=== PATIENT | male | born 1935 | race Caucasian/White ===

== ENCOUNTER 2017-11-16 11:20 | Outpatient (CLI) | payer MEDICARE ==
--- NOTE | 2017-11-17 10:40 | RAD ---
CHEST TWO VIEWS: HISTORY: Dyspnea. COMPARISON: Multiple exams, back to 02/15/2013. FINDINGS: The cardiac silhouette and pulmonary vasculature are unremarkable. The mediastinum is midline. Elev ation of the right hemidiaphragm and community acquired pneumonia scarring at the right infrahilar le shirley are stable. No lobar consolidation, pneumothorax, or pleural fluid. IMPRESSION: Chronic type findings are stable. No active cardiopulmonary abnormalities are demonstrated. POS: [facility]
== END 2017-11-16 11:21 | disposition home or self-care (01) ==
LOC: BICBD 11:20 → RAD 11:21
PROVIDERS: ATTEND Internal Medicine Critical Care Medicine
DX: R06.00 Dyspnea, unspecified (principal)
CPT/HCPCS: 71046

== ENCOUNTER 2018-02-25 21:20 | Inpatient (IN) | payer MEDICARE ==
[2018-02-25 21:57] LABS: Hemoglobin 15.9 g/dL (14.0-18.0); Mean Corpuscular HGB CONC 33.8 g/dL (32.0-36.0); Mean Corpuscular Hemoglobin 33.8 pg (27.0-31.0); Mean Platelet Volume 7.1 fL (7.4-10.4); Platelet Count 281 thou/uL (130-400); RBC Distribution Width 12.7 % (11.5-14.5)
[2018-02-25 22:15] LABS: ALT (SGPT) 15 U/L (8-55); AST (SGOT) 31 U/L (5-34); Albumin 4.1 g/dL (3.4-4.8); Alkaline Phosphatase 42 U/L (40-150); Anion Gap 16 mmol/L (10-20); BUN (Urea Nitrogen) 23 mg/dL (8.4-25.7); Bilirubin, Total 0.5 mg/dL (0.2-1.2); Calc. Creatinine Clearance 0 mL/min (70-130); Calcium 9.3 mg/dL (7.8-10.44); Carbon Dioxide 21 mmol/L (23-31); Chloride 103 mmol/L (98-107); Estimated GFR-MDRD 50; Globulin 3.2 g/dL (2.4-3.5); Glucose 111 mg/dL (83-110); Potassium 4.5 mmol/L (3.5-5.1); Protein, Total 7.3 g/dL (5.8-8.1); Sodium 135 mmol/L (136-145)
[2018-02-25 22:16] LABS: Band 14 % (5-11); Lymphocytes 6 % (21-51); MDiff Complete? YES; Monocytes 6 % (0-10); Neutrophil 74 % (42-75)
[2018-02-25] MEDS ORDERED: cefTRIAXone\\ROCEPHIN 1 GM VIAL ONE (22:30)
[2018-02-25 22:38] LABS: Bilirubin Negative (Negative); Blood, Urine Negative (Negative); Clarity CLEAR (Clear); Glucose, Urine (Dipstick) Negative (Negative); Leukocyte Negative (Negative); Nitrite Negative (Negative); Protein, Urine (Dipstick) 30 mg/dL (Neg-Trace); Urobilinogen 0.2 mg/dL (0.2-1.0); pH, Urine 5.5 (5.0-9.0)
--- NOTE | 2018-02-25 22:38 | RAD ---
PORTABLE CHEST: 02/25/18 HISTORY: Shortness of breath. COMPARISON: 11/16/17 exam. Heart size is within normal limits. There is elevation of the right hemidiaphragm. Some linear scarri ng or atelectasis in the right base. There is now some obscuration along the left heart border which would suggest possibly a lingular infiltrate. IMPRESSION: Increased parenchymal density now seen along the left heart border which could represent a developing lingular infiltrate. POS: [facility]
[2018-02-25 22:39] LABS: Bacteria/HPF None Seen HPF (None Seen); Hyaline Casts/LPF 7-10 HYALINE CAST LPF (0-3 Hyaline); Pathc Cast-AUWi Flag 1.45 (0-2.49); RBC/HPF 0-3 HPF (0-3); Squamous Epithelial 0-3 HPF (0-3)
--- NOTE | 2018-02-25 23:10 | CT ---
CT OF BRAIN PERFORMED WITHOUT CONTRAST ENHANCEMENT: 02/25/18 HISTORY: Shortness of breath. Patient fell and hit head. There is generalized ventricular and sulcal prominence. There is no signs of intracerebral hemorrhage or extra-axial fluid collections. Mastoid air cells and visualized sinuses appear clear. IMPRESSION: No acute intracranial abnormalities. POS: [facility]
[2018-02-25] MEDS ORDERED: Bacitracin Zinc 1 Packet ONE (23:19)
--- NOTE | 2018-02-25 23:34 | CT ---
CT OF CERVICAL SPINE PERFORMED WITHOUT CONTRAST ENHANCEMENT: 02/25/18 HISTORY: Fall with neck pain. The vertebral bodies are normal in height. Cystic changes are seen involving the dens. There is marke d disc narrowing at C4-5, C5-6 and C6-7. The facets appear to be in normal alignment. There is mild right sided foraminal narrowing at C4-5. Bilateral foraminal stenosis worse on the left at C5-6 with moderate canal stenosis related to a posterior osteophytic bar. There is also moderate bilateral foraminal narrowing at C6-7. There is no CT evidence for fracture. Lung apices show some em physematous change. IMPRESSION: No CT evidence of fracture of the cervical spine. POS: [facility]
--- NOTE | 2018-02-25 23:38 | CT ---
CT ANGIO OF CHEST PERFORMED WITH INTRAVENOUS CONTRAST ENHANCEMENT WITH 3D RECONSTRUCTIONS 02/25/18 HISTORY: Shortness of breath. COMPARISON: An 10/28/15 exam. The lungs show some infiltrative appearing changes within the left upper lobe in the left perihilar a nd lingular distribution. There is also some minimal infiltrative appearing change in the right middl e lobe and some chronic atelectatic change in the right base. There is also some minimal parenchymal density in the right upper lobe which appears to be more of a pneumonitis type change. The thoracic aorta is normal in caliber. It is tortuous. There is good pulmonary artery opacification. There is no CT evidence for pulmonary embolus. The visualized liver parenchyma shows no focal findings. Right and left adrenal gland are normal. IMPRESSION: 1. Bilateral infiltrative appearing lung changes. The changes are worse in the left upper lobe. 2. No CT evidence for pulmonary embolus. POS: [facility]
[2018-02-25] MEDS ORDERED: Azithromycin 500 MG VIAL ONE (23:49)
[2018-02-26 00:25] VITALS: BMI 30.2
[2018-02-26] MEDS ORDERED: Acetaminophen 325 MG TAB PO PRN (03:15)
--- NOTE | 2018-02-26 04:56 | HP ---
CHIEF COMPLAINT: Shortness of breath. HISTORY OF PRESENT ILLNESS: The patient is an 82-year-old male with a history of chronic obstructive pulmonary disease and a paralyzed right hemidiaphragm. The patient has been following with Dr. Ramos for his respiratory issues. The patient presented to the emergency department this evening. He is presently in the [facility] with his , who helps with additional history. They indicate the patient's oxygen levels have been going down somewhat over a period of time. He is not on oxygen, but feel like he may need to be. The patient has a chronic cough, which he believes was secondary to allergic rhinitis. He has been out of his Flonase, and he has had a bit more of a cough and they felt it was related to that. On 02/25, the day the patient presented to the emergency room, he was walking across the room and simply lost consciousness and passed out. He is not sure why. He did fall and hit the back of his head. He believes he impacted the corner of a desk and caused a laceration. EMS came, but the patient did not want to come in at that particular time. Subsequently, however, he continued to get worse and was becoming cyanotic with trying to ascend the stairs in the home. Therefore, they presented to the emergency department. The patient had laceration on the posterior scalp staple. The patient denies having had any fevers or chills. He has not had significant sputum production, but some sputum. He is not sure of the character as he has not been expectorating and he denies any chest pains or palpitations. REVIEW OF SYSTEMS: GENERAL: The patient has no problems or changes in his weight. He does admit to some snoring, but otherwise no major sleep problems. ENT: The patient has chronic hearing loss with hearing aids. No vision, taste, or smell abnormalities. GI: No difficulty with swallowing. No constipation or diarrhea. CARDIOVASCULAR: No chest pains, palpitations, or edema. PULMONARY: No specific wheezing noted. : No dysuria or frequency. Does have nocturia every 2 to 3 hours. SKIN: No lesions or rashes. NEUROLOGIC: The patient has some tingling in his left foot, which he relates to his chronic low back issues. He has no numbness or weakness. PSYCH: No anxiety or depression. ENDOCRINE: No polydipsia or polyuria. MUSCULOSKELETAL: Negative for any pain or abnormalities. All other systems were reviewed and pertinent positives and negatives mentioned in the history of present illness. PAST MEDICAL HISTORY: COPD, atrial fibrillation, hypertension, chronic back pain for which he sees Dr. Pan, paralyzed right hemidiaphragm. PAST SURGICAL HISTORY: Appendectomy, hernia repair x2. The patient had a history of perforated colon following colonoscopy, requiring surgical excision. The patient had some further complications, had to have a second excision done in [place]. He has also had a tonsillectomy. FAMILY HISTORY: Father of an [place] at 62. Mother had ALS. SOCIAL HISTORY: The patient is a nonsmoker. He quit in 1981. He does drink 3-4 bourbon drinks per day. He denies drugs. He is . His would be his surrogate decision maker. He is partial code and that he would like to have everything done other than chest compressions. ALLERGIES: NONE. CURRENT HOME MEDICATIONS: 1. Multivitamin 1 p.o. daily. 2. Magnesium 250 daily. 3. Breo Ellipta 1 inhalation daily. 4. Fenofibrate 145 mg per day. 5. Ranitidine 150 mg daily. 6. Losartan 25 daily. 7. Zetia 10 mg daily. 8. Pradaxa 75 mg b.i.d. 9. Calcium 600 mg daily. 10. Zebeta 5 mg daily. 11. Atorvastatin 80 mg daily. 12. Aspirin 81 mg daily. PHYSICAL EXAMINATION: VITAL SIGNS: Temperature 98.8, pulse 89, respirations 24, O2 saturation 95% on 2 L, and BP 175/80. GENERAL APPEARANCE: Age-appropriate male, he is in no distress. He is awake, alert, oriented, pleasant, and cooperative. HEENT: PERRL. No OP lesions. NECK: Supple and symmetric. No lymphadenopathy, JVD, or bruits. HEART: Regular rate and rhythm without gallops or rubs. He has a small 2/6 murmur at the left lower sternal border. LUNGS: Diminished with some basilar rales. ABDOMEN: Soft, nontender, and nondistended. Positive bowel sounds. No masses. No organomegaly. EXTREMITIES: Warm and dry with no edema. LABORATORY DATA: White count 17.0, hemoglobin 15.9, platelets 281, 74 neutrophils, 14 bands, 16 lymphocytes. Sodium 135, potassium 4.5, chloride 103, CO2 is 21, BUN is 23, creatinine is 1.37, glucose 111, lactic acid 1.3, AST 31, ALT 15, troponin 0.017, BNP is 327.6, albumin is 4.1. Urinalysis, 7-10 white cells, trace protein, no bacteria, no leukocyte esterase. Flu screen negative. CTA of the chest shows bilateral infiltrates, worse in the left upper lobe. No evidence of PE. CT scan of the brain, no intracranial acute processes. C-spine normal. Chest x-ray, lingular infiltrate. IMPRESSION AND PLAN: 1. Acute on chronic hypoxic respiratory failure. The patient reports that his O2 saturations were in the 70s on a pulse oximeter, which they have at home prior to arriving. This most likely represents combination of acute infection with pneumonia and some underlying chronic obstructive pulmonary disease and right hemidiaphragm dysfunction. 2. Pneumonia. The patient will be continued on Rocephin and azithromycin for community-acquired pneumonia in the setting of significant chronic obstructive pulmonary disease. 3. Chronic obstructive pulmonary disease, nebulizers, steroids, antibiotics. Consult Pulmonary. 4. Renal. The patient's creatinine is consistent with what it has been a previous visit, in fact may be slightly better. His GFR is 50, representing chronic stage 3 kidney disease. 5. Hypertension. Continue with losartan. 6. Hyperlipidemia. Continue with fenofibrate and Zetia and atorvastatin. Job ID: [id number]
[2018-02-26] MEDS ORDERED: Enoxaparin Sodium 40 MG/0.4 ML SYRINGE SC SCH (09:00)
[2018-02-26] MEDS ORDERED: Famotidine 20 MG TAB PO SCH (09:00)
--- NOTE | 2018-02-26 11:44 | CON ---
DATE OF CONSULTATION: HISTORY OF PRESENT ILLNESS: An 82-year-old morbidly obese gentleman, the patient of Dr. Ramos's presented with shortness of breath. He saw Dr. Ramos two months ago in the office. He presents with oxygen saturation of 94% on 2 L, temperature 100.1. He is 86 kg. Blood pressure was 157/83, respirations 33. Apparently in the ER, his sats were 81% on room air. He has chronic hypoxemia. He is being evaluated for home oxygen. He denies any chest pain, chills, or sweats. History of a paralyzed diaphragm, which Dr. Ramos has seen him for a period of time. This morning, he said he is feeling better. PAST MEDICAL HISTORY: COPD, hypertension, chronic pain, abnormal chest x-ray, high cholesterol, and atrial fibrillation. PAST SURGICAL HISTORY: Previous surgeries: Gallbladder, appendix, hernia, bowel surgery. SOCIAL HISTORY: Alcohol 5 drinks a day. Tobacco, former smoker, quit smoking 10 years ago. MEDICATIONS: His medicine from home are; 1. Ranitidine. 2. Vitamin. 3. Magnesium. 4. Losartan 25. 5. . 6. Zetia 10. 7. Pradaxa 75. 8. Calcium. 9. Zebeta 5. ALLERGIES: NONE. REVIEW OF SYSTEMS: Otherwise, 10 point negative. PHYSICAL EXAMINATION: VITAL SIGNS: As noted his saturations are 99% to 100% on 2 L, temperature 98, pulse 78, respiratory rate 21 and blood pressure is elevated 195/95. CHEST: Decreased breath sounds. No wheezing. CARDIAC: Normal S1 and S2. No gallops. ABDOMEN: Massive. EXTREMITIES: No edema. LABORATORY DATA: His white count 17,000, H and H 15 and 47. Platelet count is normal. Creatinine is 1.37, elevated, BUN was normal. He had a chest x-ray taken on admission, which showed elevated right hemidiaphragm and a questionable left-sided infiltrate. CT chest was done to rule out pulmonary emboli, which showed no evidence of pulmonary emboli, bilateral infiltrates. IMPRESSION: 1. Chronic obstructive pulmonary disease exacerbation, bronchitis, pneumonia. 2. Morbid obesity, probably sleep apnea. 3. Pneumonia. 4. Azotemia. 5. Continue neb treatment, antibiotics, steroids, and supportive care. 6. Early ambulation. He can be transferred out of the MICU to the medical floor. Consultation note, 70 minutes, of which 50% in direct patient's care. Job ID: [id number]
--- NOTE | 2018-02-26 13:14 | PDOC.PN ---
- Subjective Encounter Start Date: 02/26/18 Encounter Start Time: 11:15 Subjective: breathing better now, no chest pain or palp -: at bedside -: he normally amb without assistive devices - Objective Resuscitation Status - Order Detail: 02/26/18 03:15 Resuscitation Status Routine Resuscitation Status: PRTL: Chem-Intubation Discussed with: patient and Additional comments: Wants everything except chest compression. MAR Reviewed: Yes Vital Signs & Weight: Vital Signs (12 hours) Temp Pulse Resp BP Pulse Ox 02/26/18 11:39 98.1 F 78 22 H 199/87 H 91 L 02/26/18 08:40 99 02/26/18 07:42 98.2 F 78 21 H 197/95 H 99 02/26/18 06:54 98 02/26/18 04:20 97.7 F 92 28 H 164/86 H 97 Weight Weight 186 lb 14.4 oz I&O: 02/25/18 02/26/18 02/27/18 06:59 06:59 06:59 Intake Total 400 Output Total 225 Balance 175 Result Diagrams: 02/25/18 21:48 02/25/18 21:48 Phys Exam - Physical Examination HEENT: PERRLA, moist MMs Neck: no JVD, supple Respiratory: no wheezing rhonchi+ Cardiovascular: RRR, no significant murmur Gastrointestinal: soft, non-tender, positive bowel sounds Musculoskeletal: pulses present, edema present Neurological: non-focal, moves all 4 limbs Psychiatric: normal affect, A&O x 3 Dx/Plan (1) COPD exacerbation Code(s): J44.1 - CHRONIC OBSTRUCTIVE PULMONARY DISEASE W (ACUTE) EXACERBATION Status: Acute (2) Acute exacerbation of CHF (congestive heart failure) Code(s): I50.9 - HEART FAILURE, UNSPECIFIED Status: Suspected Qualifiers: Heart failure type: diastolic Qualified Code(s): I50.33 - Acute on chronic diastolic (congestive) heart failure (3) PNA (pneumonia) Code(s): J18.9 - PNEUMONIA, UNSPECIFIED ORGANISM Status: Acute Qualifiers: Pneumonia type: due to unspecified organism Laterality: left (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 (5) HTN (hypertension) Code(s): I10 - ESSENTIAL (PRIMARY) HYPERTENSION Status: Chronic Qualifiers: Hypertension type: essential hypertension Qualified Code(s): I10 - Essential (primary) hypertension (6) Chronic back pain Code(s): M54.9 - DORSALGIA, UNSPECIFIED; G89.29 - OTHER CHRONIC PAIN Status: Chronic Qualifiers: Back pain location: back pain in unspecified location (7) CKD (chronic kidney disease) stage 3, GFR 30-59 ml/min Code(s): N18.3 - CHRONIC KIDNEY DISEASE, STAGE 3 (MODERATE) Status: Chronic (8) Afib Code(s): I48.91 - UNSPECIFIED ATRIAL FIBRILLATION Status: Chronic Qualifiers: Atrial fibrillation type: paroxysmal Qualified Code(s): I48.0 - Paroxysmal atrial fibrillation - Plan is on zithromax and ceftriaxone -: steroid, nebs -: echo for lv function -: to ambulate as tolerated -: july tx to [facility] floor * . Review of Systems - Medications/Allergies Allergies/Adverse Reactions: Allergies Allergy/AdvReac Type Severity Reaction Status Date / Time No Known Allergies Allergy Verified 02/26/18 00:24 Medications: Current Medications Acetaminophen (Tylenol) 650 mg PO Q4H PRN PRN Reason: Headache/Fever/Mild Pain (1-3) Albuterol/Ipratropium (Duoneb) 3 ml NEB [id number] [facility] Aspirin (Aspirin Chewable) 81 mg PO DAILY [facility] Atorvastatin Calcium (Lipitor) 80 mg PO DAILY [facility] Bisoprolol Fumarate (Zebeta) 5 mg PO DAILY [facility] Calcium Carbonate (Caltrate) 600 mg PO DAILY [facility] Dabigatran (Pradaxa) 75 mg PO BID [facility] Ezetimibe (Zetia) 10 mg PO DAILY [facility] Famotidine (Pepcid) 20 mg PO DAILY [facility] Fenofibrate (Tricor) 145 mg PO DAILY [facility] Azithromycin 500 mg/ Sodium (Chloride) 250 mls @ 250 mls/hr IVPB 2300 [facility] Ceftriaxone Sodium 1 gm/ (Sodium Chloride) 100 mls @ 200 mls/hr IVPB 2100 [facility] Losartan Potassium (Cozaar) 25 mg PO DAILY [facility] Magnesium Oxide (Magnesium Oxide) 250 mg PO DAILY [facility] Methylprednisolone Sodium Succinate (Solu-Medrol) 40 mg IVP Q6HR MAX Last Admin: 02/26/18 12:58 Dose: 40 mg Mometasone Furoate/Formoterol Fumar (Dulera 200 Mcg/5 Mcg Inhaler) 2 puff INH BID-RT MAX Mometasone Furoate/Formoterol Fumar (Dulera 200 Mcg/5 Mcg Inhaler) 2 puff INH BID-RT MAX Multivitamins (Theragran) 1 tab PO DAILY MAX Sodium Chloride (Flush - Normal Saline) 10 ml IVF PRN PRN PRN Reason: Saline Flush Last Admin: 02/26/18 05:39 Dose: 10 ml
[2018-02-26] MEDS: Bisoprolol Fumarate 5 MG TAB PO SCH ×2 (13:26→13:27)
[2018-02-26] MEDS: Magnesium Oxide 250 MG TAB PO SCH (13:27)
[2018-02-26] MEDS ORDERED: Propafenone HCl 150 MG TAB PO SCH (14:00)
[2018-02-26] MEDS: Losartan 25 MG TAB PO SCH (14:14)
[2018-02-26] MEDS: Ezetimibe 10 MG TAB PO SCH (14:14)
[2018-02-26] MEDS: Fenofibrate Nanocrystallized 145 MG TAB PO SCH (14:16)
[2018-02-26] MEDS: Atorvastatin Calcium 40 MG TAB PO SCH (14:16)
[2018-02-26] MEDS: Propafenone HCl 150 MG TAB PO SCH ×2 (14:27→20:03)
[2018-02-26] MEDS: Mometasone/Formoterol 120 PUFF INHALER INH SCH ×2 (18:53→18:54)
[2018-02-26] MEDS ORDERED: cefTRIAXone\\ROCEPHIN 1 GM in Sodium Chloride 0.9% 100 ML IVPB SCH (21:00)
[2018-02-26] MEDS ORDERED: Azithromycin 500 MG in Sodium Chloride 0.9% 250 ML 250 ML IVPB SCH (23:00)
[2018-02-27] MEDS: Mometasone/Formoterol 120 PUFF INHALER INH SCH ×2 (06:54→06:56)
[2018-02-27 08:55] LABS: Anion Gap 12 mmol/L (10-20); BUN (Urea Nitrogen) 28 mg/dL (8.4-25.7); Calc. Creatinine Clearance 49 mL/min (70-130); Calcium 9.3 mg/dL (7.8-10.44); Carbon Dioxide 25 mmol/L (23-31); Chloride 105 mmol/L (98-107); Estimated GFR-MDRD 51; Glucose 169 mg/dL (83-110); Potassium 4.1 mmol/L (3.5-5.1); Sodium 138 mmol/L (136-145)
[2018-02-27] MEDS ORDERED: Famotidine 20 MG TAB PO SCH (09:00)
[2018-02-27] MEDS ORDERED: Calcium Carbonate 600 MG TAB PO SCH (09:00)
[2018-02-27] MEDS ORDERED: Non-Formulary Item 1 EACH (Ranitidine Hcl [Ranitidine Hcl] 150 MG) PO SCH (09:00)
[2018-02-27] MEDS ORDERED: Multivit, Therapeutic 1 TAB PO SCH (09:00)
[2018-02-27] MEDS: Atorvastatin Calcium 40 MG TAB PO SCH (09:06)
[2018-02-27] MEDS: Bisoprolol Fumarate 5 MG TAB PO SCH (09:07)
[2018-02-27] MEDS: Ezetimibe 10 MG TAB PO SCH (09:08)
[2018-02-27] MEDS: Fenofibrate Nanocrystallized 145 MG TAB PO SCH (09:09)
[2018-02-27] MEDS: Losartan 25 MG TAB PO SCH (09:09)
[2018-02-27] MEDS: Magnesium Oxide 250 MG TAB PO SCH (09:10)
[2018-02-27] MEDS: Propafenone HCl 150 MG TAB PO SCH (09:10)
[2018-02-27 09:14] LABS: Band 9 % (5-11); Hemoglobin 14.5 g/dL (14.0-18.0); Lymphocytes 10 % (21-51); MDiff Complete? YES; Mean Corpuscular HGB CONC 32.4 g/dL (32.0-36.0); Mean Corpuscular Hemoglobin 32.9 pg (27.0-31.0); Mean Platelet Volume 7.3 fL (7.4-10.4); Neutrophil 81 % (42-75); Platelet Count 299 thou/uL (130-400); RBC Distribution Width 12.7 % (11.5-14.5); Red Blood Cell (RBC) Count 4.39 mill/uL (4.70-6.10); White Blood Cell (WBC) Count 15.3 thou/uL (4.8-10.8)
--- NOTE | 2018-02-27 10:42 | PRG ---
DATE OF SERVICE: 02/27/2018 SUBJECTIVE: This morning, he is much better, awake, alert, responsive, in no distress. No coughing. No wheezing. OBJECTIVE: VITAL SIGNS: His saturations are 96% on room air, respiratory rate 22, temperature is 97, and blood pressure is 169/84. CHEST: Decreased breath sounds. No wheezing. CARDIAC: Normal S1 and S2. No gallops. ABDOMEN: No masses. IMPRESSION: 1. Chronic obstructive pulmonary disease exacerbation. 2. Bronchitis. 3. Pneumonia. 4. Azotemia. He can be discharged to home on oral antibiotics or prednisone for a week taper. Follow up with his primary physician. Job ID: [id number]
[2018-02-27 10:52] VITALS: BP 144/86; TEMP 98
--- NOTE | 2018-02-27 13:07 | PDOC.PN ---
- Subjective Encounter Start Date: 02/27/18 Encounter Start Time: 08:15 Subjective: wants to go home, is feeling much better - Objective Resuscitation Status - Order Detail: 02/26/18 03:15 Resuscitation Status Routine Resuscitation Status: PRTL: Chem-Intubation Discussed with: patient and Additional comments: Wants everything except chest compression. MAR Reviewed: Yes Vital Signs & Weight: Vital Signs (12 hours) Temp Pulse Resp BP BP Pulse Ox 02/27/18 10:51 98.0 F 97 16 144/86 H 93 L 02/27/18 07:25 97.8 F 83 22 H 169/84 H 96 02/27/18 06:54 81 20 90 L 02/27/18 06:46 90 L 02/27/18 06:44 81 20 90 L 02/27/18 03:56 97.3 F L 80 20 139/96 H 94 L Weight Weight 186 lb 4.8 oz I&O: 02/26/18 02/27/18 02/28/18 06:59 06:59 06:59 Intake Total 400 650 Output Total 225 1350 Balance 175 -700 Result Diagrams: 02/27/18 08:15 02/27/18 08:15 Phys Exam - Physical Examination HEENT: PERRLA, moist MMs Neck: no JVD, supple Respiratory: no wheezing, no rales rhonchi+ Cardiovascular: no significant murmur, irregular Gastrointestinal: soft, non-tender, positive bowel sounds Musculoskeletal: no edema, pulses present Neurological: non-focal, moves all 4 limbs Psychiatric: normal affect, A&O x 3 Dx/Plan (1) COPD exacerbation Code(s): J44.1 - CHRONIC OBSTRUCTIVE PULMONARY DISEASE W (ACUTE) EXACERBATION Status: Acute (2) Acute exacerbation of CHF (congestive heart failure) Code(s): I50.9 - HEART FAILURE, UNSPECIFIED Status: Suspected Qualifiers: Heart failure type: diastolic Qualified Code(s): I50.33 - Acute on chronic diastolic (congestive) heart failure (3) PNA (pneumonia) Code(s): J18.9 - PNEUMONIA, UNSPECIFIED ORGANISM Status: Acute Qualifiers: Pneumonia type: due to unspecified organism Laterality: left (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 (5) HTN (hypertension) Code(s): I10 - ESSENTIAL (PRIMARY) HYPERTENSION Status: Chronic Qualifiers: Hypertension type: essential hypertension Qualified Code(s): I10 - Essential (primary) hypertension (6) Chronic back pain Code(s): M54.9 - DORSALGIA, UNSPECIFIED; G89.29 - OTHER CHRONIC PAIN Status: Chronic Qualifiers: Back pain location: back pain in unspecified location (7) CKD (chronic kidney disease) stage 3, GFR 30-59 ml/min Code(s): N18.3 - CHRONIC KIDNEY DISEASE, STAGE 3 (MODERATE) Status: Chronic (8) Afib Code(s): I48.91 - UNSPECIFIED ATRIAL FIBRILLATION Status: Chronic Qualifiers: Atrial fibrillation type: paroxysmal Qualified Code(s): I48.0 - Paroxysmal atrial fibrillation - Plan prednisone taper, doxy -: has been cleared by for dc -: to f/u with PCP in 1 week -: to check Pulse and Bp twice daily to f/u with his PCP -: is on bystolic and propafenone * .
--- NOTE | 2018-02-27 14:00 | DIS ---
DATE OF ADMISSION: 02/25/2018 DATE OF DISCHARGE: 02/27/2018 DISCHARGE DISPOSITION: To home. PRIMARY DISCHARGE DIAGNOSES: Chronic obstructive pulmonary disease exacerbation; acute congestive heart failure exacerbation with diastolic dysfunction, stage B; left lung pneumonia. SECONDARY DISCHARGE DIAGNOSES: Chronic right hemidiaphragm paresis, hypertension, chronic back pain, chronic kidney disease stage 3, chronic paroxysmal atrial fibrillation. PROCEDURES DONE DURING HOSPITALIZATION: CT brain done showed no acute intracranial abnormalities. Chest x-ray done showed increased parenchymal density along the left heart border which could represent developing lingular infiltrate. CT angio chest showed no evidence of PE. There were bilateral infiltrative appearing lung changes with changes of worsened left upper lobe. CT cervical spine showed no fracture. Echo with 2D Doppler showed EF of 50% to 55%, diastolic dysfunction, moderate aortic regurgitation, severe tricuspid regurgitation. Blood cultures x2, no growth. Influenza A and B antigens were negative. White count of 17 on admission with 14% bands. Discharge BUN and creatinine are 28 and 1.3. BNP 327. Albumin is 4.1. INPATIENT CONSULT: Dr. Saucedo for Pulmonology and Critical Care. DISCHARGE MEDICATIONS: 1. Doxycycline 100 mg p.o. twice daily for 5 days. 2. Prednisone taper starting at 10 mg twice daily over the course of 7 days. 3. DuoNeb q.6 hourly p.r.n. 4. Ranitidine 150 mg p.o. daily. 5. Propafenone 150 mg p.o. three times daily. 6. Losartan 25 mg daily. 7. Bystolic 5 mg daily. 8. Atorvastatin 80 mg p.o. daily. 9. Aspirin 81 mg p.o. daily. 10. Pradaxa 75 mg twice daily. 11. Zetia 10 mg daily. 12. Fenofibrate 145 mg p.o. daily. 13. Magnesium 250 mg p.o. daily. 14. Multivitamin one tablet once daily. ALLERGIES: NO KNOWN DRUG ALLERGIES. DISCHARGE PLAN: The patient to follow up with primary care physician in one week. BRIEF COURSE DURING HOSPITALIZATION: The patient initially got admitted on 22 with complaints of shortness of breath. He was also wheezing on admission. The patient was essentially admitted for acute COPD exacerbation, left lung pneumonia, and mild CHF exacerbation with diastolic dysfunction. The patient initially had acute hypoxic respiratory failure with saturations in his 70s on arrival, which got corrected after nebulizations. He had multiple workups done due to fall at home as part of trauma protocol. No acute fractures were noted. The patient is on Pradaxa. This was held for 24 hours and restarted. The patient has had significant improvement in his symptoms and is wanting to go home to be there with family for [place]. He was evaluated by Dr. Saucedo for Pulmonary and Critical Care and has cleared him for discharge. The patient needs to continue prednisone taper as prescribed and doxycycline as well. He also needs to check his pulse and blood pressure twice daily. He is on Bystolic and propafenone for chronic atrial fibrillation. Please see a [id number] documentation for the day of discharge on [facility]. Job ID: [id number]
[2018-02-27] MEDS ORDERED: Doxycycline 100 MG CAP PO SCH (21:00)
[2018-02-28] MEDS ORDERED: predniSONE 20 MG TAB PO SCH (08:00)
== END 2018-02-27 13:34 | disposition home or self-care (01) | DRG 291 ==
LOC: ERS 21:20 → 2NO 22:44 → ERHOLD 23:08 → IMCU/EMU 02-26 00:15
PROVIDERS: ADMIT Internal Medicine; ATTEND Internal Medicine
DX: I13.0 Hypertensive heart and chronic kidney disease with heart failure and stage 1 through stage 4 chronic kidney disease, or unspecified chronic kidney disease (principal); J96.21 Acute and chronic respiratory failure with hypoxia; J18.9 Pneumonia, unspecified organism; I50.33 Acute on chronic diastolic (congestive) heart failure; J44.1 Chronic obstructive pulmonary disease with (acute) exacerbation; M54.9 Dorsalgia, unspecified; G89.29 Other chronic pain; J98.6 Disorders of diaphragm; R79.89 Other specified abnormal findings of blood chemistry; E78.5 Hyperlipidemia, unspecified; I48.0 Paroxysmal atrial fibrillation; N18.3 Chronic kidney disease, stage 3 (moderate); E66.01 Morbid (severe) obesity due to excess calories; Z68.30 Body mass index [BMI] 30.0-30.9, adult; Z79.82 Long term (current) use of aspirin; Z87.891 Personal history of nicotine dependence; Z82.49 Family history of ischemic heart disease and other diseases of the circulatory system
CPT/HCPCS: 36415; 70450; 71045; 71275; 72125; 80048; 80053; 81003; 81015; 83605; 83880; 84484; 85025; 87040; 87804; 93005; 93306; 94640; 94664; J0456; J0696; J2920; J7050; J7620

== ENCOUNTER 2018-03-04 09:32 | Outpatient (CLI) | payer MEDICARE ==
--- NOTE | 2018-03-04 09:57 | RAD ---
TWO VIEWS CHEST: Comparison: 02-25-18 History: Shortness of breath. Left sided pneumonia. FINDINGS: Single view of the chest shows a normal sized cardiomediastinal silhouette. There is stable elevation of the right hemidiaphragm. There is no evidence of consolidation, mass, or pleural effusion. IMPRESSION: No evidence of acute cardiopulmonary disease. POS: [facility]
== END 2018-03-04 09:33 | disposition home or self-care (01) ==
LOC: RAD-FRANK 09:32
PROVIDERS: ATTEND Nurse Practitioner Family
DX: R06.02 Shortness of breath (principal)
CPT/HCPCS: 71046

== ENCOUNTER 2018-03-28 11:45 | Outpatient (CLI) | payer MEDICARE ==
--- NOTE | 2018-03-28 16:43 | MRI ---
MRI LUMBAR SPINE WITHOUT CONTRAST: HISTORY: Lumbar stenosis with neurogenic claudication. Low back pain for many years that radiates down both l egs, with occasional tingling. COMPARISON: 09/26/2009 TECHNIQUE: An MRI of the lumbar spine is performed without IV contrast. Multisequential, multiplanar imaging is performed. FINDINGS: There is appropriate T1 marrow signal intensity of the lumbar vertebrae. Lumbar spine vertebral body height is maintained. There is no fracture. There is irregularity with mild loss of vertebral body height along the superior aspect of L2 and L3, compatible with a Schmorl's node. The adjacent bone marrow is mildly edematous. There are type II modic changes at T12-L1. There is 2.4 mm of retrolist hesis of L1 upon L2. There is 1.8 mm of retrolisthesis of L4 upon L5. The visualized solid organs have appropriate signal intensity. There is symmetric signal intensity o f the psoas muscle. The conus medullaris terminates at the T12-L1 disk space level. Based on the sagittal images, there appears to be at least moderate stenosis involving the T11-T12 le shirley, incompletely evaluated. The overall AP diameter of the central spinal canal is narrowed, secondary to congenitally foreshorte silvana pedicles. T12-L1: Small right paracentral disk bulge. Mild central canal stenosis. Mild bilateral neural for aminal narrowing. L1-L2: There is severe loss of disk space height. Broad-based disk bulge, ligamentum flavum thicken ing, and facet hypertrophy result in moderate to severe central canal stenosis. Moderate to severe b ilateral neural foraminal narrowing. L2-L3: Moderate to severe loss of disk space height. Broad-based disk bulge, ligamentum flavum thic kening, and facet hypertrophy result in severe central canal stenosis. Moderate right and left bhavesh inal narrowing. L3-L4: Moderate loss of disk space height. Broad-based disk bulge, ligamentum flavum thickening, an d facet hypertrophy result in severe central canal stenosis. Mild right and moderate left foraminal narrowing. L4-L5: Moderate loss of disk space height. Broad-based disk bulge, ligamentum flavum thickening, an d facet hypertrophy result in severe central canal stenosis. Moderate to severe right and left bhavesh inal narrowing. L5-S1: Fusion of the disk space, unchanged from the previous exam. There is an osseous spur in the left subarticular zone, which obscures the traversing left S1 nerve root. Mild stenosis of the theca l sac. Moderate right and left foraminal narrowing. IMPRESSION: Degenerative change of the lumbar spine as above. There is multilevel severe central canal stenosis and significant neural foraminal narrowing, as detailed above. POS: [facility]
== END 2018-03-28 11:46 | disposition home or self-care (01) ==
LOC: BICMRI 11:45
PROVIDERS: ATTEND Anesthesiology Pain Medicine
DX: M48.062 Spinal stenosis, lumbar region with neurogenic claudication (principal); M47.896 Other spondylosis, lumbar region; M48.07 Spinal stenosis, lumbosacral region
CPT/HCPCS: 72148

== ENCOUNTER 2018-04-27 12:46 | Outpatient (CLI) | payer MEDICARE ==
--- NOTE | 2018-04-27 14:22 | RAD ---
CHEST TWO VIEWS: Date: 04-27-18 Comparison: 11-16-17 History: Dyspnea. FINDINGS: There is elevation of the right hemidiaphragm, unchanged when compared to prior imaging. Heart and mediastinal contours are stable. No pneumothorax, pleural fluid, focal consolidation or olga eolar edema. IMPRESSION: Stable appearance of the chest. POS: [facility]
== END 2018-04-27 12:47 | disposition home or self-care (01) ==
LOC: RAD 12:46
PROVIDERS: ATTEND Internal Medicine Critical Care Medicine
DX: R06.00 Dyspnea, unspecified (principal)
CPT/HCPCS: 71046

== ENCOUNTER 2018-05-31 05:01 | Outpatient (CLI) | payer MEDICARE ==
[2018-05-31 12:46] LABS: Hemoglobin 16.4 g/dL (14.0-18.0); Mean Corpuscular HGB CONC 32.5 g/dL (32.0-36.0); Mean Corpuscular Hemoglobin 32.3 pg (27.0-31.0); Mean Corpuscular Volume 99.2 fL (78.0-98.0); Mean Platelet Volume 7.2 fL (7.4-10.4); Platelet Count 289 thou/uL (130-400); RBC Distribution Width 13.6 % (11.5-14.5); Red Blood Cell (RBC) Count 5.09 mill/uL (4.70-6.10); White Blood Cell (WBC) Count 9.7 thou/uL (4.8-10.8)
[2018-05-31 13:04] LABS: Anion Gap 15 mmol/L (10-20); BUN (Urea Nitrogen) 21 mg/dL (8.4-25.7); Calc. Creatinine Clearance 0 mL/min (70-130); Calcium 10.6 mg/dL (7.8-10.44); Carbon Dioxide 26 mmol/L (23-31); Chloride 107 mmol/L (98-107); Estimated GFR-MDRD 40; Glucose 89 mg/dL (83-110); Potassium 5.3 mmol/L (3.5-5.1); Sodium 143 mmol/L (136-145)
[2018-05-31 13:09] LABS: INR-International Normal Ratio 1.1; PTT 31.4 SEC (22.9-36.1); Prothrombin Time 14.6 SEC (12.0-14.7)
== END 2018-05-31 05:02 | disposition home or self-care (01) ==
LOC: LABBT 05:01
PROVIDERS: ATTEND Surgery
DX: Z01.812 Encounter for preprocedural laboratory examination (principal); M48.062 Spinal stenosis, lumbar region with neurogenic claudication; M48.04 Spinal stenosis, thoracic region
CPT/HCPCS: 80048; 85027; 85610; 85730

== ENCOUNTER 2018-06-03 10:08 | Inpatient (IN) | payer MEDICARE ==
[2018-06-03] MEDS ORDERED: Rocuronium Bromide 10 MG/ML (10ML VIAL) ONE (10:29)
[2018-06-03] MEDS ORDERED: Ondansetron PF 4 MG/2 ML Vial ONE (10:29)
[2018-06-03] MEDS ORDERED: ePHEDrine 50 MG/ML VIAL ONE (10:29)
[2018-06-03] MEDS ORDERED: PROPOFOL 200 MG/20 ML VIAL ONE (10:29)
[2018-06-03] MEDS ORDERED: Lidocaine 1% PF 5 ML VIAL ONE (10:29)
[2018-06-03] MEDS ORDERED: Dexamethasone 20 MG/5 ML VIAL ONE (10:29)
[2018-06-03] MEDS ORDERED: Bacitracin Zinc Ointment 30 gm TUBE ONE (12:55)
[2018-06-03] MEDS ORDERED: Sodium Chloride 0.9% 10 ML ONE (12:55)
[2018-06-03] MEDS ORDERED: Thrombin 5000 UNITS/5 ML VIAL ONE ×3 (12:55→15:50)
[2018-06-03] MEDS ORDERED: Lidocaine 2% Jelly 5 ML TUBE ONE (12:58)
[2018-06-03] MEDS ORDERED: Fentanyl 100 MCG/2 ML VIAL ONE ×2 (12:58→17:22)
[2018-06-03] MEDS ORDERED: Phenylephrine HCL 10 MG/ML VIAL ONE (12:59)
[2018-06-03] MEDS ORDERED: Albumin 5% 500 ML ONE (15:05)
[2018-06-03] MEDS ORDERED: Acetaminophen/Codeine 30-300mg Tablet PO PRN (18:22)
[2018-06-03] MEDS ORDERED: Mag-Al 1200 mg/1200 mg/30 ML UDCUP PO PRN (18:22)
[2018-06-03] MEDS ORDERED: Fleet Enema 133 ML BOT PR PRN (18:22)
[2018-06-03] MEDS ORDERED: traMADol HCl 50 MG TAB PO PRN (18:22)
[2018-06-03] MEDS ORDERED: Promethazine HCl 25 MG/ML VIAL IM PRN (18:22)
[2018-06-03] MEDS ORDERED: HYDROcodone/Acetaminophen 7.5/325 mg Tablet PO PRN (18:22)
[2018-06-03] MEDS ORDERED: Bisacodyl 10 MG SUPP PR PRN (18:22)
[2018-06-03] MEDS ORDERED: Ventilator Sedation Protocol 1 EACH FS ONE (18:26)
[2018-06-03] MEDS ORDERED: Propofol 1,000 MG/100 ML VIAL IV ONE (18:31)
[2018-06-03] MEDS ORDERED: Fentanyl BOLUS 250 ML IVPB PRN (18:36)
[2018-06-03] MEDS ORDERED: fentaNYL Citrate/PF 2,000 MCG in Sodium Chloride 0.9% 60 ML IV SCH (18:36)
[2018-06-03] MEDS ORDERED: Propofol BOLUS 1,000 MG/100 ML VIAL IV PRN (18:36)
[2018-06-03] MEDS ORDERED: DISCONTINUE PREVIOUS NARCOTIC PAIN MEDICATIONS AND BENZODIAZEPINES FS SCH (18:36)
[2018-06-03] MEDS ORDERED: Morphine 2 MG/ML SYRINGE SLOW IVP PRN (18:36)
[2018-06-03] MEDS ORDERED: Propofol 1,000 MG/100 ML VIAL IV PRN (18:36)
[2018-06-03] MEDS ORDERED: Lorazepam 2 MG/ML VIAL SLOW IVP PRN (18:36)
[2018-06-03 19:03] LABS: Actual Bicarbonate (HCO3a) 25.3 mEq/L (22-28); Base Excess (BEa) -0.9 mEq/L (-2.0 to +3.0); CO2 Tension 48.1 mmHg (35.0-45.0); Calcium, Ionized 1.17 mmol/L (1.12-1.30); Carboxyhemoglobin (COHb) 1.3 gm% (0.0-3.0); Hemoglobin (Hb) 12.7 g/dL (14.0-18.0); O2 Tension (PaO2) 86.2 mmHg (> 60.0); Potassium - ABG Lab 4.17 mmol/L (3.70-5.30); pH, Arterial 7.34 (7.35-7.45)
[2018-06-03 19:06] LABS: Puncture Site L RADIAL
[2018-06-03 19:07] LABS: ALV-art Gradient 210.175 (0-20)
[2018-06-03] MEDS: Fenofibrate Nanocrystallized 145 MG TAB PO SCH (19:30)
[2018-06-03] MEDS: Atorvastatin Calcium 40 MG TAB PO SCH (19:30)
[2018-06-03] MEDS: Ezetimibe 10 MG TAB PO SCH (19:30)
[2018-06-03] MEDS: Propafenone HCl 150 MG TAB PO SCH (19:31)
[2018-06-03] MEDS: Sodium Chloride 0.9% 1,000 ML IV SCH (19:58)
[2018-06-03] MEDS ORDERED: Budesonide 0.25 MG/2 ML NEB NEB SCH (20:00)
[2018-06-03] MEDS: CEFAZOLIN 2 GM in Premix Bag 1 BAG IVPB SCH (20:06)
[2018-06-03 23:31] VITALS: BMI 31.8
[2018-06-04] MEDS: CEFAZOLIN 2 GM in Premix Bag 1 BAG IVPB SCH (04:21)
[2018-06-04 05:47] LABS: #Lymphocytes 1.3 thou/uL (1.20-3.40); #Monocytes 0.9 thou/uL (0.11-0.59); #Neutrophils 10.9 thou/uL (1.40-6.50); %Basophils 0.3 % (0.0-1.0); %Eosinophils 0.1 % (0.0-10.0); %Lymphocytes 9.9 % (21.0-51.0); %Monocytes 6.9 % (0.0-10.0); %Neutrophils 82.9 % (42.0-75.0); Mean Corpuscular HGB CONC 32.5 g/dL (32.0-36.0); Mean Corpuscular Hemoglobin 33.2 pg (27.0-31.0); Mean Platelet Volume 7.6 fL (7.4-10.4); Platelet Count 218 thou/uL (130-400); RBC Distribution Width 13.5 % (11.5-14.5); White Blood Cell (WBC) Count 13.1 thou/uL (4.8-10.8)
[2018-06-04 05:58] LABS: Anion Gap 12 mmol/L (10-20); BUN (Urea Nitrogen) 25 mg/dL (8.4-25.7); Calc. Creatinine Clearance 41 mL/min (70-130); Calcium 8.1 mg/dL (7.8-10.44); Carbon Dioxide 25 mmol/L (23-31); Chloride 108 mmol/L (98-107); Estimated GFR-MDRD 39; Glucose 125 mg/dL (83-110); Potassium 4.4 mmol/L (3.5-5.1); Sodium 141 mmol/L (136-145)
[2018-06-04] MEDS ORDERED: Budesonide 0.25 MG/2 ML NEB NEB SCH (06:30)
[2018-06-04] MEDS ORDERED: Prevnar 13-Val Conj/PF 0.5 ML SYRINGE IM ONE (09:00)
--- NOTE | 2018-06-04 10:00 | PRG ---
DATE OF SERVICE: 06/04/2018 The patient is an 83-year-old male, postoperative day #1, status post multilevel thoracolumbar laminectomy. Following the surgery, he was transitioned to the ICU and remained intubated considering his pulmonary history. He has also been followed by the Pulmonary team. No overnight events, and he currently remains intubated at this time, but they have transitioned him to CPAP and are anticipating extubation in the near future. The patient is awake, opens eyes, is easily alert. He follows commands. He has no focal motor weakness or reflex asymmetry. From a neurosurgical standpoint, he has no neurologic changes. He appears to be comfortable currently in the ICU. Hopefully, the patient can be extubated in the near future. We will defer to Pulmonology for this. Once extubation and approval by the Pulmonology team, he could be transferred to the floor. Job ID: [id number]
--- NOTE | 2018-06-04 10:03 | CON ---
DATE OF CONSULTATION: 06/04/2018 SERVICE: Pulmonary Medicine. REASON FOR CONSULT: ICU patient. HISTORY OF PRESENT ILLNESS: The patient is an 83-year-old white male with past medical history significant for chronic back discomfort. He came in for an elective procedure. Following this procedure, it was felt that it would be safest to leave him on mechanical ventilation for one night, allow him to recover in the ICU. This morning, he is on a spontaneous breathing trial. He denies any chest pain or shortness of breath. Otherwise, he is breathing fairly comfortably and has no specific complaints. He came into this procedure in his usual state of health. The OP note is currently pending. PAST MEDICAL HISTORY: 1. COPD. 2. Atrial fibrillation. 3. Hypertension. 4. Chronic back pain. 5. Paralyzed right hemidiaphragm. PAST SURGICAL HISTORY: 1. Appendectomy. 2. Herniorrhaphy x2. 3. Partial colectomy. 4. Tonsillectomy. 5. Low back surgery. FAMILY HISTORY: Noncontributory. SOCIAL HISTORY: He drinks multiple bourbon drinks on a daily basis. He is an ex-smoker, but quit in 1981. Prior to that, he had a greater than 17-[id number] history of smoking. There is no illicit drug use. He has no exposure to chemicals, dust, asbestos, or tuberculosis. ALLERGIES: NO KNOWN DRUG ALLERGIES. MEDICATIONS: List of his inpatient medications was reviewed. Multiple updates were made at this time. REVIEW OF SYSTEMS: This cannot be obtained as the patient is currently intubated and sedated. PHYSICAL EXAMINATION: VITAL SIGNS: Afebrile, pulse 82, blood pressure 140/70, respirations 18, and saturation 92% on 27% FiO2. GENERAL: The patient is intubated and sedated. HEENT: Normocephalic and atraumatic. Sclerae are white. Conjunctivae are pink. Oral mucosa is moist without lesions. LUNGS: Decent air entry. Minimally prolonged expiratory phase with crackles. HEART: Normal rate, regular. ABDOMEN: Soft, nontender, and nondistended. Bowel sounds are positive. MUSCULOSKELETAL: No cyanosis or clubbing. There is trace pitting in bilateral lower extremities. NEUROLOGIC: Grossly nonfocal. LABORATORY DATA: WBC 13.1, hemoglobin 12.0, and platelets 218,000. PH of 7.34, pCO2 of 48, pO2 of 86 on 50% FiO2 at that time. Creatinine 1.68 and slightly above baseline. Basic metabolic profile is otherwise unremarkable. Urinalysis is negative. ASSESSMENT: 1. Acute hypoxic respiratory failure. 2. Back surgery, postop day 1. 3. Chronic kidney disease. 4. Chronic obstructive pulmonary disease without acute exacerbation. 5. Paralyzed hemidiaphragm. DISCUSSION AND PLAN: The patient is a touch volume overloaded. We will give him a dose of Lasix. I will put him on a spontaneous breathing trial. If he meets criteria, extubation will be considered. If we extubate well, we will initiate our mobilization efforts, and give the patient a diet. Pulmonary/Critical Care will continue to follow along for the time being, but if he is stable from a hemodynamic perspective into the afternoon, he can be transitioned to the floor. CRITICAL CARE TIME: 30 minutes. Job ID: [id number] MTDD
[2018-06-04] MEDS ORDERED: Furosemide 40 MG/4 ML VIAL SLOW IVP SCH (10:30)
[2018-06-04] MEDS: HYDROcodone/Acetaminophen 10/325 mg Tablet PO PRN (11:15)
[2018-06-04] MEDS: Propafenone HCl 150 MG TAB PO SCH ×3 (11:15→23:10)
[2018-06-04] MEDS: Bisoprolol Fumarate 5 MG TAB PO SCH (11:15)
[2018-06-04] MEDS: Calcium Carbonate 600 MG TAB PO SCH (11:19)
[2018-06-04] MEDS: Famotidine 20 MG TAB PO SCH (11:25)
[2018-06-04] MEDS: Magnesium Oxide 250 MG TAB PO SCH (11:32)
[2018-06-04] MEDS: Losartan 25 MG TAB PO SCH (12:29)
[2018-06-04] MEDS: Acetaminophen 325 MG TAB PO PRN (12:34)
[2018-06-04] MEDS: Sodium Chloride 0.9% 1,000 ML IV SCH (12:44)
[2018-06-04] MEDS ORDERED: Morphine 2 MG/ML SYRINGE SLOW IVP PRN (14:17)
[2018-06-04] MEDS ORDERED: tiZANidine HCl 4 MG TAB PO PRN ×2 (14:17→21:12)
[2018-06-04] MEDS: Milk Of Magnesia 30 ML UDCUP PO PRN (15:49)
[2018-06-04] MEDS: Budesonide 0.25 MG/2 ML NEB NEB SCH (18:58)
[2018-06-04] MEDS: Ezetimibe 10 MG TAB PO SCH (21:19)
[2018-06-04] MEDS: Atorvastatin Calcium 40 MG TAB PO SCH (21:19)
[2018-06-04] MEDS: Fenofibrate Nanocrystallized 145 MG TAB PO SCH (21:25)
[2018-06-05] MEDS: HYDROcodone/Acetaminophen 10/325 mg Tablet PO PRN ×3 (05:36→22:23)
--- NOTE | 2018-06-05 06:24 | PRG ---
DATE OF SERVICE: 06/05/2018 The patient is doing quite well. He is on the floor, tolerating extubation with 2 L nasal cannula. He is comfortable in bed, although pain control has been an intermittent issue. He was out of bed twice yesterday and his urinary catheter has been removed. IMPRESSION AND PLAN: Today, we will focus on continuing to get him out of bed and continue with physical therapy early next week. We can decide on inpatient rehab versus home. Job ID: [id number]
[2018-06-05] MEDS: Budesonide 0.25 MG/2 ML NEB NEB SCH ×2 (07:01→18:36)
[2018-06-05] MEDS: Magnesium Oxide 250 MG TAB PO SCH (07:57)
[2018-06-05] MEDS: Famotidine 20 MG TAB PO SCH (07:57)
[2018-06-05] MEDS: Calcium Carbonate 600 MG TAB PO SCH (07:57)
[2018-06-05] MEDS: Propafenone HCl 150 MG TAB PO SCH ×3 (07:58→21:01)
[2018-06-05] MEDS: Bisoprolol Fumarate 5 MG TAB PO SCH (07:58)
[2018-06-05] MEDS: Losartan 25 MG TAB PO SCH (07:58)
--- NOTE | 2018-06-05 11:47 | PDOC.PN ---
- Subjective Encounter Start Date: 06/05/18 Encounter Start Time: 11:44 Subjective: Seen & examined.Chart reviewed.IM team consulted for medical Management -: PCP Carmita Snell. -: POD #2 from thoracolumbar laminectomy & doing well. at bedside - Objective MAR Reviewed: Yes Vital Signs & Weight: Vital Signs (12 hours) Temp Pulse Resp BP Pulse Ox 06/05/18 11:14 98.2 F 85 18 108/71 96 06/05/18 07:30 98.4 F 84 18 122/74 94 L 06/05/18 07:23 94 L 06/05/18 07:01 77 16 92 L 06/05/18 05:31 73 20 118/71 97 06/05/18 04:00 98.7 F 81 16 103/62 91 L Weight Weight 200 lb Most Recent Monitor Data Heart Rate from ECG 74 NIBP 126/69 NIBP BP-Mean 88 Respiration from ECG 26 SpO2 97 I&O: 06/04/18 06/05/18 06/06/18 06:59 06:59 06:59 Intake Total 780.1 923 Output Total 565 860 350 Balance 215.1 63 -350 Result Diagrams: 06/04/18 04:45 06/04/18 04:45 Additional Labs: Laboratory Tests 09/14/14 09/04/15 11/02/17 07:45 08:42 08:16 Creatinine 1.50 H 1.49 H 1.66 H 02/25/18 02/27/18 05/31/18 21:48 08:15 12:30 Creatinine 1.37 H 1.33 H 1.64 H 06/04/18 04:45 Creatinine 1.68 H Phys Exam - Physical Examination Constitutional: NAD HEENT: PERRLA, moist MMs, sclera anicteric, oral pharynx no lesions Neck: no nodes, no JVD, supple, full ROM Respiratory: no wheezing, no rales, no rhonchi, clear to auscultation bilateral Cardiovascular: RRR, no significant murmur, no rub Gastrointestinal: soft, non-tender, no distention, positive bowel sounds Musculoskeletal: no edema, pulses present Neurological: non-focal, normal sensation, moves all 4 limbs Psychiatric: normal affect, A&O x 3 Skin: no rash Dx/Plan (1) COPD (chronic obstructive pulmonary disease) Status: Chronic (2) Chronic diastolic CHF (congestive heart failure), NYHA class 2 Code(s): I50.32 - CHRONIC DIASTOLIC (CONGESTIVE) HEART FAILURE Status: Chronic (3) Afib Code(s): I48.91 - UNSPECIFIED ATRIAL FIBRILLATION Status: Chronic Qualifiers: Atrial fibrillation type: paroxysmal Qualified Code(s): I48.0 - Paroxysmal atrial fibrillation Comment: OAC on hold due to Surgery (4) CKD (chronic kidney disease) stage 3, GFR 30-59 ml/min Code(s): N18.3 - CHRONIC KIDNEY DISEASE, STAGE 3 (MODERATE) Status: Chronic (5) Chronic back pain Code(s): M54.9 - DORSALGIA, UNSPECIFIED; G89.29 - OTHER CHRONIC PAIN Status: Chronic Qualifiers: Back pain location: back pain in unspecified location (6) HTN (hypertension) Code(s): I10 - ESSENTIAL (PRIMARY) HYPERTENSION Status: Chronic Qualifiers: Hypertension type: essential hypertension Qualified Code(s): I10 - Essential (primary) hypertension (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 Will add BP parameters to meds -: AM labs to follow H/H,renal Fx,lytes etc -: HD stable fo rnow -: Pradaxa on hold.No DVT prophylaxis d/t Laminectomy.increase avtivity -: Add prn meds. IM team will follow * . Review of Systems - Review of Systems Constitutional: negative: fever, chills, sweats, weakness, malaise, other ENT: negative: Ear Pain, Ear Discharge, Nose Pain, Nose Discharge, Nose Congestion, Mouth Pain, Mouth Swelling, Throat Pain, Throat Swelling, Other Respiratory: negative: Cough, Dry, Shortness of Breath, Hemoptysis, SOB with Excertion, Pleuritic Pain, Sputum, Wheezing Cardiovascular: negative: chest pain, palpitations, orthopnea, paroxysmal nocturnal dyspnea, edema, light headedness, other Genitourinary: negative: Dysuria, Frequency, Incontinence, Hematuria, Retention , Other Musculoskeletal: Back Pain. negative: Neck Pain, Shoulder Pain, Arm Pain, Hand Pain, Leg Pain, Foot Pain, Other Neurological: negative: Weakness, Numbness, Incoordination, Change in Speech, Confusion, Seizures, Other - Medications/Allergies Allergies/Adverse Reactions: Allergies Allergy/AdvReac Type Severity Reaction Status Date / Time No Known Allergies Allergy Verified 05/31/18 11:49 Medications: Current Medications Acetaminophen (Tylenol) 650 mg PO Q4H PRN PRN Reason: Headache/Fever or Pain Last Admin: 06/04/18 12:34 Dose: 650 mg Hydrocodone Bitart/Acetaminophen ([place] 10/325) 1 tab PO Q4H PRN PRN Reason: Pain Last Admin: 06/05/18 05:36 Dose: 1 tab Al Hydroxide/Mg Hydroxide (Maalox) 30 ml PO Q4H PRN PRN Reason: Indigestion Atorvastatin Calcium (Lipitor) 80 mg PO [facility] Last Admin: 06/04/18 21:19 Dose: 80 mg Bisacodyl (Dulcolax) 10 mg [place] Q12H PRN PRN Reason: Constipation Bisoprolol Fumarate (Zebeta) 5 mg PO [facility] Last Admin: 06/05/18 07:58 Dose: Not Given Budesonide (Pulmicort Neb Solution) 0.25 mg NEB BID-RT [facility] Last Admin: 06/05/18 07:01 Dose: 0.25 mg Calcium Carbonate (Caltrate) 500 mg PO DAILY [facility] Last Admin: 06/05/18 07:57 Dose: 500 mg Ezetimibe (Zetia) 10 mg PO [facility] Last Admin: 06/04/18 21:19 Dose: 10 mg Famotidine (Pepcid) 20 mg PO [facility] Last Admin: 06/05/18 07:57 Dose: 20 mg Fenofibrate (Tricor) 145 mg PO [facility] Last Admin: 06/04/18 21:25 Dose: 145 mg Losartan Potassium (Cozaar) 25 mg PO [facility] Last Admin: 06/05/18 07:58 Dose: Not Given Magnesium Hydroxide (Milk Of Magnesium) 30 ml PO Q12H PRN PRN Reason: Constipation Last Admin: 06/04/18 15:49 Dose: 30 ml Magnesium Oxide (Magnesium Oxide) 250 mg PO DAILY [facility] Last Admin: 06/05/18 07:57 Dose: 250 mg Morphine Sulfate (Morphine) 2 mg SLOW IVP Q4H PRN PRN Reason: Breakthrough pain Discontinue Previous Narcotic Pain Medications And Benzodiazepines 1 each FS .ONE MAX Stop: 07/03/18 18:36 Promethazine HCl (Phenergan) 12.5 mg IM Q4H PRN PRN Reason: Nausea/Vomiting Propafenone HCl (Rythmol) 150 mg PO TID [facility] Last Admin: 06/05/18 07:58 Dose: 150 mg Sodium Biphosphate/Sodium Phosphate (Fleet Enema) 133 ml AK ONE PRN PRN Reason: Constipation Stop: 06/05/18 18:23 Sodium Chloride (Flush - Normal Saline) 10 ml IVF PRN PRN PRN Reason: Saline Flush Tizanidine HCl (Zanaflex) 4 mg PO Q6H PRN PRN Reason: Muscle Spasm
--- NOTE | 2018-06-05 14:42 | PRG ---
DATE OF SERVICE: 06/05/2018 SERVICE: Pulmonary Medicine. INTERVAL HISTORY: The patient's breathing is a touch labored. That being said, he is getting by just fine. He does not have any cough or sputum production. He did not have any fevers or chills. He is not experiencing nausea, vomiting, or diarrhea. Otherwise, his back pain is under decent control at this point, and he is progressing as good as we could have hoped. PHYSICAL EXAMINATION: VITAL SIGNS: Afebrile, pulse 85, blood pressure 108/71, respirations 18, and saturation 96% on 2 L nasal cannula. HEENT: Normocephalic and atraumatic. Sclerae white. Conjunctivae pink. Oral mucosa is moist without lesions. LUNGS: Decent air entry. There is a prolonged expiratory phase. Minimal wheezing is present. No crackles or rhonchi appreciated. HEART: Normal rate and regular. ABDOMEN: Soft, nontender, and nondistended. Bowel sounds are positive. MUSCULOSKELETAL: No cyanosis or clubbing. No pitting in the bilateral lower extremities. NEUROLOGIC: Grossly nonfocal. ASSESSMENT: 1. Acute hypoxic respiratory failure, improving. 2. Chronic obstructive pulmonary disease without current exacerbation. 3. Chronic kidney disease. 4. Back surgery, postoperative day 2. 5. Paralyzed hemidiaphragm. DISCUSSION AND PLAN: The patient is doing absolutely wonderful from respiratory standpoint. We will continue to watch for any signs of respiratory decompensation. If something occurs, we will likely put him on some brief course of steroids. Pulmonary will continue to follow along while the patient remains inhouse. Dr. Ramos will resume care in the morning given that he has a well-established relationship with Mr. Paez. Job ID: [id number]
[2018-06-05 17:27] LABS: Bilirubin Negative (Negative); Blood, Urine Large (Negative); Clarity CLOUDY (Clear); Glucose, Urine (Dipstick) Negative (Negative); Leukocyte Moderate (Negative); Nitrite Negative (Negative); Protein, Urine (Dipstick) 100 mg/dL (Neg-Trace); Urobilinogen 0.2 mg/dL (0.2-1.0); pH, Urine 5.5 (5.0-9.0)
[2018-06-05 17:28] LABS: Bacteria/HPF None Seen HPF (None Seen); WBC/HPF 21-50 HPF (0-3)
[2018-06-05 17:29] LABS: Pathc Cast-AUWi Flag 2.85 (0-2.49)
[2018-06-05 17:39] LABS: Renal Epithelial None Seen HPF (0-3); Transitional Epithelial 0-3 HPF (0-3)
[2018-06-05 17:40] LABS: Hyaline Casts/LPF 0-3 HYALINE CAST LPF (0-3 Hyaline)
[2018-06-05 17:41] LABS: Other Casts/LPF None Seen LPF (0-3 Hyaline)
[2018-06-05] MEDS: Fenofibrate Nanocrystallized 145 MG TAB PO SCH (20:58)
[2018-06-05] MEDS: Atorvastatin Calcium 40 MG TAB PO SCH (20:58)
[2018-06-05] MEDS: Ezetimibe 10 MG TAB PO SCH (20:58)
[2018-06-06 06:23] LABS: #Eosinphils 0.1 thou/uL (0.0-0.7); #Lymphocytes 1.5 thou/uL (1.20-3.40); #Monocytes 1.1 thou/uL (0.11-0.59); #Neutrophils 8.1 thou/uL (1.40-6.50); %Basophils 0.3 % (0.0-1.0); %Eosinophils 0.6 % (0.0-10.0); %Lymphocytes 13.6 % (21.0-51.0); %Monocytes 10.4 % (0.0-10.0); %Neutrophils 75.1 % (42.0-75.0); Hemoglobin 10.8 g/dL (14.0-18.0); Mean Corpuscular HGB CONC 32.5 g/dL (32.0-36.0); Mean Corpuscular Hemoglobin 32.6 pg (27.0-31.0); Mean Platelet Volume 7.6 fL (7.4-10.4); Platelet Count 200 thou/uL (130-400); RBC Distribution Width 13.3 % (11.5-14.5); Red Blood Cell (RBC) Count 3.31 mill/uL (4.70-6.10); White Blood Cell (WBC) Count 10.8 thou/uL (4.8-10.8)
[2018-06-06] MEDS: Budesonide 0.25 MG/2 ML NEB NEB SCH ×2 (06:30→19:40)
[2018-06-06 06:33] LABS: Anion Gap 14 mmol/L (10-20); BUN (Urea Nitrogen) 33 mg/dL (8.4-25.7); Calc. Creatinine Clearance 41 mL/min (70-130); Calcium 8.4 mg/dL (7.8-10.44); Carbon Dioxide 23 mmol/L (23-31); Chloride 101 mmol/L (98-107); Estimated GFR-MDRD 39; Glucose 82 mg/dL (83-110); Sodium 134 mmol/L (136-145)
[2018-06-06] MEDS: Losartan 25 MG TAB PO SCH (08:34)
[2018-06-06] MEDS: Magnesium Oxide 250 MG TAB PO SCH (08:34)
[2018-06-06] MEDS: Famotidine 20 MG TAB PO SCH (08:34)
[2018-06-06] MEDS: Propafenone HCl 150 MG TAB PO SCH ×3 (08:34→20:26)
[2018-06-06] MEDS: Bisoprolol Fumarate 5 MG TAB PO SCH (08:35)
--- NOTE | 2018-06-06 09:17 | PRG ---
DATE OF SERVICE: 06/06/2018 This is Dominic Jarquin PA-C dictating a report for Iain Keenan MD. Mr. Paez is postoperative day #3, having undergone multilevel thoracic and lumbar laminectomies. The patient overall is doing well. He denies leg pain, though does have some aching into the right calf area. He does not have a history of DVT. He looks very comfortable and has good strength in bilateral lower extremities. He likely will benefit from inpatient rehab, although he states that he would ultimately like to go home with home health physical therapy. We will see how he does through the day and pending acceptance to the rehab. We will follow up on bilateral lower extremity ultrasounds, but otherwise the patient is doing very well postoperatively. Please call with any changes in the patient's neurologic status. The patient's was updated at the bedside as well. Job ID: [id number]
[2018-06-06] MEDS: Calcium Carbonate 500 MG ChewTAB PO SCH (09:51)
[2018-06-06] MEDS: HYDROcodone/Acetaminophen 10/325 mg Tablet PO PRN (11:03)
--- NOTE | 2018-06-06 13:05 | PDOC.PN ---
- Subjective Encounter Start Date: 06/06/18 Encounter Start Time: 13:04 Subjective: feels weak and tired.does not want to go to rehab but Home w HH - Objective MAR Reviewed: Yes Vital Signs & Weight: Vital Signs (12 hours) Temp Pulse Resp BP Pulse Ox Pulse Ox Pulse Ox 06/06/18 12:30 98.1 F 75 16 107/68 94 L 06/06/18 11:19 94 L 87 L 06/06/18 07:45 98.1 F 80 16 154/87 H 93 L 06/06/18 06:30 80 14 06/06/18 04:00 98.6 F 79 16 106/66 95 Pulse Ox 06/06/18 12:30 06/06/18 11:19 96 06/06/18 07:45 06/06/18 06:30 06/06/18 04:00 Weight Weight 201 lb Most Recent Monitor Data Heart Rate from ECG 74 NIBP 126/69 NIBP BP-Mean 88 Respiration from ECG 26 SpO2 97 I&O: 06/05/18 06/06/18 06/07/18 06:59 06:59 06:59 Intake Total 923 1450 10 Output Total 860 350 Balance 63 1100 10 Result Diagrams: 06/06/18 05:27 06/06/18 05:27 Additional Labs: Microbiology 06/04/18 17:03 Urine clean catch Urine Culture - Preliminary NO GROWTH AT 12 HOURS Phys Exam - Physical Examination Constitutional: NAD HEENT: PERRLA, moist MMs, sclera anicteric, oral pharynx no lesions Neck: no nodes, no JVD, supple, full ROM Respiratory: no wheezing, no rales, no rhonchi, clear to auscultation bilateral Cardiovascular: RRR, no significant murmur Gastrointestinal: soft, non-tender, no distention, positive bowel sounds Musculoskeletal: no edema, pulses present Neurological: non-focal, normal sensation, moves all 4 limbs Psychiatric: normal affect, A&O x 3 Dx/Plan (1) UTI (urinary tract infection) Status: Acute Qualifiers: Urinary tract infection type: acute cystitis Hematuria presence: without hematuria Qualified Code(s): N30.00 - Acute cystitis without hematuria (2) COPD (chronic obstructive pulmonary disease) Status: Chronic (3) Chronic diastolic CHF (congestive heart failure), NYHA class 2 Code(s): I50.32 - CHRONIC DIASTOLIC (CONGESTIVE) HEART FAILURE Status: Chronic (4) Afib Code(s): I48.91 - UNSPECIFIED ATRIAL FIBRILLATION Status: Chronic Qualifiers: Atrial fibrillation type: paroxysmal Qualified Code(s): I48.0 - Paroxysmal atrial fibrillation Comment: OAC on hold due to Surgery (5) CKD (chronic kidney disease) stage 3, GFR 30-59 ml/min Code(s): N18.3 - CHRONIC KIDNEY DISEASE, STAGE 3 (MODERATE) Status: Chronic (6) Chronic back pain Code(s): M54.9 - DORSALGIA, UNSPECIFIED; G89.29 - OTHER CHRONIC PAIN Status: Chronic Qualifiers: Back pain location: back pain in unspecified location (7) HTN (hypertension) Code(s): I10 - ESSENTIAL (PRIMARY) HYPERTENSION Status: Chronic Qualifiers: Hypertension type: essential hypertension Qualified Code(s): I10 - Essential (primary) hypertension (8) chronic right hemidiaphragm paresis Status: Chronic (9) S/P laminectomy Code(s): Z98.890 - OTHER SPECIFIED POSTPROCEDURAL STATES Status: Acute - Plan DVT proph w/SCDs PO levaquin.Urine Cx -: Ok to DC from IM stand point w 5 days of Po ABx -: HH orders placed. -: HD stable -: labs stable .Cr better * . Review of Systems - Review of Systems Constitutional: weakness, malaise. negative: fever, chills, sweats, other ENT: negative: Ear Pain, Ear Discharge, Nose Pain, Nose Discharge, Nose Congestion, Mouth Pain, Mouth Swelling, Throat Pain, Throat Swelling, Other Cardiovascular: negative: chest pain, palpitations, orthopnea, paroxysmal nocturnal dyspnea, edema, light headedness, other Gastrointestinal: negative: Nausea, Vomiting, Abdominal Pain, Diarrhea, Constipation, Melena, Hematochezia, Other Genitourinary: Dysuria. negative: Frequency, Incontinence, Hematuria, Retention , Other Musculoskeletal: negative: Neck Pain, Shoulder Pain, Arm Pain, Back Pain, Hand Pain, Leg Pain, Foot Pain, Other Skin: negative: Rash, Lesions, Alan, Bruising, Other Neurological: negative: Weakness, Numbness, Incoordination, Change in Speech, Confusion, Seizures, Other - Medications/Allergies Allergies/Adverse Reactions: Allergies Allergy/AdvReac Type Severity Reaction Status Date / Time No Known Allergies Allergy Verified 05/31/18 11:49 Medications: Current Medications Acetaminophen (Tylenol) 650 mg PO Q4H PRN PRN Reason: Headache/Fever or Pain Last Admin: 06/04/18 12:34 Dose: 650 mg Hydrocodone Bitart/Acetaminophen ([place] 10/325) 1 tab PO Q4H PRN PRN Reason: Pain Last Admin: 06/06/18 11:03 Dose: 1 tab Al Hydroxide/Mg Hydroxide (Maalox) 30 ml PO Q4H PRN PRN Reason: Indigestion Atorvastatin Calcium (Lipitor) 80 mg PO [facility] Last Admin: 06/05/18 20:58 Dose: 80 mg Bisacodyl (Dulcolax) 10 mg [place] Q12H PRN PRN Reason: Constipation Bisoprolol Fumarate (Zebeta) 5 mg PO QAM [facility] Last Admin: 06/06/18 08:35 Dose: 5 mg Budesonide (Pulmicort Neb Solution) 0.25 mg NEB BID-RT [facility] Last Admin: 06/06/18 06:30 Dose: 0.25 mg Calcium Carbonate (Tums) 500 mg PO DAILY [facility] Last Admin: 06/06/18 09:51 Dose: 500 mg Ezetimibe (Zetia) 10 mg PO [facility] Last Admin: 06/05/18 20:58 Dose: 10 mg Famotidine ([facility]epcid) [facility] Last Admin: 06/06/18 08:34 Dose: 20 mg Fenofibrate (Tricor) 145 mg PO [facility] Last Admin: 06/05/18 20:58 Dose: 145 mg Levofloxacin (Levaquin) 500 mg PO 0600 [facility] Last Admin: 06/06/18 06:34 Dose: 500 mg Losartan Potassium (Cozaar) [facility] Last Admin: 06/06/18 08:34 Dose: 25 mg Magnesium Hydroxide (Milk Of Magnesium) 30 ml PO Q12H PRN PRN Reason: Constipation Last Admin: 06/04/18 15:49 Dose: 30 ml Magnesium Oxide (Magnesium Oxide) 250 mg PO DAILY [facility] Last Admin: 06/06/18 08:34 Dose: 250 mg Morphine Sulfate (Morphine) 2 mg SLOW IVP Q4H PRN PRN Reason: Breakthrough pain Discontinue Previous Narcotic Pain Medications And Benzodiazepines 1 each FS .ONE [facility] Stop: 07/03/18 18:36 Promethazine HCl (Phenergan) 12.5 mg IM Q4H PRN PRN Reason: Nausea/Vomiting Propafenone HCl (Rythmol) 150 mg PO TID [facility] Last Admin: 06/06/18 08:34 Dose: 150 mg Sodium Chloride (Flush - Normal Saline) 10 ml IVF PRN PRN PRN Reason: Saline Flush Tizanidine HCl (Zanaflex) 4 mg PO Q6H PRN PRN Reason: Muscle Spasm
--- NOTE | 2018-06-06 13:11 | ULT ---
BILATERAL LOWER EXTREMITY VENOUS DOPPLER ULTRASOUND: Date: 06/06/18 HISTORY: Bilateral lower extremity pain. TECHNIQUE: Smith scale ultrasound with color flow and spectral Doppler imaging of the deep venous systems of the lower extremities was performed bilaterally. FINDINGS: There is good flow, compression, and augmentation noted in the common femoral, femoral, deep femoral, popliteal, posterior tibial, and greater saphenous veins on either side. IMPRESSION: No evidence of deep venous thrombosis in either lower extremity. POS: [facility]
--- NOTE | 2018-06-06 14:59 | PRG ---
DATE OF SERVICE: 06/06/2018 SUBJECTIVE: Jun Paez's events have been reviewed. OBJECTIVE: VITAL SIGNS: He is afebrile, heart rate 75, respiratory rate 16, oximetry is 94% on 2 L, blood pressure 107/68. LUNGS: Distant and clear. HEART: Regular rhythm. S1 and S2 are normal. ABDOMEN: Soft and nontender. EXTREMITIES: Without clubbing, cyanosis, or edema. LABORATORY DATA: White count 10.8, hemoglobin 10.8, platelets 200,000. Sodium 134, potassium 4, chloride 101, bicarb 23, BUN 33, creatinine 1.67. Blood gas on the showed pH of 7.34, CO2 of 48, pO2 86. IMPRESSION: 1. Chronic obstructive pulmonary disease without an exacerbation. 2. Chronic kidney disease. 3. Status post back surgery. 4. History of atrial fibrillation. 5. History of hypertension. 6. History of a paralyzed right hemidiaphragm. 7. History of partial colectomy. He appears to be stable. He is currently being interviewed for admission to rehab, which I think is a great idea. Job ID: [id number]
[2018-06-06] MEDS: Milk Of Magnesia 30 ML UDCUP PO PRN (20:25)
[2018-06-06] MEDS: Acetaminophen 325 MG TAB PO PRN (20:25)
[2018-06-06] MEDS: Atorvastatin Calcium 40 MG TAB PO SCH (20:26)
[2018-06-06] MEDS: Fenofibrate Nanocrystallized 145 MG TAB PO SCH (20:26)
[2018-06-06] MEDS: Ezetimibe 10 MG TAB PO SCH (20:26)
[2018-06-07] MEDS: Acetaminophen 325 MG TAB PO PRN ×2 (03:20→09:14)
[2018-06-07 07:40] VITALS: BP 179/90; TEMP 98.1
[2018-06-07] MEDS: Budesonide 0.25 MG/2 ML NEB NEB SCH (07:45)
[2018-06-07] MEDS ORDERED: cloNIDine 0.1 MG TAB PO PRN (08:51)
[2018-06-07] MEDS ORDERED: hydrALAZINE 20 MG/ML VIAL SLOW IVP PRN (08:51)
[2018-06-07] MEDS: Magnesium Oxide 250 MG TAB PO SCH (09:14)
[2018-06-07] MEDS: Losartan 25 MG TAB PO SCH (09:14)
[2018-06-07] MEDS: Famotidine 20 MG TAB PO SCH (09:14)
[2018-06-07] MEDS: Propafenone HCl 150 MG TAB PO SCH (09:14)
[2018-06-07] MEDS: Calcium Carbonate 500 MG ChewTAB PO SCH (09:14)
[2018-06-07] MEDS: Bisoprolol Fumarate 5 MG TAB PO SCH (09:19)
--- NOTE | 2018-06-07 09:22 | PRG ---
DATE OF SERVICE: 06/07/2018 This is postoperative recheck. Mr. Paez is now postoperative day #4, having undergone multiple thoracic and lumbar laminectomies. The patient states he is feeling well today. He has no back or leg pain complaints. He states he has been up walking with a walker and has requested to go home with home health. He remains with good strength in bilateral lower extremities. I have looked at his incision and it is healing well. There is some swelling of the tissues and some of this is consistent with the surgical closure. There is scant drainage on the dressing, but nothing active and it appears as though it is healing well. His bilateral lower extremity ultrasound from yesterday was negative for DVT. At this point, the patient appears as though he is ready to go home with home health and we will have our case management team arrange this. We will electronically sent his prescriptions to the pharmacy. He will also need to be on Levaquin at discharge as per our hospitalist Team. He will also need to be off supplemental oxygen prior to discharge. Please call with any changes in the patient's neurologic status. Otherwise, we will plan for dismissal later today. Job ID: [id number]
--- NOTE | 2018-06-08 11:24 | OP ---
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 PROCEDURES PERFORMED: 1. T11-T12 laminectomy, partial facetectomy, and foraminotomy. 2. L1-L2, L2-L3, L3-L4, L4-L5, L5-S1 laminectomies, partial facetectomies, and foraminotomies. DESCRIPTION OF PROCEDURE: After informed consent was obtained from the patient, the patient was brought to the OR. Proper patient, pause, and identification were carried out. He was placed under excellent general endotracheal anesthesia and positioned prone on the OR table. All appropriate points were padded. We identified the T11 all the way down to S1 dorsal spines and lamina. This region was sterilely cleansed, prepared, and draped. We then identified a linear radha and this was made over the thoracolumbar region all the way down to the sacrum. The wound was then opened with a combination of sharp, monopolar, and blunt dissection and the T11 all the way down to S1 dorsal spines and lamina were exposed. Localization film confirmed area of interest. We then performed a T11-T12 laminectomy, partial facetectomy, and foraminotomies with L1, L2, L3, L4, L5, and S1 laminectomies, partial facetectomies, and foraminotomies. A small amount of spinal fluid was encountered in the right T11-T12 segment near the facet. This was ceased with dissolvable Gel-Foam and DuraSeal was placed over this area. We had excellent decompression of the common dural tube from T11 all the way down to S1. Copious irrigation occurred throughout as did maximizing hemostasis. The wound was then closed in anatomic layers following sprinkling of vancomycin powder. The patient emerged from anesthesia. Job ID: [id number]
== END 2018-06-07 11:45 | disposition home health service (06) | DRG 518 ==
LOC: SURG A 10:08 → EDSTATUS 10:31 → CCU 18:07 → SURG B 06-04 12:28
PROVIDERS: ADMIT Surgery; ATTEND Surgery
PROC: 5A1935Z Respiratory Ventilation, Less than 24 Consecutive Hours (ICD-10-PCS; principal; 2018-06-03)
PROC: 00NX0ZZ Release Thoracic Spinal Cord, Open Approach (ICD-10-PCS; 2018-06-03)
PROC: 01N80ZZ Release Thoracic Nerve, Open Approach (ICD-10-PCS; 2018-06-03)
PROC: 01NB0ZZ Release Lumbar Nerve, Open Approach (ICD-10-PCS; 2018-06-03)
PROC: 01NR0ZZ Release Sacral Nerve, Open Approach (ICD-10-PCS; 2018-06-03)
PROC: 00NY0ZZ Release Lumbar Spinal Cord, Open Approach (ICD-10-PCS; 2018-06-03)
DX: M51.05 Intervertebral disc disorders with myelopathy, thoracolumbar region (principal); J96.01 Acute respiratory failure with hypoxia; I50.32 Chronic diastolic (congestive) heart failure; I13.0 Hypertensive heart and chronic kidney disease with heart failure and stage 1 through stage 4 chronic kidney disease, or unspecified chronic kidney disease; N30.01 Acute cystitis with hematuria; M51.15 Intervertebral disc disorders with radiculopathy, thoracolumbar region; M48.05 Spinal stenosis, thoracolumbar region; J44.9 Chronic obstructive pulmonary disease, unspecified; I48.91 Unspecified atrial fibrillation; N18.3 Chronic kidney disease, stage 3 (moderate); J98.6 Disorders of diaphragm; Z87.891 Personal history of nicotine dependence; Z90.49 Acquired absence of other specified parts of digestive tract
CPT/HCPCS: 36415; 76000; 80048; 81003; 81015; 82805; 85025; 85027; 85610; 85730; 87086; 93970; 94002; 94003; 94640; J1100; J1940; J2001; J2370; J2405; J2704; J3010; J3370; J3490; J7050; J7626; P9045

== ENCOUNTER 2019-01-31 14:21 | Outpatient (CLI) | payer MEDICARE ==
--- NOTE | 2019-01-31 14:47 | RAD ---
EXAM: XR Lumbar Spine 2 Or 3 View PROVIDED CLINICAL HISTORY: Low back pain COMPARISON: None FINDINGS: There are 5 nonrib-bearing lumbar-type vertebral bodies. There is left convex scoliosis of the thorac olumbar spine. Multilevel osteophytes are seen with narrowing of the intervertebral disc spaces at all levels of the lumbar spine. The vertebral body heights are within normal limits. No fracture or s ubluxation is seen. Laminectomy defects are seen extending from the level of the T12 vertebral body to the L5 vertebral body. Vascular calcifications are seen involving the abdominal aorta and iliac ar teries. Surgical clip overlies the right pelvis. A rounded radiopaque density is seen overlying the abdomen and anterior to the level of the L4 vertebral body only seen on the lateral view. This may be related to overlying artifact, clinical correlation is recommended. IMPRESSION: 1. Postsurgical and degenerative changes lumbar spine. No fracture or subluxation is seen. 2. Left convex scoliosis thoracolumbar spine. 3. Rounded radiopaque density anterior to the L4 vertebral body only appreciated on the lateral view. This may represent overlying artifact, but clinical correlation is recommended to exclude rounded radiopaque foreign body.
== END 2019-01-31 14:22 | disposition home or self-care (01) ==
LOC: RAD-FRANK 14:21
PROVIDERS: ATTEND Nurse Practitioner Family
DX: M47.26 Other spondylosis with radiculopathy, lumbar region (principal); M41.85 Other forms of scoliosis, thoracolumbar region; R93.89 Abnormal findings on diagnostic imaging of other specified body structures; Z98.890 Other specified postprocedural states
CPT/HCPCS: 72100; 80048

== ENCOUNTER 2019-02-15 08:56 | Outpatient (CLI) | payer MEDICARE ==
--- NOTE | 2019-02-15 09:23 | RAD ---
Exam: One view abdomen HISTORY: Abdominal pain. Evaluate for hernia. FINDINGS: Extensive laminectomy defects from L2 through L5. Multilevel degenerative disc disease Nonspecific bowel gas pattern. No suspicious densities in the abdomen and pelvis. Surgical clips proj ect over the right hemipelvis. IMPRESSION: Nonspecific bowel gas pattern. If there is concern for hernia, consider abdomen and pelvi c CT with oral and IV contrast
== END 2019-02-15 08:57 | disposition home or self-care (01) ==
LOC: RAD-FRANK 08:56
PROVIDERS: ATTEND Nurse Practitioner Family
DX: Z71.1 Person with feared health complaint in whom no diagnosis is made (principal)
CPT/HCPCS: 74018

== ENCOUNTER 2019-03-17 12:51 | Inpatient (IN) | payer MEDICARE ==
[2019-03-17] MEDS ORDERED: Ondansetron PF 4 MG/2 ML Vial ONE (13:16)
[2019-03-17] MEDS ORDERED: Morphine 4 MG/ML VIAL ONE (13:16)
[2019-03-17 13:22] LABS: #Basophils 0.1 thou/uL (0.0-0.2); #Eosinphils 0.1 thou/uL (0.0-0.7); #Lymphocytes 1.4 thou/uL (1.20-3.40); #Monocytes 0.7 thou/uL (0.11-0.59); #Neutrophils 7.1 thou/uL (1.40-6.50); %Basophils 0.7 % (0.0-1.0); %Eosinophils 0.8 % (0.0-10.0); %Lymphocytes 15.2 % (21.0-51.0); %Monocytes 7.7 % (0.0-10.0); %Neutrophils 75.7 % (42.0-75.0); Hemoglobin 15.6 g/dL (14.0-18.0); Mean Corpuscular HGB CONC 32.7 g/dL (32.0-36.0); Mean Corpuscular Hemoglobin 31.5 pg (27.0-31.0); Mean Corpuscular Volume 96.1 fL (78.0-98.0); Mean Platelet Volume 7.3 fL (7.4-10.4); Platelet Count 295 thou/uL (130-400); RBC Distribution Width 16.3 % (11.5-14.5); Red Blood Cell (RBC) Count 4.97 mill/uL (4.70-6.10); White Blood Cell (WBC) Count 9.4 thou/uL (4.8-10.8)
[2019-03-17 13:38] LABS: Bacteria/HPF None Seen HPF (None Seen); Bilirubin Negative (Negative); Blood, Urine 2+ (Negative); Clarity Clear (Clear); Glucose, Urine (Dipstick) Normal (Negative); Leukocyte Negative Leu/uL (Negative); Nitrite Negative (Negative); Protein, Urine (Dipstick) 30 mg/dL (Neg-Trace); RBC/HPF Greater than 50 HPF (0-3); Squamous Epithelial None Seen HPF (0-3); Urobilinogen Normal mg/dL (Less than 2); WBC/HPF 0-3 HPF (0-3)
--- NOTE | 2019-03-17 13:41 | CT ---
CT head noncontrast HISTORY: Fall. Head injury. COMPARISON: 02/25/2018. FINDINGS: There is no evidence of acute intracranial hemorrhage or infarct. Diffuse cortical atrophy. 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 There is no mass effect or shift of midline structures. Visualized paranasal sinuses remain well aerated. IMPRESSION: Chronic-type findings are stable. No acute intracranial abnormalities are demonstrated.
--- NOTE | 2019-03-17 13:50 | RAD ---
EXAM: XR Pelvis AP STANDARD PROVIDED CLINICAL HISTORY: Injury after a fall. Weakness in left hip and leg. Hip pain increased with movement. COMPARISON: AP view abdomen on 02/15/2019 FINDINGS: There is severe right hip osteoarthritis with severe joint space narrowing and subchondral sclerosis. Prominent osteophytes are seen involving the right hip. Mild left hip osteoarthritis is present. No fracture or dislocation is seen. Surgical clips overlie the right hip. There is evidence of laminectomy defects involving the lower ciarra mbar spine with degenerative changes in the lower lumbar spine. Vascular calcifications overlie the pelvis and in the region of the femoral arteries. IMPRESSION: 1. No acute osseous abnormality. 2. Severe right hip osteoarthritis with mild left hip osteoarthritis.
--- NOTE | 2019-03-17 13:53 | RAD ---
Exam: XR Hip Lt 2-3 View HISTORY: Injury left hip after mechanical fall. COMPARISON: None FINDINGS: There is partial visualization of severe right hip osteoarthritis. Mild left hip osteoarthritis is pr esent with mild left hip joint space narrowing. No acute fracture, dislocation, or other acute osseous abnormality is identified. Surgical clips overlie the right hip. Vascular calcifications are seen overlying the region of the fe moral arteries and iliac arteries. IMPRESSION: No acute osseous abnormality is identified.
[2019-03-17 13:58] LABS: ALT (SGPT) 33 U/L (8-55); AST (SGOT) 47 U/L (5-34); Albumin 3.9 g/dL (3.4-4.8); Alkaline Phosphatase 36 U/L (40-110); Anion Gap 11 mmol/L (10-20); BUN (Urea Nitrogen) 24 mg/dL (8.4-25.7); Bilirubin, Total 1.1 mg/dL (0.2-1.2); Calc. Creatinine Clearance 0 mL/min (70-130); Carbon Dioxide 27 mmol/L (23-31); Chloride 103 mmol/L (98-107); Estimated GFR-MDRD 37; Globulin 2.6 g/dL (2.4-3.5); Glucose 83 mg/dL (83-110); Potassium 4.4 mmol/L (3.5-5.1); Protein, Total 6.5 g/dL (5.8-8.1); Sodium 137 mmol/L (136-145)
--- NOTE | 2019-03-17 14:00 | RAD ---
PORTABLE CHEST 1 VIEW: DATE: 03/17/2019. TIME: 1:29 p.m. HISTORY: Injury, fall. FINDINGS/IMPRESSION: Comparison is made with the exam of 02/25/2018. There is continued elevation of the right hemidiaphragm. The heart size is mildly enlarged. There i s pulmonary vascular congestion. No lobar consolidation, pneumothoraces, or large effusions are seen . There are degenerative changes in the spine. POS: TPC
[2019-03-17 14:18] LABS: CKMB 9.7 ng/mL (0-6.6)
[2019-03-17] MEDS ORDERED: Nitroglycerin 0.4 MG TAB 1 EACH ONE (14:43)
[2019-03-17] MEDS ORDERED: Aspirin Chewable 81 MG TAB ONE (15:24)
[2019-03-17 17:14] LABS: Troponin I 0.037 ng/mL (< 0.028)
[2019-03-17] MEDS ORDERED: Acetaminophen 650 MG Suppository PR PRN (18:41)
[2019-03-17 19:32] LABS: Troponin I 0.055 ng/mL (< 0.028)
[2019-03-17] MEDS: Sodium Chloride 0.9% 1,000 ML IV SCH (19:48)
[2019-03-17] MEDS: Acetaminophen 325 MG TAB PO PRN (20:55)
[2019-03-17] MEDS ORDERED: Famotidine/PF 20 mg/2ml Vial SLOW IVP SCH (21:00)
--- NOTE | 2019-03-17 21:17 | RAD ---
XR Knee Lt 4 View STANDARD: 03/17/2019 8:24 PM CLINICAL INDICATION: Fall with left knee pain COMPARISON: None. FINDINGS: Bones: No acute fracture is demonstrated. Joints: There is moderate to severe osteoarthrosis involving the left knee predominantly affecting th e patellofemoral and medial femorotibial joint compartment. There is chondrocalcinosis involving the menisci of the left knee. Mild joint capsular distention.. Soft Tissue: There are vascular calcifications within the posterior soft tissues of the left knee. IMPRESSION: No acute osseous abnormality.. Moderate to severe left knee osteoarthrosis
[2019-03-17] MEDS: Fenofibrate Nanocrystallized 145 MG TAB PO SCH (21:45)
[2019-03-17] MEDS: Aspirin Chewable 81 MG TAB PO SCH (21:45)
[2019-03-17] MEDS: Atorvastatin Calcium 40 MG TAB PO SCH (21:45)
[2019-03-17] MEDS: Propafenone HCl 150 MG TAB PO SCH (21:45)
[2019-03-17] MEDS: Ezetimibe 10 MG TAB PO SCH (21:45)
--- NOTE | 2019-03-18 01:18 | HP ---
TIME OF ASSESSMENT: 1800. PRIMARY CARE PHYSICIAN: Dr. Boyer. CHIEF COMPLAINT: Fall and weakness in left knee. HISTORY OF PRESENT ILLNESS: Mr. Paez is a pleasant 83-year-old gentleman who states he has been in his usual state of health and yesterday early evening, had a fall. He states his left knee gave out from underneath him. Denies experiencing any lower extremity numbness or tingling. Denies any back pain. Denies feeling any lightheadedness, dizziness, chest pain, or trouble with his breathing. He denies tripping on anything. The patient states his legs simply gave out from underneath him. He was able to just stand up and get back into bed. Throughout the night he woke up, wants to use the washroom and states when he stood up, his left knee gave out again causing him to fall. Denies any major head injury. He again denies any preceding symptoms and was able to get back into bed. Today when he woke up he noticed limited range of motion in his knee with mild discomfort and inability to bear any weight on to his left knee. Reports mild discomfort in the left hip. In the emergency department, he underwent multiple imaging studies including a CT scan of the head which showed chronic type findings that were stable. No acute intracranial abnormalities present. He had a chest x-ray done showing continued elevation of the right hemidiaphragm with a mildly enlarged heart and pulmonary vascular congestion with no lobar consolidation, pneumothoraces, or large effusions. Degenerative changes seen in the spine. He had a left hip x-ray showing no acute osseous abnormality. He was noted to have mild left hip osteoarthritis with joint space narrowing. A pelvic x-ray was done as well showing no acute osseus abnormality. He had severe right hip osteoarthritis with mild left hip osteoarthritis. He had an EKG done showing a first-degree AV block with no ST changes or T-wave abnormalities. He had a heart rate of 69. He had laboratory studies done that showed evidence of CKD and an indeterminate troponin and therefore was admitted for further trending of his troponins. He was given 324 mg of aspirin and sublingual nitroglycerin as well as morphine and Zofran. The patient denies experiencing any chest pain in the emergency department home and per ED notes, the nitroglycerin was given due to a significantly elevated blood pressure of 239/132 at initial presentation. When he left the emergency department this had trended down to 164/97. The patient was noted to have low O2 saturations of 85% to 88%. The patient states he normally is in the high 80s range and does not use any oxygen at home. He follows with Dr. Howe regularly and according to the ED note by Dr. Howe where he was seen in the ER. PAST MEDICAL HISTORY: 1. COPD. 2. Paralyzed diaphragm. 3. Hyperlipidemia. 4. Atrial fibrillation. 5. Hypertension. 6. Chronic back pain. 7. Bone spurs. PAST SURGICAL HISTORY: 1. Cholecystectomy. 2. Appendectomy. 3. Hernia repair x2. 4. Bowel surgery. 5. Back surgery. SOCIAL HISTORY: The patient denies any heavy alcohol consumption. He reports that he quit smoking more than 10 years ago. Denies any illicit drug use. ALLERGIES: NO KNOWN DRUG ALLERGIES. CURRENT MEDICATIONS: 1. Atorvastatin. 2. Bisoprolol. 3. Zetia. 4. Pradaxa. 5. Fenofibrate. 6. Propafenone. 7. Cimetidine. PHYSICAL EXAMINATION: GENERAL: The patient appears well developed, well nourished, and in no acute distress. VITAL SIGNS: Temperature 98.1, pulse 73, respirations 20, O2 saturation 89% on 2 L by nasal cannula, blood pressure 151/73. HEENT: Normocephalic and atraumatic. Pupils are equal, round, and reactive to light. Sclerae icterus. Oropharynx is clear. NECK: Supple. LUNGS: Clear bilaterally. No wheezes, rales, or rhonchi. CARDIAC: Regular rate and rhythm. ABDOMEN: Soft, nontender, nondistended. Normoactive bowel sounds present. EXTREMITIES: No lower leg swelling or edema. Power 5/5 in all limbs. The patient with good tone involving the right lower extremity. He is able to plantarflex and extend against resistance with power intact. Good passive range of motion of the left knee, however, active range of motion very limited. The patient seems to keep his leg with the knee slightly flexed, unable to fully straighten it or straight leg raise. No difficulties with right side. No difficulties with his left upper extremity. No significant swelling involving any joint, bruising, or redness. No warmth. NEUROLOGIC: Alert and oriented x3. SKIN: Warm and dry. INVESTIGATIONS: As mentioned above in HPI. IMPRESSION AND PLAN: Mr. Paez is a pleasant 83-year-old gentleman who has been admitted for management of the following; 1. Left knee pain/falls. We will obtain an x-ray of the left knee. We will also consult Ortho even if x-ray is normal as the patient unable to bear weight and with limited range of motion. The patient would likely benefit from further imaging such as MRI of the left knee. 2. Hypertensive urgency. The patient is asymptomatic. The patient treated with nitroglycerin and blood pressure has improved to 160s systolic. Continue to monitor blood pressure. Resume home medications once verified. 3. Falls. Seem to be mechanical in nature due to difficulty with the left knee. Nonetheless, we will obtain additional tests including UA and orthostatic blood pressures. Orthostatic blood pressures will be taken once cleared by Orthopedics. PT/OT consult requested as well. 4. Chronic obstructive pulmonary disease. Continue to monitor O2. If sats go above 95%, we will need to discontinue oxygen. Of note, the patient does not use oxygen at home. If remains in the low 90s with oxygen, consider home O2 eval. Consult Pulmonary if needed. His engineering assistant is Dr. Howe. 5. Gastrointestinal prophylaxis with famotidine. 6. Deep venous thrombosis prophylaxis with mechanical sequential compression devices. 7. Code status is full. Surrogate decision maker is his , Gloria Paez. The patient's case was discussed with Dr. Whitney, who agrees with plan of care as described above. Job ID: [id number]
[2019-03-18] MEDS: Acetaminophen 325 MG TAB PO PRN ×3 (02:31→21:04)
[2019-03-18 04:23] LABS: #Basophils 0.1 thou/uL (0.0-0.2); #Eosinphils 0.1 thou/uL (0.0-0.7); #Lymphocytes 1.6 thou/uL (1.20-3.40); #Monocytes 0.8 thou/uL (0.11-0.59); %Basophils 0.9 % (0.0-1.0); %Eosinophils 1.2 % (0.0-10.0); %Lymphocytes 21.3 % (21.0-51.0); %Monocytes 10.1 % (0.0-10.0); %Neutrophils 66.5 % (42.0-75.0); Hemoglobin 13.9 g/dL (14.0-18.0); Mean Corpuscular Hemoglobin 31.3 pg (27.0-31.0); Mean Corpuscular Volume 97.7 fL (78.0-98.0); Mean Platelet Volume 7.4 fL (7.4-10.4); Platelet Count 267 thou/uL (130-400); RBC Distribution Width 16.6 % (11.5-14.5); Red Blood Cell (RBC) Count 4.46 mill/uL (4.70-6.10); White Blood Cell (WBC) Count 7.5 thou/uL (4.8-10.8)
[2019-03-18] MEDS: hydrALAZINE 20 MG/ML VIAL SLOW IVP PRN ×2 (04:36→18:25)
[2019-03-18 04:41] LABS: Anion Gap 12 mmol/L (10-20); BUN (Urea Nitrogen) 31 mg/dL (8.4-25.7); Calc. Creatinine Clearance 36 mL/min (70-130); Calcium 8.4 mg/dL (7.8-10.44); Carbon Dioxide 25 mmol/L (23-31); Chloride 106 mmol/L (98-107); Estimated GFR-MDRD 38; Glucose 79 mg/dL (83-110); Potassium 4.4 mmol/L (3.5-5.1); Sodium 139 mmol/L (136-145)
[2019-03-18] MEDS: Calcium Carbonate 600 MG TAB PO SCH (09:06)
[2019-03-18] MEDS: Famotidine 20 MG TAB PO SCH (09:06)
[2019-03-18] MEDS: Bisoprolol Fumarate 5 MG TAB PO SCH (09:06)
[2019-03-18] MEDS: Multivit, Therapeutic 1 TAB PO SCH (09:06)
[2019-03-18] MEDS: Propafenone HCl 150 MG TAB PO SCH ×3 (09:07→20:52)
[2019-03-18] MEDS ORDERED: Dexamethasone 4 mg/ml Vial ONE (10:32)
[2019-03-18] MEDS: Sodium Chloride 0.9% 1,000 ML IV SCH (14:08)
--- NOTE | 2019-03-18 16:27 | PDOC.HOSPP ---
- Subjective Encounter Date: 03/18/19 Encounter Time: 16:25 Subjective: pt up in bed does not feels well. - Objective Vital Signs & Weight: Vital Signs (12 hours) Temp Pulse Resp BP BP Pulse Ox 03/18/19 15:32 97.9 F 68 14 94 L 03/18/19 12:34 97.3 F L 67 21 H 168/92 H 93 L 03/18/19 08:00 97.4 F L 73 16 155/78 H 92 L 03/18/19 04:36 65 189/91 H Weight Admit Weight 180 lb 4.8 oz Weight 180 lb 4.8 oz Result Diagrams: 03/18/19 04:11 03/18/19 04:11 Hospitalist ROS - Review of Systems Respiratory: denies: cough, dry, shortness of breath, hemoptysis, SOB with excertion, pleuritic pain, sputum, wheezing, other Cardiovascular: denies: chest pain, palpitations, orthopnea, paroxysmal noc. dyspnea, edema, light headedness, other Gastrointestinal: denies: nausea, vomiting, abdominal pain, diarrhea, constipation, melena, hematochezia, other - Medication Medications: Active Medications Generic Name Dose Route Start Last Admin Trade Name Freq PRN Reason Stop Dose Admin Acetaminophen 650 mg 03/17/19 18:41 03/18/19 09:28 Tylenol PO 650 mg Q4H PRN Administration Headache/Fever/Mild Pain (1-3) Aspirin 81 mg 03/17/19 21:00 03/17/19 21:45 Aspirin Chewable PO 81 mg HS MAX Administration Atorvastatin Calcium 80 mg 03/17/19 21:00 03/17/19 21:45 Lipitor PO 80 mg HS MAX Administration Bisoprolol Fumarate 5 mg 03/18/19 09:00 03/18/19 09:06 Zebeta PO 5 mg QAM MAX Administration Calcium Carbonate 600 mg 03/18/19 09:00 03/18/19 09:06 Caltrate PO 600 mg QAM MAX Administration Ezetimibe 10 mg 03/17/19 21:00 03/17/19 21:45 Zetia PO 10 mg HS MAX Administration Famotidine 20 mg 03/18/19 09:00 03/18/19 09:06 Pepcid PO 20 mg QAM MAX Administration Fenofibrate 145 mg 03/17/19 21:00 03/17/19 21:45 Tricor PO 145 mg HS MAX Administration Hydralazine HCl 10 mg 03/18/19 04:29 03/18/19 04:36 Apresoline SLOW IVP 10 mg Q4H PRN Administration Hypertension Sodium Chloride 1,000 mls @ 55 mls/hr 03/17/19 18:45 03/18/19 14:08 Normal Saline 0.9% IV 1,000 mls .[id number] MAX Administration Multivitamins 1 tab 03/18/19 09:00 03/18/19 09:06 Theragran PO 1 tab QAM MAX Administration Propafenone HCl 150 mg 03/17/19 21:00 03/18/19 16:04 Rythmol PO 150 mg TID MAX Administration - Exam ENT: negative: normocephalic atraumatic, no oropharyngeal lesions, moist mucosa , dry oral mucosa Neck: negative: supple, symmetric, no JVD, no thyromegaly, no lymphadenopathy, no carotid bruit, JVD Heart: negative: RRR, no murmur, no gallops, no rubs, normal peripheral pulses, irregular, diminshed peripheral pulses, murmur present, II/IV, III/IV Gastrointestinal: negative: soft, non-tender, non-distended, normal bowel sounds , no palpable masses, no hepatomegaly, no splenomegaly, no bruit, no guarding, no rigidity, tender to palpation, distended, diminished bowl sounds, voluntary guarding Extremities - other findings: pain to his left thigh area Hosp A/P (1) Fall Code(s): W19.XXXA - UNSPECIFIED FALL, INITIAL ENCOUNTER Status: Acute (2) Elevated troponin Code(s): R79.89 - OTHER SPECIFIED ABNORMAL FINDINGS OF BLOOD CHEMISTRY Status : Acute (3) CKD (chronic kidney disease) stage 3, GFR 30-59 ml/min Code(s): N18.3 - CHRONIC KIDNEY DISEASE, STAGE 3 (MODERATE) Status: Chronic (4) COPD (chronic obstructive pulmonary disease) Status: Chronic (5) Chronic back pain Code(s): M54.9 - DORSALGIA, UNSPECIFIED; G89.29 - OTHER CHRONIC PAIN Status: Chronic (6) HTN (hypertension) Code(s): I10 - ESSENTIAL (PRIMARY) HYPERTENSION Status: Chronic Qualifiers: (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 will get MRI lumbar spine and pelvic. spoke with neruosugery who also wanted cervical given his falls. will get PT to see pt. i will start him on muscle relaxants. will get recent echo from Dr hernandes's office.
--- NOTE | 2019-03-18 20:46 | CON ---
DATE OF CONSULTATION: 03/18/2019 HISTORY OF PRESENT ILLNESS: Mr. Paez is an 83-year-old male, who has had progressively increasing incidence of falls. The patient states that he cannot prepare himself for the falls that they just come about either one of his lower extremities buckled. He is known to have severe arthritis in the left knee as well as severe arthritis in the right hip. He states that the right hip and left knee are not causing severe amount of problems. He did have a 4-level back surgery performed last year and is concerned that his falling and giving way may be associated with that. Because of the severe arthritis in the left knee and possibility that it may be coming from that, I was consulted for evaluation of the left knee. PHYSICAL EXAMINATION: The patient has passively range of motion on his left knee from 10 to 110 degrees with minimal discomfort. He has a genu varus attitude. There is a palpable spur, particularly in the medial compartment as well as patellofemoral joint. There are crepitus and popping with range of motion. The ligaments are intact and there is a moderate effusion. The patient is very weak and is unable to actively lift the left lower extremity that for a very short period of time. IMAGING: X-rays were reviewed and the patient does have severe arthritis in the left knee, particularly in the medial compartment. There is moderate arthritic changes in the patellofemoral joint and in the lateral compartment. He has severe arthritis in the right hip as well with [id number] apposition. IMPRESSION: The patient's main problem at this point is frequent falling, which he feels he cannot successfully overcome. It does not sound like the fall from the arthritic joint, but more of lack of proprioception, which may indeed be from his lower back. PLAN: To help relieve the pain in the left knee, today, the left knee joint was injected with 2 mL dexamethasone as well as Marcaine and lidocaine. Hopefully, this will give him some relief of pain. I would recommend that he have evaluation by neurosurgeon, who operated on his back last year, possibly get a MRI of his back or whenever the test they feel is appropriate until the physical therapy would be very appropriate to try to help him avoid any further falling and get him as much strength as possible. Job ID: [id number]
[2019-03-18] MEDS: Ezetimibe 10 MG TAB PO SCH (20:52)
[2019-03-18] MEDS: Cyclobenzaprine 10 MG TAB PO SCH (20:52)
[2019-03-18] MEDS: Aspirin Chewable 81 MG TAB PO SCH (20:52)
[2019-03-18] MEDS: Fenofibrate Nanocrystallized 145 MG TAB PO SCH (20:52)
[2019-03-18] MEDS: Atorvastatin Calcium 40 MG TAB PO SCH (20:52)
--- NOTE | 2019-03-18 20:59 | CON ---
DATE OF CONSULTATION: HISTORY OF PRESENT ILLNESS: The patient is an 83-year-old male with a past medical history of thoracolumbar stenosis, hypertension, hyperlipidemia, atrial fibrillation, and COPD, who presented to the emergency department yesterday for increased left leg weakness and frequent falls. The patient is known to Dr. Keenan's service for thoracolumbar laminectomy from T11-S1 back in June 2018. Following the surgery, he did well until approximately 3 or 4 months ago when he had gradual return of left proximal leg pain and some weakness in the left leg as well. He reports over the last 4 months, he has had several falls. Yesterday evening, he reports he tried to get up out of bed and his left leg suddenly gave way. He is also complaining of some discomfort in the left knee and the left hip. He was evaluated by Orthopedics. X-rays were notable for mild left hip osteoarthritis and severe left knee osteoarthritis. However, Orthopedics did not feel that this was likely the cause of his some progressive weakness in the left leg. PAST MEDICAL HISTORY: Thoracolumbar stenosis, atrial fibrillation, hypertension, hyperlipidemia, and COPD. PAST SURGICAL HISTORY: Cholecystectomy, appendectomy, hernia repair, bowel surgery, T11-S1 laminectomy. SOCIAL HISTORY: The patient does not currently smoke, drink, or use any drugs. ALLERGIES: NO KNOWN DRUG ALLERGIES. REVIEW OF SYSTEMS: Per HPI. PHYSICAL EXAMINATION: VITAL SIGNS: Temperature is 97.9, pulse 68, respiratory rate is 14. The patient is 94% on 2 L nasal cannula. BP is 168/92. HEENT: Head is normocephalic and atraumatic. Eyes; PERRLA. Extraocular movements intact. ENT; oral mucosa is pink, intact, and moist. He has normal voice. NECK: Nontender to palpation. Free active range of motion. No meningismus. No nuchal rigidity. CARDIAC: Regular rate and rhythm. LUNGS: Symmetric chest expansion. No evidence of dyspnea. MUSCULOSKELETAL: Free active range of motion in the upper extremity. No focal motor weakness in the upper extremities. No reflex asymmetry. Negative Ryan's in the lower extremity. He is weak in the left proximal leg, particularly with flexion of the left knee and of the left hip. He is unable to fully straighten the left leg or lift the left leg off the bed. He has 5/5 strength throughout the right lower extremity. He has normal reflexive in the lower extremities and he has negative clonus. NEUROLOGIC: A and O x4. Weakness of the left leg is noted in the musculoskeletal exam. IMPRESSION AND PLAN: This is an 83-year-old male, known for significant thoracolumbar stenosis with prior long-segment laminectomies by Dr. Keenan, who presents with progressive left leg weakness and several falls over the last few months. We will plan to evaluate him further with MRI of the cervical, thoracic, and lumbar spine. Unfortunately, he is unable to have IV contrast secondary to his chronic kidney disease. I will follow these MRIs closely and reviewed them with Dr. Garcia once complete. Job ID: [id number]
[2019-03-19] MEDS: hydrALAZINE 20 MG/ML VIAL SLOW IVP PRN (03:45)
[2019-03-19] MEDS: traMADol HCl 50 MG TAB PO PRN ×2 (04:49→12:03)
[2019-03-19] MEDS: Sodium Chloride 0.9% 1,000 ML IV SCH (08:56)
[2019-03-19] MEDS: Cyclobenzaprine 10 MG TAB PO SCH ×2 (08:59→20:06)
[2019-03-19] MEDS: Bisoprolol Fumarate 5 MG TAB PO SCH (08:59)
[2019-03-19] MEDS: Propafenone HCl 150 MG TAB PO SCH ×3 (08:59→20:07)
[2019-03-19] MEDS: Famotidine 20 MG TAB PO SCH (08:59)
[2019-03-19] MEDS: Calcium Carbonate 600 MG TAB PO SCH (08:59)
[2019-03-19] MEDS: Multivit, Therapeutic 1 TAB PO SCH (08:59)
[2019-03-19] MEDS: hydrALAZINE 25 MG TAB PO SCH ×3 (11:07→20:06)
--- NOTE | 2019-03-19 12:46 | PDOC.HOSPP ---
- Subjective Subjective: Seen and examined surrounded by his family and loved ones. Left-sided weakness in the leg. Numbness and tingling in the leg occasionally. Neurosurgery on the case recommending MRI of the spine. Blood pressure medications adjusted. Time was given for questions, all answered in detail. - Objective Vital Signs & Weight: Vital Signs (12 hours) Temp Pulse Resp BP BP Pulse Ox 03/19/19 11:20 98.0 F 76 16 142/67 H 93 L 03/19/19 07:40 97.6 F 71 16 162/77 H 95 03/19/19 03:45 71 186/87 H 03/19/19 03:33 97.8 F 69 18 185/88 H 92 L Weight Admit Weight 180 lb 4.8 oz Weight 180 lb 4.8 oz Result Diagrams: 03/18/19 04:11 03/18/19 04:11 Hospitalist ROS - Review of Systems All other systems reviewed; all pertinent +/- noted in HPI/Subj - Medication Medications: Active Medications Generic Name Dose Route Start Last Admin Trade Name Freq PRN Reason Stop Dose Admin Acetaminophen 650 mg 03/17/19 18:41 03/18/19 21:04 Tylenol PO 650 mg Q4H PRN Administration Headache/Fever/Mild Pain (1-3) Aspirin 81 mg 03/17/19 21:00 03/18/19 20:52 Aspirin Chewable PO 81 mg HS MAX Administration Atorvastatin Calcium 80 mg 03/17/19 21:00 03/18/19 20:52 Lipitor PO 80 mg HS MAX Administration Bisoprolol Fumarate 5 mg 03/18/19 09:00 03/19/19 08:59 Zebeta PO 5 mg QAM MAX Administration Calcium Carbonate 600 mg 03/18/19 09:00 03/19/19 08:59 Caltrate PO 600 mg QAM MAX Administration Cyclobenzaprine HCl 10 mg 03/18/19 21:00 03/19/19 08:59 Flexeril PO 03/20/19 21:01 10 mg BID MAX Administration Ezetimibe 10 mg 03/17/19 21:00 03/18/19 20:52 Zetia PO 10 mg HS MAX Administration Famotidine 20 mg 03/18/19 09:00 03/19/19 08:59 Pepcid PO 20 mg QAM MAX Administration Fenofibrate 145 mg 03/17/19 21:00 03/18/19 20:52 Tricor PO 145 mg HS MAX Administration Hydralazine HCl 10 mg 03/18/19 04:29 03/19/19 03:45 Apresoline SLOW IVP 10 mg Q4H PRN Administration Hypertension Hydralazine HCl 25 mg 03/19/19 09:00 03/19/19 11:07 Apresoline PO 25 mg TID MAX Administration Multivitamins 1 tab 03/18/19 09:00 03/19/19 08:59 Theragran PO 1 tab QAM MAX Administration Propafenone HCl 150 mg 03/17/19 21:00 03/19/19 08:59 Rythmol PO 150 mg TID MAX Administration Tramadol HCl 50 mg 03/18/19 04:29 03/19/19 12:03 Ultram PO 50 mg Q6H PRN Administration Severe Pain (7-10) - Exam General Appearance: NAD, awake alert Eye: PERRL ENT: normocephalic atraumatic, moist mucosa Neck: supple, symmetric, no lymphadenopathy Heart: no murmur, no gallops, no rubs Respiratory: CTAB, no wheezes, no rales, no ronchi, normal chest expansion Gastrointestinal: soft, non-tender, no guarding, no rigidity Extremities: no edema Skin: no lesions, no rashes Neurological: cranial nerve grossly intact, no focal deficits Neurological - other findings: Left leg weakness mild 4/5 Musculoskeletal: generalized weakness Psychiatric: normal affect, normal behavior, A&O x 3 Hosp A/P (1) Left leg weakness Code(s): R29.898 - OTH SYMPTOMS AND SIGNS INVOLVING THE MUSCULOSKELETAL SYSTEM Status: Acute (2) Fall Code(s): W19.XXXA - UNSPECIFIED FALL, INITIAL ENCOUNTER Status: Acute (3) S/P laminectomy Code(s): Z98.890 - OTHER SPECIFIED POSTPROCEDURAL STATES Status: Acute (4) Afib Code(s): I48.91 - UNSPECIFIED ATRIAL FIBRILLATION Status: Chronic Qualifiers: Atrial fibrillation type: paroxysmal Qualified Code(s): I48.0 - Paroxysmal atrial fibrillation (5) CKD (chronic kidney disease) stage 3, GFR 30-59 ml/min Code(s): N18.3 - CHRONIC KIDNEY DISEASE, STAGE 3 (MODERATE) Status: Chronic (6) COPD (chronic obstructive pulmonary disease) Status: Chronic (7) Chronic back pain Code(s): M54.9 - DORSALGIA, UNSPECIFIED; G89.29 - OTHER CHRONIC PAIN Status: Chronic (8) Chronic diastolic CHF (congestive heart failure), NYHA class 2 Code(s): I50.32 - CHRONIC DIASTOLIC (CONGESTIVE) HEART FAILURE Status: Chronic (9) HTN (hypertension) Code(s): I10 - ESSENTIAL (PRIMARY) HYPERTENSION Status: Chronic Qualifiers: (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 prophylaxis
--- NOTE | 2019-03-19 12:50 | MRI ---
MRI CERVICAL SPINE WITHOUT CONTRAST: HISTORY: Fall. Pain. Weakness. COMPARISON: None. FINDINGS: Appropriate T1 marrow signal intensity of the cervical vertebrae. Vertebral body height is maintained . No fracture. There are type I and type II Modic changes at the C5-C6 disc space. Spondylolisthesis: C4-C5: 2.1 mm of anterolisthesis C7-T1: 3.0 mm anterolisthesis The visualized brain parenchyma, cervicomedullary junction, cervical cord and upper thoracic cord hav e a normal size and signal intensity. Sagittal and axial images are degraded due to motion. C2-C3: No significant central canal stenosis. Neural foramina are patent. C3-C4: No significant central canal stenosis. Neural foramina are patent. C4-C5: Broad-based disc bulge abuts the thecal sac. Mild central canal stenosis. Mild bilateral bhavesh inal narrowing. C5-C6: Broad-based disc osteophyte complex with moderate to severe central canal stenosis. Mild bilat eral foraminal narrowing. C6-C7: Broad-based disc bulge with a small central disc protrusion. Mild central canal stenosis. Mode rate to severe bilateral foraminal narrowing. C7-T1: Minimal left paracentral disc bulge. No significant canal stenosis. Mild bilateral foraminal n arrowing. IMPRESSION: Degenerative changes of the cervical spine as described above. Evaluation is limited due to motion de gradation. Transcribed Date/Time: 03/19/2019 1:05 PM
--- NOTE | 2019-03-19 13:25 | MRI ---
MRI THORACIC SPINE WITHOUT CONTRAST: HISTORY: Left leg weakness. Multiple falls. COMPARISON: None. FINDINGS: Limited evaluation due to motion degradation on multiple sequences. Mildly heterogeneous T1 marrow signal intensity likely due to senescent change. Thoracic spine verteb ral body height is maintained. There is no fracture. There is a small amount of nonspecific edema and fluid in the T8-T9 disc space. Irregularity along the inferior endplate of T8 likely represent a remote Schmorl's node. The superior endplate of T9 is preserved. Similar edematous change is noted in the T7-T8 disc space. The visualized mediastinum, lung parenchyma and solid organs are unremarkable. The conus medullaris terminates at the mid L1 level. The thoracic cord has an overall normal size and signal intensity. No cord malacia. No cord expansion. T1-T2: Mild central canal stenosis secondary to posterior disc protrusion. T2-T3: Minimal central canal stenosis secondary to right paracentral disc protrusion. T3-T4: No significant central canal stenosis. T4-T5: No significant central canal stenosis. T5-T6: Minimal left paracentral disc protrusion. No significant central canal stenosis. T6-T7: Broad-based disc bulge with a central and right paracentral disc protrusion. Moderate to sever e central canal stenosis. T7-T8: No significant central canal stenosis. T8-T9: No significant central canal stenosis. T9-T10: Moderate to severe central canal stenosis secondary to a broad-based disc bulge with a centra l/right paracentral protrusion. T10-T11: Mild central canal stenosis due to broad-based disc bulge. T11-T12: Mild central canal stenosis. T12-L1: Mild central canal stenosis due to broad-based disc bulge with a central and right subarticul ar protrusion. Throughout the thoracic spine, neural foramina are patent. There is an exception in that the right T1 1-T12 neural foramen is severely narrowed. Moderate left foraminal narrowing at T11-T12. IMPRESSION: 1. Moderate to severe central canal stenosis at T6-T7 and T9-T10. 2. Bilateral significant neural foraminal narrowing at T11-T12. Transcribed Date/Time: 03/19/2019 1:53 PM
--- NOTE | 2019-03-19 13:48 | MRI ---
MRI LUMBAR SPINE WITHOUT CONTRAST: HISTORY: Fall. Previous surgery. Weakness. COMPARISON: 03/28/2018 FINDINGS: Extensive decompressive laminectomy defect from L1-L2 through L5-S1. The sagittal STIR sequence demon strates nonspecific, heterogeneous signal intensity in the posterior soft tissues, which is presumed to be postoperative. There does appear to be nonspecific fluid signal intensity adjacent to the posterior thecal sac at the L1 and L2 level, measuring 2.7 cm craniocaudal by 0.6 cm anterior-posterior by 1 cm mediolateral. Postoperative fluid collection versus an infected fluid herberth ection are differential considerations. Absence of gadolinium limits evaluation. No significant mass effect upon the thecal sac. Overall there is appropriate T1 marrow signal intensity of the lumbar vertebrae. No fracture. Stable grade 1 retrolisthesis of L1 upon L2. Stable fusion of the L5-S1 disc space. Appropriate signal intensity of the psoas muscles and visualized solid organs. Conus medullaris terminates at the inferior aspect of L1. T12-L1: Mild central canal stenosis due to disc bulge. Moderate right and mild left neural foraminal narrowing. L1-L2: Stable disc desiccation and severe loss of disc space height. Posterior decompressive laminect blu defect. Fluid signal intensity posterior to the thecal sac, as described above. Moderate central canal stenosis. Moderate to severe bilateral foraminal narrowing. L2-L3: Stable moderate to severe loss of disc space height. Decompressive laminectomy defect. Broad-b ased disc bulge does flatten the thecal sac. Mild central canal stenosis. Moderate to severe right and left foraminal narrowing. L3-L4: Stable disc desiccation with loss of disc space height. Broad-based disc bulge abuts the theca l sac. Encroachment upon both subicular zones without significant obscuration of either traversing L4 nerve root. Overall there is mild central canal stenosis. Decompressive laminectomy defect is iden tified. Moderate to severe right and severe left neural foraminal narrowing L4-L5: Stable disc desiccation with loss of disc space height. Broad-based disc bulge with central cabello perior disc extrusion. There is some mass effect upon bilateral traversing L5 nerve roots. Decompressive laminectomy defect. Mild central canal stenosis. Bilateral facet hypertrophy with fluid in both facet joints. Moderate to severe right neural foraminal narrowing. Severe left foraminal narrowing. L5-S1: Stable fusion of the disc space. Posterior laminectomy defect. There is narrowing of the left subarticular zone, likely due to a prominent osteophyte, which has slightly progressed since the previous examination. There is complete obscuration of the traversing left S1 nerve root. Stable, mil d stenosis of the thecal sac. Posterior decompressive laminectomy defect is identified. Moderate right and moderate to severe left foraminal narrowing. IMPRESSION: 1. Extensive post surgical changes, lumbar spine, as described above. 2. Nonspecific fluid signal intensity just adjacent to the posterior thecal sac at the L1 and L2 leve l. Postoperative fluid collection/seroma versus abscess are differential considerations 3. Extensive multilevel degenerative changes of the lumbar spine as described above. CODE T Transcribed Date/Time: 03/19/2019 2:00 PM
[2019-03-19] MEDS ORDERED: Docusate 100 MG CAP PO PRN (14:04)
[2019-03-19] MEDS ORDERED: Polyethylene Glycol 3350 17 GM Packet PO PRN (14:04)
--- NOTE | 2019-03-19 14:41 | PRG ---
DATE OF SERVICE: 03/19/2019 The patient was seen and examined. I agree with Miriam Fleming's evaluation on 03/18/2019. The patient is an 83-year-old man, known to Dr. Keenan from a previous thoracolumbar laminectomy, who has had progressive difficulty with left leg pain and weakness, but this was exacerbated over the last day or two with a recent fall as well. He has significant joint pain, has been evaluated by Orthopedics with an injection in his knee. We will obtain MRI scan of the cervical, thoracic, and lumbar spines to further investigate. If these do not define the explanation, he may need further brain imaging to rule out stroke. Discussed with the patient and his . Job ID: [id number]
[2019-03-19] MEDS: Ezetimibe 10 MG TAB PO SCH (20:06)
[2019-03-19] MEDS: Aspirin Chewable 81 MG TAB PO SCH (20:06)
[2019-03-19] MEDS: Atorvastatin Calcium 40 MG TAB PO SCH (20:06)
[2019-03-19] MEDS: Fenofibrate Nanocrystallized 145 MG TAB PO SCH (20:07)
[2019-03-20] MEDS: hydrALAZINE 25 MG TAB PO SCH ×3 (08:17→21:54)
[2019-03-20] MEDS: Bisoprolol Fumarate 5 MG TAB PO SCH (08:17)
[2019-03-20] MEDS: Cyclobenzaprine 10 MG TAB PO SCH ×2 (08:17→08:25)
[2019-03-20] MEDS: Calcium Carbonate 600 MG TAB PO SCH (08:18)
[2019-03-20] MEDS: Multivit, Therapeutic 1 TAB PO SCH (08:18)
[2019-03-20] MEDS: Famotidine 20 MG TAB PO SCH (08:18)
[2019-03-20] MEDS: Propafenone HCl 150 MG TAB PO SCH ×3 (08:18→21:54)
[2019-03-20] MEDS: Acetaminophen 325 MG TAB PO PRN (08:18)
--- NOTE | 2019-03-20 10:24 | PDOC.HOSPP ---
- Subjective Encounter Date: 03/20/19 Encounter Time: 10:30 Subjective: Patient with hard night per , coughing on and off, muttering and talking when no one there. Night nurse didn't report any difficulties. Patient a little confused and speech a little slurred when I just woke him up, clears if he sits upright and he is A&O without confusion or hallucinations. concerned he may be having side effects of current meds, possibly the Flexeril. - Objective Vital Signs & Weight: Vital Signs (12 hours) Temp Pulse Resp BP BP Pulse Ox 03/20/19 08:17 65 177/84 H 03/20/19 07:58 96.7 F L 65 22 H 177/84 H 97 03/20/19 04:00 63 18 177/82 H 98 Weight Admit Weight 180 lb 4.8 oz Weight 180 lb Result Diagrams: 03/18/19 04:11 03/18/19 04:11 Hospitalist ROS - Review of Systems Constitutional: denies: fever, chills Respiratory: denies: cough, shortness of breath Cardiovascular: denies: chest pain, palpitations, orthopnea Gastrointestinal: denies: nausea, vomiting, abdominal pain Genitourinary: denies: dysuria, frequency, hematuria Musculoskeletal: reports: back pain, leg pain Neurological: reports: weakness - Medication Medications: Active Medications Generic Name Dose Route Start Last Admin Trade Name Freq PRN Reason Stop Dose Admin Acetaminophen 650 mg 03/17/19 18:41 03/20/19 08:18 Tylenol PO 650 mg Q4H PRN Administration Headache/Fever/Mild Pain (1-3) Aspirin 81 mg 03/17/19 21:00 03/19/19 20:06 Aspirin Chewable PO 81 mg HS MAX Administration Atorvastatin Calcium 80 mg 03/17/19 21:00 03/19/19 20:06 Lipitor PO 80 mg HS MAX Administration Bisoprolol Fumarate 5 mg 03/18/19 09:00 03/20/19 08:17 Zebeta PO 5 mg QAM MAX Administration Calcium Carbonate 600 mg 03/18/19 09:00 03/20/19 08:18 Caltrate PO 600 mg QAM MAX Administration Cyclobenzaprine HCl 10 mg 03/18/19 21:00 03/20/19 08:25 Flexeril PO 03/20/19 21:01 Not Given BID MAX Ezetimibe 10 mg 03/17/19 21:00 03/19/19 20:06 Zetia PO 10 mg HS MAX Administration Famotidine 20 mg 03/18/19 09:00 03/20/19 08:18 Pepcid PO 20 mg QAM MAX Administration Fenofibrate 145 mg 03/17/19 21:00 03/19/19 20:07 Tricor PO 145 mg HS MAX Administration Hydralazine HCl 10 mg 03/18/19 04:29 03/19/19 03:45 Apresoline SLOW IVP 10 mg Q4H PRN Administration Hypertension Hydralazine HCl 25 mg 03/19/19 09:00 03/20/19 08:17 Apresoline PO 25 mg TID MAX Administration Multivitamins 1 tab 03/18/19 09:00 03/20/19 08:18 Theragran PO 1 tab QAM MAX Administration Propafenone HCl 150 mg 03/17/19 21:00 03/20/19 08:18 Rythmol PO 150 mg TID MAX Administration Tramadol HCl 50 mg 03/18/19 04:29 03/19/19 12:03 Ultram PO 50 mg Q6H PRN Administration Severe Pain (7-10) - Exam General Appearance: NAD General - other findings: easily arousable, wakes up completely once sitting upright Heart: RRR, no murmur, no gallops, no rubs Respiratory: CTAB, no wheezes, no rales, no ronchi Gastrointestinal: soft, non-tender, non-distended, normal bowel sounds Extremities: no edema Psychiatric: normal affect, normal behavior, A&O x 3 Hosp A/P (1) Left leg weakness Code(s): R29.898 - [facility] SYMPTOMS AND SIGNS INVOLVING THE MUSCULOSKELETAL SYSTEM Status: Acute (2) Fall Code(s): W19.XXXA - UNSPECIFIED FALL, INITIAL ENCOUNTER Status: Acute (3) S/P laminectomy Code(s): Z98.890 - OTHER SPECIFIED POSTPROCEDURAL STATES Status: Chronic (4) Afib Code(s): I48.91 - UNSPECIFIED ATRIAL FIBRILLATION Status: Chronic Qualifiers: Atrial fibrillation type: paroxysmal Qualified Code(s): I48.0 - Paroxysmal atrial fibrillation (5) CKD (chronic kidney disease) stage 3, GFR 30-59 ml/min Code(s): N18.3 - CHRONIC KIDNEY DISEASE, STAGE 3 (MODERATE) Status: Chronic (6) COPD (chronic obstructive pulmonary disease) Status: Chronic (7) Chronic back pain Code(s): M54.9 - DORSALGIA, UNSPECIFIED; G89.29 - OTHER CHRONIC PAIN Status: Chronic (8) Chronic diastolic CHF (congestive heart failure), NYHA class 2 Code(s): I50.32 - CHRONIC DIASTOLIC (CONGESTIVE) HEART FAILURE Status: Chronic (9) HTN (hypertension) Code(s): I10 - ESSENTIAL (PRIMARY) HYPERTENSION Status: Chronic Qualifiers: (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 Plan to try PT and medictions, if not successful will consider surgery. BP running a bit high Continue home meds, follow for NSurg recs Concern for possibility of delirium if can't get sleeping well, will try Seroquel tonight. Switch muscle relaxant.
[2019-03-20] MEDS ORDERED: tiZANidine HCl 4 MG TAB PO PRN (11:45)
[2019-03-20] MEDS ORDERED: Fleet Enema 133 ML BOT PR PRN (12:38)
[2019-03-20] MEDS ORDERED: Senokot 8.6 MG TAB PO PRN (12:38)
--- NOTE | 2019-03-20 13:46 | PRG ---
DATE OF SERVICE: 03/20/2019 A 50-minute subsequent patient evaluation, of which greater than 50% of the exam was spent counseling and coordinating the patient's care. Remainder of the exam was spent in review of the patient's medical records and review of appropriate imaging studies and formulation of treatment plan on Jun Paez. Mr. Paez is well known to Dr. Keenan's team as we performed multilevel thoracic and lumbar laminectomies in June 2018. The patient states that he has done well, but over the past 3 to 4 months, has noticed progressive weakness into the left knee with buckling and give-way weakness. He also complains of left anterolateral thigh pain ending at the knee. He does have also occasional left buttock pain. He has no complaints on the right side at this time. He has been evaluated by Orthopedics and received an injection into the left knee that helps somewhat to improve his pain, though it does not improve his weakness. The patient has attempted to walk with therapies with a walker, but states his leg continues to give way and he is unable to ambulate. He does have also some low back pain. PHYSICAL EXAMINATION: The patient is awake, alert, and appropriate. He has good strength in the right lower extremity and good strength in the left lower extremity with the exception of unable to lift the left leg off the bed and some iliopsoas weakness on the left. Otherwise, he has intact sensation to light touch throughout. By report, the patient's incision is well healed. I reviewed the patient's MRIs of the cervical, thoracic, and lumbar spines. It appears as though the patient has [id number] central canal stenosis at the T9-10 level and some recurrent stenosis on the left at L2-L3, L3-L4 with a far-lateral disk extrusion at the L3-L4 level and recurrent stenosis on the left at L4-L5 region. We would like the patient to continue to work with therapies, but should he fail conservative management while in the hospital or unsafe to go home, consideration will be given to a T9-T10 laminectomy with revision of left L2-L3 hemilaminotomy, foraminotomy, revision of left L3-L4 hemilaminotomy, foraminotomy, and far lateral diskectomy at L3-L4 on the left, and revision of left L4-L5 hemilaminotomies and foraminotomies. We will need medical clearance for the patient. He may continue on his 81 mg aspirin. We will reconvene and discuss the plan further with Dr. Keenan and the patient and his family tomorrow. Please call with any changes in patient's neurologic status. Otherwise, continue to follow the patient. Job ID: [id number]
[2019-03-20] MEDS ORDERED: Ipratropium Bromide 0.03% Nasal Inhaler 30 ml Bottle EA NARE SCH (15:00)
[2019-03-20] MEDS ORDERED: Sodium Chloride 0.9% 500 ML IV SCH (15:45)
[2019-03-20 16:16] LABS: #Eosinphils 0.1 thou/uL (0.0-0.7); #Lymphocytes 1.7 thou/uL (1.20-3.40); #Monocytes 1.2 thou/uL (0.11-0.59); #Neutrophils 6.1 thou/uL (1.40-6.50); %Basophils 0.3 % (0.0-1.0); %Eosinophils 0.9 % (0.0-10.0); %Lymphocytes 18.2 % (21.0-51.0); %Monocytes 13.2 % (0.0-10.0); %Neutrophils 67.4 % (42.0-75.0); Hemoglobin 12.9 g/dL (14.0-18.0); Mean Corpuscular HGB CONC 31.8 g/dL (32.0-36.0); Mean Corpuscular Hemoglobin 31.9 pg (27.0-31.0); Mean Platelet Volume 7.3 fL (7.4-10.4); Platelet Count 263 thou/uL (130-400); RBC Distribution Width 16.4 % (11.5-14.5); Red Blood Cell (RBC) Count 4.05 mill/uL (4.70-6.10); White Blood Cell (WBC) Count 9.1 thou/uL (4.8-10.8)
[2019-03-20 16:39] LABS: Anion Gap 7 mmol/L (10-20); BUN (Urea Nitrogen) 35 mg/dL (8.4-25.7); Calc. Creatinine Clearance 42 mL/min (70-130); Calcium 8.6 mg/dL (7.8-10.44); Carbon Dioxide 29 mmol/L (23-31); Chloride 107 mmol/L (98-107); Estimated GFR-MDRD 45; Glucose 97 mg/dL (83-110); Potassium 4.4 mmol/L (3.5-5.1); Sodium 139 mmol/L (136-145)
[2019-03-20] MEDS: Fenofibrate Nanocrystallized 145 MG TAB PO SCH (21:54)
[2019-03-20] MEDS: Atorvastatin Calcium 40 MG TAB PO SCH (21:54)
[2019-03-20] MEDS: Aspirin Chewable 81 MG TAB PO SCH (21:54)
[2019-03-20] MEDS: Ezetimibe 10 MG TAB PO SCH (21:54)
[2019-03-20] MEDS: Docusate 100 MG CAP PO SCH (21:54)
[2019-03-20 22:35] LABS: Bacteria/HPF None Seen HPF (None Seen); Bilirubin Negative (Negative); Blood, Urine Negative (Negative); Clarity Clear (Clear); Glucose, Urine (Dipstick) Normal (Negative); Leukocyte 25 Leu/uL (Negative); Mucous/LPF Rare LPF (<2+); Nitrite Negative (Negative); Protein, Urine (Dipstick) 30 mg/dL (Neg-Trace); RBC/HPF 0-3 HPF (0-3); Squamous Epithelial None Seen HPF (0-3); Urobilinogen Normal mg/dL (Less than 2)
[2019-03-21] MEDS: traMADol HCl 50 MG TAB PO PRN ×2 (01:00→23:37)
[2019-03-21] MEDS: Bisoprolol Fumarate 5 MG TAB PO SCH (07:53)
[2019-03-21] MEDS: hydrALAZINE 25 MG TAB PO SCH ×3 (07:54→21:10)
[2019-03-21] MEDS: Docusate 100 MG CAP PO SCH ×2 (07:54→21:10)
[2019-03-21] MEDS: Propafenone HCl 150 MG TAB PO SCH ×3 (07:54→21:10)
[2019-03-21] MEDS: Famotidine 20 MG TAB PO SCH (07:54)
[2019-03-21] MEDS: Multivit, Therapeutic 1 TAB PO SCH (07:54)
[2019-03-21] MEDS: Ipratropium Bromide 0.03% Nasal Inhaler 30 ml Bottle EA NARE SCH ×3 (07:54→14:33)
[2019-03-21] MEDS: Calcium Carbonate 600 MG TAB PO SCH (07:54)
--- NOTE | 2019-03-21 08:39 | PDOC.HOSPP ---
- Subjective Encounter Date: 03/21/19 Encounter Time: 11:00 Subjective: Patient with persistent pain in hip. Slept much better last night except when pain woke him up and no more confusion. Getting prn Seroquel. Neurosurgery planning on surgery on , will need Pulmonology and Cardiology to clear him. - Objective Vital Signs & Weight: Vital Signs (12 hours) Temp Pulse Resp BP BP Pulse Ox 03/21/19 08:00 96.7 F L 67 18 160/75 H 93 L 03/21/19 07:54 67 160/75 H 03/21/19 03:39 97.4 F L 68 19 147/72 H 93 L 03/20/19 21:54 63 Weight Admit Weight 180 lb 4.8 oz Weight 180 lb Result Diagrams: 03/20/19 16:06 03/20/19 16:06 Hospitalist ROS - Review of Systems Constitutional: denies: fever, chills Respiratory: denies: cough, shortness of breath Cardiovascular: denies: chest pain, palpitations, orthopnea Gastrointestinal: denies: nausea, vomiting, abdominal pain, diarrhea, constipation Genitourinary: denies: dysuria, hematuria Musculoskeletal: reports: back pain, leg pain Neurological: denies: numbness - Medication Medications: Active Medications Generic Name Dose Route Start Last Admin Trade Name Fengq PRN Reason Stop Dose Admin Acetaminophen 650 mg 03/17/19 18:41 03/20/19 08:18 Tylenol PO 650 mg Q4H PRN Administration Headache/Fever/Mild Pain (1-3) Aspirin 81 mg 03/17/19 21:00 03/20/19 21:54 Aspirin Chewable PO 81 mg HS MAX Administration Atorvastatin Calcium 80 mg 03/17/19 21:00 03/20/19 21:54 Lipitor PO 80 mg HS MAX Administration Bisoprolol Fumarate 5 mg 03/18/19 09:00 03/21/19 07:53 Zebeta PO 5 mg QAM MAX Administration Calcium Carbonate 600 mg 03/18/19 09:00 03/21/19 07:54 Caltrate PO 600 mg QAM MAX Administration Docusate Sodium 100 mg 03/20/19 21:00 03/21/19 07:54 Colace PO 100 mg BID MAX Administration Ezetimibe 10 mg 03/17/19 21:00 03/20/19 21:54 Zetia PO 10 mg HS MAX Administration Famotidine 20 mg 03/18/19 09:00 03/21/19 07:54 Pepcid PO 20 mg QAM MAX Administration Fenofibrate 145 mg 03/17/19 21:00 03/20/19 21:54 Tricor PO 145 mg HS MAX Administration Hydralazine HCl 10 mg 03/18/19 04:29 03/19/19 03:45 Apresoline SLOW IVP 10 mg Q4H PRN Administration Hypertension Hydralazine HCl 25 mg 03/19/19 09:00 03/21/19 07:54 Apresoline PO 25 mg TID MAX Administration Ipratropium [place] 0 ml 03/20/19 21:00 03/21/19 07:55 Atrovent 0.03% EA NARE Not Given TID [facility] Multivitamins 1 tab 03/18/19 09:00 03/21/19 07:54 Theragran PO 1 tab QAM MAX Administration Polyethylene Glycol 17 gm 03/19/19 14:04 03/21/19 07:54 Miralax PO 17 gm DAILYPRN PRN Administration Constipation Propafenone HCl 150 mg 03/17/19 21:00 03/21/19 07:54 Rythmol PO 150 mg TID MAX Administration Quetiapine Fumarate 25 mg 03/20/19 21:00 03/20/19 21:54 Seroquel PO 25 mg HS MAX Administration Tramadol HCl 50 mg 03/18/19 04:29 03/21/19 01:00 Ultram PO 50 mg Q6H PRN Administration Severe Pain (7-10) - Exam General Appearance: NAD, awake alert ENT: moist mucosa Heart: RRR, no murmur, no gallops, no rubs Respiratory: CTAB, no wheezes, no rales, no ronchi Gastrointestinal: soft, non-tender, non-distended, normal bowel sounds Psychiatric: normal affect, normal behavior, A&O x 3 Hosp A/P (1) Left leg weakness Code(s): R29.898 - [facility] SYMPTOMS AND SIGNS INVOLVING THE MUSCULOSKELETAL SYSTEM Status: Acute (2) Fall Code(s): W19.XXXA - UNSPECIFIED FALL, INITIAL ENCOUNTER Status: Acute (3) S/P laminectomy Code(s): Z98.890 - OTHER SPECIFIED POSTPROCEDURAL STATES Status: Chronic (4) Afib Code(s): I48.91 - UNSPECIFIED ATRIAL FIBRILLATION Status: Chronic Qualifiers: Atrial fibrillation type: paroxysmal Qualified Code(s): I48.0 - Paroxysmal atrial fibrillation (5) CKD (chronic kidney disease) stage 3, GFR 30-59 ml/min Code(s): N18.3 - CHRONIC KIDNEY DISEASE, STAGE 3 (MODERATE) Status: Chronic (6) COPD (chronic obstructive pulmonary disease) Status: Chronic (7) Chronic back pain Code(s): M54.9 - DORSALGIA, UNSPECIFIED; G89.29 - OTHER CHRONIC PAIN Status: Chronic (8) Chronic diastolic CHF (congestive heart failure), NYHA class 2 Code(s): I50.32 - CHRONIC DIASTOLIC (CONGESTIVE) HEART FAILURE Status: Chronic (9) HTN (hypertension) Code(s): I10 - ESSENTIAL (PRIMARY) HYPERTENSION Status: Chronic Qualifiers: (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 Decided on surgery for 03/23/2019. Will consult Cards and Pulm for clearance. Sees Dr. Ramos as outpatient. Continue home meds, follow for NSurg recs Switched muscle relaxant from Flexeril to Skelaxin due to sedation, had significant drop in BP. All muscle relaxants d/c'd Restarting all pulmonary meds which had been left off home med list.
[2019-03-21] MEDS: Acetaminophen 325 MG TAB PO PRN (09:26)
--- NOTE | 2019-03-21 15:33 | PRG ---
DATE OF SERVICE: 03/21/2019 This is a 50-minute subsequent patient evaluation of which greater than 50% of the exam was spent counseling and coordinating the patient's care, remainder of the exam was spent on review of patient's medical records and formulation of treatment plan. Mr. Paez is seen in followup having reviewed his cervical, thoracic and lumbar spine MRIs with Dr. Keenan. At this point, the patient has a severe central canal stenosis at T9-10 and recurrent stenosis on the left at L2-3, L3-4 and L4-L5 with a far-lateral disk extrusion on the left at L3-L4. I have discussed these findings with the patient and his . The patient states he had a rough night last name that he did not sleep very well . He did receive some muscle relaxers and this caused the patient's blood pressure to become extremely low and therefore muscle relaxants have been discontinued. The patient continues with left quadriceps and iliopsoas weakness, but he still continues with good strength on the left, but has good strength in the right. He was able to shower today. At this point, it is highly probable that the patient will need a repeat surgery, which include a T9-10 laminectomy, partial facetectomies, foraminotomy with revision left L2-3 hemilaminotomy, foraminotomy and revision left L3-4 hemilaminotomy, foraminotomy, and trans facet approach for diskectomy on the left at L3-4 as well as revision left hemilaminotomy, foraminotomy at L4-L5. We will get clearance from Cardiology. The patient will remain off Pradaxa, but he can remain on 81 mg aspirin. We will also get clearance from patient's hockey instructor, Dr. Ramos, but there is a good possibility that as compared to the previous surgery, he will need to be intubated overnight given his history of hemidiaphragm. We will follow up with the patient tomorrow, but we will plan for surgery on unless significantly contraindicated by our medical colleagues. Please call with any changes in patient's neurologic status. Otherwise, we will follow up with him tomorrow. Job ID: [id number]
[2019-03-21] MEDS: Mometasone/Formoterol 120 PUFF INHALER INH SCH (18:59)
--- NOTE | 2019-03-21 21:06 | CON ---
DATE OF CONSULTATION: HISTORY OF PRESENT ILLNESS: The patient is an 83-year-old gentleman with a history of coronary artery disease and atrial fibrillation, who presents for evaluation prior to undergoing back surgery. The patient has a previous history of coronary artery disease. In 2009, he underwent a cardiac catheterization and found to have [id number] coronary artery disease. He has been on medical therapy .In 2017 the patient prior to undergoing surgery, underwent a dobutamine echocardiogram, which showed normal left systolic function and no evidence of ischemia. Early last year, the patient underwent a preoperative evaluation prior to undergoing back surgery. He underwent an echocardiogram, which revealed once again normal left systolic function. The patient has been in his usual state of health. He has a history of atrial fibrillation,and is maintained on chronic anticoagulation therapy. The patient has no history of myocardial infarction. The patient denies having any chest discomfort. The patient is able to walk one block without having any chest discomfort. The patient does have dyspnea and a history of COPD. The patient denies having any PND, or orthopnea. The patient was admitted after he had a fall and needs to undergo repeat back surgery. PAST MEDICAL HISTORY: 1. Coronary artery disease. 2. Atrial fibrillation. 3. Hypertension. 4. Dyslipidemia. PAST SURGICAL HISTORY: Cholecystectomy, appendectomy, bowel surgery,and back surgery, hernia surgery. SOCIAL HISTORY: Nonsmoker. ALLERGIES: NONE. MEDICATIONS: See nursing list. REVIEW OF SYSTEMS: Unremarkable. FAMILY HISTORY: Positive family history of coronary artery disease. ALLERGIES: NO KNOWN DRUG ALLERGIES. PHYSICAL EXAMINATION: GENERAL: Obese gentleman, in no acute distress. VITAL SIGNS: Blood pressure is 148/96. NECK: Showed no jugular venous distention. LUNGS: Clear to auscultation. HEART: Regular rate and rhythm. Normal S1, S2 with a 1/6 systolic murmur. ABDOMEN: Distended. EXTREMITIES: Showed no edema. VASCULAR: Radial pulse is 2+. LABORATORY DATA: White blood cell count 9.1, hemoglobin 12.9, hematocrit 40.7, platelets 263. Sodium is 139, potassium 4.4, chloride 107, bicarbonate 29, BUN 35, creatinine 1.49. Troponin is 0.017. EKG revealed sinus rhythm with first- degree AV block, minimal left axis deviation, minimal voltage criteria for left ventricular hypertrophy. IMPRESSION: 1. Status post fall. 2. Coronary artery disease. 3. Atrial fibrillation. 4. Chronic obstructive pulmonary disease. 5. Hypertension. 6. Renal insufficiency. This gentleman presents for preoperative evaluation. He has been asymptomatic. He had no difficulty undergoing surgery last year. He was admitted after a fall. His CPK-MB was mildly elevated, but his troponin levels were indeterminate. He was asymptomatic .From a cardiac standpoint, he appears to be at acceptable risks for undergoing a repeat back surgery. We will repeat an echocardiogram and follow this patient with you through his hospitalization. Job ID: [id number] MTDD
[2019-03-21] MEDS: Aspirin Chewable 81 MG TAB PO SCH (21:10)
[2019-03-21] MEDS: Fenofibrate Nanocrystallized 145 MG TAB PO SCH (21:10)
[2019-03-21] MEDS: Atorvastatin Calcium 40 MG TAB PO SCH (21:10)
[2019-03-21] MEDS: Ezetimibe 10 MG TAB PO SCH (21:10)
[2019-03-22] MEDS: Mometasone/Formoterol 120 PUFF INHALER INH SCH ×2 (07:33→19:48)
[2019-03-22] MEDS: hydrALAZINE 25 MG TAB PO SCH ×3 (08:35→20:25)
[2019-03-22] MEDS: Bisoprolol Fumarate 5 MG TAB PO SCH (08:35)
[2019-03-22] MEDS: Docusate 100 MG CAP PO SCH ×2 (08:35→20:25)
[2019-03-22] MEDS: Calcium Carbonate 600 MG TAB PO SCH (08:35)
[2019-03-22] MEDS: Magnesium Oxide 250 MG TAB PO SCH (08:35)
[2019-03-22] MEDS: Famotidine 20 MG TAB PO SCH (08:36)
[2019-03-22] MEDS: Multivit, Therapeutic 1 TAB PO SCH (08:36)
[2019-03-22] MEDS: Propafenone HCl 150 MG TAB PO SCH ×3 (08:36→20:25)
[2019-03-22] MEDS: Acetaminophen 325 MG TAB PO PRN (08:39)
--- NOTE | 2019-03-22 11:12 | PRG ---
DATE OF SERVICE: 03/22/2019 This is a 50-minute initial visit note, in which 50 minutes were spent reviewing the imaging record, evaluation, examination of the patient, formulation of plan. Greater than 50% time was spent in counseling on Jun Paez. Mr. Paez is an 83-year-old man with history of hemidiaphragm paralysis and multilevel lumbar stenosis, low back and leg pain. He initially did well following surgery by us in 2019. However, he has developed intractable pain into the left hip and anterior thigh and leg weakness. On review of cervical, thoracic, and lumbar spine MRI, he has no worrisome stenosis in the cervical spine. However, he has severe stenosis at T9 and T10 with osteophytic disk and calcified ligament and also recurrent stenosis in the left L2-L3, left L3-L4, and left L4-L5 lateral recesses in the left L3 neural foramina with a lateral disk extrusion. I have recommended surgery to be a T9-T10 laminectomy with revision left L2-L3, revision left L3-L4, revision left L4-L5, hemilaminotomies, foraminotomies, decompression with a left L3-L4 far-lateral approach as well for decompression completely of the exiting left L3 nerve root. We will plan to do this surgery tomorrow. I should note that he has severe weakness in his left leg. I think this is a myelopathy superimposed on a radiculopathy. They would like to proceed with surgery. Job ID: [id number]
[2019-03-22] MEDS: Ipratropium Bromide 0.03% Nasal Inhaler 30 ml Bottle EA NARE SCH ×2 (12:18→14:57)
--- NOTE | 2019-03-22 18:11 | CON ---
DATE OF CONSULTATION: 03/22/2019 HISTORY OF PRESENT ILLNESS: Jun Paez is a pleasant 83-year-old male with a history of back problems. Says he had been doing well and was extremely active the day he came to the hospital. He said he was taking a shower when he got out of the shower, was walking around the house and also in his left leg gave out. He was admitted on the . Lumbar spine MRI done on the showed multiple different level abnormalities including a nonspecific fluid signal adjacent posterior thecal sac at L1 and L2. Dr. Keenan is following when it is anticipated that he will have a surgical procedure tomorrow. I see him in the office for asthmatic bronchitis. His significant component of dyspnea related to age, obesity, and deconditioning. He says he has been feeling reasonably well lately. PAST MEDICAL HISTORY: Remarkable for: 1. Spinal stenosis, said surgery in the past. 2. History of paralyzed diaphragm. 3. History of hypertension. 4. History of chronic pain. 5. History of lipid disorder. 6. History of atrial fibrillation. 7. History of cholecystectomy. 8. History of herniorrhaphy. 9. History of appendectomy. 10. History of bowel surgery. SOCIAL HISTORY: He drinks in the evening, mainly he says to control his back pain. He is a former smoker. MEDICATIONS: Medications were reviewed. FAMILY HISTORY: Negative for lung disease in early age. ALLERGIES: NO REPORTED DRUG ALLERGIES. REVIEW OF SYSTEMS: Ten-points completed, otherwise negative. PHYSICAL EXAMINATION: GENERAL: Pleasant gentleman, in no distress. VITAL SIGNS: He is afebrile. Heart rates in the 70s, respiratory rates in the teens to low 20s, oximetry is 95% on 2 L, and blood pressure 160/77. HEAD AND NECK: Unremarkable. LUNGS: Clear. HEART: Regular rhythm. S1 and S2 are normal. ABDOMEN: Soft and nontender. EXTREMITIES: Without clubbing, cyanosis, or edema. He can lift his left lower extremity off the bed. IMPRESSION AND PLAN: History of asthmatic bronchitis with chronic dyspnea secondary to obesity and deconditioning. Dr. Keenan has left a long note describing anticipated procedure tomorrow. He has an acceptable operative risk in my opinion. I certainly would not say that he had a prohibitive risk. This is obviously lead him down the path of being bed ridden and would dramatically shorten is life. We will be happy to follow with the other physicians caring for. I met with his and his [id number] and answered all their questions. This is a 50 minute consult, with greater than 50% of time spent on unit coordinating care. Job ID: [id number] MTDD
[2019-03-22] MEDS: traMADol HCl 50 MG TAB PO PRN (20:24)
[2019-03-22] MEDS: Atorvastatin Calcium 40 MG TAB PO SCH (20:25)
[2019-03-22] MEDS: Fenofibrate Nanocrystallized 145 MG TAB PO SCH (20:25)
[2019-03-22] MEDS: Ezetimibe 10 MG TAB PO SCH (20:25)
[2019-03-22] MEDS: Aspirin Chewable 81 MG TAB PO SCH (20:25)
--- NOTE | 2019-03-22 22:25 | PDOC.HOSPP ---
- Subjective Subjective: Doing ok. Getting enema in prep for the surgery tomorrow. - Objective Vital Signs & Weight: Vital Signs (12 hours) Temp Pulse Resp BP BP Pulse Ox 03/22/19 20:25 79 03/22/19 20:00 98.3 F 79 18 184/89 H 92 L 03/22/19 19:47 74 16 94 L 03/22/19 15:24 98.6 F 73 18 177/85 H 95 03/22/19 11:22 97.9 F 73 21 H 160/77 H 91 L Weight Admit Weight 180 lb 4.8 oz Weight 180 lb I&O: 03/21/19 03/22/19 03/23/19 06:59 06:59 06:59 Intake Total 740 600 Output Total 800 400 Balance -60 200 Result Diagrams: 03/20/19 16:06 03/20/19 16:06 Hospitalist ROS - Medication Medications: Active Medications Generic Name Dose Route Start Last Admin Trade Name Freq PRN Reason Stop Dose Admin Acetaminophen 650 mg 03/17/19 18:41 03/22/19 08:39 Tylenol PO 650 mg Q4H PRN Administration Headache/Fever/Mild Pain (1-3) Albuterol/Ipratropium 3 ml 03/21/19 18:30 03/22/19 19:47 Duoneb NEB 3 ml BID-RT MAX Administration Aspirin 81 mg 03/17/19 21:00 03/22/19 20:25 Aspirin Chewable PO 81 mg HS MAX Administration Atorvastatin Calcium 80 mg 03/17/19 21:00 03/22/19 20:25 Lipitor PO 80 mg HS MAX Administration Bisoprolol Fumarate 5 mg 03/18/19 09:00 03/22/19 08:35 Zebeta PO 5 mg QAM MAX Administration Calcium Carbonate 600 mg 03/18/19 09:00 03/22/19 08:35 Caltrate PO 600 mg QAM MAX Administration Docusate Sodium 100 mg 03/20/19 21:00 03/22/19 20:25 Colace PO 100 mg BID MAX Administration Ezetimibe 10 mg 03/17/19 21:00 03/22/19 20:25 Zetia PO 10 mg HS MAX Administration Famotidine 20 mg 03/18/19 09:00 03/22/19 08:36 Pepcid PO 20 mg QAM MAX Administration Fenofibrate 145 mg 03/17/19 21:00 03/22/19 20:25 Tricor PO 145 mg HS MAX Administration Hydralazine HCl 10 mg 03/18/19 04:29 03/19/19 03:45 Apresoline SLOW IVP 10 mg Q4H PRN Administration Hypertension Hydralazine HCl 25 mg 03/19/19 09:00 03/22/19 20:25 Apresoline PO 25 mg TID MAX Administration Ipratropium [place] 0 ml 03/20/19 21:00 03/22/19 14:57 Atrovent 0.03% EA NARE 2 spr TID MAX Administration Magnesium Oxide 250 mg 03/22/19 09:00 03/22/19 08:35 Magnesium Oxide PO 250 mg QAM MAX Administration Mometasone Furoate/Formoterol Fumar 2 puff 03/21/19 18:30 03/22/19 19:48 Dulera 100 Mcg/5 Mcg Inhaler INH 2 puff BID-RT MAX Administration Multivitamins 1 tab 03/18/19 09:00 03/22/19 08:36 Theragran PO 1 tab QAM MAX Administration Polyethylene Glycol 17 gm 03/19/19 14:04 03/21/19 07:54 Miralax PO 17 gm DAILYPRN PRN Administration Constipation Propafenone HCl 150 mg 03/17/19 21:00 03/22/19 20:25 Rythmol PO 150 mg TID MAX Administration Quetiapine Fumarate 25 mg 03/20/19 21:00 03/22/19 20:25 Seroquel PO 25 mg HS MAX Administration Senna 2 tab 03/20/19 12:38 03/22/19 12:48 Senokot PO 2 tab HSPRN PRN Administration Constipation Sodium Biphosphate/Sodium Phosphate 133 ml 03/20/19 12:38 03/22/19 15:43 Fleet Enema [place] 133 ml DAILY PRN Administration Constipation Tramadol HCl 50 mg 03/18/19 04:29 03/22/19 20:24 Ultram PO 50 mg Q6H PRN Administration Severe Pain (7-10) - Exam General Appearance: NAD, awake alert Heart: RRR, no murmur, no gallops, no rubs, normal peripheral pulses Respiratory: CTAB, no wheezes, no rales, no ronchi, normal chest expansion, no tachypnea, normal percussion Hosp A/P (1) Lumbar radiculopathy Code(s): M54.16 - RADICULOPATHY, LUMBAR REGION Status: Acute (2) Thoracic radiculopathy Code(s): M54.14 - RADICULOPATHY, THORACIC REGION Status: Acute (3) Left leg weakness Code(s): R29.898 - OT SYMPTOMS AND SIGNS INVOLVING THE MUSCULOSKELETAL SYSTEM Status: Acute (4) Afib Code(s): I48.91 - UNSPECIFIED ATRIAL FIBRILLATION Status: Chronic Qualifiers: Atrial fibrillation type: paroxysmal Qualified Code(s): I48.0 - Paroxysmal atrial fibrillation (5) COPD (chronic obstructive pulmonary disease) Status: Chronic (6) Chronic diastolic CHF (congestive heart failure), NYHA class 2 Code(s): I50.32 - CHRONIC DIASTOLIC (CONGESTIVE) HEART FAILURE Status: Chronic (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 Cleared by Cardiology. Pulm pending.
[2019-03-23] MEDS: hydrALAZINE 20 MG/ML VIAL SLOW IVP PRN (00:33)
[2019-03-23 04:55] LABS: #Eosinphils 0.1 thou/uL (0.0-0.7); #Lymphocytes 1.5 thou/uL (1.20-3.40); #Monocytes 0.9 thou/uL (0.11-0.59); #Neutrophils 6.8 thou/uL (1.40-6.50); %Basophils 0.4 % (0.0-1.0); %Eosinophils 0.9 % (0.0-10.0); %Lymphocytes 15.9 % (21.0-51.0); %Monocytes 9.4 % (0.0-10.0); %Neutrophils 73.4 % (42.0-75.0); Hemoglobin 14.3 g/dL (14.0-18.0); Mean Corpuscular HGB CONC 32.3 g/dL (32.0-36.0); Mean Corpuscular Hemoglobin 31.7 pg (27.0-31.0); Mean Corpuscular Volume 98.2 fL (78.0-98.0); Mean Platelet Volume 7.9 fL (7.4-10.4); Platelet Count 283 thou/uL (130-400); Red Blood Cell (RBC) Count 4.52 mill/uL (4.70-6.10); White Blood Cell (WBC) Count 9.2 thou/uL (4.8-10.8)
[2019-03-23 05:01] LABS: INR-International Normal Ratio 1.3; PTT 34.2 SEC (22.9-36.1); Prothrombin Time 15.9 SEC (12.0-14.7)
[2019-03-23 05:23] LABS: Anion Gap 11 mmol/L (10-20); BUN (Urea Nitrogen) 20 mg/dL (8.4-25.7); Calc. Creatinine Clearance 55 mL/min (70-130); Calcium 9.1 mg/dL (7.8-10.44); Carbon Dioxide 28 mmol/L (23-31); Chloride 103 mmol/L (98-107); Estimated GFR-MDRD 62; Glucose 84 mg/dL (83-110); Potassium 4.1 mmol/L (3.5-5.1); Sodium 138 mmol/L (136-145)
[2019-03-23] MEDS ORDERED: Thrombin 5000 UNITS/5 ML VIAL ONE (07:03)
[2019-03-23] MEDS: Mometasone/Formoterol 120 PUFF INHALER INH SCH ×2 (07:24→18:18)
[2019-03-23] MEDS: Propafenone HCl 150 MG TAB PO SCH ×3 (08:32→19:54)
[2019-03-23] MEDS: Bisoprolol Fumarate 5 MG TAB PO SCH (08:32)
[2019-03-23] MEDS ORDERED: Fentanyl 100 MCG/2 ML VIAL ONE ×2 (09:49→12:33)
[2019-03-23] MEDS ORDERED: SUGAMMADEX SODIUM 200 MG/2 ML VIAL ONE (09:49)
[2019-03-23] MEDS ORDERED: ePHEDrine/0.9% NaCl/PF SYRINGE 50 mg/10 ml ONE ×2 (11:38→14:49)
[2019-03-23] MEDS: Calcium Carbonate 600 MG TAB PO SCH (14:13)
[2019-03-23] MEDS: Famotidine 20 MG TAB PO SCH (14:14)
[2019-03-23] MEDS: Docusate 100 MG CAP PO SCH ×2 (14:14→19:54)
[2019-03-23] MEDS: Magnesium Oxide 250 MG TAB PO SCH (14:14)
[2019-03-23] MEDS: hydrALAZINE 25 MG TAB PO SCH ×3 (14:14→19:54)
[2019-03-23] MEDS: Multivit, Therapeutic 1 TAB PO SCH (14:14)
[2019-03-23] MEDS ORDERED: Rocuronium Bromide 10 MG/ML (10ML VIAL) ONE (14:49)
[2019-03-23] MEDS ORDERED: Ondansetron PF 4 MG/2 ML Vial ONE (14:49)
[2019-03-23] MEDS ORDERED: Lidocaine 1% PF 5 ML VIAL ONE (14:49)
[2019-03-23] MEDS ORDERED: PROPOFOL 200 MG/20 ML VIAL ONE (14:49)
[2019-03-23] MEDS ORDERED: Propofol 1,000 MG/100 ML VIAL IV ONE (15:03)
[2019-03-23] MEDS ORDERED: Lorazepam 2 MG/ML VIAL SLOW IVP PRN (15:20)
[2019-03-23] MEDS ORDERED: DISCONTINUE PREVIOUS NARCOTIC PAIN MEDICATIONS AND BENZODIAZEPINES FS SCH (15:20)
[2019-03-23] MEDS ORDERED: Propofol BOLUS 1,000 MG/100 ML VIAL IV PRN (15:20)
[2019-03-23] MEDS ORDERED: Fentanyl BOLUS 250 ML IVPB PRN (15:20)
[2019-03-23] MEDS ORDERED: Morphine 2 MG/ML SYRINGE SLOW IVP PRN (15:20)
[2019-03-23 15:31] LABS: Actual Bicarbonate (HCO3a) 25.1 mEq/L (22-28); Base Excess (BEa) -0.5 mEq/L (-2.0 to +3.0); CO2 Tension 45.1 mmHg (35.0-45.0); Calcium, Ionized 1.14 mmol/L (1.12-1.30); Carboxyhemoglobin (COHb) 1.5 gm% (0.0-3.0); O2 Tension (PaO2) 89.2 mmHg (> 60.0); Potassium - ABG Lab 3.64 mmol/L (3.70-5.30); pH, Arterial 7.36 (7.35-7.45)
[2019-03-23 15:32] LABS: Puncture Site LB
[2019-03-23 15:34] LABS: ALV-art Gradient 282.225 (0-20)
[2019-03-23] MEDS ORDERED: Ventilator Sedation Protocol 1 EACH FS ONE (15:58)
[2019-03-23] MEDS: fentaNYL Citrate/PF 2,000 MCG in Sodium Chloride 0.9% 60 ML IV SCH (16:05)
[2019-03-23] MEDS: CEFAZOLIN 2 GM in Premix Bag 1 BAG IVPB SCH (17:33)
[2019-03-23 17:39] LABS: Bilirubin Negative (Negative); Blood, Urine 3+ (Negative); Clarity Turbid (Clear); Glucose, Urine (Dipstick) Normal (Negative); Leukocyte 500 Leu/uL (Negative); Nitrite Negative (Negative); Protein, Urine (Dipstick) 50 mg/dL (Neg-Trace); RBC/HPF Greater than 50 HPF (0-3); Squamous Epithelial 0-3 HPF (0-3); Urobilinogen Normal mg/dL (Less than 2); WBC/HPF Greater than 50 HPF (0-3)
[2019-03-23 17:45] LABS: Bacteria/HPF 1+ HPF (None Seen)
[2019-03-23] MEDS: Propofol 1,000 MG/100 ML VIAL IV PRN (19:53)
[2019-03-23] MEDS: Fenofibrate Nanocrystallized 145 MG TAB PO SCH (19:54)
[2019-03-23] MEDS: Ezetimibe 10 MG TAB PO SCH (19:54)
[2019-03-23] MEDS: Atorvastatin Calcium 40 MG TAB PO SCH (19:54)
--- NOTE | 2019-03-23 20:05 | PDOC.HOSPP ---
- Subjective Subjective: Patient seen in ICU post-op. Intubated. Sedated but modestly awake. - Objective Vital Signs & Weight: Vital Signs (12 hours) Temp Pulse Resp BP Pulse Ox 03/23/19 19:54 70 126/55 L 03/23/19 18:24 70 126/55 L 03/23/19 18:00 16 03/23/19 16:00 98.4 F 16 03/23/19 15:20 96 03/23/19 15:01 78 191/96 H 03/23/19 14:52 85 03/23/19 14:14 85 Weight Admit Weight 180 lb 4.8 oz Weight 180 lb Most Recent Monitor Data Heart Rate from ECG 70 NIBP 143/74 NIBP BP-Mean 97 Respiration from ECG 16 SpO2 96 I&O: 03/22/19 03/23/19 03/24/19 06:59 06:59 06:59 Intake Total 740 840 133 Output Total 800 1400 155 Balance -60 -560 -22 Result Diagrams: 03/23/19 04:36 03/23/19 04:36 Hospitalist ROS - Medication Medications: Active Medications Generic Name Dose Route Start Last Admin Trade Name Freq PRN Reason Stop Dose Admin Acetaminophen 650 mg 03/17/19 18:41 03/22/19 08:39 Tylenol PO 650 mg Q4H PRN Administration Headache/Fever/Mild Pain (1-3) Albuterol/Ipratropium 3 ml 03/21/19 18:30 03/23/19 18:18 Duoneb NEB 3 ml BID-RT MAX Administration Atorvastatin Calcium 80 mg 03/17/19 21:00 03/23/19 19:54 Lipitor PO Not Given HS MAX Bisoprolol Fumarate 5 mg 03/18/19 09:00 03/23/19 08:32 Zebeta PO 5 mg QAM MAX Administration Calcium Carbonate 600 mg 03/18/19 09:00 03/23/19 14:13 Caltrate PO Not Given QAM MAX Docusate Sodium 100 mg 03/20/19 21:00 03/23/19 19:54 Colace PO Not Given BID MAX Ezetimibe 10 mg 03/17/19 21:00 03/23/19 19:54 Zetia PO Not Given HS MAX Famotidine 20 mg 03/18/19 09:00 01/16/20 14:14 Pepcid PO Not Given QAM MAX Fenofibrate 145 mg 03/17/19 21:00 03/23/19 19:54 Tricor PO Not Given HS MAX Hydralazine HCl 10 mg 03/18/19 04:29 03/23/19 00:33 Apresoline SLOW IVP 10 mg Q4H PRN Administration Hypertension Hydralazine HCl 25 mg 03/19/19 09:00 03/23/19 19:54 Apresoline PO Not Given TID MAX Fentanyl Citrate 2,000 mcg/ 100 mls @ 0 mls/hr 03/23/19 15:20 03/23/19 16:05 Sodium Chloride IV 04/22/19 15:20 100 mls INF MAX Administration Protocol Per Protocol Cefazolin Sodium/Dextrose 2 gm 50 mls @ 100 mls/hr 03/23/19 18:00 03/23/19 17 :33 / Device IVPB 03/25/19 18:01 50 mls 0200,1000,1800 MAX Administration Ipratropium [place] 0 ml 03/20/19 21:00 03/22/19 14:57 Atrovent 0.03% EA NARE 2 spr TID MAX Administration Lorazepam 2 mg 03/23/19 15:20 03/23/19 16:58 Ativan SLOW IVP 04/22/19 15:20 2 mg Q1H PRN Administration Breakthrough agitation Magnesium Oxide 250 mg 03/22/19 09:00 03/23/19 14:14 Magnesium Oxide PO Not Given QAM MAX Mometasone Furoate/Formoterol Fumar 2 puff 03/21/19 18:30 03/23/19 18:18 Dulera 100 Mcg/5 Mcg Inhaler INH 2 puff BID-RT MAX Administration Multivitamins 1 tab 03/18/19 09:00 03/23/19 14:14 Theragran PO Not Given QAM MAX Polyethylene Glycol 17 gm 03/19/19 14:04 03/21/19 07:54 Miralax PO 17 gm DAILYPRN PRN Administration Constipation Propafenone HCl 150 mg 03/17/19 21:00 03/23/19 19:54 Rythmol PO Not Given TID MAX Propofol 1,000 mg 03/23/19 15:20 03/23/19 19:53 Diprivan IV 04/22/19 15:20 1,000 mg INF PRN Administration TO ACHIEVE GOAL RASS Protocol Quetiapine Fumarate 25 mg 03/20/19 21:00 03/23/19 19:55 Seroquel PO Not Given HS MAX Senna 2 tab 03/20/19 12:38 03/22/19 12:48 Senokot PO 2 tab HSPRN PRN Administration Constipation Sodium Biphosphate/Sodium Phosphate 133 ml 03/20/19 12:38 03/22/19 15:43 Fleet Enema [place] 133 ml DAILY PRN Administration Constipation - Exam General Appearance: NAD, awake alert Heart: RRR, no murmur, no gallops, no rubs, normal peripheral pulses Respiratory: CTAB, no wheezes, no rales, no ronchi, normal chest expansion, no tachypnea, normal percussion Gastrointestinal: soft, non-distended Skin: normal turgor Hosp A/P (1) Lumbar radiculopathy Code(s): M54.16 - RADICULOPATHY, LUMBAR REGION Status: Acute (2) Thoracic radiculopathy Code(s): M54.14 - RADICULOPATHY, THORACIC REGION Status: Acute (3) Left leg weakness Code(s): R29.898 - OTH SYMPTOMS AND SIGNS INVOLVING THE MUSCULOSKELETAL SYSTEM Status: Acute (4) Afib Code(s): I48.91 - UNSPECIFIED ATRIAL FIBRILLATION Status: Chronic Qualifiers: Atrial fibrillation type: paroxysmal Qualified Code(s): I48.0 - Paroxysmal atrial fibrillation (5) COPD (chronic obstructive pulmonary disease) Status: Chronic (6) Chronic diastolic CHF (congestive heart failure), NYHA class 2 Code(s): I50.32 - CHRONIC DIASTOLIC (CONGESTIVE) HEART FAILURE Status: Chronic (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 Transferred to ICU. Will remain intubated over night. Pulm, Cards, Neurosurg following.
[2019-03-24] MEDS: CEFAZOLIN 2 GM in Premix Bag 1 BAG IVPB SCH ×3 (01:30→17:26)
[2019-03-24] MEDS: Propofol 1,000 MG/100 ML VIAL IV PRN ×2 (03:16→15:12)
[2019-03-24 06:57] LABS: Actual Bicarbonate (HCO3a) 24.7 mEq/L (22-28); Base Excess (BEa) -0.1 mEq/L (-2.0 to +3.0); CO2 Tension 40.8 mmHg (35.0-45.0); Calcium, Ionized 1.13 mmol/L (1.12-1.30); Carboxyhemoglobin (COHb) 1.5 gm% (0.0-3.0); Hemoglobin (Hb) 15.8 g/dL (14.0-18.0); O2 Tension (PaO2) 84.7 mmHg (> 60.0)
[2019-03-24 07:13] LABS: Puncture Site RRAD
[2019-03-24] MEDS: Mometasone/Formoterol 120 PUFF INHALER INH SCH ×2 (07:14→18:33)
[2019-03-24] MEDS: hydrALAZINE 25 MG TAB PO SCH ×3 (09:30→20:57)
[2019-03-24] MEDS: Bisoprolol Fumarate 5 MG TAB PO SCH (09:30)
[2019-03-24] MEDS: Multivit, Therapeutic 1 TAB PO SCH (09:30)
[2019-03-24] MEDS: Docusate 100 MG CAP PO SCH ×2 (09:30→20:57)
[2019-03-24] MEDS: Propafenone HCl 150 MG TAB PO SCH ×3 (09:30→20:57)
[2019-03-24] MEDS: Magnesium Oxide 250 MG TAB PO SCH (09:30)
[2019-03-24] MEDS: Famotidine 20 MG TAB PO SCH (09:30)
[2019-03-24 09:40] LABS: Hemoglobin 13.7 g/dL (14.0-18.0); Mean Corpuscular HGB CONC 32.4 g/dL (32.0-36.0); Mean Corpuscular Hemoglobin 31.8 pg (27.0-31.0); Mean Corpuscular Volume 98.1 fL (78.0-98.0); Mean Platelet Volume 7.9 fL (7.4-10.4); Platelet Count 268 thou/uL (130-400); RBC Distribution Width 15.8 % (11.5-14.5); White Blood Cell (WBC) Count 14.6 thou/uL (4.8-10.8)
[2019-03-24 09:49] LABS: Anion Gap 14 mmol/L (10-20); BUN (Urea Nitrogen) 22 mg/dL (8.4-25.7); Calc. Creatinine Clearance 46 mL/min (70-130); Calcium 8.3 mg/dL (7.8-10.44); Carbon Dioxide 23 mmol/L (23-31); Chloride 104 mmol/L (98-107); Estimated GFR-MDRD 50; Glucose 95 mg/dL (83-110); Potassium 4.1 mmol/L (3.5-5.1); Sodium 137 mmol/L (136-145)
--- NOTE | 2019-03-24 09:52 | PRG ---
DATE OF SERVICE: 03/24/2019 Mr. Paez is postoperative day 1 from T9-T10 laminectomy and revision left L2-L3, left L3-L4 and left L4-L5 hemilaminotomies, foraminotomies with left L3-L4 transfacet approach for decompression of the exiting left L3 nerve root. He did have a small CSF leak intraoperatively in the region of the left L4 nerve root axilla. He has two incisions better covered. He denies any headache. He does have improvement in his left lower extremity weakness that was poly-myotomal and essentially monoplegic in the left lower extremity preoperatively and that he can now bend his knee up with moderate weakness and wiggle at the toes. Again, this is an improvement. He was kept intubated overnight as he has a significant pulmonary dysfunction consistent with a half of a functioning diaphragm that is followed by Dr. Ramos. The plan is for extubation today. He will be kept likely in the ICU one more day to assure pulmonary stability and then to the floor tomorrow with activity as tolerated and inpatient rehab consultation. Job ID: [id number]
[2019-03-24] MEDS: Calcium Carbonate 600 MG TAB PO SCH (10:00)
[2019-03-24 10:31] LABS: Band 13 % (5-11); Elliptocytes SLIGHT = 2-5 cells (100X) (0-1/hpf); Lymphocytes 9 % (21-51); MDiff Complete? YES; Monocytes 10 % (0-10); Neutrophil 68 % (42-75); Platelet Morphology Comment Appears Adequate; Polychromasia SLIGHT = 2-3 cells (100X) (0-2/hpf)
[2019-03-24] MEDS: fentaNYL Citrate/PF 2,000 MCG in Sodium Chloride 0.9% 60 ML IV SCH (14:59)
--- NOTE | 2019-03-24 20:17 | PRG ---
DATE OF SERVICE: 03/24/2019 SUBJECTIVE: Mr. Paez was for some reason left mechanically ventilated yesterday. OBJECTIVE: VITAL SIGNS: Heart rate in the 80s, respiratory rates in the teens, oximetry is 95%, FiO2 of 40%, blood pressure 92/42 this evening. Intake and outputs positive 262 today. LUNGS: Clear. HEART: Regular rhythm. ABDOMEN: Soft. EXTREMITIES: Without asymmetry or edema. Can do a neuro exam to see if he can move his left leg at this point. LABORATORY DATA: White count 14.6, hemoglobin 13.7, and platelets 268. Electrolytes were normal. IMPRESSION: 1. Postop mechanical ventilation. 2. Status post spinal surgery. 3. Paralyzed hemidiaphragm that is not really a clinical issue. 4. Obesity and deconditioning. 5. Asthma that is not clinically active at this time. Hopefully, we can extubate in the morning. I recommended switching him into a Precedex drip and begin the weaning process. Thorough spontaneous breathing trial in the morning. Critical care time is 35 minutes. Job ID: [id number] MTDD
[2019-03-24] MEDS: Atorvastatin Calcium 40 MG TAB PO SCH (20:57)
[2019-03-24] MEDS: Fenofibrate Nanocrystallized 145 MG TAB PO SCH (20:57)
[2019-03-24] MEDS: Ezetimibe 10 MG TAB PO SCH (20:57)
[2019-03-25] MEDS ORDERED: Sodium Chloride 0.9% 250 ML IVPB SCH (01:15)
[2019-03-25] MEDS: CEFAZOLIN 2 GM in Premix Bag 1 BAG IVPB SCH ×3 (02:17→18:20)
[2019-03-25] MEDS ORDERED: Digoxin 0.5 MG/2 ML AMP SLOW IVP SCH (02:45)
[2019-03-25] MEDS ORDERED: Sodium Chloride 0.9% 200 ML IVPB SCH (02:45)
[2019-03-25] MEDS: Mometasone/Formoterol 120 PUFF INHALER INH SCH ×2 (06:51→18:45)
[2019-03-25] MEDS ORDERED: Diltiazem HCl 125 MG, Admixture Fee 1 EACH in Sodium Chloride 0.9% 100 ML IVPB SCH (08:15)
--- NOTE | 2019-03-25 08:43 | RAD ---
EXAM: XR Chest 1 View Portable PROVIDED CLINICAL HISTORY: Respiratory failure COMPARISON: 03/17/2019 FINDINGS: Cardiac and mediastinal silhouette is unchanged in appearance. Interval placement of endotracheal tub e, tip of which projects left of midline at the level of the thoracic inlet. Enteric catheter has also been placed, the distal aspects of which are not well seen but likely below the diaphragm. There is persistent elevation of the right hemidiaphragm. There is patchy parenchymal opacity present at each lung base. There is no evidence for pneumothorax. No evidence for left-sided effusion. IMPRESSION: 1. Interval intubation and enteric catheter placement as described. 2. Patchy bibasilar parenchymal opacities, left greater than right. Correlate with concerns for pneum onia.
--- NOTE | 2019-03-25 09:08 | PRG ---
DATE OF SERVICE: 03/25/2019 Mr. Paez is 2 days postop from thoracic and lumbar decompression with Dr. Keenan. He was admitted in the ICU for mostly pulmonary concerns and hemidiaphragmatic paralysis. He is being managed by our colleagues in Critical Care and Pulmonology. He currently is on the ventilator. Overnight, he went into a run of atrial fibrillation and has been put initially on digoxin. This is being changed this morning to Cardizem. At bedside, the patient is awake, alert, follows commands in all 4 extremities. Does have some slow motor movements in the bilateral lower extremities, but this is not unexpected given his state. He denies any significant pains at the moment, but again, communication is difficult because he is intubated. We will again defer to extubation plans to our colleagues in Critical Care. The patient from our standpoint, is able to mobilize and participate with therapy. As soon as he is cleared for extubation, he can still do in-bed therapy as tolerated. Job ID: [id number]
[2019-03-25] MEDS ORDERED: Digoxin 0.5 MG/2 ML AMP ONE ×2 (09:26→18:59)
[2019-03-25] MEDS: Famotidine 20 MG TAB PO SCH (09:31)
[2019-03-25] MEDS: Digoxin 0.5 MG/2 ML AMP SLOW IVP SCH ×2 (09:35→19:02)
[2019-03-25] MEDS: Docusate 100 MG CAP PO SCH ×2 (09:36→21:53)
[2019-03-25] MEDS: Calcium Carbonate 600 MG TAB PO SCH (09:36)
[2019-03-25] MEDS: Multivit, Therapeutic 1 TAB PO SCH (09:36)
[2019-03-25] MEDS: Propafenone HCl 150 MG TAB PO SCH ×3 (09:40→21:53)
[2019-03-25] MEDS: hydrALAZINE 25 MG TAB PO SCH (09:40)
[2019-03-25] MEDS: Magnesium Oxide 250 MG TAB PO SCH (09:50)
[2019-03-25] MEDS: Bisoprolol Fumarate 5 MG TAB PO SCH (09:50)
--- NOTE | 2019-03-25 11:24 | PDOC.HOSPP ---
- Subjective Encounter Date: 03/24/19 Encounter Time: 10:00 Subjective: on vent, awake, shakes hand, follows verbal stimuli moves all extremities - Objective Vital Signs & Weight: Vital Signs (12 hours) Temp Pulse Resp BP Pulse Ox 03/25/19 10:20 130 H 100/65 03/25/19 09:40 123 H 114/75 03/25/19 08:06 123 H 114/75 03/25/19 07:33 96 03/25/19 07:21 16 03/25/19 07:00 99.3 F 03/25/19 06:52 122 H 121/81 03/25/19 06:49 122 H 19 100 03/25/19 06:00 19 03/25/19 04:50 126 H 03/25/19 04:00 99.4 F 15 03/25/19 02:36 143 H 03/25/19 02:20 141 H 03/25/19 02:00 22 H 03/25/19 00:10 93 03/25/19 00:00 100.1 F H 20 Weight Admit Weight 180 lb 4.8 oz Weight 187 lb 6.287 oz Most Recent Monitor Data Heart Rate from ECG 124 NIBP 120/73 NIBP BP-Mean 88 Respiration from ECG 15 SpO2 97 I&O: 03/24/19 03/25/19 03/26/19 06:59 06:59 06:59 Intake Total 712 1760.1 Output Total 450 400 20 Balance 262 1360.1 -20 Result Diagrams: 03/24/19 09:11 03/24/19 09:11 Hospitalist ROS - Medication Medications: Active Medications Generic Name Dose Route Start Last Admin Trade Name Freq PRN Reason Stop Dose Admin Acetaminophen 650 mg 03/17/19 18:41 03/22/19 08:39 Tylenol PO 650 mg Q4H PRN Administration Headache/Fever/Mild Pain (1-3) Albuterol/Ipratropium 3 ml 03/21/19 18:30 03/25/19 06:49 Duoneb NEB 3 ml BID-RT MAX Administration Atorvastatin Calcium 80 mg 03/17/19 21:00 03/24/19 20:57 Lipitor PO 80 mg HS MAX Administration Bisoprolol Fumarate 5 mg 03/18/19 09:00 03/25/19 09:50 Zebeta PO 5 mg QAM MAX Administration Calcium Carbonate 600 mg 03/18/19 09:00 03/25/19 09:36 Caltrate PO 600 mg QAM MAX Administration Docusate Sodium 100 mg 03/20/19 21:00 03/25/19 09:36 Colace PO 100 mg BID MAX Administration Ezetimibe 10 mg 03/17/19 21:00 03/24/19 20:57 Zetia PO 10 mg HS MAX Administration Famotidine 20 mg 03/18/19 09:00 03/25/19 09:31 Pepcid PO 20 mg QAM MAX Administration Fenofibrate 145 mg 03/17/19 21:00 03/24/19 20:57 Tricor PO 145 mg HS MAX Administration Hydralazine HCl 10 mg 03/18/19 04:29 03/23/19 00:33 Apresoline SLOW IVP 10 mg Q4H PRN Administration Hypertension Fentanyl Citrate 2,000 mcg/ 100 mls @ 0 mls/hr 03/23/19 15:20 03/24/19 14:59 Sodium Chloride IV 04/22/19 15:20 100 mls INF MAX Administration Protocol Per Protocol Cefazolin Sodium/Dextrose 2 gm 50 mls @ 100 mls/hr 03/23/19 18:00 03/25/19 09 :30 / Device IVPB 03/25/19 18:01 50 mls 0200,1000,1800 MAX Administration Dexmedetomidine HCl 200 mcg/ 50 mls @ 0 mls/hr 03/24/19 18:00 03/24/19 20:44 Sodium Chloride IVPB 50 mls INF MAX Administration Protocol Titrate Diltiazem HCl 125 mg/ 125 mls @ 0 mls/hr 03/25/19 08:15 03/25/19 08:42 Miscellaneous Medication 1 IVPB 125 mls each/ Sodium Chloride INF MAX Administration Protocol As Directed Ipratropium [place] 0 ml 03/20/19 21:00 03/22/19 14:57 Atrovent 0.03% EA NARE 2 spr TID MAX Administration Lorazepam 2 mg 03/23/19 15:20 03/23/19 16:58 Ativan SLOW IVP 04/22/19 15:20 2 mg Q1H PRN Administration Breakthrough agitation Magnesium Oxide 250 mg 03/22/19 09:00 03/25/19 09:50 Magnesium Oxide PO 250 mg QAM MAX Administration Mometasone Furoate/Formoterol Fumar 2 puff 03/21/19 18:30 03/25/19 06:51 Dulera 100 Mcg/5 Mcg Inhaler INH 2 puff BID-RT MAX Administration Multivitamins 1 tab 03/18/19 09:00 03/25/19 09:36 Theragran PO 1 tab QAM MAX Administration Polyethylene Glycol 17 gm 03/19/19 14:04 03/21/19 07:54 Miralax PO 17 gm DAILYPRN PRN Administration Constipation Propafenone HCl 150 mg 03/17/19 21:00 03/25/19 09:40 Rythmol PO 150 mg TID MAX Administration Propofol 1,000 mg 03/23/19 15:20 03/24/19 15:12 Diprivan IV 04/22/19 15:20 1,000 mg INF PRN Administration TO ACHIEVE GOAL RASS Protocol Quetiapine Fumarate 25 mg 03/20/19 21:00 03/24/19 20:57 Seroquel PO 25 mg HS MAX Administration Senna 2 tab 03/20/19 12:38 03/22/19 12:48 Senokot PO 2 tab HSPRN PRN Administration Constipation Sodium Biphosphate/Sodium Phosphate 133 ml 03/20/19 12:38 03/22/19 15:43 Fleet Enema [place] 133 ml DAILY PRN Administration Constipation - Exam General Appearance: awake alert Eye: PERRL, anicteric sclera ENT: no oropharyngeal lesions, moist mucosa Neck: supple, no JVD Heart: RRR, no murmur Respiratory: no wheezes, no rales, rhonchi Gastrointestinal: soft, non-tender, non-distended, normal bowel sounds Extremities: no cyanosis, no edema Neurological: cranial nerve grossly intact, no new deficit Hosp A/P (1) S/P laminectomy Code(s): Z98.890 - OTHER SPECIFIED POSTPROCEDURAL STATES Status: Acute (2) Acute respiratory failure with hypoxia Code(s): J96.01 - ACUTE RESPIRATORY FAILURE WITH HYPOXIA Status: Acute (3) Left leg weakness Code(s): R29.898 - OTH SYMPTOMS AND SIGNS INVOLVING THE MUSCULOSKELETAL SYSTEM Status: Acute (4) Lumbar radiculopathy Code(s): M54.16 - RADICULOPATHY, LUMBAR REGION Status: Acute (5) Afib Code(s): I48.91 - UNSPECIFIED ATRIAL FIBRILLATION Status: Chronic Qualifiers: Atrial fibrillation type: paroxysmal Qualified Code(s): I48.0 - Paroxysmal atrial fibrillation (6) CKD (chronic kidney disease) stage 3, GFR 30-59 ml/min Code(s): N18.3 - CHRONIC KIDNEY DISEASE, STAGE 3 (MODERATE) Status: Chronic (7) COPD (chronic obstructive pulmonary disease) Status: Chronic Qualifiers: COPD type: chronic bronchitis (8) Chronic diastolic CHF (congestive heart failure), NYHA class 2 Code(s): I50.32 - CHRONIC DIASTOLIC (CONGESTIVE) HEART FAILURE Status: Chronic (9) HTN (hypertension) Code(s): I10 - ESSENTIAL (PRIMARY) HYPERTENSION Status: Chronic Qualifiers: (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
--- NOTE | 2019-03-25 11:28 | PDOC.HOSPP ---
- Subjective Encounter Date: 03/25/19 Encounter Time: 09:00 Subjective: has afib with rvr, on cardizem drip, recieved digoxin iv last night is awake, on vent follows verbal stimuli - Objective Vital Signs & Weight: Vital Signs (12 hours) Temp Pulse Resp BP Pulse Ox 03/25/19 10:20 130 H 100/65 03/25/19 09:40 123 H 114/75 03/25/19 08:06 123 H 114/75 03/25/19 07:33 96 03/25/19 07:21 16 03/25/19 07:00 99.3 F 03/25/19 06:52 122 H 121/81 03/25/19 06:49 122 H 19 100 03/25/19 06:00 19 03/25/19 04:50 126 H 03/25/19 04:00 99.4 F 15 03/25/19 02:36 143 H 03/25/19 02:20 141 H 03/25/19 02:00 22 H 03/25/19 00:10 93 03/25/19 00:00 100.1 F H 20 Weight Admit Weight 180 lb 4.8 oz Weight 187 lb 6.287 oz Most Recent Monitor Data Heart Rate from ECG 124 NIBP 120/73 NIBP BP-Mean 88 Respiration from ECG 15 SpO2 97 I&O: 03/24/19 03/25/19 03/26/19 06:59 06:59 06:59 Intake Total 712 1760.1 Output Total 450 400 20 Balance 262 1360.1 -20 Result Diagrams: 03/24/19 09:11 03/24/19 09:11 Hospitalist ROS - Medication Medications: Active Medications Generic Name Dose Route Start Last Admin Trade Name Freq PRN Reason Stop Dose Admin Acetaminophen 650 mg 03/17/19 18:41 03/22/19 08:39 Tylenol PO 650 mg Q4H PRN Administration Headache/Fever/Mild Pain (1-3) Albuterol/Ipratropium 3 ml 03/21/19 18:30 03/25/19 06:49 Duoneb NEB 3 ml BID-RT MAX Administration Atorvastatin Calcium 80 mg 03/17/19 21:00 03/24/19 20:57 Lipitor PO 80 mg HS MAX Administration Bisoprolol Fumarate 5 mg 03/18/19 09:00 03/25/19 09:50 Zebeta PO 5 mg QAM MAX Administration Calcium Carbonate 600 mg 03/18/19 09:00 03/25/19 09:36 Caltrate PO 600 mg QAM MAX Administration Docusate Sodium 100 mg 03/20/19 21:00 03/25/19 09:36 Colace PO 100 mg BID MAX Administration Ezetimibe 10 mg 03/17/19 21:00 03/24/19 20:57 Zetia PO 10 mg HS MAX Administration Famotidine 20 mg 03/18/19 09:00 03/25/19 09:31 Pepcid PO 20 mg QAM MAX Administration Fenofibrate 145 mg 03/17/19 21:00 03/24/19 20:57 Tricor PO 145 mg HS MAX Administration Hydralazine HCl 10 mg 03/18/19 04:29 03/23/19 00:33 Apresoline SLOW IVP 10 mg Q4H PRN Administration Hypertension Fentanyl Citrate 2,000 mcg/ 100 mls @ 0 mls/hr 03/23/19 15:20 03/24/19 14:59 Sodium Chloride IV 04/22/19 15:20 100 mls INF MAX Administration Protocol Per Protocol Cefazolin Sodium/Dextrose 2 gm 50 mls @ 100 mls/hr 03/23/19 18:00 03/25/19 09 :30 / Device IVPB 03/25/19 18:01 50 mls 0200,1000,1800 MAX Administration Dexmedetomidine HCl 200 mcg/ 50 mls @ 0 mls/hr 03/24/19 18:00 03/24/19 20:44 Sodium Chloride IVPB 50 mls INF MAX Administration Protocol Titrate Diltiazem HCl 125 mg/ 125 mls @ 0 mls/hr 03/25/19 08:15 03/25/19 08:42 Miscellaneous Medication 1 IVPB 125 mls each/ Sodium Chloride INF MAX Administration Protocol As Directed Ipratropium [place] 0 ml 03/20/19 21:00 03/22/19 14:57 Atrovent 0.03% EA NARE 2 spr TID MAX Administration Lorazepam 2 mg 03/23/19 15:20 03/23/19 16:58 Ativan SLOW IVP 04/22/19 15:20 2 mg Q1H PRN Administration Breakthrough agitation Magnesium Oxide 250 mg 03/22/19 09:00 03/25/19 09:50 Magnesium Oxide PO 250 mg QAM MAX Administration Mometasone Furoate/Formoterol Fumar 2 puff 03/21/19 18:30 03/25/19 06:51 Dulera 100 Mcg/5 Mcg Inhaler INH 2 puff BID-RT MAX Administration Multivitamins 1 tab 03/18/19 09:00 03/25/19 09:36 Theragran PO 1 tab QAM MAX Administration Polyethylene Glycol 17 gm 03/19/19 14:04 03/21/19 07:54 Miralax PO 17 gm DAILYPRN PRN Administration Constipation Propafenone HCl 150 mg 03/17/19 21:00 03/25/19 09:40 Rythmol PO 150 mg TID MAX Administration Propofol 1,000 mg 03/23/19 15:20 03/24/19 15:12 Diprivan IV 04/22/19 15:20 1,000 mg INF PRN Administration TO ACHIEVE GOAL RASS Protocol Quetiapine Fumarate 25 mg 03/20/19 21:00 03/24/19 20:57 Seroquel PO 25 mg HS MAX Administration Senna 2 tab 03/20/19 12:38 03/22/19 12:48 Senokot PO 2 tab HSPRN PRN Administration Constipation Sodium Biphosphate/Sodium Phosphate 133 ml 03/20/19 12:38 03/22/19 15:43 Fleet Enema [place] 133 ml DAILY PRN Administration Constipation - Exam General Appearance: awake alert Eye: PERRL, anicteric sclera ENT: no oropharyngeal lesions, moist mucosa Neck: supple, no JVD Heart: no murmur, irregular Respiratory: no wheezes, no rales, rhonchi Gastrointestinal: soft, non-tender, non-distended, normal bowel sounds Extremities: no cyanosis, no edema Neurological: cranial nerve grossly intact, no new deficit Hosp A/P (1) S/P laminectomy Code(s): Z98.890 - OTHER SPECIFIED POSTPROCEDURAL STATES Status: Acute (2) Acute respiratory failure with hypoxia Code(s): J96.01 - ACUTE RESPIRATORY FAILURE WITH HYPOXIA Status: Acute (3) Left leg weakness Code(s): R29.898 - [facility] SYMPTOMS AND SIGNS INVOLVING THE MUSCULOSKELETAL SYSTEM Status: Acute (4) Lumbar radiculopathy Code(s): M54.16 - RADICULOPATHY, LUMBAR REGION Status: Acute (5) Afib Code(s): I48.91 - UNSPECIFIED ATRIAL FIBRILLATION Status: Chronic Qualifiers: Atrial fibrillation type: paroxysmal Qualified Code(s): I48.0 - Paroxysmal atrial fibrillation (6) CKD (chronic kidney disease) stage 3, GFR 30-59 ml/min Code(s): N18.3 - CHRONIC KIDNEY DISEASE, STAGE 3 (MODERATE) Status: Chronic (7) COPD (chronic obstructive pulmonary disease) Status: Chronic Qualifiers: COPD type: chronic bronchitis (8) Chronic diastolic CHF (congestive heart failure), NYHA class 2 Code(s): I50.32 - CHRONIC DIASTOLIC (CONGESTIVE) HEART FAILURE Status: Chronic (9) HTN (hypertension) Code(s): I10 - ESSENTIAL (PRIMARY) HYPERTENSION Status: Chronic Qualifiers: (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
--- NOTE | 2019-03-25 12:38 | PRG ---
DATE OF SERVICE: 03/25/2019 SUBJECTIVE: I had seen this patient today in the intensive care unit on rounds for the cardiology group. He is a very pleasant 83-year-old gentleman who has undergone back surgery. He is still on the ventilator. He has a history of an apparent paralysis of a hemidiaphragm. He has been on the ventilator yesterday evening. Early this morning, he developed atrial fibrillation with rapid ventricular response. He has been given IV diltiazem, also was given one dose of IV digoxin last night. OBJECTIVE: VITAL SIGNS: Heart rate this morning is still averaging in the 120s to 150, almost up to 150, appears to be atrial fibrillation. His blood pressure is 98/67. He is afebrile. Respiratory rate 15, O2 saturation is 94%. GENERAL: He is alert or least awake and on the ventilator. He has been given fentanyl for his back pain. LUNGS: His chest is clear to auscultation. CARDIAC: Reveals an irregular rhythm, which is very tachycardic. I do not hear any gross murmurs. ABDOMEN: Soft. Positive bowel sounds are present but are somewhat decreased. EXTREMITIES: Show no clubbing or cyanosis. LABORATORY DATA: Sodium is 137, BUN is 22, creatinine is 1.15. Troponin I is 0.017. Hemoglobin was 13.7, WBC is 14.6, which is elevated from yesterday and platelet count was 268,000. His chest x-ray did show some bilateral infiltrates, which may be pneumonia. Certainly we are concerned of this with paralysis of his hemidiaphragm and the elevated white blood cell count. PRESENT MEDICATIONS: Include 1. Ancef. 2. Diltiazem IV. 3. Fentanyl for pain. 4. Lipitor. 5. Bisoprolol. 6. He has been given digoxin, calcium. 7. He is on Zetia. 8. Pepcid. 9. Hydralazine as needed on a p.r.n. basis for hypertension. IMPRESSION: New onset atrial fibrillation with rapid ventricular response. He has been given the medication diltiazem and IV digoxin. We will repeat a dose of IV digoxin 0.25 mg, repeat this again in 6 hours. If he remains in atrial fibrillation with rapid ventricular response, we may switch him over to amiodarone, somewhat concerning with his underlying lung disease, at least he has chronic obstructive pulmonary disease. Otherwise, if he becomes hypotensive, he will need to undergo electrical cardioversion. As far as anticoagulation, he will need to be placed on oral anticoagulation. We will need to determine exactly how soon after the surgery, we can start anticoagulation. Otherwise, he may need to undergo earlier cardioversion of the atrial fibrillation to decrease the risk of embolic phenomena associated with the atrial fibrillation. We will continue to follow the patient with you. As I am monitoring the patient here, his blood pressure actually has dropped down to 89/63 according to the monitor and with the tachycardia. We will try certainly to get this heart rate under better control as soon as possible. Job ID: [id number]
--- NOTE | 2019-03-25 13:57 | EKG ---
Test Reason : Blood Pressure : / mmHG Vent. Rate : 069 BPM Atrial Rate : 069 BPM P-R Int : 232 ms QRS Dur : 090 ms QT Int : 414 ms P-R-T Axes : 018 -32 035 degrees QTc Int : 443 ms Sinus rhythm with 1st degree A-V block Left axis deviation Minimal voltage criteria for LVH, may be normal variant Abnormal ECG Confirmed by DOMINGO PELAYO DO ([id number]), production editor ELVIN LOERA ([id number]) on 03/25/2019 1:56:52 PM Referred By: Confirmed By:DOMINGO PELAYO DO
[2019-03-25] MEDS ORDERED: fentaNYL Citrate/PF 2,000 MCG in Sodium Chloride 0.9% 60 ML IV PRN (18:34)
[2019-03-25] MEDS: Atorvastatin Calcium 40 MG TAB PO SCH (21:52)
[2019-03-25] MEDS: Ezetimibe 10 MG TAB PO SCH (21:53)
[2019-03-25] MEDS: Fenofibrate Nanocrystallized 145 MG TAB PO SCH (21:53)
[2019-03-26] MEDS: Mometasone/Formoterol 120 PUFF INHALER INH SCH ×2 (07:01→18:28)
[2019-03-26 08:03] LABS: #Eosinphils 0.1 thou/uL (0.0-0.7); #Lymphocytes 1.2 thou/uL (1.20-3.40); #Monocytes 1.3 thou/uL (0.11-0.59); #Neutrophils 9.7 thou/uL (1.40-6.50); %Basophils 0.3 % (0.0-1.0); %Eosinophils 0.7 % (0.0-10.0); %Lymphocytes 9.9 % (21.0-51.0); %Monocytes 10.2 % (0.0-10.0); %Neutrophils 78.9 % (42.0-75.0); Hemoglobin 12.9 g/dL (14.0-18.0); Mean Corpuscular HGB CONC 31.5 g/dL (32.0-36.0); Mean Corpuscular Hemoglobin 31.5 pg (27.0-31.0); Mean Platelet Volume 7.8 fL (7.4-10.4); Platelet Count 321 thou/uL (130-400); RBC Distribution Width 15.3 % (11.5-14.5); Red Blood Cell (RBC) Count 4.09 mill/uL (4.70-6.10); White Blood Cell (WBC) Count 12.2 thou/uL (4.8-10.8)
[2019-03-26 08:15] LABS: Anion Gap 18 mmol/L (10-20); BUN (Urea Nitrogen) 33 mg/dL (8.4-25.7); Calc. Creatinine Clearance 51 mL/min (70-130); Calcium 8.9 mg/dL (7.8-10.44); Carbon Dioxide 20 mmol/L (23-31); Chloride 104 mmol/L (98-107); Estimated GFR-MDRD 55; Glucose 77 mg/dL (83-110); Potassium 4.3 mmol/L (3.5-5.1); Sodium 138 mmol/L (136-145)
--- NOTE | 2019-03-26 08:42 | PRG ---
DATE OF SERVICE: 03/26/2019 SUBJECTIVE: Jun Paez went into atrial fibrillation last night. His Cardizem had been stopped because of a sinus pause. OBJECTIVE: VITAL SIGNS: His heart rate is 128 at this time, his blood pressure 149/93, respiratory rates in the teens, and oximetry are 100% on 2 L. GENERAL: He is in no distress. LUNGS: Clear. HEART: Irregular rhythm. ABDOMEN: Soft and nontender. EXTREMITIES: Warm and without edema. LABORATORY DATA: White count is 12.2, hemoglobin 12.9, and platelets 321. Electrolytes normal. Creatinine is 1.35. IMPRESSION AND PLAN: Status post spine surgery with overnight ventilation. He has been extubated and is doing well other than the atrial fibrillation. He is tolerating this well clinically at this time. He has such a marginal reserve. I would recommend that he stay in the Critical Care Unit for now. Cardiology had been notified of his atrial fibrillation. He is not having any active asthma or signs of an infection at this time. Job ID: [id number]
--- NOTE | 2019-03-26 08:59 | PRG ---
DATE OF SERVICE: 03/26/2019 Mr. Paez is now on postop day 3 following lumbar decompression with Dr. Keenan. He has finally been extubated this morning and appears to be much more comfortable. He again falls off command and does not appear to be any in any significant pain. He will need further workup with Physical Therapy and Occupational Therapy, and likely disposition towards rehab in the coming days. Otherwise, no additional complaints. He can be transferred to the floor at any time from Neurosurgery standpoint. We will defer to primary team and Pulmonology for that purpose. Job ID: [id number]
[2019-03-26] MEDS ORDERED: Digoxin 0.5 MG/2 ML AMP SLOW IVP SCH ×2 (09:00→11:15)
[2019-03-26] MEDS: Calcium Carbonate 600 MG TAB PO SCH (09:30)
[2019-03-26] MEDS: Bisoprolol Fumarate 5 MG TAB PO SCH ×2 (09:30)
[2019-03-26] MEDS: Propafenone HCl 150 MG TAB PO SCH (09:30)
[2019-03-26] MEDS: Famotidine 20 MG TAB PO SCH (09:30)
[2019-03-26] MEDS: Docusate 100 MG CAP PO SCH ×2 (09:30→20:13)
[2019-03-26] MEDS: Magnesium Oxide 250 MG TAB PO SCH (09:30)
--- NOTE | 2019-03-26 09:44 | PRG ---
DATE OF SERVICE: 03/26/2019 Mr. Paez is now 3 days status post lumbar decompression. He has been extubated this morning and appears to be comfortable. From Neurosurgical perspective, he can be discharged from the ICU. We will await word from Pulmonary Critical Care as to when they believe he is safe to do so. We will continue to move in the direction of PT, OT, and most likely inpatient rehab. Job ID: [id number]
[2019-03-26] MEDS: Multivit, Therapeutic 1 TAB PO SCH (09:58)
--- NOTE | 2019-03-26 11:05 | PRG ---
DATE OF SERVICE: 03/26/2019 SUBJECTIVE: Mr. Paez is a very pleasant gentleman, who underwent back surgery. He has been in intensive care unit. He was extubated this morning. Yesterday evening, he had some episodes of significant pauses associated with atrial fibrillation. He had at least two pauses more than 4 seconds. He had been on IV diltiazem due to atrial fibrillation with rapid ventricular response. He also had been on Rythmol as well as bisoprolol. He had also been given digoxin for the rapid heart rate as well as diltiazem last night. The IV diltiazem was stopped around 8 o'clock last night due to the pause. He had not had any digoxin since approximately 9:00 a.m. yesterday. The bisoprolol also the last dose was 10 o'clock yesterday morning and the Rythmol was held after about 2:30 yesterday afternoon also due to the pauses. This morning, he remains in atrial fibrillation. At times, he earlier was in sinus rhythm, but not within the last 12 hours. He did have some sinus tachycardia yesterday morning, but then around noon time, he was back in sinus rhythm with good rate. At 7:00 p.m. yesterday evening, he was in the sinus rhythm with a well-controlled heart rate. However, around 3 o'clock this morning, he developed atrial fibrillation with rapid ventricular response. He then also had the pauses starting around 1 o'clock this morning. 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 He may eventually need to undergo pacemaker insertion. At 8:30 this morning, he had pauses. At 9 o'clock, he also has significant pauses over 2 seconds. He had two 4 second pauses, one at 9:08 a.m. and another one was documented at 8:36 a.m. OBJECTIVE: GENERAL: At this time, he is confused. He is alert at least and awake, but the heart rate is still in the 120s. VITAL SIGNS: Blood pressure remained stable, O2 saturations are also stable. His blood pressure is 140/76, respiratory rate 17, O2 saturation is 100%, heart rate is atrial fibrillation, heart rate in the one teens to 120s and pretty much maintaining in the 120s. CHEST: Clear to auscultation. CARDIOVASCULAR: Reveals an irregular rhythm with a rapid ventricular response. ABDOMEN: Unremarkable. EXTREMITIES: Show no clubbing or cyanosis. IMPRESSION: 1. 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 He may eventually need to undergo pacemaker insertion, so that he can be maintained on his beta blockers or Rythmol for rhythm control. Hopefully, we can maintain his sinus rhythm. 2. History of coronary artery disease. This remains stable at this time. I do not see EKG changes associated with the tachycardia. 3. Hypertension. This is under reasonable control at this time. He has dyslipidemia. We will restart him on his medications for his cholesterol. 4. Status post back surgery for herniated disk. He has been seen by Dr. Keenan and has been cleared for transfer out of the unit, but given his history of his arrhythmias and tachy-nir syndrome, this time, he will need to remain in the unit on close observation until we can better control the heart rate or the rhythm. 5. New onset atrial fibrillation with rapid ventricular response with now what appears to be sick sinus syndrome, tachy-nir with significant pauses more than 4 seconds. He may meet the requirements for pacemaker insertion. We will hold off on his medications at this time, but I will reinstate digoxin to lower the heart rate to help control the heart rate with his atrial fibrillation. If this is unsuccessful, then we may need to add a low dose of a beta-gold to control the heart rate. 6. Coronary artery disease, appears to be stable. 7. History of back surgery. This also appears to be doing as expected and he is recovering quite well. 8. Hypercholesterolemia. We will reinstate his cholesterol medications now that he is able to take p.o. medications. Job ID: [id number]
--- NOTE | 2019-03-26 11:33 | PDOC.HOSPP ---
- Subjective Encounter Date: 03/26/19 Encounter Time: 09:30 Subjective: awake, got extubated yesterday evening no c/o palp but heart rate on monitor is around 120's in and out of afib is moving all extremities - Objective Vital Signs & Weight: Vital Signs (12 hours) Temp Pulse Resp Pulse Ox 03/26/19 07:12 100 03/26/19 07:00 120 H 20 98 03/26/19 04:00 99 F 03/26/19 00:00 98.6 F Weight Admit Weight 180 lb 4.8 oz Weight 182 lb 15.739 oz Most Recent Monitor Data Heart Rate from ECG 93 NIBP 126/59 NIBP BP-Mean 81 Respiration from ECG 19 SpO2 99 I&O: 03/25/19 03/26/19 03/27/19 06:59 06:59 06:59 Intake Total 1760.1 984.5 8 Output Total 400 800 30 Balance 1360.1 184.5 -22 Result Diagrams: 03/26/19 07:51 03/26/19 07:51 Hospitalist ROS - Medication Medications: Active Medications Generic Name Dose Route Start Last Admin Trade Name Freq PRN Reason Stop Dose Admin Acetaminophen 650 mg 03/17/19 18:41 03/22/19 08:39 Tylenol PO 650 mg Q4H PRN Administration Headache/Fever/Mild Pain (1-3) Albuterol/Ipratropium 3 ml 03/21/19 18:30 03/26/19 07:00 Duoneb NEB 3 ml BID-RT MAX Administration Atorvastatin Calcium 80 mg 03/17/19 21:00 03/25/19 21:52 Lipitor PO Not Given HS MAX Calcium Carbonate 600 mg 03/18/19 09:00 03/26/19 09:30 Caltrate PO 600 mg QAM MAX Administration Docusate Sodium 100 mg 03/20/19 21:00 03/26/19 09:30 Colace PO 100 mg BID MAX Administration Ezetimibe 10 mg 03/17/19 21:00 03/25/19 21:53 Zetia PO Not Given HS MAX Famotidine 20 mg 03/18/19 09:00 03/26/19 09:30 Pepcid PO 20 mg QAM MAX Administration Fenofibrate 145 mg 03/17/19 21:00 03/25/19 21:53 Tricor PO Not Given HS MAX Hydralazine HCl 10 mg 03/18/19 04:29 03/23/19 00:33 Apresoline SLOW IVP 10 mg Q4H PRN Administration Hypertension Dexmedetomidine HCl 200 mcg/ 50 mls @ 0 mls/hr 03/24/19 18:00 03/24/19 20:44 Sodium Chloride IVPB 50 mls INF MAX Administration Protocol Titrate Diltiazem HCl 125 mg/ 125 mls @ 0 mls/hr 03/25/19 08:15 03/25/19 08:42 Miscellaneous Medication 1 IVPB 125 mls each/ Sodium Chloride INF MAX Administration Protocol As Directed Fentanyl Citrate 2,000 mcg/ 100 mls @ 0 mls/hr 03/25/19 18:34 03/25/19 19:01 Sodium Chloride IV 100 mls INF PRN Administration Pain As Directed Ipratropium [place] 0 ml 03/20/19 21:00 03/22/19 14:57 Atrovent 0.03% EA NARE 2 spr TID MAX Administration Magnesium Oxide 250 mg 03/22/19 09:00 03/26/19 09:30 Magnesium Oxide PO 250 mg QAM MAX Administration Mometasone Furoate/Formoterol Fumar 2 puff 03/21/19 18:30 03/26/19 07:01 Dulera 100 Mcg/5 Mcg Inhaler INH 2 puff BID-RT MAX Administration Multivitamins 1 tab 03/18/19 09:00 03/26/19 09:58 Theragran PO 1 tab QAM MAX Administration Polyethylene Glycol 17 gm 03/19/19 14:04 03/21/19 07:54 Miralax PO 17 gm DAILYPRN PRN Administration Constipation Quetiapine Fumarate 25 mg 03/20/19 21:00 03/25/19 21:53 Seroquel PO Not Given HS MAX Senna 2 tab 03/20/19 12:38 03/22/19 12:48 Senokot PO 2 tab HSPRN PRN Administration Constipation Sodium Biphosphate/Sodium Phosphate 133 ml 03/20/19 12:38 03/22/19 15:43 Fleet Enema [place] 133 ml DAILY PRN Administration Constipation - Exam General Appearance: awake alert Eye: PERRL, anicteric sclera ENT: no oropharyngeal lesions, dry oral mucosa Neck: supple, no JVD Heart: no murmur, irregular Respiratory: no wheezes, no rales, rhonchi Gastrointestinal: soft, non-tender, non-distended, normal bowel sounds Extremities: no cyanosis, no edema Neurological: cranial nerve grossly intact, no focal deficits Hosp A/P (1) Afib Code(s): I48.91 - UNSPECIFIED ATRIAL FIBRILLATION Status: Acute (2) S/P laminectomy Code(s): Z98.890 - OTHER SPECIFIED POSTPROCEDURAL STATES Status: Acute (3) Acute respiratory failure with hypoxia Code(s): J96.01 - ACUTE RESPIRATORY FAILURE WITH HYPOXIA Status: Resolved (4) Left leg weakness Code(s): R29.898 - [facility] SYMPTOMS AND SIGNS INVOLVING THE MUSCULOSKELETAL SYSTEM Status: Acute (5) Lumbar radiculopathy Code(s): M54.16 - RADICULOPATHY, LUMBAR REGION Status: Acute (6) CKD (chronic kidney disease) stage 3, GFR 30-59 ml/min Code(s): N18.3 - CHRONIC KIDNEY DISEASE, STAGE 3 (MODERATE) Status: Chronic (7) COPD (chronic obstructive pulmonary disease) Status: Chronic Qualifiers: COPD type: chronic bronchitis (8) Chronic diastolic CHF (congestive heart failure), NYHA class 2 Code(s): I50.32 - CHRONIC DIASTOLIC (CONGESTIVE) HEART FAILURE Status: Chronic (9) HTN (hypertension) Code(s): I10 - ESSENTIAL (PRIMARY) HYPERTENSION Status: Chronic Qualifiers: (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 is off bisoprolol and rythmol now due to sig pauses, on dig iv daily. continue nebs, zetia, tricor may start clear liq diet PT/OT to mobilize in room as tolerated if rvr is controlled around 100 no anticoagulation due to recent laminectomy with small leak of csf during procedure. will f/u
[2019-03-26] MEDS: Fenofibrate Nanocrystallized 145 MG TAB PO SCH (20:13)
[2019-03-26] MEDS: Ezetimibe 10 MG TAB PO SCH (20:13)
[2019-03-26] MEDS: Atorvastatin Calcium 40 MG TAB PO SCH (20:13)
[2019-03-27 05:26] LABS: Anion Gap 12 mmol/L (10-20); BUN (Urea Nitrogen) 27 mg/dL (8.4-25.7); Calc. Creatinine Clearance 74 mL/min (70-130); Calcium 9.4 mg/dL (7.8-10.44); Carbon Dioxide 24 mmol/L (23-31); Chloride 105 mmol/L (98-107); Estimated GFR-MDRD 85; Glucose 96 mg/dL (83-110); Potassium 3.8 mmol/L (3.5-5.1); Sodium 137 mmol/L (136-145)
[2019-03-27] MEDS: Mometasone/Formoterol 120 PUFF INHALER INH SCH ×2 (06:30→18:49)
--- NOTE | 2019-03-27 08:55 | PRG ---
DATE OF SERVICE: 03/27/2019 This is Dominic Jarquin PA-C dictating a report for Iain Keenan MD. This is a postoperative recheck. Mr. Paez is postoperative day #4, having undergone a thoracic laminectomy with lumbar hemilaminotomies. In regard to his neurosurgical issues, the patient appears to be doing well. He was extubated, I believe, on Wednesday evening and has been stable, though requiring supplemental oxygen. He is drowsy today. Apparently, he has had some significant cardiac issues including AFib with RVR. He was on digoxin and diltiazem IV to help with rate control as he is unable to be anticoagulated given his recent spinal surgery. According to nursing staff, the patient may be getting a defibrillator/pacemaker as early as today. But otherwise, the patient follows commands in all extremities. He is slower to move the right lower extremity, though appears to have more strength now than he did preoperatively. Cardiac issues are what is keeping the patient in, the patient's heart rate and his cardiac issues must be taken care of prior to him leaving the unit. Otherwise, he is ready to work with Therapies. Again, he follows commands in all extremities, but is drowsy. He, however, denies back pain or leg pain at this point. We will continue to follow along. We will defer to met Medicine and Cardiology in regard to the patient's cardiac symptoms. Please call with any changes in the patient's neurologic status. Job ID: [id number]
[2019-03-27] MEDS: Ipratropium Bromide 0.03% Nasal Inhaler 30 ml Bottle EA NARE SCH ×5 (09:00→20:51)
[2019-03-27] MEDS: Famotidine 20 MG TAB PO SCH (10:24)
[2019-03-27] MEDS: Magnesium Oxide 250 MG TAB PO SCH (10:25)
--- NOTE | 2019-03-27 13:08 | PRG ---
DATE OF SERVICE: 03/27/2019 SUBJECTIVE: Mr. Paez was standing with Physical Therapy, he is complaining of back pain on standing. OBJECTIVE: VITAL SIGNS: He is afebrile. Heart rate is 90, blood pressure 150/87. LUNGS: Clear. HEART: Regular rhythm. ABDOMEN: Soft. LABORATORY DATA: His electrolytes are normal. BUN is 27, creatinine is 0.86. IMPRESSION: 1. Asthmatic bronchitis, clinically stable. 2. Chronically paralyzed diaphragm. 3. Status post mechanical ventilation postoperatively after back surgery. Probably can be considered stable to move out of the Critical Care Unit. Job ID: [id number]
[2019-03-27] MEDS: Docusate 100 MG CAP PO SCH ×2 (13:16→20:52)
[2019-03-27] MEDS: Calcium Carbonate 600 MG TAB PO SCH (13:16)
[2019-03-27] MEDS: Multivit, Therapeutic 1 TAB PO SCH (13:16)
--- NOTE | 2019-03-27 14:23 | PDOC.HOSPP ---
- Subjective Encounter Date: 03/27/19 Encounter Time: 10:15 Subjective: Pt. lethargic, responds to verbal stimuli, not fully oriented. No SOB. - Objective Vital Signs & Weight: Vital Signs (12 hours) Temp Pulse Pulse Resp BP BP BP 03/27/19 11:00 98.6 F 03/27/19 09:43 100 97/78 112/63 91/73 03/27/19 08:00 03/27/19 07:00 98.5 F 03/27/19 06:29 03/27/19 06:26 92 21 H 03/27/19 04:00 98.8 F Pulse Ox Pulse Ox 03/27/19 11:00 03/27/19 09:43 94 L 03/27/19 08:00 96 03/27/19 07:00 03/27/19 06:29 99 03/27/19 06:26 97 03/27/19 04:00 Weight Admit Weight 180 lb 4.8 oz Weight 182 lb 15.739 oz Most Recent Monitor Data Heart Rate from ECG 99 NIBP 143/80 NIBP BP-Mean 101 Respiration from ECG 21 SpO2 94 I&O: 03/26/19 03/27/19 03/28/19 06:59 06:59 06:59 Intake Total 984.5 3490 300 Output Total 800 1195 275 Balance 184.5 2295 25 Result Diagrams: 03/26/19 07:51 03/27/19 04:13 Hospitalist ROS - Medication Medications: Active Medications Generic Name Dose Route Start Last Admin Trade Name Freq PRN Reason Stop Dose Admin Acetaminophen 650 mg 03/17/19 18:41 03/22/19 08:39 Tylenol PO 650 mg Q4H PRN Administration Headache/Fever/Mild Pain (1-3) Albuterol/Ipratropium 3 ml 03/21/19 18:30 03/27/19 06:26 Duoneb NEB 3 ml BID-RT MAX Administration Atorvastatin Calcium 80 mg 03/17/19 21:00 03/26/19 20:13 Lipitor PO 80 mg HS MAX Administration Calcium Carbonate 600 mg 03/18/19 09:00 03/27/19 13:16 Caltrate PO 600 mg QAM MAX Administration Docusate Sodium 100 mg 03/20/19 21:00 03/27/19 13:16 Colace PO 100 mg BID MAX Administration Ezetimibe 10 mg 03/17/19 21:00 03/26/19 20:13 Zetia PO 10 mg HS MAX Administration Famotidine 20 mg 03/18/19 09:00 03/27/19 10:24 Pepcid PO 20 mg QAM MAX Administration Fenofibrate 145 mg 03/17/19 21:00 03/26/19 20:13 Tricor PO 145 mg HS MAX Administration Hydralazine HCl 10 mg 03/18/19 04:29 03/23/19 00:33 Apresoline SLOW IVP 10 mg Q4H PRN Administration Hypertension Dexmedetomidine HCl 200 mcg/ 50 mls @ 0 mls/hr 03/24/19 18:00 03/24/19 20:44 Sodium Chloride IVPB 50 mls INF MAX Administration Protocol Titrate Fentanyl Citrate 2,000 mcg/ 100 mls @ 0 mls/hr 03/25/19 18:34 03/25/19 19:01 Sodium Chloride IV 100 mls INF PRN Administration Pain As Directed Ipratropium [place] 0 ml 03/20/19 21:00 03/27/19 10:24 Atrovent 0.03% EA NARE 2 spr TID MAX Administration Magnesium Oxide 250 mg 03/22/19 09:00 03/27/19 10:25 Magnesium Oxide PO 250 mg QAM MAX Administration Mometasone Furoate/Formoterol Fumar 2 puff 03/21/19 18:30 03/27/19 06:30 Dulera 100 Mcg/5 Mcg Inhaler INH 2 puff BID-RT MAX Administration Multivitamins 1 tab 03/18/19 09:00 03/27/19 13:16 Theragran PO 1 tab QAM MAX Administration Polyethylene Glycol 17 gm 03/19/19 14:04 03/21/19 07:54 Miralax PO 17 gm DAILYPRN PRN Administration Constipation Quetiapine Fumarate 25 mg 03/20/19 21:00 03/26/19 20:14 Seroquel PO 25 mg HS MAX Administration Senna 2 tab 03/20/19 12:38 03/22/19 12:48 Senokot PO 2 tab HSPRN PRN Administration Constipation Sodium Biphosphate/Sodium Phosphate 133 ml 03/20/19 12:38 03/22/19 15:43 Fleet Enema [place] 133 ml DAILY PRN Administration Constipation Sodium Chloride 10 ml 03/26/19 21:00 03/27/19 10:25 Flush - Normal Saline IVF 10 ml Q12HR MAX Administration - Exam General Appearance: ill appearing Eye: PERRL, anicteric sclera ENT: no oropharyngeal lesions, moist mucosa Neck: supple, no JVD Heart: no murmur, irregular Respiratory: no wheezes, rhonchi Gastrointestinal: soft, non-tender, normal bowel sounds Extremities: no cyanosis, no edema Neurological: cranial nerve grossly intact, no focal deficits Hosp A/P (1) Afib Code(s): I48.91 - UNSPECIFIED ATRIAL FIBRILLATION Status: Acute (2) S/P laminectomy Code(s): Z98.890 - OTHER SPECIFIED POSTPROCEDURAL STATES Status: Acute (3) Acute respiratory failure with hypoxia Code(s): J96.01 - ACUTE RESPIRATORY FAILURE WITH HYPOXIA Status: Resolved (4) Left leg weakness Code(s): R29.898 - [facility] SYMPTOMS AND SIGNS INVOLVING THE MUSCULOSKELETAL SYSTEM Status: Acute (5) Lumbar radiculopathy Code(s): M54.16 - RADICULOPATHY, LUMBAR REGION Status: Acute (6) CKD (chronic kidney disease) stage 3, GFR 30-59 ml/min Code(s): N18.3 - CHRONIC KIDNEY DISEASE, STAGE 3 (MODERATE) Status: Chronic (7) COPD (chronic obstructive pulmonary disease) Status: Chronic Qualifiers: COPD type: chronic bronchitis (8) Chronic diastolic CHF (congestive heart failure), NYHA class 2 Code(s): I50.32 - CHRONIC DIASTOLIC (CONGESTIVE) HEART FAILURE Status: Chronic (9) HTN (hypertension) Code(s): I10 - ESSENTIAL (PRIMARY) HYPERTENSION Status: Chronic Qualifiers: (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 is off bisoprolol, digoxin and rythmol now due to sig pauses. continue nebs, zetia, tricor NPO now for possible PCM, may advance diet to solid after procedure. PT/OT to mobilize. no anticoagulation due to recent laminectomy with small leak of csf during procedure. will f/u
[2019-03-27] MEDS ORDERED: CEFAZOLIN 2 GM in Premix Bag 1 BAG IVPB SCH (18:45)
[2019-03-27] MEDS: Atorvastatin Calcium 40 MG TAB PO SCH (20:51)
[2019-03-27] MEDS: Ezetimibe 10 MG TAB PO SCH (20:52)
[2019-03-27] MEDS: Fenofibrate Nanocrystallized 145 MG TAB PO SCH (20:52)
--- NOTE | 2019-03-27 22:01 | CON ---
DATE OF CONSULTATION: 03/27/2019 I am seeing Mr. Paez at our [facility] ICU as Electrophysiology color consultant. His problems are; 1. Paroxysmal atrial fibrillation. a. On a previous suppression with propafenone. b. 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 2. History of coronary artery disease, but with preserved LVEF on echo, 03/22/2019, 55% to 60%, also mild , mcvs-nt-nrokpoan AI, and ewyk-vq-pvbzfukl TR. 3. COPD. 4. History of falls. 5. Hypertension. 6. Chronic left knee pain. 7. Spinal stenosis. ALLERGIES: NONE NOTED. MEDICATIONS: At home include atorvastatin, bisoprolol, Zetia, Pradaxa, fenofibrate, propafenone, and cimetidine. SUBJECTIVE: Mr. Paez is being admitted after a fall. He was evaluated in the ER and chronic degenerative changes in the spine were noted. He had indeterminate troponins and eventually required back surgery which he underwent without issues. Postoperative period was difficult due to significant pauses associated with atrial fibrillation, occasional rapid rates lasting over 4 to 4.5 seconds. Rythmol and bisoprolol were stopped. IV diltiazem also had to be stopped. His pauses and bradycardia were noted yesterday around noon. His was at the bedside and he was awake throughout the spells in supine. He did not pass out or markedly symptomatic. There is no PND or orthopnea. No stroke-like symptoms. No neurological deficits. At this time, he still is on a morphine pump. REVIEW OF SYSTEMS: Rest of 12-point review of system otherwise unremarkable. PAST MEDICAL HISTORY: As above. The patient usually receives cardiac care from Dr. Oliver at [facility]. SOCIAL HISTORY: Patient denies smoking, EtOH, or drug abuse. FAMILY HISTORY: Not contributory. OBJECTIVE DATA: VITAL SIGNS: Blood pressure is 143/80, heart rate 101, respirations 21, temperature 98.6 degrees Fahrenheit. GENERAL: Alert and oriented man who is still in bed, recovering from his recent back surgery. He has a morphine pump on board and he is somewhat of a poor historian. NECK: Supple. Jugular veins not distended. CHEST: Coarse without crackles. HEART: Heart sounds are regular to rate and rhythm. No murmur or gallop. ABDOMEN: Benign. Bowel sounds positive. EXTREMITIES: Lower extremities without edema, clubbing, or cyanosis. Pulses are adequate. NEUROLOGIC: Patient is nonfocal. MUSCULOSKELETAL: Without joint swelling or deformity. SKIN: Without rash. DATABASE: EKG is reviewed. Initial EKG from March 17 reveals sinus rhythm, rate of 69 beats per minute. Subsequent EKG from March 25, 2019, reveals a PAT run converting to sinus rhythm and recurring again. Telemetry strips from , prolonged pauses 3.8 seconds followed by a junctional escape with a 2-second pause, episodes of atrial tachycardia with ventricular rates of 120 to 130 beats per minute. Frequent premature atrial contractions are seen on occasion. Bradycardia with junctional escape rhythm is also noted. Other EKG from March 26, 2019, reveals more coarse atrial fibrillation/flutter like rhythm with ventricular rates of 112 beats per minute. Longest pause documented about 4.5 seconds. Telemetry strips reveal intermittent sinus rhythm with PVCs. LABORATORY DATA: White cell count 12.2, hemoglobin 12.9, platelet count is 321. Sodium 137, potassium 3.8, BUN is 27, creatinine 0.86. Troponin I is 0.05, 0.037, 0.055 consecutively. ASSESSMENT AND PLAN: Mr. Paez is a pleasant 83-year-old man with history of atrial fibrillation, previously well suppressed with propafenone. He has been admitted after a fall, which was thought to be secondary to his knee pain and malfunction, but on the other hand, some degree of dizziness, lightheadedness cannot be ruled out, which could be in turn arrhythmia related. Also while here, he has a variety of arrhythmias including sustained atrial tachycardias, atrial fibrillation, sinus rhythm alternating with occasional likely conversion pauses seen. This is in the setting of intermittent IV diltiazem and digoxin use. We had discussed the treatment options, including a pacemaker to avoid marked bradycardia, instituted antiarrhythmic and heart rate controlling therapy. This gentleman clearly has some degree of tachy-nir syndrome and consideration for this therapy would be reasonable. Hence, we discussed this option, he and his were agreeable. Discussed risks, benefits of procedure and he is willing to proceed. We will make plans for having this performed possibly Wednesday or earlier if Dr. Peterson has availability. Job ID: [id number]
[2019-03-28] MEDS: hydrALAZINE 20 MG/ML VIAL SLOW IVP PRN (03:34)
[2019-03-28] MEDS: Mometasone/Formoterol 120 PUFF INHALER INH SCH ×2 (07:36→18:14)
[2019-03-28] MEDS ORDERED: Gentamicin 80 MG/2 ML VIAL ONE (08:04)
[2019-03-28] MEDS ORDERED: CEFAZOLIN 1 GM VIAL ONE (08:04)
--- NOTE | 2019-03-28 10:33 | EKG ---
Test Reason : CP Blood Pressure : / mmHG Vent. Rate : 108 BPM Atrial Rate : 258 BPM P-R Int : 000 ms QRS Dur : 086 ms QT Int : 304 ms P-R-T Axes : 000 -20 042 degrees QTc Int : 407 ms Atrial fibrillation with rapid ventricular response Abnormal ECG No previous ECGs available Confirmed by SHABNAM SWANSON (2) on 03/28/2019 10:32:32 AM Referred By: CELIA Confirmed By:SHABNAM SWANSON
--- NOTE | 2019-03-28 10:36 | EKG ---
Test Reason : Blood Pressure : / mmHG Vent. Rate : 112 BPM Atrial Rate : 131 BPM P-R Int : 000 ms QRS Dur : 088 ms QT Int : 304 ms P-R-T Axes : 000 -22 150 degrees QTc Int : 414 ms Atrial fibrillation with rapid ventricular response with premature ventricular or aberrantly conducte d complexes Abnormal ECG When compared with ECG of 26-MAR-2019 09:23, (Unconfirmed) Atrial fibrillation has replaced Sinus rhythm Confirmed by SHABNAM SWANSON (2) on 03/28/2019 10:35:53 AM Referred By: ANDREZ Confirmed By:SHABNAM SWANSON
[2019-03-28] MEDS: Famotidine 20 MG TAB PO SCH (10:56)
[2019-03-28] MEDS: Docusate 100 MG CAP PO SCH ×2 (10:56→21:40)
[2019-03-28] MEDS: Calcium Carbonate 600 MG TAB PO SCH (10:56)
[2019-03-28] MEDS: Multivit, Therapeutic 1 TAB PO SCH (10:56)
[2019-03-28] MEDS: Ipratropium Bromide 0.03% Nasal Inhaler 30 ml Bottle EA NARE SCH ×6 (10:57→21:41)
[2019-03-28] MEDS: Bisoprolol Fumarate 5 MG TAB PO SCH (10:57)
--- NOTE | 2019-03-28 11:29 | PRG ---
DATE OF SERVICE: 03/28/2019 SUBJECTIVE: Mr. Paez is postoperative day #5 from multilevel thoracic and lumbar revision surgery. He is doing well. He states he does have improvement in his left leg pain. He remains moderately weak in the left lower extremity and multiple myotomes, but appears to have to be improving in this regard. He has had a pacemaker defibrillator placed by Cardiology today. We are making arrangements for transfer to the floor at sometime soon. Job ID: [id number]
--- NOTE | 2019-03-28 11:41 | PRG ---
DATE OF SERVICE: 03/28/2019 Mr. Paez is postoperative day 5 from thoracic laminectomy and multilevel left lumbar hemilaminotomies. The patient appears more alert and less drowsy this morning. He denies any complaints of back pain or leg pain. He does note some itching on the sides of his back, likely related to an adhesive allergy. He has been able to stand with physical therapy, however he exhibited leg weakness and experienced increased back pain. He has not been able to ambulate thus far. Postoperatively, the patient has experienced new onset AFib with RVR. He is awaiting pacemaker placement, likely today. On exam, the patient is awake, alert, and appropriate. He follows commands and he is able to move all extremities. He does exhibit iliopsoas weakness bilaterally. He is slow to bend his left knee. Sensation to light touch is intact and equal in his bilateral lower extremities. The patient remains in the ICU at this time due to cardiac issues. Plan is to continue with physical therapy. Likely plan upon discharge from the hospital will be inpatient rehab. We will continue to follow the patient during his hospital stay. Please call with any neurologic changes or other concerns. Job ID: [id number] [facility]
--- NOTE | 2019-03-28 11:54 | OP ---
DATE OF PROCEDURE: 03/23/2019 LOCATION: OR 12. MANAGER COMM[employer]ITY RELATIONS: Dominic Jarquin PA-C PREROCEDURE DIAGNOSES: 1. Multilevel lumbar stenosis with low back and left leg pain. 2. 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 3. Thoracic cord compression. 4. Lumbar radiculopathy. PROCEDURES PERFORMED: 1. T9-T10 laminectomy, partial facetectomy, and foraminotomies. 2. Revision left L2-L3, left L3-L4, left L4-L5 hemilaminotomies and foraminotomies. 3. Left L3-L4 trans-facet approach for decompression of left L3 exiting nerve root and trans-facet diskectomy. DESCRIPTION OF PROCEDURE: After informed consent was obtained from the patient, the patient was brought to the OR. Proper patient, pause, and identification were carried out. He was placed under excellent general endotracheal anesthesia and was positioned prone on the OR table. All appropriate points were padded. We identified the prior lumbar wound and a portion of this was used in the midline. We also identified the thoracic wound that allowed for approach to the T9-T10 segment. These regions were all sterilely cleansed, prepared, and draped. Proper patient, pause, and identification were carried out. The thoracic wound was then opened with a combination of sharp, monopolar, and blunt dissection. Localization film confirmed our area of interest. We then performed a T9-T10 laminectomy, partial facetectomy, and foraminotomies. We then turned our attention to meticulous hemostasis and irrigation. That wound was closed along with the lumbar wound at the end, I then turned our attention to the lumbar incision. This was opened. The left L2-L3, left L3-L4, and left L4-L5 facet complexes and pars were exposed. Localization film confirmed our area of interest. We then performed revision left L4-L5 hemilaminotomies with decompression, traversing left L5 nerve root, and then decompression of the left L4 traversing nerve root and freeing up the nerve root. The dura in the axilla was very thin. A small amount of spinal fluid was leaked during the dissection as there was exuberant scar tissue. This was sealed. We then turned our attention to diskectomy at the left L3-L4 segment and a trans-facet diskectomy at the left L3-L4 segment to assure freedom of the foramen and extraforaminal segments, decompression of the left L3, left L4, and left L5 nerve roots. Copious irrigation occurred throughout as did maximizing hemostasis. The wound was then closed in anatomic layers. Both wounds were then closed in anatomic layers following sprinkling of vancomycin powder. The patient then emerged from anesthesia. Job ID: [id number]
[2019-03-28] MEDS: Magnesium Oxide 250 MG TAB PO SCH (12:52)
[2019-03-28] MEDS: Acetaminophen 325 MG TAB PO PRN (12:53)
[2019-03-28] MEDS ORDERED: Propafenone HCl 150 MG TAB PO SCH (14:00)
--- NOTE | 2019-03-28 14:05 | PDOC.HOSPP ---
- Subjective Encounter Date: 03/28/19 Encounter Time: 11:30 Subjective: awake, no sob or palp had pcm placed this am - Objective Vital Signs & Weight: Vital Signs (12 hours) Temp Pulse Resp BP Pulse Ox 03/28/19 12:00 99.6 F 03/28/19 11:00 99.5 F 03/28/19 08:00 96 03/28/19 07:36 99 03/28/19 07:34 95 22 H 98 03/28/19 04:00 98.6 F 03/28/19 03:34 93 182/97 H Weight Admit Weight 180 lb 4.8 oz Weight 182 lb 15.739 oz Most Recent Monitor Data Heart Rate from ECG 91 NIBP 155/74 NIBP BP-Mean 101 Respiration from ECG 26 SpO2 96 I&O: 03/27/19 03/28/19 03/29/19 06:59 06:59 06:59 Intake Total 3490 1479 500 Output Total 1195 1095 220 Balance 2295 384 280 Result Diagrams: 03/26/19 07:51 03/27/19 04:13 Hospitalist ROS - Medication Medications: Active Medications Generic Name Dose Route Start Last Admin Trade Name Freq PRN Reason Stop Dose Admin Acetaminophen 650 mg 03/17/19 18:41 03/28/19 12:53 Tylenol PO 650 mg Q4H PRN Administration Headache/Fever/Mild Pain (1-3) Albuterol/Ipratropium 3 ml 03/21/19 18:30 03/28/19 07:34 Duoneb NEB 3 ml BID-RT MAX Administration Atorvastatin Calcium 80 mg 03/17/19 21:00 03/27/19 20:51 Lipitor PO 80 mg HS MAX Administration Bisoprolol Fumarate 5 mg 03/29/19 09:00 03/28/19 10:57 Zebeta PO 5 mg DAILY MAX Administration Calcium Carbonate 600 mg 03/18/19 09:00 03/28/19 10:56 Caltrate PO 600 mg QAM MAX Administration Docusate Sodium 100 mg 03/20/19 21:00 03/28/19 10:56 Colace PO 100 mg BID MAX Administration Ezetimibe 10 mg 03/17/19 21:00 03/27/19 20:52 Zetia PO 10 mg HS MAX Administration Famotidine 20 mg 03/18/19 09:00 03/28/19 10:56 Pepcid PO 20 mg QAM MAX Administration Fenofibrate 145 mg 03/17/19 21:00 03/27/19 20:52 Tricor PO 145 mg HS MAX Administration Hydralazine HCl 10 mg 03/18/19 04:29 03/28/19 03:34 Apresoline SLOW IVP 10 mg Q4H PRN Administration Hypertension Dexmedetomidine HCl 200 mcg/ 50 mls @ 0 mls/hr 03/24/19 18:00 03/24/19 20:44 Sodium Chloride IVPB 50 mls INF MAX Administration Protocol Titrate Fentanyl Citrate 2,000 mcg/ 100 mls @ 0 mls/hr 03/25/19 18:34 03/25/19 19:01 Sodium Chloride IV 100 mls INF PRN Administration Pain As Directed Ipratropium [place] 0 ml 03/20/19 21:00 03/28/19 11:12 Atrovent 0.03% EA NARE Not Given TID MAX Magnesium Oxide 250 mg 03/22/19 09:00 03/28/19 12:52 Magnesium Oxide PO 250 mg QAM MAX Administration Mometasone Furoate/Formoterol Fumar 2 puff 03/21/19 18:30 03/28/19 07:36 Dulera 100 Mcg/5 Mcg Inhaler INH 2 puff BID-RT MAX Administration Multivitamins 1 tab 03/18/19 09:00 03/28/19 10:56 Theragran PO 1 tab QAM MAX Administration Polyethylene Glycol 17 gm 03/19/19 14:04 03/21/19 07:54 Miralax PO 17 gm DAILYPRN PRN Administration Constipation Quetiapine Fumarate 25 mg 03/20/19 21:00 03/27/19 20:52 Seroquel PO 25 mg HS MAX Administration Senna 2 tab 03/20/19 12:38 03/22/19 12:48 Senokot PO 2 tab HSPRN PRN Administration Constipation Sodium Biphosphate/Sodium Phosphate 133 ml 03/20/19 12:38 03/22/19 15:43 Fleet Enema [place] 133 ml DAILY PRN Administration Constipation Sodium Chloride 10 ml 03/27/19 21:00 03/28/19 10:57 Flush - Normal Saline IVF 10 ml Q12HR MAX Administration - Exam General Appearance: awake alert Eye: PERRL, anicteric sclera ENT: no oropharyngeal lesions, moist mucosa Neck: supple, no JVD Heart: RRR, no murmur Respiratory: no wheezes, no rales, rhonchi Gastrointestinal: soft, non-tender, non-distended, normal bowel sounds Extremities: no cyanosis, no edema Neurological: cranial nerve grossly intact, no focal deficits Hosp A/P (1) Afib Code(s): I48.91 - UNSPECIFIED ATRIAL FIBRILLATION Status: Acute (2) S/P laminectomy Code(s): Z98.890 - OTHER SPECIFIED POSTPROCEDURAL STATES Status: Acute (3) Acute respiratory failure with hypoxia Code(s): J96.01 - ACUTE RESPIRATORY FAILURE WITH HYPOXIA Status: Resolved (4) Left leg weakness Code(s): R29.898 - [facility] SYMPTOMS AND SIGNS INVOLVING THE MUSCULOSKELETAL SYSTEM Status: Acute (5) Lumbar radiculopathy Code(s): M54.16 - RADICULOPATHY, LUMBAR REGION Status: Acute (6) CKD (chronic kidney disease) stage 3, GFR 30-59 ml/min Code(s): N18.3 - CHRONIC KIDNEY DISEASE, STAGE 3 (MODERATE) Status: Chronic (7) COPD (chronic obstructive pulmonary disease) Status: Chronic Qualifiers: COPD type: chronic bronchitis (8) Chronic diastolic CHF (congestive heart failure), NYHA class 2 Code(s): I50.32 - CHRONIC DIASTOLIC (CONGESTIVE) HEART FAILURE Status: Chronic (9) HTN (hypertension) Code(s): I10 - ESSENTIAL (PRIMARY) HYPERTENSION Status: Chronic Qualifiers: (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 is off bisoprolol, digoxin and rythmol now due to sig pauses. continue nebs, zetia, tricor Had pcm placed today, adv diet to solid diet as tolerated. PT/OT to mobilize. no anticoagulation due to recent laminectomy with small leak of csf during procedure. will f/u
[2019-03-28] MEDS ORDERED: HYDROcodone/Acetaminophen 5/325 mg Tablet PO PRN (14:34)
[2019-03-28] MEDS ORDERED: Fentanyl 100 MCG/2 ML VIAL SLOW IVP PRN (14:36)
[2019-03-28] MEDS: Propafenone HCl 150 MG TAB PO SCH ×2 (14:40→21:41)
--- NOTE | 2019-03-28 15:03 | PRG ---
DATE OF SERVICE: 03/28/2019 SUBJECTIVE: Mr. Paez is in no distress. He does not feel like he has gotten much of his function back in his left lower extremity yet, but his back is not hurting today. He is willing to get up and try to move around. He is quite weak and deconditioned than was before his surgery. OBJECTIVE: GENERAL: He is in no distress. VITAL SIGNS: Blood pressure 147/79, heart rate 79, respiratory rate is 20, oximetry is 94 to 95. LUNGS: Clear. HEART: Regular rhythm. ABDOMEN: Soft. IMPRESSION: 1. Asthmatic bronchitis, clinically stable. 2. Paralyzed right hemidiaphragm, not a clinical problem at this time. 3. Status post spinal surgery, clinically stable. We will continue to follow. Job ID: [id number]
--- NOTE | 2019-03-28 15:56 | PDOC.EP ---
- Subjective Date: 03/28/19 Time: 08:00 Interval History: Leaving ICU for PPM implant with Dr Peterson. Feels well. - Review of Systems Constitutional: denies: chills, fever, malaise Cardiology: denies: chest pain, edema, heart racing, passing out - Objective Allergies/Adverse Reactions: Allergies Allergy/AdvReac Type Severity Reaction Status Date / Time No Known Allergies Allergy Verified 03/17/19 17:26 Current Medications Acetaminophen (Tylenol) 650 mg PO Q4H PRN PRN Reason: Headache/Fever/Mild Pain (1-3) Last Admin: 03/28/19 12:53 Dose: 650 mg Acetaminophen (Tylenol) 650 mg IA Q4H PRN PRN Reason: Headache/Fever/Mild Pain (1-3) Hydrocodone Bitart/Acetaminophen ([place] 5/325) 1 tab PO Q6H PRN PRN Reason: Moderate Pain Albuterol/Ipratropium (Duoneb) 3 ml NEB [id number] PRN PRN Reason: SOB &/or Wheezing Albuterol/Ipratropium (Duoneb) 3 ml NEB BID-RT [facility] Last Admin: 03/28/19 07:34 Dose: 3 ml Atorvastatin Calcium (Lipitor) 80 mg PO [facility] Last Admin: 03/27/19 20:51 Dose: 80 mg Bisoprolol Fumarate (Zebeta) 5 mg PO DAILY [facility] Last Admin: 03/28/19 10:57 Dose: 5 mg Calcium Carbonate (Caltrate) 600 [facility] [place] Last Admin: 03/28/19 10:56 Dose: 600 mg [facility] Docusate Sodium (Colace) 100 mg PO BID [facility] Last Admin: 03/28/19 10:56 Dose: 100 mg Ezetimibe (Zetia) 10 mg PO [facility] Last Admin: 03/27/19 20:52 Dose: 10 mg Famotidine (Pepcid) 20 mg PO QAM [facility] Last Admin: 03/28/19 10:56 Dose: 20 mg Fenofibrate (Tricor) 145 mg PO [facility] Last Admin: 03/27/19 20:52 Dose: 145 mg Fentanyl (Sublimaze) 25 mcg SLOW IVP Q30MIN PRN PRN Reason: Breakthrough Pain Hydralazine HCl (Apresoline) 10 mg SLOW IVP Q4H PRN PRN Reason: Hypertension Last Admin: 03/28/19 03:34 Dose: 10 mg Cefazolin Sodium/Dextrose 2 gm (/ Device) 50 mls @ 100 mls/hr IVPB ONCALL-OR [facility] Stop: 03/28/19 18:46 Ipratropium [place] (Atrovent 0.03%) 0 ml EA NARE TID [facility] Last Admin: 03/28/19 14:40 Dose: 2 spr Magnesium Oxide (Magnesium Oxide) 250 mg PO QAM [facility] Last Admin: 03/28/19 12:52 Dose: 250 mg Mometasone Furoate/Formoterol Fumar (Dulera 100 Mcg/5 Mcg Inhaler) 2 puff INH BID-RT [facility] Last Admin: 03/28/19 07:36 Dose: 2 puff Multivitamins (Theragran) 1 tab PO QAM [facility] Last Admin: 03/28/19 10:56 Dose: 1 tab Polyethylene Glycol (Miralax) 17 gm PO DAILYPRN PRN PRN Reason: Constipation Last Admin: 03/21/19 07:54 Dose: 17 gm Propafenone HCl (Rythmol) 150 mg PO Q8HR [facility] Last Admin: 03/28/19 14:40 Dose: 150 mg Quetiapine Fumarate (Seroquel) 25 mg PO HS [facility] Last Admin: 03/27/19 20:52 Dose: 25 mg Senna (Senokot) 2 tab PO HSPRN PRN PRN Reason: Constipation Last Admin: 03/22/19 12:48 Dose: 2 tab Sodium Biphosphate/Sodium Phosphate (Fleet Enema) 133 ml IA DAILY PRN PRN Reason: Constipation Last Admin: 03/22/19 15:43 Dose: 133 ml Sodium Chloride (Flush - Normal Saline) 10 ml IVF Q12HR [facility] Last Admin: 03/28/19 10:57 Dose: 10 ml Sodium Chloride (Flush - Normal Saline) 10 ml IVF PRN PRN PRN Reason: Saline Flush Sodium Chloride (Flush - Normal Saline) 10 ml IVF PRN PRN PRN Reason: Saline Flush Vital Signs & Weight: Vital Signs Temp Pulse Resp Pulse Ox 03/28/19 12:00 99.6 F 03/28/19 11:00 99.5 F 03/28/19 08:00 96 03/28/19 07:36 99 03/28/19 07:34 95 22 H 98 03/28/19 04:00 98.6 F Admit Weight 180 lb 4.8 oz Weight 182 lb 15.739 oz I/O: I/O 03/27/19 03/28/19 03/29/19 06:59 06:59 06:59 Intake Total 3490 1479 600 Output Total 1195 1095 285 Balance 2295 384 315 - Physical Exam General: alert & oriented x3, appears well, no apparent distress, speech clear, affect appropriate HEENT: mucus membranes moist, normocephaly Cardiology: regular rate and rhythm Neurology: cranial nerve 2-12 intact, grossly intact, no lateralizing findings - Labs Result Diagrams: 03/26/19 07:51 03/27/19 04:13 - EKG Interpretation EKG Method: Telemetry EKG shows: Sinus rhythm - Assessment/Plan Assessment/Plan: 1. Paroxysmal atrial fibrillation. a. On a previous suppression with propafenone. b. 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 2. History of coronary artery disease, but with preserved LVEF on echo, 2019, 55% to 60%, also mild , [id number] AI, and [id number] TR. 3. COPD. 4. History of falls. 5. Hypertension. 6. Chronic left knee pain. 7. Spinal stenosis. Going for PPM shortly. Can resume medical management of AF post device. Continue rhythmol.
--- NOTE | 2019-03-28 16:27 | CCL ---
DATE: 03/27/19 INDICATION: This is an 83-year-old gentleman with sick sinus syndrome, significant pauses of more than 4.5 second s. He was advised to undergo pacemaker insertion. He was taken to the cardiac public works lab[facility] where he underwent the procedure today without difficulties or c omplications. He also has had history of intermittent atrial fibrillation, tachy/nir syndrome and w as advised to undergo implantation of device with atrial therapies. He was taken to the Cardiac public works lab[facility] where he was prepped and draped in the sterile fashion. Using sterile technique, the pacemaker de vice was easily implanted. He was implanted with an Advisa MRI compatible dual chamber device from [employer] with two screw-in leads, one in the atrium and one in the ventricle. The pacemaker was set wi th the upper rate at 130 and the lower rate was set at 60. There were no difficulties or complication s. The full dictated note can found in the chart.
[2019-03-28] MEDS: Carvedilol 3.125 MG TAB PO SCH (17:06)
[2019-03-28] MEDS: Atorvastatin Calcium 40 MG TAB PO SCH (21:40)
[2019-03-28] MEDS: Ezetimibe 10 MG TAB PO SCH (21:40)
[2019-03-28] MEDS: Fenofibrate Nanocrystallized 145 MG TAB PO SCH (21:40)
[2019-03-29] MEDS: Propafenone HCl 150 MG TAB PO SCH ×3 (05:45→21:42)
[2019-03-29] MEDS: Mometasone/Formoterol 120 PUFF INHALER INH SCH ×2 (06:56→19:07)
[2019-03-29] MEDS: Multivit, Therapeutic 1 TAB PO SCH (08:26)
[2019-03-29] MEDS: Famotidine 20 MG TAB PO SCH (08:26)
[2019-03-29] MEDS: Docusate 100 MG CAP PO SCH ×2 (08:26→20:40)
[2019-03-29] MEDS: Calcium Carbonate 600 MG TAB PO SCH (08:26)
[2019-03-29] MEDS: Magnesium Oxide 250 MG TAB PO SCH (08:26)
[2019-03-29] MEDS: Ipratropium Bromide 0.03% Nasal Inhaler 30 ml Bottle EA NARE SCH ×3 (08:27→20:47)
[2019-03-29] MEDS: Carvedilol 3.125 MG TAB PO SCH (08:42)
[2019-03-29] MEDS: Bisoprolol Fumarate 5 MG TAB PO SCH (08:43)
[2019-03-29 09:29] VITALS: BMI 29.0
[2019-03-29] MEDS: Acetaminophen 325 MG TAB PO PRN (09:32)
[2019-03-29 09:36] LABS: White Blood Cell (WBC) Count 11.1 thou/uL (4.8-10.8)
[2019-03-29 09:39] LABS: Anion Gap 11 mmol/L (10-20); BUN (Urea Nitrogen) 23 mg/dL (8.4-25.7); Calc. Creatinine Clearance 68 mL/min (70-130); Calcium 9.2 mg/dL (7.8-10.44); Carbon Dioxide 28 mmol/L (23-31); Chloride 103 mmol/L (98-107); Estimated GFR-MDRD 79; Glucose 108 mg/dL (83-110); Potassium 3.5 mmol/L (3.5-5.1); Sodium 138 mmol/L (136-145)
--- NOTE | 2019-03-29 10:14 | PDOC.EP ---
- Subjective Date: 03/29/19 Time: 10:12 Interval History: Feels fair after PPM yesterday. No heart racing, palpitations, chest pain/ pressure, stroke like symptoms. - Review of Systems Constitutional: denies: chills, fever, malaise, sweats, weakness, other Respiratory: denies: cough, dry, shortness of breath Cardiology: denies: chest pain, edema, light headedness, passing out Gastrointestinal: denies: abdominal pain, constipation, diarrhea - Objective Allergies/Adverse Reactions: Allergies Allergy/AdvReac Type Severity Reaction Status Date / Time No Known Allergies Allergy Verified 03/17/19 17:26 Current Medications Acetaminophen (Tylenol) 650 mg PO Q4H PRN PRN Reason: Headache/Fever/Mild Pain (1-3) Last Admin: 03/29/19 09:32 Dose: 650 mg Acetaminophen (Tylenol) 650 mg AL Q4H PRN PRN Reason: Headache/Fever/Mild Pain (1-3) Hydrocodone Bitart/Acetaminophen ([place] 5/325) 1 tab PO Q6H PRN PRN Reason: Moderate Pain Albuterol/Ipratropium (Duoneb) 3 ml NEB [id number] PRN PRN Reason: SOB &/or Wheezing Albuterol/Ipratropium (Duoneb) 3 ml NEB BID-RT [facility] Last Admin: 03/29/19 06:55 Dose: 3 ml Atorvastatin Calcium (Lipitor) 80 mg PO [facility] Last Admin: 03/28/19 21:40 Dose: 80 mg Bisoprolol Fumarate (Zebeta) 5 mg PO DAILY [facility] Last Admin: 03/29/19 08:43 Dose: 5 mg Calcium Carbonate (Caltrate) 600 mg PO [facility] Last Admin: 03/29/19 08:26 Dose: 600 mg Docusate Sodium (Colace) 100 mg PO BID [facility] Last Admin: 03/29/19 08:26 Dose: 100 mg Ezetimibe (Zetia) 10 mg PO [facility] Last Admin: 03/28/19 21:40 Dose: 10 mg Famotidine (Pepcid) 20 mg PO [facility] Last Admin: 03/29/19 08:26 Dose: 20 mg Fenofibrate (Tricor) 145 mg PO [facility] Last Admin: 03/28/19 21:40 Dose: 145 mg Fentanyl (Sublimaze) 25 mcg SLOW IVP Q30MIN PRN PRN Reason: Breakthrough Pain Hydralazine HCl (Apresoline) 10 mg SLOW IVP Q4H PRN PRN Reason: Hypertension Last Admin: 03/28/19 03:34 Dose: 10 mg Ipratropium [place] (Atrovent 0.03%) 0 ml EA NARE TID [facility] Last Admin: 03/29/19 08:27 Dose: 2 spr Magnesium Oxide (Magnesium Oxide) 250 mg PO QAM [facility] Last Admin: 03/29/19 08:26 Dose: 250 mg Mometasone Furoate/Formoterol Fumar (Dulera 100 Mcg/5 Mcg Inhaler) 2 puff INH BID-RT [facility] Last Admin: 03/29/19 06:56 Dose: 2 puff Multivitamins ([facility]agran) [facility] [place] Last Admin: 03/29/19 08:26 Dose: 1 tab Polyethylene Glycol (Miralax) 17 gm PO DAILYPRN PRN PRN Reason: Constipation Last Admin: 03/21/19 07:54 Dose: 17 gm Propafenone HCl (Rythmol) 150 mg PO Q8HR [facility] Last Admin: 03/29/19 05:45 Dose: 150 mg Quetiapine Fumarate (Seroquel) 25 mg PO HS [facility] Last Admin: 03/28/19 21:41 Dose: 25 mg Senna (Senokot) 2 tab PO HSPRN PRN PRN Reason: Constipation Last Admin: 03/22/19 12:48 Dose: 2 tab Sodium Biphosphate/Sodium Phosphate (Fleet Enema) 133 ml AL DAILY PRN PRN Reason: Constipation Last Admin: 03/22/19 15:43 Dose: 133 ml Sodium Chloride (Flush - Normal Saline) 10 ml IVF Q12HR [facility] Last Admin: 03/29/19 08:28 Dose: 10 ml Sodium Chloride (Flush - Normal Saline) 10 ml IVF PRN PRN PRN Reason: Saline Flush Sodium Chloride (Flush - Normal Saline) 10 ml IVF PRN PRN PRN Reason: Saline Flush Vital Signs & Weight: Vital Signs Temp Pulse Resp BP Pulse Ox 03/29/19 07:35 98.4 F 84 18 173/87 H 96 03/29/19 06:55 80 20 98 01/22/20 03:53 98.3 F 90 20 136/80 92 L 03/28/19 23:53 88 174/86 H Admit Weight 180 lb 4.8 oz Weight 179 lb 14.4 oz I/O: I/O 03/28/19 03/29/19 03/30/19 06:59 06:59 06:59 Intake Total 1479 1230 Output Total 1095 795 Balance 384 435 - Quality Measures Condition: Atrial Fibrillation/Flutter (hx or current) - Physical Exam General: alert & oriented x3, appears well, no apparent distress, speech clear, affect appropriate HEENT: mucus membranes moist, normocephaly Neck: supple neck, midline trachea, no JVD/HJR, no lymphadenopathy Cardiology: regular rate and rhythm, PMI nondisplaced Lungs: clear to auscultation, no wheeze, rales, rhonchi Neurology: cranial nerve 2-12 intact, grossly intact, no lateralizing findings Extremities: dry, strong pulses, warm - Chadsvasc Risk factors Hypertension: 1 Age >75: 2 Vascular disease: 1 Risk Score: 4 - Labs Result Diagrams: 03/29/19 09:10 03/29/19 09:10 - EKG Interpretation EKG Method: Telemetry EKG shows: Sinus rhythm - Assessment/Plan Assessment/Plan: 1. Paroxysmal atrial fibrillation. a. On suppression with propafenone. b. 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 2. History of coronary artery disease, 3. preserved LVEF on echo, a. 03/22/2019, 55% to 60%, also mild , [id number] AI, and mild-to- moderate TR. 4. History of falls. 5. Hypertension. 6. Chronic left knee pain. 7. Spinal stenosis. 8. COPD. maintaining SR. Should be OK to continue propafenone, especially now that PPM has been implanted preventing bradycardia episodes. OAC is indicated once cleared by surgery. Was on pradaxa. Will see back in clinic in 6 weeks.
--- NOTE | 2019-03-29 11:29 | PDOC.HOSPP ---
- Subjective Encounter Date: 03/29/19 Encounter Time: 10:45 Subjective: awake, responds well to verbal stimuli no sob, has cough+ no palp or chest pain family at bedside had a rough night but is calm and responsive now. - Objective Vital Signs & Weight: Vital Signs (12 hours) Temp Pulse Resp BP Pulse Ox 03/29/19 08:00 97 03/29/19 07:35 98.4 F 84 18 173/87 H 96 03/29/19 06:55 80 20 98 03/29/19 03:53 98.3 F 90 20 136/80 92 L 03/28/19 23:53 88 174/86 H Weight Admit Weight 180 lb 4.8 oz Weight 179 lb 14.4 oz Most Recent Monitor Data Heart Rate from ECG 88 NIBP 145/68 NIBP BP-Mean 93 Respiration from ECG 20 SpO2 88 I&O: 03/28/19 03/29/19 03/30/19 06:59 06:59 06:59 Intake Total 1479 1230 Output Total 1095 795 Balance 384 435 Result Diagrams: 03/29/19 09:10 03/29/19 09:10 Hospitalist ROS - Medication Medications: Active Medications Generic Name Dose Route Start Last Admin Trade Name Freq PRN Reason Stop Dose Admin Acetaminophen 650 mg 03/17/19 18:41 03/29/19 09:32 Tylenol PO 650 mg Q4H PRN Administration Headache/Fever/Mild Pain (1-3) Albuterol/Ipratropium 3 ml 03/21/19 18:30 03/29/19 06:55 Duoneb NEB 3 ml BID-RT MAX Administration Atorvastatin Calcium 80 mg 03/17/19 21:00 03/28/19 21:40 Lipitor PO 80 mg HS MAX Administration Bisoprolol Fumarate 5 mg 03/29/19 09:00 03/29/19 08:43 Zebeta PO 5 mg DAILY MAX Administration Calcium Carbonate 600 mg 03/18/19 09:00 03/29/19 08:26 Caltrate PO 600 mg QAM MAX Administration Docusate Sodium 100 mg 03/20/19 21:00 03/29/19 08:26 Colace PO 100 mg BID MAX Administration Ezetimibe 10 mg 03/17/19 21:00 03/28/19 21:40 Zetia PO 10 mg HS MAX Administration Famotidine 20 mg 03/18/19 09:00 03/29/19 08:26 Pepcid PO 20 mg QAM MAX Administration Fenofibrate 145 mg 03/17/19 21:00 03/28/19 21:40 Tricor PO 145 mg HS MAX Administration Hydralazine HCl 10 mg 03/18/19 04:29 03/28/19 03:34 Apresoline SLOW IVP 10 mg Q4H PRN Administration Hypertension Ipratropium [place] 0 ml 03/20/19 21:00 03/29/19 08:27 Atrovent 0.03% EA NARE 2 spr TID MAX Administration Magnesium Oxide 250 mg 03/22/19 09:00 03/29/19 08:26 Magnesium Oxide PO 250 mg QAM MAX Administration Mometasone Furoate/Formoterol Fumar 2 puff 03/21/19 18:30 03/29/19 06:56 Dulera 100 Mcg/5 Mcg Inhaler INH 2 puff BID-RT MAX Administration Multivitamins 1 tab 03/18/19 09:00 03/29/19 08:26 Theragran PO 1 tab QAM MAX Administration Polyethylene Glycol 17 gm 03/19/19 14:04 03/21/19 07:54 Miralax PO 17 gm DAILYPRN PRN Administration Constipation Propafenone HCl 150 mg 03/28/19 14:00 03/29/19 05:45 Rythmol PO 150 mg Q8HR MAX Administration Quetiapine Fumarate 25 mg 03/20/19 21:00 03/28/19 21:41 Seroquel PO 25 mg HS MAX Administration Senna 2 tab 03/20/19 12:38 03/22/19 12:48 Senokot PO 2 tab HSPRN PRN Administration Constipation Sodium Biphosphate/Sodium Phosphate 133 ml 03/20/19 12:38 03/22/19 15:43 Fleet Enema [place] 133 ml DAILY PRN Administration Constipation Sodium Chloride 10 ml 03/27/19 21:00 03/29/19 08:28 Flush - Normal Saline IVF 10 ml Q12HR MAX Administration - Exam General Appearance: awake alert Eye: PERRL, anicteric sclera ENT: no oropharyngeal lesions, moist mucosa Neck: supple, no JVD Heart: RRR, no murmur Respiratory: no wheezes, no rales Gastrointestinal: soft, non-tender, non-distended, normal bowel sounds Extremities: no cyanosis, no edema Neurological: cranial nerve grossly intact, no new deficit Hosp A/P (1) Afib Code(s): I48.91 - UNSPECIFIED ATRIAL FIBRILLATION Status: Acute (2) S/P laminectomy Code(s): Z98.890 - OTHER SPECIFIED POSTPROCEDURAL STATES Status: Acute (3) Acute respiratory failure with hypoxia Code(s): J96.01 - ACUTE RESPIRATORY FAILURE WITH HYPOXIA Status: Resolved (4) Left leg weakness Code(s): R29.898 - [facility] SYMPTOMS AND SIGNS INVOLVING THE MUSCULOSKELETAL SYSTEM Status: Acute (5) Lumbar radiculopathy Code(s): M54.16 - RADICULOPATHY, LUMBAR REGION Status: Acute (6) CKD (chronic kidney disease) stage 3, GFR 30-59 ml/min Code(s): N18.3 - CHRONIC KIDNEY DISEASE, STAGE 3 (MODERATE) Status: Chronic (7) COPD (chronic obstructive pulmonary disease) Status: Chronic Qualifiers: COPD type: chronic bronchitis (8) Chronic diastolic CHF (congestive heart failure), NYHA class 2 Code(s): I50.32 - CHRONIC DIASTOLIC (CONGESTIVE) HEART FAILURE Status: Chronic (9) HTN (hypertension) Code(s): I10 - ESSENTIAL (PRIMARY) HYPERTENSION Status: Chronic Qualifiers: (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 continue nebs, zetia, tricor encourage po intake PT/OT to mobilize. no anticoagulation due to recent laminectomy with small leak of csf during procedure. will f/u dc plan to rehab if accepted, likely in am if ok with all specialists.
[2019-03-29 11:48] LABS: Band 12 % (5-11); Eosinophils 2 % (0-10); Lymphocytes 10 % (21-51); MDiff Complete? YES; Mean Corpuscular HGB CONC 32.2 g/dL (32.0-36.0); Mean Corpuscular Hemoglobin 31.3 pg (27.0-31.0); Mean Corpuscular Volume 97.1 fL (78.0-98.0); Mean Platelet Volume 7.8 fL (7.4-10.4); Monocytes 5 % (0-10); Neutrophil 71 % (42-75); Platelet Count 334 thou/uL (130-400); RBC Distribution Width 15.6 % (11.5-14.5); RBC Morphology Normal; Red Blood Cell (RBC) Count 4.16 mill/uL (4.70-6.10)
--- NOTE | 2019-03-29 11:48 | ULT ---
BILATERAL LOWER EXTREMITY VENOUS VASCULAR DUPLEX INCLUDING COLOR AND SPECTRAL DOPPLER IMAGING: HISTORY: Impaired mobility. recent lumbar spine surgery. Minimal lower leg edema. TECHNIQUE: Exam is performed from groin to ankle, including visualized greater saphenous, common femoral, superf icial femoral, profunda femoral, popliteal, trifurcation and posterior tibial vein regions. FINDINGS: There is phasic flow at all levels with normal compressibility and normal augmentation. No intralumin al thrombus. IMPRESSION: No evidence for deep venous thrombosis. POS: OFF
[2019-03-29] MEDS ORDERED: Haloperidol Lactate 5 MG/ML VIAL IM PRN (16:53)
[2019-03-29] MEDS: Nystatin Powder 15 GM BOT TOP SCH (17:40)
[2019-03-29] MEDS: Diltiazem 125 MG in Sodium Chloride 0.9% 100 ML IVPB SCH (18:54)
--- NOTE | 2019-03-29 19:10 | PRG ---
DATE OF SERVICE: 03/29/2019 Mr. Paez is postoperative day #6 from thoracic laminectomy and multilevel left lumbar hemilaminotomies. The patient's is at bedside this morning. She states that the nurse called her last night and informed her that the patient has been confused. However, upon my examination this morning, the patient seemed alert and appropriate with questioning. He certainly seemed much less drowsy compared to when seen 2 days ago on Wednesday. He denies any complaints of back or leg pain. He also denies headache. He has been able to stand with physical therapy, but has not been able to ambulate due to leg weakness. He has experienced new onset AFib with RVR postoperatively, and had a pacemaker placed yesterday. His heart rate has been controlled overnight with a rate in the 80s to 90s. He denies any chest pain or palpitations. His blood pressure has continued to be intermittently elevated into the 170s/90s. His Nino catheter, remained in place this morning, however this afternoon a verbal order given to nurse that his catheter could be removed in attempt to mobilize him to use the bedside commode. Doppler US of lower extremities completed today was negative for DVT. On exam, the patient is awake, alert, and appropriate. He follows commands and he is able to move all extremities, however he is slow to bend his left knee. He continues to have bilateral iliopsoas weakness, greater on the left. Sensation to light touch is intact and equal on his bilateral lower extremities. Plan at this time is for the patient to go to inpatient rehab upon discharge from the hospital. He will benefit from continued therapies. We will continue to follow him during his hospital stay. Please call with any neurologic changes or other concerns. Job ID: [id number] MTDD
--- NOTE | 2019-03-29 19:26 | PRG ---
DATE OF SERVICE: 03/29/2019 SUBJECTIVE: Jun bolden. He has never done this at home. 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 OBJECTIVE: VITAL SIGNS: He is afebrile. Heart rate is 98, respiratory rate is 20, oximetry is 94%, blood pressure 130/78. LUNGS: Clear. HEART: Regular rhythm. ABDOMEN: Soft. EXTREMITIES: Without edema. LABORATORY DATA: White count 11.1, hemoglobin 13.0, platelets 334. Electrolytes are unremarkable. Creatinine is 0.91. Potassium is normal. IMPRESSION: 1. Encephalopathy. This is probably occurring too late for alcohol withdrawal. 2. ICU psychosis is possible. I will add Haldol at bedtime. His was unfortunately called at 3 o'clock in the morning and asked to come up to sit with him last night. She drove him through the rain and the fog from [place] the country and fortunately safely made it here. If he decompensates at night, his is willing to stay with him tonight. I have added Haldol at bedtime and p.r.n. Haldol, hopefully this will lead to improvement in his clinical course. 3. He has intermittently had atrial fibrillation. A venogram was done of his both legs showing no clots. Electrophysiology saw him today. He had a pacer placed for sinus pauses lasting over 6 seconds. These are all incidental findings related, but not caused by his back surgery. We will continue to follow. I met with the and answered all her questions. Job ID: [id number]
[2019-03-29] MEDS: Ezetimibe 10 MG TAB PO SCH (20:39)
[2019-03-29] MEDS: Fenofibrate Nanocrystallized 145 MG TAB PO SCH (20:40)
[2019-03-29] MEDS: Atorvastatin Calcium 40 MG TAB PO SCH (20:40)
[2019-03-29] MEDS: Haloperidol Lactate 5 MG/ML VIAL IM SCH ×2 (21:42→21:54)
[2019-03-30] MEDS ORDERED: Morphine 2 MG/ML SYRINGE SLOW IVP SCH (03:30)
[2019-03-30] MEDS: Propafenone HCl 150 MG TAB PO SCH ×3 (05:44→21:26)
[2019-03-30] MEDS: Mometasone/Formoterol 120 PUFF INHALER INH SCH ×2 (06:42→19:23)
[2019-03-30] MEDS: Diltiazem 125 MG in Sodium Chloride 0.9% 100 ML IVPB SCH ×2 (07:11→19:57)
[2019-03-30] MEDS: Ipratropium Bromide 0.03% Nasal Inhaler 30 ml Bottle EA NARE SCH ×3 (08:47→21:37)
[2019-03-30] MEDS: Nystatin Powder 15 GM BOT TOP SCH (08:47)
--- NOTE | 2019-03-30 09:15 | PRG ---
DATE OF SERVICE: 03/30/2019 This is Dominic Jarquin PA-C dictating a report for Iain Keenan MD. Mr. Paez is postoperative day #6 having undergone thoracic laminectomy with left revision hemilaminotomies at L2 through L5 with diskectomy. The patient overall from his surgery is improving. He has some slight back pain, but significant improvement in his leg pain. He continues with [id number] left lower extremity weakness, although he has more movement in the leg as compared to his preoperative exam. He has good strength and moves the right leg much faster today than he did preoperatively. He has had some difficulties with some hospital psychosis and ing. The patient's is at bedside and she notes that he did have an excellent night's sleeping. He does have some slurred speech today, but she states that his mouth is very dry and Speech Therapy is going to work with him today. Again, from neurosurgical standpoint, the patient is slowly improving and he will benefit greatly from aggressive rehab. I should note that the patient has no headache. His incision dressings were evaluated yesterday and there has been no drainage on the dressings. Again, the patient denies headache. The patient believes that the year is 1999 and that it is Wednesday, but otherwise he awakens easily. Sodium was checked yesterday and it was within normal limits as well as his hemoglobin. Again, from neurosurgical standpoint, the patient would benefit greatly from physical therapies and whenever arrangements have been made for inpatient rehab, I believe, he would be a good candidate. Please call with any changes in the patient's neurologic status. Job ID: [id number]
--- NOTE | 2019-03-30 10:11 | RAD ---
PORTABLE CHEST: Date: 03/30/2019 HISTORY: Dyspnea. COMPARISON: 03/25/2019. FINDINGS: Mild elevated right hemidiaphragm is stable. Small effusions cannot be excluded. There is mild bibasi lar atelectasis which appears stable. Dual lead pacemaker leads are now noted in place. Lungs otherwi se appear clear and unchanged. IMPRESSION: Elevated right hemidiaphragm with mild bibasilar atelectasis, stable in appearance. POS: C
[2019-03-30] MEDS: Acetaminophen 325 MG TAB PO PRN (11:22)
[2019-03-30] MEDS: Calcium Carbonate 600 MG TAB PO SCH (11:31)
[2019-03-30] MEDS: Bisoprolol Fumarate 5 MG TAB PO SCH (11:31)
[2019-03-30] MEDS: Famotidine 20 MG TAB PO SCH (11:31)
[2019-03-30] MEDS: Magnesium Oxide 250 MG TAB PO SCH (11:31)
[2019-03-30] MEDS: Docusate 100 MG CAP PO SCH ×2 (11:32→21:29)
[2019-03-30] MEDS: Multivit, Therapeutic 1 TAB PO SCH (11:32)
--- NOTE | 2019-03-30 12:03 | PDOC.HOSPP ---
- Subjective Encounter Date: 03/30/19 Encounter Time: 10:45 Subjective: awake, not in distress at bedside slept well last night has been passing small amount of urine multiple times gets hallucinations when he take bph meds, will confirm with his pcp AbrahanAraseli Bradytay - Objective Vital Signs & Weight: Vital Signs (12 hours) Temp Pulse Pulse Pulse Resp BP BP 03/30/19 11:16 98.1 F 82 20 03/30/19 09:14 82 79 136/69 122/67 03/30/19 07:45 03/30/19 07:34 97.9 F 79 19 03/30/19 06:40 74 18 03/30/19 04:00 97.8 F 71 20 BP Pulse Ox 03/30/19 11:16 152/88 H 93 L 03/30/19 09:14 03/30/19 07:45 93 L 03/30/19 07:34 134/86 03/30/19 06:40 95 03/30/19 04:00 135/70 93 L Weight Admit Weight 180 lb 4.8 oz Weight 179 lb 14.4 oz Most Recent Monitor Data Heart Rate from ECG 88 NIBP 145/68 NIBP BP-Mean 93 Respiration from ECG 20 SpO2 88 I&O: 03/29/19 03/30/19 03/31/19 06:59 06:59 06:59 Intake Total 1230 480 Output Total 795 450 Balance 435 30 Result Diagrams: 03/29/19 09:10 03/29/19 09:10 Hospitalist ROS - Medication Medications: Active Medications Generic Name Dose Route Start Last Admin Trade Name Gemma PRN Reason Stop Dose Admin Acetaminophen 650 mg 03/17/19 18:41 03/30/19 11:22 Tylenol PO 650 mg Q4H PRN Administration Headache/Fever/Mild Pain (1-3) Albuterol/Ipratropium 3 ml 03/21/19 18:30 03/30/19 06:40 Duoneb NEB 3 ml BID-RT MAX Administration Atorvastatin Calcium 80 mg 03/17/19 21:00 03/29/19 20:40 Lipitor PO 80 mg HS MAX Administration Bisoprolol Fumarate 5 mg 03/29/19 09:00 03/30/19 11:31 Zebeta PO 5 mg DAILY MAX Administration Calcium Carbonate 600 mg 03/18/19 09:00 03/30/19 11:31 Caltrate PO 600 mg QAM MAX Administration Docusate Sodium 100 mg 03/20/19 21:00 03/30/19 11:32 Colace PO 100 mg BID MAX Administration Ezetimibe 10 mg 03/17/19 21:00 03/29/19 20:39 Zetia PO 10 mg HS MAX Administration Famotidine 20 mg 03/18/19 09:00 03/30/19 11:31 Pepcid PO 20 mg QAM MAX Administration Fenofibrate 145 mg 03/17/19 21:00 03/29/19 20:40 Tricor PO 145 mg HS MAX Administration Haloperidol Lactate 10 mg 03/29/19 21:00 03/29/19 21:54 Haldol IM Not Given QPM MAX Hydralazine HCl 10 mg 03/18/19 04:29 03/28/19 03:34 Apresoline SLOW IVP 10 mg Q4H PRN Administration Hypertension Diltiazem HCl 125 mg/ Sodium 125 mls @ 10 mls/hr 03/29/19 17:30 03/30/19 07: 11 Chloride IVPB 125 mls INF MAX Administration 10 MG/HR Ipratropium [place] 0 ml 03/20/19 21:00 03/30/19 08:47 Atrovent 0.03% EA NARE 2 spr TID MAX Administration Magnesium Oxide 250 mg 03/22/19 09:00 03/30/19 11:31 Magnesium Oxide PO 250 mg QAM MAX Administration Mometasone Furoate/Formoterol Fumar 2 puff 03/21/19 18:30 03/30/19 06:42 Dulera 100 Mcg/5 Mcg Inhaler INH 2 puff BID-RT MAX Administration Multivitamins 1 tab 03/18/19 09:00 03/30/19 11:32 Theragran PO 1 tab QAM MAX Administration Nystatin 0 gm 03/30/19 09:00 03/30/19 08:47 Mycostatin Powder TOP 1 applic DAILY MAX Administration Polyethylene Glycol 17 gm 03/19/19 14:04 03/21/19 07:54 Miralax PO 17 gm DAILYPRN PRN Administration Constipation Propafenone HCl 150 mg 03/28/19 14:00 03/30/19 05:44 Rythmol PO Not Given Q8HR MAX Quetiapine Fumarate 25 mg 03/20/19 21:00 03/29/19 20:40 Seroquel PO 25 mg HS MAX Administration Senna 2 tab 03/20/19 12:38 03/22/19 12:48 Senokot PO 2 tab HSPRN PRN Administration Constipation Sodium Biphosphate/Sodium Phosphate 133 ml 03/20/19 12:38 03/22/19 15:43 Fleet Enema DC 133 ml DAILY PRN Administration Constipation Sodium Chloride 10 ml 03/27/19 21:00 03/30/19 08:47 Flush - Normal Saline IVF Not Given Q12HR MAX - Exam General Appearance: awake alert Eye: PERRL, anicteric sclera ENT: no oropharyngeal lesions, moist mucosa Neck: supple, no JVD Heart: RRR, no murmur Respiratory: no wheezes, no rales Gastrointestinal: soft, non-tender, non-distended, normal bowel sounds Extremities: no cyanosis, no edema Neurological: cranial nerve grossly intact, no focal deficits Hosp A/P (1) Afib Code(s): I48.91 - UNSPECIFIED ATRIAL FIBRILLATION Status: Acute (2) S/P laminectomy Code(s): Z98.890 - OTHER SPECIFIED POSTPROCEDURAL STATES Status: Acute (3) Acute respiratory failure with hypoxia Code(s): J96.01 - ACUTE RESPIRATORY FAILURE WITH HYPOXIA Status: Resolved (4) Left leg weakness Code(s): R29.898 - [facility] SYMPTOMS AND SIGNS INVOLVING THE MUSCULOSKELETAL SYSTEM Status: Acute (5) Lumbar radiculopathy Code(s): M54.16 - RADICULOPATHY, LUMBAR REGION Status: Acute (6) CKD (chronic kidney disease) stage 3, GFR 30-59 ml/min Code(s): N18.3 - CHRONIC KIDNEY DISEASE, STAGE 3 (MODERATE) Status: Chronic (7) COPD (chronic obstructive pulmonary disease) Status: Chronic Qualifiers: COPD type: chronic bronchitis (8) Chronic diastolic CHF (congestive heart failure), NYHA class 2 Code(s): I50.32 - CHRONIC DIASTOLIC (CONGESTIVE) HEART FAILURE Status: Chronic (9) HTN (hypertension) Code(s): I10 - ESSENTIAL (PRIMARY) HYPERTENSION Status: Chronic Qualifiers: (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 continue nebs, zetia, tricor encourage po intake PT/OT to mobilize. no anticoagulation due to recent laminectomy with small leak of csf during procedure. will f/u dc plan to rehab when afib is rate controlled
--- NOTE | 2019-03-30 17:19 | PDOC.EP ---
- Subjective Date: 03/30/19 Time: 17:17 Interval History: No new cardiac events overnight. - Review of Systems Cardiology: denies: chest pain, edema, heart racing, light headedness, paroxysmal noc. dyspnea, orthopnea, palpitations, passing out, pleuritic pain, pressure, swelling, other - Objective Allergies/Adverse Reactions: Allergies Allergy/AdvReac Type Severity Reaction Status Date / Time No Known Allergies Allergy Verified 03/17/19 17:26 Current Medications Acetaminophen (Tylenol) 650 mg PO Q4H PRN PRN Reason: Headache/Fever/Mild Pain (1-3) Last Admin: 03/30/19 11:22 Dose: 650 mg Acetaminophen (Tylenol) 650 mg MO Q4H PRN PRN Reason: Headache/Fever/Mild Pain (1-3) Hydrocodone Bitart/Acetaminophen (B[place]ic 5/325) 1 tab PO Q6H PRN PRN Reason: Moderate Pain Albuterol/Ipratropium (Duoneb) 3 ml NEB [id number] PRN PRN Reason: SOB &/or Wheezing Albuterol/Ipratropium (Duoneb) 3 ml NEB BID-RT [facility] Last Admin: 03/30/19 06:40 Dose: 3 ml Atorvastatin Calcium (Lipitor) 80 mg PO [facility] Last Admin: 03/29/19 20:40 Dose: 80 mg Bisoprolol Fumarate (Zebeta) 5 mg PO DAILY [facility] Last Admin: 03/30/19 11:31 Dose: 5 mg Calcium Carbonate (Caltrate) 600 mg PO [facility] Last Admin: 03/30/19 11:31 Dose: 600 mg Docusate Sodium (Colace) 100 mg PO BID [facility] Last Admin: 03/30/19 11:32 Dose: 100 mg Ezetimibe (Zetia) 10 mg PO [facility] Last Admin: 03/29/19 20:39 Dose: 10 mg Famotidine ([facility]cid) [facility] Last Admin: 03/30/19 11:31 Dose: 20 mg Fenofibrate (Tricor) 145 mg PO [facility] Last Admin: 03/29/19 20:40 Dose: 145 mg Haloperidol Lactate (Haldol) 5 mg IM Q2H PRN PRN Reason: Agitation Haloperidol Lactate (Haldol) 10 mg IM QPM [facility] Last Admin: 03/29/19 21:54 Dose: Not Given Hydralazine HCl (Apresoline) 10 mg SLOW IVP Q4H PRN PRN Reason: Hypertension Last Admin: 03/28/19 03:34 Dose: 10 mg Diltiazem HCl 125 mg/ Sodium (Chloride) 125 mls @ 10 mls/hr IVPB INF [facility] Last Admin: 03/30/19 07:11 Dose: 125 mls Ipratropium [place] (Atrovent 0.03%) 0 ml EA NARE TID [facility] Last Admin: 03/30/19 14:32 Dose: 2 spr Magnesium Oxide (Magnesium Oxide) 250 mg PO QAM [facility] Last Admin: 03/30/19 11:31 Dose: 250 mg Mometasone Furoate/Formoterol Fumar (Dulera 100 Mcg/5 Mcg Inhaler) 2 puff INH BID-RT [facility] Last Admin: 03/30/19 06:42 Dose: 2 puff Multivitamins (Theragran) 1 tab PO QAM [facility] Last Admin: 03/30/19 11:32 Dose: 1 tab Nystatin (Mycostatin Powder) 0 gm TOP DAILY [facility] Last Admin: 03/30/19 08:47 Dose: 1 applic Polyethylene Glycol (Miralax) 17 gm PO DAILYPRN PRN PRN Reason: Constipation Last Admin: 03/21/19 07:54 Dose: 17 gm Propafenone HCl (Rythmol) 150 mg PO Q8HR [facility] Last Admin: 03/30/19 14:32 Dose: 150 mg Quetiapine Fumarate (Seroquel) 25 mg PO HS [facility] Last Admin: 03/29/19 20:40 Dose: 25 mg Senna (Senokot) 2 tab PO HSPRN PRN PRN Reason: Constipation Last Admin: 03/22/19 12:48 Dose: 2 tab Sodium Biphosphate/Sodium Phosphate (Fleet Enema) 133 ml MO DAILY PRN PRN Reason: Constipation Last Admin: 03/22/19 15:43 Dose: 133 ml Sodium Chloride (Flush - Normal Saline) 10 ml IVF Q12HR [facility] Last Admin: 03/30/19 08:47 Dose: Not Given Sodium Chloride (Flush - Normal Saline) 10 ml IVF PRN PRN PRN Reason: Saline Flush Sodium Chloride (Flush - Normal Saline) 10 ml IVF PRN PRN PRN Reason: Saline Flush Vital Signs & Weight: Vital Signs Temp Pulse Pulse Pulse Resp BP BP 03/30/19 15:47 97.8 F 74 18 03/30/19 11:16 98.1 F 82 20 03/30/19 09:14 82 79 136/69 122/67 03/30/19 07:45 03/30/19 07:34 97.9 F 79 19 03/30/19 06:40 74 18 BP Pulse Ox 03/30/19 15:47 144/64 H 92 L 03/30/19 11:16 152/88 H 93 L 03/30/19 09:14 03/30/19 07:45 93 L 03/30/19 07:34 134/86 03/30/19 06:40 95 Admit Weight 180 lb 4.8 oz Weight 179 lb 14.4 oz I/O: I/O 03/29/19 03/30/19 03/31/19 06:59 06:59 06:59 Intake Total 1230 480 Output Total 795 450 Balance 435 30 - Quality Measures Condition: Atrial Fibrillation/Flutter (hx or current) - Medication Contraindications No Anticoagulant reason: Medical contraindication (recent surgery) - Physical Exam General: alert & oriented x3, no apparent distress Neck: supple neck Cardiology: no murmur, irregularly irregular Lungs: clear to auscultation Abdomen: active bowel sounds Skin: device site stable w/o swelling - Labs Result Diagrams: 03/29/19 09:10 03/29/19 09:10 - EKG Interpretation EKG shows: Atrial fibrillation - Device Device: dual, pacemaker Device Result: [employer] - Assessment/Plan Assessment/Plan: 1. Paroxysmal atrial fibrillation. a. On intermittent suppression with propafenone. b. 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 2. History of coronary artery disease, 3. preserved LVEF on echo, a. 03/22/2019, 55% to 60%, also mild , [id number] AI, and mild-to- moderate TR. 4. History of falls. 5. Hypertension. 6. Chronic left knee pain. 7. Spinal stenosis. 8. COPD. Converted back to afib. Should be OK to continue propafenone,dilt and dig. especially now that PPM has been implanted preventing bradycardia episodes. OAC is indicated once cleared by surgery. Was on pradaxa. Will see back in clinic in 6 weeks.
--- NOTE | 2019-03-30 21:01 | PRG ---
DATE OF SERVICE: 03/30/2019 SUBJECTIVE: Mr. Paez was less encephalopathic last night. His tells me he did not receive the dose of Haldol that I ordered. OBJECTIVE: VITAL SIGNS: He is afebrile. Heart rate is in the 70s, respiratory rate is in the teens, oximetry is 92% on room air, blood pressure 144/64. LUNGS: Clear. HEART: Regular rhythm. ABDOMEN: Soft. IMPRESSION: 1. Status post spine surgery. 2. Encephalopathy after surgery. It is likely multifactorial, but appears to be improving. 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 He has not progressed much from strength standpoint. He really needs to be up in a chair eating all of his meals. We will put that order and hopefully the hospital staff will be able to facilitate this. He is intermittently having atrial fibrillation. He has pacemaker that appears to be functioning. We will continue supportive care. I noticed in one of the notes he was diagnosed as having COPD. He does not have COPD. Job ID: [id number]
[2019-03-30] MEDS: Atorvastatin Calcium 40 MG TAB PO SCH (21:24)
[2019-03-30] MEDS: Fenofibrate Nanocrystallized 145 MG TAB PO SCH (21:25)
[2019-03-30] MEDS: Ezetimibe 10 MG TAB PO SCH (21:28)
[2019-03-30] MEDS: Haloperidol Lactate 5 MG/ML VIAL IM SCH (21:30)
[2019-03-31] MEDS: Propafenone HCl 150 MG TAB PO SCH (05:05)
[2019-03-31] MEDS: Mometasone/Formoterol 120 PUFF INHALER INH SCH ×2 (07:50→19:08)
[2019-03-31] MEDS: Diltiazem 125 MG in Sodium Chloride 0.9% 100 ML IVPB SCH (08:10)
[2019-03-31] MEDS: Multivit, Therapeutic 1 TAB PO SCH (09:41)
[2019-03-31] MEDS: Bisoprolol Fumarate 5 MG TAB PO SCH ×2 (09:41→21:33)
[2019-03-31] MEDS: Magnesium Oxide 250 MG TAB PO SCH (09:41)
[2019-03-31] MEDS: Docusate 100 MG CAP PO SCH ×2 (09:41→21:33)
[2019-03-31] MEDS: Famotidine 20 MG TAB PO SCH (09:41)
[2019-03-31] MEDS: Nystatin Powder 15 GM BOT TOP SCH (09:42)
[2019-03-31] MEDS: Ipratropium Bromide 0.03% Nasal Inhaler 30 ml Bottle EA NARE SCH ×2 (09:42→14:30)
--- NOTE | 2019-03-31 09:46 | PRG ---
DATE OF SERVICE: 03/31/2019 SUBJECTIVE: Jun Paez still . He did not receive any Haldol last night. He has had no fever or chills. OBJECTIVE: VITAL SIGNS: His vital signs have been stable. His saturations are still 93% to 94% on room air, which is his baseline; his blood pressure is 136/68. tells me he is not drinking much. Intake yesterday recorded was 855. He has had reportedly 630 mL in. I suspect that equals his insensible losses. He may benefit for some IV fluid. He also would probably benefit from receiving Haldol routinely at bedtime. LUNGS: Clear. HEART: Regular rhythm. ABDOMEN: Soft. IMPRESSION: 1. Status post back surgery for left lower extremity weakness. 2. Paralyzed right hemidiaphragm. 3. Sick-sinus syndrome with bradycardia and 6-second pauses in the ICU leading to a pacemaker. 4. Atrial fibrillation, being followed by Electrophysiology. PLAN: Continue supportive care. He will probably need close to a month in some type of rehab environment before he could go back home. Job ID: [id number]
[2019-03-31] MEDS: Calcium Carbonate 600 MG TAB PO SCH (10:02)
[2019-03-31] MEDS: Sodium Chloride 0.45% 1,000 ML IV SCH (10:07)
--- NOTE | 2019-03-31 12:49 | PDOC.EP ---
- Subjective Date: 03/31/19 Time: 12:44 Interval History: No cardiac events overnight. Feel poorly today with aches and malaise - Review of Systems Constitutional: reports: malaise. denies: chills, fever, sweats, weakness, other Respiratory: denies: cough, dry, hemoptysis, pleuritic pain, shortness of breath , SOB with excertion, sputum, wheezing, other Cardiology: denies: heart racing, palpitations, passing out Gastrointestinal: denies: abdominal pain, constipation, diarrhea - Objective Allergies/Adverse Reactions: Allergies Allergy/AdvReac Type Severity Reaction Status Date / Time No Known Allergies Allergy Verified 03/17/19 17:26 Current Medications Acetaminophen (Tylenol) 650 mg PO Q4H PRN PRN Reason: Headache/Fever/Mild Pain (1-3) Last Admin: 03/30/19 11:22 Dose: 650 mg Acetaminophen (Tylenol) 650 mg [place] Q4H PRN PRN Reason: Headache/Fever/Mild Pain (1-3) Hydrocodone Bitart/Acetaminophen ([place] 5/325) 1 tab PO Q6H PRN PRN Reason: Moderate Pain Albuterol/Ipratropium (Duoneb) 3 ml NEB [id number] PRN PRN Reason: SOB &/or Wheezing Albuterol/Ipratropium (Duoneb) 3 ml NEB BID-RT [facility] Last Admin: 03/31/19 07:49 Dose: 3 ml Atorvastatin Calcium (Lipitor) [address] [facility] Last Admin: 03/30/19 21:24 Dose: 80 mg Bisoprolol Fumarate (Zebeta) 5 mg PO BID [facility] Last Admin: 03/31/19 09:41 Dose: 5 mg Calcium Carbonate (Caltrate) 600 mg PO [facility] Last Admin: 03/31/19 10:02 Dose: 600 mg Docusate Sodium (Colace) 100 mg PO BID [facility] Last Admin: 03/31/19 09:41 Dose: 100 mg Ezetimibe (Zetia) [address] [facility] Last Admin: 03/30/19 21:28 Dose: 10 mg Famotidine (Pepcid) 20 mg PO [facility] Last Admin: 03/31/19 09:41 Dose: 20 mg Fenofibrate (Tricor) [address] [facility] Last Admin: 03/30/19 21:25 Dose: 145 mg Haloperidol Lactate (Haldol) 5 mg IM Q2H PRN PRN Reason: Agitation Haloperidol Lactate (Haldol) 10 mg IM QPM [facility] Last Admin: 03/30/19 21:30 Dose: Not Given Hydralazine HCl (Apresoline) 10 mg SLOW IVP Q4H PRN PRN Reason: Hypertension Last Admin: 03/28/19 03:34 Dose: 10 mg Sodium Chloride (1/2 Normal Saline) 1,000 mls @ 50 mls/hr IV .Q20H [facility] Last Admin: 03/31/19 10:07 Dose: 1,000 mls Ipratropium [place] (Atrovent 0.03%) 0 ml EA NARE TID [facility] Last Admin: 03/31/19 09:42 Dose: 2 spr Magnesium Oxide (Magnesium Oxide) 250 mg PO QAM [facility] Last Admin: 03/31/19 09:41 Dose: 250 mg Mometasone Furoate/Formoterol Fumar (Dulera 100 Mcg/5 Mcg Inhaler) 2 puff INH BID-RT [facility] Last Admin: 03/31/19 07:50 Dose: 2 puff Multivitamins (Theragran) 1 tab PO QAM [facility] Last Admin: 03/31/19 09:41 Dose: 1 tab Nystatin (Mycostatin Powder) 0 gm TOP DAILY [facility] Last Admin: 03/31/19 09:42 Dose: 1 applic Polyethylene Glycol (Miralax) 17 gm PO DAILYPRN PRN PRN Reason: Constipation Last Admin: 03/21/19 07:54 Dose: 17 gm Propafenone HCl (Rythmol) 150 mg PO Q8HR [facility] Last Admin: 03/31/19 05:05 Dose: 150 mg Senna (Senokot) 2 tab PO HSPRN PRN PRN Reason: Constipation Last Admin: 03/22/19 12:48 Dose: 2 tab Sodium Biphosphate/Sodium Phosphate (Fleet Enema) 133 ml [place] DAILY PRN PRN Reason: Constipation Last Admin: 03/22/19 15:43 Dose: 133 ml Sodium Chloride (Flush - Normal Saline) 10 ml IVF Q12HR [facility] Last Admin: 03/31/19 09:42 Dose: Not Given Sodium Chloride (Flush - Normal Saline) 10 ml IVF PRN PRN PRN Reason: Saline Flush Sodium Chloride (Flush - Normal Saline) 10 ml IVF PRN PRN PRN Reason: Saline Flush Vital Signs & Weight: Vital Signs Temp Pulse Resp BP Pulse Ox 03/31/19 08:05 97.9 F 77 20 136/68 93 L 03/31/19 07:49 85 20 03/31/19 04:00 98.5 F 79 21 H 139/79 94 L Admit Weight 180 lb 4.8 oz Weight 179 lb 14.4 oz I/O: I/O 03/30/19 03/31/19 04/01/19 06:59 06:59 06:59 Intake Total 480 855 Output Total 450 280 Balance 30 575 - Quality Measures Condition: Atrial Fibrillation/Flutter (hx or current) - Medication Contraindications No Anticoagulant reason: Medical contraindication (recent surgery) - Physical Exam General: no apparent distress, other (slightly confused/disoriented. Recent change in haldol/seroquel dosing) HEENT: mucus membranes moist, normocephaly Neck: supple neck, midline trachea, no JVD/HJR, no masses, no bruit, no lymphadenopathy, no thromegaly Cardiology: regular rate, irregularly irregular Lungs: clear to auscultation, normal breath sounds, no wheeze, rales, rhonchi Neurology: grossly intact, no lateralizing findings Abdomen: active bowel sounds, soft, no hepatosplenomegaly Extremities: dry, strong pulses, warm - Labs Result Diagrams: 03/29/19 09:10 03/29/19 09:10 - EKG Interpretation EKG Method: Telemetry EKG shows: Atypical atrial flutter - Assessment/Plan Assessment/Plan: 1. Paroxysmal atrial fibrillation. a. On intermittent suppression with propafenone. b. 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 2. History of coronary artery disease, 3. preserved LVEF on echo, a. 03/22/2019, 55% to 60%, also mild , dudo-hy-brrosner AI, and mild-to- moderate TR. 4. History of falls. 5. Hypertension. 6. Chronic left knee pain. 7. Spinal stenosis. 8. COPD. Back in atrial flutter x 24 hrs. Diltiazem was stopped. OAC is indicated and planned to resume 04/07 per surgery. Was on pradaxa. In light of the prolonged interruption in OAC and having prolonged episodes of atrial flutter we will forgo antiarrythmic therapy (with rhythmol) and pursue rate control alone. Having prolonged AF episodes with brief episodes of SR places him at higher risk for CVA if a thrombus has formed. Will still need [facility]. EP signing off. I participated in the exam of this pt and the formulaiton of the plan above. Will sign off. Call if can be further help.
--- NOTE | 2019-03-31 15:01 | PDOC.HOSPP ---
- Subjective Encounter Date: 03/31/19 Encounter Time: 11:45 Subjective: awake, is on cardizem tapeing drip at bedside he ate his breakfast better this am slept better last night per - Objective Vital Signs & Weight: Vital Signs (12 hours) Temp Pulse Resp BP Pulse Ox 03/31/19 13:23 94 18 94 L 03/31/19 12:25 97.7 F 73 19 142/71 H 86 L 03/31/19 08:05 97.9 F 77 20 136/68 93 L 03/31/19 07:49 85 20 03/31/19 04:00 98.5 F 79 21 H 139/79 94 L Weight Admit Weight 180 lb 4.8 oz Weight 179 lb 14.4 oz Most Recent Monitor Data Heart Rate from ECG 88 NIBP 145/68 NIBP BP-Mean 93 Respiration from ECG 20 SpO2 88 I&O: 03/30/19 03/31/19 04/01/19 06:59 06:59 06:59 Intake Total 480 855 Output Total 450 280 Balance 30 575 Result Diagrams: 03/29/19 09:10 03/29/19 09:10 Hospitalist ROS - Medication Medications: Active Medications Generic Name Dose Route Start Last Admin Trade Name Freq PRN Reason Stop Dose Admin Acetaminophen 650 mg 03/17/19 18:41 03/30/19 11:22 Tylenol PO 650 mg Q4H PRN Administration Headache/Fever/Mild Pain (1-3) Albuterol/Ipratropium 3 ml 03/21/19 18:30 03/31/19 07:49 Duoneb NEB 3 ml BID-RT MAX Administration Atorvastatin Calcium 80 mg 03/17/19 21:00 03/30/19 21:24 Lipitor PO 80 mg HS MAX Administration Bisoprolol Fumarate 5 mg 03/31/19 09:00 03/31/19 09:41 Zebeta PO 5 mg BID MAX Administration Calcium Carbonate 600 mg 03/18/19 09:00 03/31/19 10:02 Caltrate PO 600 mg QAM MAX Administration Docusate Sodium 100 mg 03/20/19 21:00 03/31/19 09:41 Colace PO 100 mg BID MAX Administration Ezetimibe 10 mg 03/17/19 21:00 03/30/19 21:28 Zetia PO 10 mg HS MAX Administration Famotidine 20 mg 03/18/19 09:00 03/31/19 09:41 Pepcid PO 20 mg QAM MAX Administration Fenofibrate 145 mg 03/17/19 21:00 03/30/19 21:25 Tricor PO 145 mg HS MAX Administration Haloperidol Lactate 10 mg 03/29/19 21:00 03/30/19 21:30 Haldol IM Not Given QPM MAX Hydralazine HCl 10 mg 03/18/19 04:29 03/28/19 03:34 Apresoline SLOW IVP 10 mg Q4H PRN Administration Hypertension Sodium Chloride 1,000 mls @ 50 mls/hr 03/31/19 09:30 03/31/19 10:07 1/2 Normal Saline IV 1,000 mls .Q20H MAX Administration Ipratropium [place] 0 ml 03/20/19 21:00 03/31/19 14:30 Atrovent 0.03% EA NARE 2 spr TID MAX Administration Magnesium Oxide 250 mg 03/22/19 09:00 03/31/19 09:41 Magnesium Oxide PO 250 mg QAM MAX Administration Mometasone Furoate/Formoterol Fumar 2 puff 03/21/19 18:30 03/31/19 07:50 Dulera 100 Mcg/5 Mcg Inhaler INH 2 puff BID-RT MAX Administration Multivitamins 1 tab 03/18/19 09:00 03/31/19 09:41 Theragran PO 1 tab QAM MAX Administration Nystatin 0 gm 03/30/19 09:00 03/31/19 09:42 Mycostatin Powder TOP 1 applic DAILY MAX Administration Polyethylene Glycol 17 gm 03/19/19 14:04 03/21/19 07:54 Miralax PO 17 gm DAILYPRN PRN Administration Constipation Senna 2 tab 03/20/19 12:38 03/22/19 12:48 Senokot PO 2 tab HSPRN PRN Administration Constipation Sodium Biphosphate/Sodium Phosphate 133 ml 03/20/19 12:38 03/22/19 15:43 Fleet Enema NE 133 ml DAILY PRN Administration Constipation Sodium Chloride 10 ml 03/27/19 21:00 03/31/19 09:42 Flush - Normal Saline IVF Not Given Q12HR [facility] - Exam General Appearance: awake alert Eye: PERRL, anicteric sclera ENT: no oropharyngeal lesions, moist mucosa Neck: supple, no JVD Heart: no murmur, irregular Respiratory: no wheezes, no rales Gastrointestinal: soft, non-tender, non-distended, normal bowel sounds Extremities: no cyanosis, no edema Neurological: cranial nerve grossly intact, no focal deficits Hosp A/P (1) Afib Code(s): I48.91 - UNSPECIFIED ATRIAL FIBRILLATION Status: Acute (2) S/P laminectomy Code(s): Z98.890 - OTHER SPECIFIED POSTPROCEDURAL STATES Status: Acute (3) Acute respiratory failure with hypoxia Code(s): J96.01 - ACUTE RESPIRATORY FAILURE WITH HYPOXIA Status: Resolved (4) Left leg weakness Code(s): R29.898 - [facility] SYMPTOMS AND SIGNS INVOLVING THE MUSCULOSKELETAL SYSTEM Status: Acute (5) Lumbar radiculopathy Code(s): M54.16 - RADICULOPATHY, LUMBAR REGION Status: Acute (6) CKD (chronic kidney disease) stage 3, GFR 30-59 ml/min Code(s): N18.3 - CHRONIC KIDNEY DISEASE, STAGE 3 (MODERATE) Status: Chronic (7) COPD (chronic obstructive pulmonary disease) Status: Chronic Qualifiers: COPD type: chronic bronchitis (8) Chronic diastolic CHF (congestive heart failure), NYHA class 2 Code(s): I50.32 - CHRONIC DIASTOLIC (CONGESTIVE) HEART FAILURE Status: Chronic (9) HTN (hypertension) Code(s): I10 - ESSENTIAL (PRIMARY) HYPERTENSION Status: Chronic Qualifiers: (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 continue nebs, zetia, tricor encourage po intake PT/OT to mobilize. no anticoagulation due to recent laminectomy with small leak of csf during procedure. will f/u dc plan to rehab when afib is rate controlled
--- NOTE | 2019-03-31 15:04 | PRG ---
DATE OF SERVICE: 03/31/2019 This is Dominic Jarquin PA-C dictating a report for Iain Keenan MD. POSTOPERATIVE RECHECK: Mr. Paez is postoperative day #8 having undergone a thoracic laminectomy with multilevel left revision lumbar hemilaminotomies. The patient looks better today and I feel that he is continuing to improve. He does continue to have some slurred speech, although according to the patient's , the patient worked with Speech Therapy and there is no issue with the swallowing mechanism. There are no structural issue with the swallowing mechanism. He has had no appetite. In regard to his Neurosurgery, he has no headache. He has a very little back pain. He has no leg pain currently. He feels as though he is moving his legs even better. Otherwise, he has not yet been able to fully participate in physical therapy secondary to a little bit of confusion and weakness. On the patient's neuro exam, the patient has good movement of the right lower extremity and really has improved movement into the left lower extremity with [id number] continued iliopsoas weakness on the left. The patient now is working toward inpatient rehab and Case Management is working on placement. From neurosurgical standpoint, the patient would greatly benefit from aggressive therapies, but he must be stable medically prior to discharge. Please call with any changes in patient's neurologic status. Otherwise, we will continue to monitor the patient neurologically. Job ID: [id number]
[2019-03-31] MEDS: Atorvastatin Calcium 40 MG TAB PO SCH (21:33)
[2019-03-31] MEDS: Fenofibrate Nanocrystallized 145 MG TAB PO SCH (21:33)
[2019-03-31] MEDS: Ezetimibe 10 MG TAB PO SCH (21:33)
[2019-03-31] MEDS: Haloperidol Lactate 5 MG/ML VIAL IM SCH ×2 (21:34→22:00)
[2019-04-01] MEDS: Sodium Chloride 0.45% 1,000 ML IV SCH (04:43)
[2019-04-01] MEDS: Mometasone/Formoterol 120 PUFF INHALER INH SCH ×2 (07:50→20:13)
[2019-04-01] MEDS: Bisoprolol Fumarate 5 MG TAB PO SCH (08:46)
[2019-04-01] MEDS: Calcium Carbonate 600 MG TAB PO SCH (08:46)
[2019-04-01] MEDS: Multivit, Therapeutic 1 TAB PO SCH (08:46)
[2019-04-01] MEDS: Magnesium Oxide 250 MG TAB PO SCH (08:47)
[2019-04-01] MEDS: Docusate 100 MG CAP PO SCH ×2 (08:47→21:21)
[2019-04-01] MEDS: Famotidine 20 MG TAB PO SCH (08:47)
[2019-04-01] MEDS: Nystatin Powder 15 GM BOT TOP SCH (08:50)
--- NOTE | 2019-04-01 12:22 | PRG ---
DATE OF SERVICE: 04/01/2019 This is Dominic Jarquin PA-C dictating a report for Iain Keenan MD. Mr. Paez is postoperative day #9 having undergone thoracic laminectomy and multilevel revision left lumbar hemilaminotomy and foraminotomies. The patient overall actually is improving. He has been sleeping better. Neurologically, he has no headache. He has no pain complaints. No back pain. No leg pain. He is moving the left leg with more vigor and I feel as though he is improved and the best I have seen him postoperatively. He has moderate to severe left leg weakness, especially into the iliopsoas, but has mild weakness throughout the left lower extremity. He has trace weakness into the right lower extremity. He has intact sensation to light touch throughout. His atrial fibrillation has been better controlled. He will benefit greatly from inpatient rehab and I am very pleased with his progress neurologically. We will intermittently follow the patient. However, he is ready for inpatient rehab when arrangements have been made. Please call with any changes in patient's neurologic status. Job ID: [id number]
--- NOTE | 2019-04-01 15:08 | PDOC.CPN ---
- Subjective Date: 04/01/19 Time: 14:30 Interval history: No complaints today - Review of Systems General: denies: fever/chills, weight/appetite/sleep changes, night sweats, fatigue Respiratory: denies: cough, congestion, shortness of breath, exercise intolerance Cardiovascular: denies: chest pain, palpitation, edema, paroxysmal nocturnal dyspnea, orthopnea Gastrointestinal: denies: nausea, vomiting, diarrhea, constipation, abd pain, GI bleeding Musculoskeletal: reports: pain Neurological: denies: numbness, syncope, seizure, weakness - Objective Allergies/Adverse Reactions: Allergies Allergy/AdvReac Type Severity Reaction Status Date / Time No Known Allergies Allergy Verified 03/17/19 17:26 Visit Medications: Current Medications Acetaminophen (Tylenol) 650 mg PO Q4H PRN PRN Reason: Headache/Fever/Mild Pain (1-3) Last Admin: 03/30/19 11:22 Dose: 650 mg Acetaminophen (Tylenol) 650 mg [place] Q4H PRN PRN Reason: Headache/Fever/Mild Pain (1-3) Hydrocodone Bitart/Acetaminophen ([place] 5/325) 1 tab PO Q6H PRN PRN Reason: Moderate Pain Albuterol/Ipratropium (Duoneb) 3 ml NEB [id number] PRN PRN Reason: SOB &/or Wheezing Albuterol/Ipratropium (Duoneb) 3 ml NEB BID-RT [facility] Last Admin: 04/01/19 07:41 Dose: 3 ml Atorvastatin Calcium (Lipitor) 80 mg PO [facility] Last Admin: 03/31/19 21:33 Dose: 80 mg Calcium Carbonate (Caltrate) 600 mg PO [facility] Last Admin: 04/01/19 08:46 Dose: 600 mg Carvedilol (Coreg) 6.25 mg PO BID [facility] Docusate Sodium (Colace) 100 mg PO BID [facility] Last Admin: 04/01/19 08:47 Dose: 100 mg Ezetimibe (Zetia) 10 mg PO [facility] Last Admin: 03/31/19 21:33 Dose: 10 mg Famotidine (Pepcid) [facility] Last Admin: 04/01/19 08:47 Dose: 20 mg Fenofibrate (Tricor) 145 mg PO [facility] Last Admin: 03/31/19 21:33 Dose: 145 mg Haloperidol Lactate (Haldol) 5 mg IM Q2H PRN PRN Reason: Agitation Haloperidol Lactate (Haldol) 10 mg IM QPM [facility] Last Admin: 03/31/19 22:00 Dose: 10 mg Hydralazine HCl (Apresoline) 10 mg SLOW IVP Q4H PRN PRN Reason: Hypertension Last Admin: 03/28/19 03:34 Dose: 10 mg Sodium Chloride (1/2 Normal Saline) 1,000 mls @ 50 mls/hr IV .Q20H [facility] Last Admin: 04/01/19 04:43 Dose: 1,000 mls Ipratropium [place] (Atrovent 0.03%) 0 ml EA NARE TID [facility] Last Admin: 03/31/19 14:30 Dose: 2 spr Magnesium Oxide (Magnesium Oxide) 250 mg PO QAM [facility] Last Admin: 04/01/19 08:47 Dose: 250 mg Mometasone Furoate/Formoterol Fumar (Dulera 100 Mcg/5 Mcg Inhaler) 2 puff INH BID-RT [facility] Last Admin: 04/01/19 07:50 Dose: 2 puff Multivitamins (Theragran) 1 tab PO QAM [facility] Last Admin: 04/01/19 08:46 Dose: 1 tab Nystatin (Mycostatin Powder) 0 gm TOP DAILY [facility] Last Admin: 04/01/19 08:50 Dose: 1 applic Polyethylene Glycol (Miralax) 17 gm PO DAILYPRN PRN PRN Reason: Constipation Last Admin: 03/21/19 07:54 Dose: 17 gm Senna (Senokot) 2 tab PO HSPRN PRN PRN Reason: Constipation Last Admin: 03/22/19 12:48 Dose: 2 tab Sodium Biphosphate/Sodium Phosphate (Fleet Enema) 133 ml [place] DAILY PRN PRN Reason: Constipation Last Admin: 03/22/19 15:43 Dose: 133 ml Sodium Chloride (Flush - Normal Saline) 10 ml IVF Q12HR [facility] Last Admin: 04/01/19 08:50 Dose: Not Given Sodium Chloride (Flush - Normal Saline) 10 ml IVF PRN PRN PRN Reason: Saline Flush Sodium Chloride (Flush - Normal Saline) 10 ml IVF PRN PRN PRN Reason: Saline Flush Vital Signs & Weight: Vital Signs Temp Pulse Resp BP Pulse Ox 04/01/19 12:12 98.0 F 71 15 170/76 H 94 L 04/01/19 12:00 98.0 F 71 15 170/76 H 94 L 04/01/19 08:30 98.3 F 82 20 160/72 H 92 L 04/01/19 07:50 70 20 04/01/19 07:41 70 20 95 04/01/19 04:00 97.4 F L 101 H 24 H 181/95 H 93 L Admit Weight 180 lb 4.8 oz Weight 179 lb 14.4 oz - Medication Contraindications No Anticoagulant reason: Medical contraindication (recent surgery) - Physical Exam General: alert & oriented x3, appears well HEENT: normocephaly Neck: no bruit Cardiac: regular rate and rhythm Lungs: normal breath sounds Neuro: grossly intact Abdomen: soft, non-tender Extremities: no cyanosis Skin: clear Musculoskeletal: decreased range of motion, other - Labs Result Diagrams: 03/29/19 09:10 03/29/19 09:10 Troponin/CKMB CK-MB (CK-2) 9.7 ng/mL (0-6.6) H* 03/17/19 13:12 Troponin I 0.017 ng/mL (< 0.028) 03/20/19 16:06 - Telemetry Sinus rhythms and dysrhythmias: other (Intermittent SR, Atrial tach, ventricular pacing) - Assessment/Plan Assessment/Plan: 1. Paroxysmal atrial fibrillation 2. 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 3. s/p pacemaker 4. CAD 5. HTN Reviewed plan per EP. ACT recently interrupted, therefore antiarrhythmics stopped and rate-control only planned. Patient on Zebeta and Coreg added today. Will stop Zebeta. BP still high. Rate-controlled. Intermittent atrial tach/AF/ AFl on tele. Overall patient stable and has no complaints. RG-Pt seen and examined. Agree with the above. Hold ACT till 04/07 given recent back surgery. R/B discussed with pt on waiting on ACT and risks of bleeding.
--- NOTE | 2019-04-01 16:56 | PRG ---
DATE OF SERVICE: 04/01/2019 SUBJECTIVE: The patient seems to be doing okay except for mild encephalopathy. OBJECTIVE: VITAL SIGNS: Temperature 98.1, pulse 70, respirations 14, O2 saturation 93% on 2 L, and blood pressure 164/77. HEENT: Unremarkable. NECK: No adenopathy or JVD. CHEST: Clear anteriorly. CARDIAC: S1 and S2. Regular. ABDOMEN: Soft. EXTREMITIES: No edema. ASSESSMENT: 1. Status post back surgery. 2. Paralyzed right diaphragm. 3. Sick sinus syndrome. 4. Encephalopathy. PLAN: Continuing supportive care. So far, his mentation seems to be clearing with conservative therapy. Job ID: [id number]
--- NOTE | 2019-04-01 20:35 | PDOC.HOSPP ---
- Subjective Subjective: No acute complaints. Family is at bedside. - Objective Vital Signs & Weight: Vital Signs (12 hours) Temp Pulse Pulse Pulse Resp BP BP 04/01/19 20:01 75 18 04/01/19 16:00 98.1 F 70 14 04/01/19 13:50 71 71 191/80 H 163/79 H 04/01/19 12:12 98.0 F 71 15 04/01/19 12:00 98.0 F 71 15 BP BP Pulse Ox 04/01/19 20:01 04/01/19 16:00 164/77 H 93 L 04/01/19 13:50 04/01/19 12:12 170/76 H 94 L 04/01/19 12:00 170/76 H 94 L Weight Admit Weight 180 lb 4.8 oz Weight 179 lb 14.4 oz Most Recent Monitor Data Heart Rate from ECG 88 NIBP 145/68 NIBP BP-Mean 93 Respiration from ECG 20 SpO2 88 I&O: 03/31/19 04/01/19 04/02/19 06:59 06:59 06:59 Intake Total 760 711 4660 Output Total 280 Balance 241 697 6743 Result Diagrams: 03/29/19 09:10 03/29/19 09:10 Hospitalist ROS - Review of Systems Constitutional: denies: fever, chills, sweats, weakness, malaise, other Eyes: denies: pain, vision change, conjunctivae inflammation, eyelid inflammation, redness, other ENT: denies: ear pain, ear discharge, nose pain, nose discharge, nose congestion , mouth pain, mouth swelling, throat pain, throat swelling, other Respiratory: denies: cough, dry, shortness of breath, hemoptysis, SOB with excertion, pleuritic pain, sputum, wheezing, other Cardiovascular: denies: chest pain, palpitations, orthopnea, paroxysmal noc. dyspnea, edema, light headedness, other Gastrointestinal: denies: nausea, vomiting, abdominal pain, diarrhea, constipation, melena, hematochezia, other Genitourinary: denies: dysuria, frequency, incontinence, hematuria, retention, other Musculoskeletal: denies: neck pain, shoulder pain, arm pain, back pain, hand pain, leg pain, foot pain, other Skin: denies: rash, lesions, princess, bruising, other Neurological: denies: weakness, numbness, incoordination, change in speech, confusion, seizures, other - Medication Medications: Active Medications Generic Name Dose Route Start Last Admin Trade Name Freq PRN Reason Stop Dose Admin Acetaminophen 650 mg 03/17/19 18:41 03/30/19 11:22 Tylenol PO 650 mg Q4H PRN Administration Headache/Fever/Mild Pain (1-3) Albuterol/Ipratropium 3 ml 03/21/19 18:30 04/01/19 20:01 Duoneb NEB 3 ml BID-RT MAX Administration Atorvastatin Calcium 80 mg 03/17/19 21:00 03/31/19 21:33 Lipitor PO 80 mg HS MAX Administration Calcium Carbonate 600 mg 03/18/19 09:00 04/01/19 08:46 Caltrate PO 600 mg QAM MAX Administration Docusate Sodium 100 mg 03/20/19 21:00 04/01/19 08:47 Colace PO 100 mg BID MAX Administration Ezetimibe 10 mg 03/17/19 21:00 03/31/19 21:33 Zetia PO 10 mg HS MAX Administration Famotidine 20 mg 03/18/19 09:00 04/01/19 08:47 Pepcid PO 20 mg QAM MAX Administration Fenofibrate 145 mg 03/17/19 21:00 03/31/19 21:33 Tricor PO 145 mg HS MAX Administration Haloperidol Lactate 10 mg 03/29/19 21:00 03/31/19 22:00 Haldol IM 10 mg QPM MAX Administration Hydralazine HCl 10 mg 03/18/19 04:29 03/28/19 03:34 Apresoline SLOW IVP 10 mg Q4H PRN Administration Hypertension Sodium Chloride 1,000 mls @ 50 mls/hr 03/31/19 09:30 04/01/19 04:43 1/2 Normal Saline IV 1,000 mls .Q20H MAX Administration Ipratropium [place] 0 ml 03/20/19 21:00 03/31/19 14:30 Atrovent 0.03% EA NARE 2 spr TID MAX Administration Magnesium Oxide 250 mg 03/22/19 09:00 04/01/19 08:47 Magnesium Oxide PO 250 mg QAM MAX Administration Mometasone Furoate/Formoterol Fumar 2 puff 03/21/19 18:30 04/01/19 20:13 Dulera 100 Mcg/5 Mcg Inhaler INH 2 puff BID-RT MAX Administration Multivitamins 1 tab 03/18/19 09:00 04/01/19 08:46 Theragran PO 1 tab QAM MAX Administration Nystatin 0 gm 03/30/19 09:00 04/01/19 08:50 Mycostatin Powder TOP 1 applic DAILY MAX Administration Polyethylene Glycol 17 gm 03/19/19 14:04 03/21/19 07:54 Miralax PO 17 gm DAILYPRN PRN Administration Constipation Senna 2 tab 03/20/19 12:38 03/22/19 12:48 Senokot PO 2 tab HSPRN PRN Administration Constipation Sodium Biphosphate/Sodium Phosphate 133 ml 03/20/19 12:38 03/22/19 15:43 Fleet Enema [place] 133 ml DAILY PRN Administration Constipation Sodium Chloride 10 ml 03/27/19 21:00 04/01/19 08:50 Flush - Normal Saline IVF Not Given Q12HR MAX - Exam General Appearance: NAD, awake alert Eye: PERRL, anicteric sclera ENT: normocephalic atraumatic, moist mucosa Neck: supple, symmetric, no JVD, no thyromegaly, no lymphadenopathy Heart: RRR, no murmur, no gallops, no rubs Respiratory: CTAB, no wheezes, no rales, no ronchi Gastrointestinal: soft, non-tender, non-distended, normal bowel sounds Extremities: no clubbing, no edema Skin: no lesions, no rashes Neurological: cranial nerve grossly intact Musculoskeletal: normal strength, no muscle wasting Psychiatric: normal affect, A&O x 3 Hosp A/P (1) Afib Code(s): I48.91 - UNSPECIFIED ATRIAL FIBRILLATION Status: Acute Qualifiers: Atrial fibrillation type: paroxysmal Qualified Code(s): I48.0 - Paroxysmal atrial fibrillation Plan: Rate controlled. Cardizem is off. Cont current mgt. (2) CKD (chronic kidney disease) stage 3, GFR 30-59 ml/min Code(s): N18.3 - CHRONIC KIDNEY DISEASE, STAGE 3 (MODERATE) Status: Chronic Plan: Stable, monitor Cr. (3) S/P cardiac pacemaker procedure Status: Acute (4) Tachy-nir syndrome Code(s): I49.5 - SICK SINUS SYNDROME Status: Acute Plan: Stable. S/p PM. Monitor on telemetry. (5) Acute exacerbation of CHF (congestive heart failure) Code(s): I50.9 - HEART FAILURE, UNSPECIFIED Status: Suspected Qualifiers: Heart failure type: diastolic Qualified Code(s): I50.33 - Acute on chronic diastolic (congestive) heart failure Plan: Stable, cont med mgt. (6) S/P laminectomy Code(s): Z98.890 - OTHER SPECIFIED POSTPROCEDURAL STATES Status: Acute Plan: Cont PT/OT. D/c to Rehab. (7) HTN (hypertension) Code(s): I10 - ESSENTIAL (PRIMARY) HYPERTENSION Status: Chronic Qualifiers: Plan: Cont meds. Monitor BP. (8) COPD (chronic obstructive pulmonary disease) Status: Chronic Qualifiers: COPD type: chronic bronchitis Plan: Cont O2 support as needed. - Plan PPx: SCDs. CODE: FULL. Dispo: Cont current mgt. D/c to Rehab when accepted.
[2019-04-01] MEDS ORDERED: Carvedilol 6.25 MG TAB PO SCH (21:00)
[2019-04-01] MEDS: Fenofibrate Nanocrystallized 145 MG TAB PO SCH (21:21)
[2019-04-01] MEDS: Ezetimibe 10 MG TAB PO SCH (21:21)
[2019-04-01] MEDS: Atorvastatin Calcium 40 MG TAB PO SCH (21:21)
[2019-04-01] MEDS: hydrALAZINE 20 MG/ML VIAL SLOW IVP PRN (21:22)
[2019-04-01] MEDS: Haloperidol Lactate 5 MG/ML VIAL IM SCH (21:22)
[2019-04-01] MEDS: Ipratropium Bromide 0.03% Nasal Inhaler 30 ml Bottle EA NARE SCH ×2 (21:36→22:27)
[2019-04-02] MEDS: Ipratropium Bromide 0.03% Nasal Inhaler 30 ml Bottle EA NARE SCH ×4 (07:32→21:40)
[2019-04-02] MEDS: hydrALAZINE 20 MG/ML VIAL SLOW IVP PRN (08:02)
[2019-04-02] MEDS: Carvedilol 6.25 MG TAB PO SCH ×2 (08:02→21:39)
[2019-04-02] MEDS ORDERED: hydrALAZINE 20 MG/ML VIAL SLOW IVP PRN (08:17)
[2019-04-02] MEDS: Sodium Chloride 0.45% 1,000 ML IV SCH ×2 (08:29→21:45)
[2019-04-02] MEDS: Mometasone/Formoterol 120 PUFF INHALER INH SCH ×2 (08:36→19:53)
[2019-04-02] MEDS: Calcium Carbonate 600 MG TAB PO SCH (09:27)
[2019-04-02] MEDS: Famotidine 20 MG TAB PO SCH (09:27)
[2019-04-02] MEDS: Docusate 100 MG CAP PO SCH ×2 (09:27→21:40)
[2019-04-02] MEDS: Nystatin Powder 15 GM BOT TOP SCH (09:28)
[2019-04-02] MEDS: Multivit, Therapeutic 1 TAB PO SCH (09:28)
[2019-04-02] MEDS: Magnesium Oxide 250 MG TAB PO SCH (09:28)
[2019-04-02] MEDS ORDERED: Losartan 25 MG TAB PO SCH ×2 (10:38→10:45)
[2019-04-02] MEDS ORDERED: Tamsulosin HCl 0.4 MG CAP PO SCH (11:15)
[2019-04-02 12:09] LABS: Hemoglobin 13.8 g/dL (14.0-18.0); Mean Corpuscular HGB CONC 32.2 g/dL (32.0-36.0); Mean Corpuscular Volume 96.1 fL (78.0-98.0); Mean Platelet Volume 7.8 fL (7.4-10.4); Platelet Count 463 thou/uL (130-400); RBC Distribution Width 15.6 % (11.5-14.5); Red Blood Cell (RBC) Count 4.45 mill/uL (4.70-6.10); White Blood Cell (WBC) Count 13.1 thou/uL (4.8-10.8)
--- NOTE | 2019-04-02 12:29 | PRG ---
DATE OF SERVICE: 04/02/2019 This is Dominic Jarquin PA-C dictating a report for Iain Keenan MD. Mr. Paez is postoperative, having undergone thoracic laminectomy and multilevel revision left lumbar hemilaminotomies. The patient is getting an in and out catheter secondary to some urinary retention, so I have respected his privacy. I did, however, update his son and daughter that we overall feel the patient is doing well. He has had no complaints of headache and really has had no pain complaints in regard to back or leg pain. I believe he is recovering well neurosurgically. Main issue now is the patient's blood pressure as it has ranged in the 220s, which is absolutely unacceptable. I discussed this with our hospitalist team and we have also discussed with the nursing staff that we need to maintain his systolic blood pressure less than 150 and the additional oral medications for his blood pressure control is paramount. He is ready for discharge to inpatient rehab once his hypertension and heart rate have been controlled. Again, I updated the patient's family and they are appreciative of our care. Please call with any changes of the patient's neurologic status. Job ID: [id number]
[2019-04-02 12:34] LABS: Anion Gap 13 mmol/L (10-20); BUN (Urea Nitrogen) 22 mg/dL (8.4-25.7); Calc. Creatinine Clearance 78 mL/min (70-130); Calcium 9.1 mg/dL (7.8-10.44); Carbon Dioxide 25 mmol/L (23-31); Chloride 105 mmol/L (98-107); Estimated GFR-MDRD Greater than 90; Glucose 98 mg/dL (83-110); Potassium 3.5 mmol/L (3.5-5.1); Sodium 139 mmol/L (136-145)
[2019-04-02 12:37] LABS: Band 1 % (5-11); Eosinophils 3 % (0-10); Hypersemented Neutrophil SLIGHT; Hypochromia SLIGHT = 6-15 cells (100X) (0-5/hpf); Lymphocytes 8 % (21-51); MDiff Complete? YES; Monocytes 10 % (0-10); Neutrophil 77 % (42-75); Platelet Morphology Comment Appears Increased; Polychromasia SLIGHT = 2-3 cells (100X) (0-2/hpf); Vacuoles SLIGHT
--- NOTE | 2019-04-02 14:05 | PDOC.CPN ---
- Subjective Date: 04/02/19 Time: 14:04 Interval history: Patient resting comfortable. is concerned because he has been placed on losartan and this was previously stopped by Dr. Obando in the last 3 months due to ALICE. Otherwise no complaints - Review of Systems General: denies: fever/chills, weight/appetite/sleep changes, night sweats, fatigue Respiratory: denies: cough, congestion, shortness of breath, exercise intolerance Cardiovascular: denies: chest pain, palpitation, edema, paroxysmal nocturnal dyspnea, orthopnea Gastrointestinal: denies: nausea, vomiting, diarrhea, constipation, abd pain, GI bleeding Musculoskeletal: denies: pain, tenderness, stiffness, swelling, arthritis/ arthralgias Neurological: denies: numbness, syncope, seizure, weakness - Objective Allergies/Adverse Reactions: Allergies Allergy/AdvReac Type Severity Reaction Status Date / Time No Known Allergies Allergy Verified 03/17/19 17:26 Visit Medications: Current Medications Acetaminophen (Tylenol) 650 mg PO Q4H PRN PRN Reason: Headache/Fever/Mild Pain (1-3) Last Admin: 03/30/19 11:22 Dose: 650 mg Acetaminophen (Tylenol) 650 mg [place] Q4H PRN PRN Reason: Headache/Fever/Mild Pain (1-3) Hydrocodone Bitart/Acetaminophen ([place] 5/325) 1 tab PO Q6H PRN PRN Reason: Moderate Pain Albuterol/Ipratropium (Duoneb) 3 ml NEB [id number] PRN PRN Reason: SOB &/or Wheezing Albuterol/Ipratropium (Duoneb) 3 ml NEB BID-RT [facility] Last Admin: 04/02/19 08:29 Dose: 3 ml Amlodipine Besylate (Norvasc) 5 mg PO DAILY [facility] Atorvastatin Calcium (Lipitor) 80 mg PO [facility] Last Admin: 04/01/19 21:21 Dose: 80 mg Calcium Carbonate (Caltrate) [facility] Last Admin: 04/02/19 09:27 Dose: 600 mg Carvedilol (Coreg) 12.5 mg PO BID [facility] Last Admin: 04/02/19 08:02 Dose: 12.5 mg Docusate Sodium (Colace) 100 mg PO BID [facility] Last Admin: 04/02/19 09:27 Dose: 100 mg Ezetimibe (Zetia) 10 mg PO [facility] Last Admin: 04/01/19 21:21 Dose: 10 mg Famotidine (Pepcid) 20 mg PO QAM [facility] Last Admin: 04/02/19 09:27 Dose: 20 mg Fenofibrate (Tricor) 145 mg PO [facility] Last Admin: 04/01/19 21:21 Dose: 145 mg Hydralazine HCl (Apresoline) 10 mg SLOW IVP Q4H PRN PRN Reason: Hypertension Last Admin: 04/02/19 08:02 Dose: 10 mg Hydralazine HCl (Apresoline) 10 mg SLOW IVP Q15MIN PRN PRN Reason: SBP >150 and/or DBP >90 Sodium Chloride (1/2 Normal Saline) 1,000 mls @ 50 mls/hr IV .Q20H [facility] Last Admin: 04/02/19 08:29 Dose: Not Given Ipratropium [place] (Atrovent 0.03%) 0 ml EA NARE TID [facility] Last Admin: 04/02/19 09:28 Dose: 2 spr Magnesium Oxide (Magnesium Oxide) 250 [facility] Last Admin: 04/02/19 09:28 Dose: 250 mg Mometasone Furoate/Formoterol Fumar (Dulera 100 Mcg/5 Mcg Inhaler) 2 puff INH BID-RT [facility] Last Admin: 04/02/19 08:36 Dose: 2 puff Multivitamins (Theragran) 1 tab [facility] Last Admin: 04/02/19 09:28 Dose: 1 tab Nystatin (Mycostatin Powder) 0 gm TOP DAILY [facility] Last Admin: 04/02/19 09:28 Dose: 1 applic Polyethylene Glycol (Miralax) 17 gm PO DAILYPRN PRN PRN Reason: Constipation Last Admin: 03/21/19 07:54 Dose: 17 gm Senna (Senokot) 2 tab PO HSPRN PRN PRN Reason: Constipation Last Admin: 03/22/19 12:48 Dose: 2 tab Sodium Biphosphate/Sodium Phosphate (Fleet Enema) 133 ml GA DAILY PRN PRN Reason: Constipation Last Admin: 03/22/19 15:43 Dose: 133 ml Sodium Chloride (Flush - Normal Saline) 10 ml IVF Q12HR [facility] Last Admin: 04/02/19 09:28 Dose: 10 ml Sodium Chloride (Flush - Normal Saline) 10 ml IVF PRN PRN PRN Reason: Saline Flush Sodium Chloride (Flush - Normal Saline) 10 ml IVF PRN PRN PRN Reason: Saline Flush Tamsulosin HCl (Flomax) 0.4 mg PO DAILY MAX Vital Signs & Weight: Vital Signs Temp Pulse Resp BP BP BP Pulse Ox 04/02/19 11:43 97.9 F 83 18 162/74 H 96 04/02/19 08:55 151/71 H 04/02/19 08:40 180/76 H 04/02/19 08:36 79 16 04/02/19 08:29 79 16 92 L 04/02/19 08:02 97.8 F 84 20 221/112 H 221/112 H 95 04/02/19 04:02 97.4 F L 74 17 171/77 H 92 L 04/02/19 04:00 97.4 F L 74 17 171/77 H 92 L Admit Weight 180 lb 4.8 oz Weight 179 lb 14.4 oz - Medication Contraindications No Anticoagulant reason: Medical contraindication (recent surgery) - Physical Exam General: appears well, no apparent distress Neck: supple neck Cardiac: regular rate and rhythm Lungs: normal breath sounds Abdomen: active bowel sounds, soft Extremities: no cyanosis Skin: clear - Labs Result Diagrams: 04/02/19 11:36 04/02/19 11:36 Troponin/CKMB CK-MB (CK-2) 9.7 ng/mL (0-6.6) H* 03/17/19 13:12 Troponin I 0.017 ng/mL (< 0.028) 03/20/19 16:06 - Assessment/Plan Assessment/Plan: 1. Paroxysmal atrial fibrillation 2. 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 3. s/p pacemaker 4. CAD 5. HTN Stop losartan. Add norvasc. Monitor BP closely. Patient currently in SR. No ACT until allowed by NS team.
--- NOTE | 2019-04-02 14:11 | PRG ---
DATE OF SERVICE: 04/02/2019 SUBJECTIVE: The patient apparently has been very confused according to family. He is now wanting to sleep. They are saying this occurred after he received Haldol last night. OBJECTIVE: VITAL SIGNS: On exam, temperature 97.9, pulse 83, respirations 18, O2 saturation 96% on 2 L, and blood pressure 162/74. HEENT: Unremarkable. NECK: No adenopathy or JVD. LUNGS: Clear anteriorly. CARDIAC: S1 and S2. Regular. ABDOMEN: Soft. EXTREMITIES: No profound edema. ASSESSMENT: 1. Encephalopathy. 2. Status post back surgery. 3. Paralyzed right diaphragm. PLAN: I will go ahead and stop the Haldol and we will see if his sensorium clears. Job ID: [id number]
[2019-04-02] MEDS ORDERED: Amlodipine 5 MG TAB PO SCH (15:00)
--- NOTE | 2019-04-02 15:20 | PDOC.HOSPP ---
- Subjective Subjective: Pt is noted with urine retention this morning. - Objective Vital Signs & Weight: Vital Signs (12 hours) Temp Pulse Resp BP BP BP Pulse Ox 04/02/19 11:43 97.9 F 83 18 162/74 H 96 04/02/19 08:55 151/71 H 04/02/19 08:40 180/76 H 04/02/19 08:36 79 16 04/02/19 08:29 79 16 92 L 04/02/19 08:02 97.8 F 84 20 221/112 H 221/112 H 95 04/02/19 04:02 97.4 F L 74 17 171/77 H 92 L 04/02/19 04:00 97.4 F L 74 17 171/77 H 92 L Weight Admit Weight 180 lb 4.8 oz Weight 179 lb 14.4 oz Most Recent Monitor Data Heart Rate from ECG 88 NIBP 145/68 NIBP BP-Mean 93 Respiration from ECG 20 SpO2 88 I&O: 04/01/19 04/02/19 04/03/19 06:59 06:59 06:59 Intake Total 900 1620 Output Total 800 Balance 900 1620 -800 Result Diagrams: 04/02/19 11:36 04/02/19 11:36 Hospitalist ROS - Review of Systems Constitutional: denies: fever, chills, sweats, weakness, malaise, other Eyes: denies: pain, vision change, conjunctivae inflammation, eyelid inflammation, redness, other ENT: denies: ear pain, ear discharge, nose pain, nose discharge, nose congestion , mouth pain, mouth swelling, throat pain, throat swelling, other Respiratory: denies: cough, dry, shortness of breath, hemoptysis, SOB with excertion, pleuritic pain, sputum, wheezing, other Cardiovascular: denies: chest pain, palpitations, orthopnea, paroxysmal noc. dyspnea, edema, light headedness, other Gastrointestinal: denies: nausea, vomiting, abdominal pain, diarrhea, constipation, melena, hematochezia, other Genitourinary: reports: retention Musculoskeletal: denies: neck pain, shoulder pain, arm pain, back pain, hand pain, leg pain, foot pain, other Skin: denies: rash, lesions, princess, bruising, other Neurological: denies: weakness, numbness, incoordination, change in speech, confusion, seizures, other - Medication Medications: Active Medications Generic Name Dose Route Start Last Admin Trade Name Freq PRN Reason Stop Dose Admin Acetaminophen 650 mg 03/17/19 18:41 03/30/19 11:22 Tylenol PO 650 mg Q4H PRN Administration Headache/Fever/Mild Pain (1-3) Albuterol/Ipratropium 3 ml 03/21/19 18:30 04/02/19 08:29 Duoneb NEB 3 ml BID-RT MAX Administration Atorvastatin Calcium 80 mg 03/17/19 21:00 04/01/19 21:21 Lipitor PO 80 mg HS MAX Administration Calcium Carbonate 600 mg 03/18/19 09:00 04/02/19 09:27 Caltrate PO 600 mg QAM MAX Administration Carvedilol 12.5 mg 04/02/19 09:00 04/02/19 08:02 Coreg PO 12.5 mg BID MAX Administration Docusate Sodium 100 mg 03/20/19 21:00 04/02/19 09:27 Colace PO 100 mg BID MAX Administration Ezetimibe 10 mg 03/17/19 21:00 04/01/19 21:21 Zetia PO 10 mg HS MAX Administration Famotidine 20 mg 03/18/19 09:00 04/02/19 09:27 Pepcid PO 20 mg QAM MAX Administration Fenofibrate 145 mg 03/17/19 21:00 04/01/19 21:21 Tricor PO 145 mg HS MAX Administration Hydralazine HCl 10 mg 03/18/19 04:29 04/02/19 08:02 Apresoline SLOW IVP 10 mg Q4H PRN Administration Hypertension Sodium Chloride 1,000 mls @ 50 mls/hr 03/31/19 09:30 04/02/19 08:29 1/2 Normal Saline IV Not Given .Q20H MAX Ipratropium [place] 0 ml 03/20/19 21:00 04/02/19 09:28 Atrovent 0.03% EA NARE 2 spr TID MAX Administration Magnesium Oxide 250 mg 03/22/19 09:00 04/02/19 09:28 Magnesium Oxide PO 250 mg QAM MAX Administration Mometasone Furoate/Formoterol Fumar 2 puff 03/21/19 18:30 04/02/19 08:36 Dulera 100 Mcg/5 Mcg Inhaler INH 2 puff BID-RT MAX Administration Multivitamins 1 tab 03/18/19 09:00 04/02/19 09:28 Theragran PO 1 tab QAM MAX Administration Nystatin 0 gm 03/30/19 09:00 04/02/19 09:28 Mycostatin Powder TOP 1 applic DAILY MAX Administration Polyethylene Glycol 17 gm 03/19/19 14:04 03/21/19 07:54 Miralax PO 17 gm DAILYPRN PRN Administration Constipation Senna 2 tab 03/20/19 12:38 03/22/19 12:48 Senokot PO 2 tab HSPRN PRN Administration Constipation Sodium Biphosphate/Sodium Phosphate 133 ml 03/20/19 12:38 03/22/19 15:43 Fleet Enema [place] 133 ml DAILY PRN Administration Constipation Sodium Chloride 10 ml 03/27/19 21:00 04/02/19 09:28 Flush - Normal Saline IVF 10 ml Q12HR MAX Administration - Exam General Appearance: NAD, awake alert Eye: PERRL, anicteric sclera ENT: normocephalic atraumatic, moist mucosa Neck: supple, symmetric, no JVD, no thyromegaly Heart: RRR, no murmur, no gallops, no rubs Respiratory: CTAB, no wheezes, no rales, no ronchi Gastrointestinal: soft, non-tender, non-distended, normal bowel sounds Extremities: no cyanosis, no clubbing, no edema Skin: normal turgor, no lesions, no rashes Neurological: cranial nerve grossly intact, normal sensation to touch Musculoskeletal: normal strength, no muscle wasting, generalized weakness Psychiatric: normal affect, normal behavior, A&O x 3 Hosp A/P (1) Urine retention Code(s): R33.9 - RETENTION OF URINE, UNSPECIFIED Status: Acute Plan: Pt denies a hx a BPH. He has 650ml of urine removed in and out cath. Will start Flomax, cont to bladder scan. May consult Urology if needed. - Plan (1) Afib Code(s): I48.91 - UNSPECIFIED ATRIAL FIBRILLATION Status: Acute Qualifiers: Atrial fibrillation type: paroxysmal Qualified Code(s): I48.0 - Paroxysmal atrial fibrillation Plan: Rate controlled. Cardizem is off. Cont current mgt. (2) CKD (chronic kidney disease) stage 3, GFR 30-59 ml/min Code(s): N18.3 - CHRONIC KIDNEY DISEASE, STAGE 3 (MODERATE) Status: Chronic Plan: Stable, monitor Cr. (3) S/P cardiac pacemaker procedure Status: Acute (4) Tachy-nir syndrome Code(s): I49.5 - SICK SINUS SYNDROME Status: Acute Plan: Stable. S/p PM. Monitor on telemetry. (5) Acute exacerbation of CHF (congestive heart failure) Code(s): I50.9 - HEART FAILURE, UNSPECIFIED Status: Suspected Qualifiers: Heart failure type: diastolic Qualified Code(s): I50.33 - Acute on chronic diastolic (congestive) heart failure Plan: Stable, cont med mgt. (6) S/P laminectomy Code(s): Z98.890 - OTHER SPECIFIED POSTPROCEDURAL STATES Status: Acute Plan: Cont PT/OT. D/c to Rehab. (7) HTN (hypertension) Code(s): I10 - ESSENTIAL (PRIMARY) HYPERTENSION Status: Chronic Qualifiers: Plan: Uncontrolled. Coreg has been increased to 12.5 mg PO BID. Will add low Losartan. Monitor BP and adjust meds as needed. (8) COPD (chronic obstructive pulmonary disease) Status: Chronic Qualifiers: COPD type: chronic bronchitis Plan: Cont O2 support as needed. PPx: SCDs. CODE: FULL. Dispo: Cont current mgt. D/c to Rehab when accepted.
[2019-04-02] MEDS: Atorvastatin Calcium 40 MG TAB PO SCH (21:39)
[2019-04-02] MEDS: Ezetimibe 10 MG TAB PO SCH (21:40)
[2019-04-02] MEDS: Fenofibrate Nanocrystallized 145 MG TAB PO SCH (21:40)
[2019-04-03 04:43] LABS: #Basophils 0.1 thou/uL (0.0-0.2); #Eosinphils 0.2 thou/uL (0.0-0.7); #Lymphocytes 1.4 thou/uL (1.20-3.40); #Neutrophils 8.9 thou/uL (1.40-6.50); %Basophils 0.7 % (0.0-1.0); %Eosinophils 1.6 % (0.0-10.0); %Lymphocytes 11.9 % (21.0-51.0); %Neutrophils 76.9 % (42.0-75.0); Hemoglobin 13.2 g/dL (14.0-18.0); Mean Corpuscular HGB CONC 30.5 g/dL (32.0-36.0); Mean Corpuscular Hemoglobin 29.9 pg (27.0-31.0); Mean Corpuscular Volume 98.3 fL (78.0-98.0); Mean Platelet Volume 8.6 fL (7.4-10.4); Platelet Count 409 thou/uL (130-400); RBC Distribution Width 15.7 % (11.5-14.5); Red Blood Cell (RBC) Count 4.39 mill/uL (4.70-6.10); White Blood Cell (WBC) Count 11.6 thou/uL (4.8-10.8)
[2019-04-03 05:06] LABS: Anion Gap 14 mmol/L (10-20); BUN (Urea Nitrogen) 23 mg/dL (8.4-25.7); Calc. Creatinine Clearance 79 mL/min (70-130); Calcium 9.2 mg/dL (7.8-10.44); Carbon Dioxide 23 mmol/L (23-31); Chloride 106 mmol/L (98-107); Estimated GFR-MDRD Greater than 90; Glucose 94 mg/dL (83-110); Potassium 3.8 mmol/L (3.5-5.1); Sodium 139 mmol/L (136-145)
[2019-04-03] MEDS: Mometasone/Formoterol 120 PUFF INHALER INH SCH ×2 (07:16→22:34)
[2019-04-03] MEDS ORDERED: Losartan 25 MG TAB PO SCH (09:00)
[2019-04-03] MEDS ORDERED: Amlodipine 5 MG TAB PO SCH ×2 (09:00→09:45)
[2019-04-03] MEDS: Carvedilol 6.25 MG TAB PO SCH ×2 (09:07→20:43)
[2019-04-03] MEDS: Calcium Carbonate 600 MG TAB PO SCH (09:07)
[2019-04-03] MEDS: Famotidine 20 MG TAB PO SCH (09:07)
[2019-04-03] MEDS: Tamsulosin HCl 0.4 MG CAP PO SCH (09:07)
[2019-04-03] MEDS: Magnesium Oxide 250 MG TAB PO SCH (09:07)
[2019-04-03] MEDS: Ipratropium Bromide 0.03% Nasal Inhaler 30 ml Bottle EA NARE SCH ×3 (09:07→21:00)
[2019-04-03] MEDS: Docusate 100 MG CAP PO SCH ×2 (09:07→20:43)
[2019-04-03] MEDS: Multivit, Therapeutic 1 TAB PO SCH (09:07)
[2019-04-03] MEDS: Nystatin Powder 15 GM BOT TOP SCH (09:08)
--- NOTE | 2019-04-03 15:19 | PRG ---
DATE OF SERVICE: 04/03/2019 SUBJECTIVE: Mr. Paez has no new complaints. He had a better weekend. He is up till four this morning. He was confused Wednesday night apparently after receiving Haldol, so his declined the Haldol last night. He is oriented today but really does not remember anything about the last 2 days, nights when he was challenged. He stood today briefly. He has long rehab ahead of him. He is not wheezing. HEART: Regular rhythm. ABDOMEN: Soft and nontender. IMPRESSION: 1. Asthmatic bronchitis, stable paralyzed hemidiaphragm, stable, slightly better, status post pacemaker for bradycardia. 2. Chronic kidney disease. 3. History of coronary artery disease. 4. History of hypertension. 5. His renal function is stable. 6. His strength and his left lower extremity weakness are the big issues as well as confusion at night. Job ID: [id number]
--- NOTE | 2019-04-03 15:38 | PRG ---
DATE OF SERVICE: 04/03/2019 This is Dominic Jarquin PA-C dictating a report for Iain Keenan MD. Mr. Paez is now almost two weeks postop having undergone thoracic laminectomy and revision left lumbar hemilaminotomies. The patient looks the best that I have seen him since his hospitalization. He is awake and conversant. He is very pleasant. He has some continued give-way weakness in the left lower extremities. He was able to stand with Physical Therapy yesterday. He does however state that he has no pain including back pain or leg pain. His blood pressure and heart rate have been better controlled. He really is ready for inpatient rehab and will benefit greatly from aggressive therapies. I looked at his incisions today and there is no drainage on the dressing, but some scabbing throughout the incision and I am very pleased with the way they are healing. He denies headache. We will continue to follow the patient intermittently. However again, he is ready for inpatient rehab discharge when arrangements have been made. Job ID: [id number]
[2019-04-03] MEDS ORDERED: Furosemide 40 MG/4 ML VIAL SLOW IVP SCH (18:00)
--- NOTE | 2019-04-03 18:10 | PDOC.HOSPP ---
- Subjective Subjective: Pt is stable. Still passing urine freely into his diaper occasionally. Bladder scans show urine to be in the low 200s. - Objective Vital Signs & Weight: Vital Signs (12 hours) Temp Pulse Pulse Resp BP BP BP 04/03/19 15:18 97.7 F 73 18 130/62 04/03/19 13:50 78 134/59 L 04/03/19 11:04 98.2 F 86 16 04/03/19 10:45 89 147/67 H 04/03/19 09:03 65 151/72 H 04/03/19 07:39 97.9 F 70 16 154/74 H 04/03/19 07:17 70 14 BP Pulse Ox Pulse Ox 04/03/19 15:18 98 04/03/19 13:50 97 04/03/19 11:04 132/62 96 04/03/19 10:45 04/03/19 09:03 04/03/19 07:39 96 04/03/19 07:17 Weight Admit Weight 180 lb 4.8 oz Weight 179 lb 14.4 oz Most Recent Monitor Data Heart Rate from ECG 88 NIBP 145/68 NIBP BP-Mean 93 Respiration from ECG 20 SpO2 88 I&O: 04/02/19 04/03/19 04/04/19 06:59 06:59 06:59 Intake Total 1620 680 Output Total 1450 Balance 1620 -770 Result Diagrams: 04/03/19 04:03 04/03/19 04:03 Hospitalist ROS - Review of Systems Constitutional: denies: fever, chills, sweats, weakness, malaise, other Eyes: denies: pain, vision change, conjunctivae inflammation, eyelid inflammation, redness, other ENT: denies: ear pain, ear discharge, nose pain, nose discharge, nose congestion , mouth pain, mouth swelling, throat pain, throat swelling, other Respiratory: denies: cough, dry, shortness of breath, hemoptysis, SOB with excertion, pleuritic pain, sputum, wheezing, other Cardiovascular: denies: chest pain, palpitations, orthopnea, paroxysmal noc. dyspnea, edema, light headedness, other Gastrointestinal: denies: nausea, vomiting, abdominal pain, diarrhea, constipation, melena, hematochezia, other Genitourinary: reports: retention. denies: dysuria, frequency, incontinence, hematuria, other Musculoskeletal: denies: neck pain, shoulder pain, arm pain, back pain, hand pain, leg pain, foot pain, other Skin: denies: rash, lesions, princess, bruising, other Neurological: denies: weakness, numbness, incoordination, change in speech, confusion, seizures, other - Medication Medications: Active Medications Generic Name Dose Route Start Last Admin Trade Name Freq PRN Reason Stop Dose Admin Acetaminophen 650 mg 03/17/19 18:41 03/30/19 11:22 Tylenol PO 650 mg Q4H PRN Administration Headache/Fever/Mild Pain (1-3) Albuterol/Ipratropium 3 ml 03/21/19 18:30 04/03/19 07:17 Duoneb NEB 3 ml BID-RT MAX Administration Atorvastatin Calcium 80 mg 03/17/19 21:00 04/02/19 21:39 Lipitor PO 80 mg HS MAX Administration Calcium Carbonate 600 mg 03/18/19 09:00 04/03/19 09:07 Caltrate PO 600 mg QAM MAX Administration Carvedilol 12.5 mg 04/02/19 09:00 04/03/19 09:07 Coreg PO 12.5 mg BID MAX Administration Docusate Sodium 100 mg 03/20/19 21:00 04/03/19 09:07 Colace PO 100 mg BID MAX Administration Ezetimibe 10 mg 03/17/19 21:00 04/02/19 21:40 Zetia PO 10 mg HS MAX Administration Famotidine 20 mg 03/18/19 09:00 04/03/19 09:07 Pepcid PO 20 mg QAM MAX Administration Fenofibrate 145 mg 03/17/19 21:00 04/02/19 21:40 Tricor PO 145 mg HS MAX Administration Hydralazine HCl 10 mg 03/18/19 04:29 04/02/19 08:02 Apresoline SLOW IVP 10 mg Q4H PRN Administration Hypertension Ipratropium [place] 0 ml 03/20/19 21:00 04/03/19 16:15 Atrovent 0.03% EA NARE 1 spr TID MAX Administration Magnesium Oxide 250 mg 03/22/19 09:00 04/03/19 09:07 Magnesium Oxide PO 250 mg QAM MAX Administration Mometasone Furoate/Formoterol Fumar 2 puff 03/21/19 18:30 04/03/19 07:16 Dulera 100 Mcg/5 Mcg Inhaler INH 2 puff BID-RT MAX Administration Multivitamins 1 tab 03/18/19 09:00 04/03/19 09:07 Theragran PO 1 tab QAM MAX Administration Nystatin 0 gm 03/30/19 09:00 04/03/19 09:08 Mycostatin Powder TOP 1 applic DAILY MXA Administration Polyethylene Glycol 17 gm 03/19/19 14:04 03/21/19 07:54 Miralax PO 17 gm DAILYPRN PRN Administration Constipation Senna 2 tab 03/20/19 12:38 03/22/19 12:48 Senokot PO 2 tab HSPRN PRN Administration Constipation Sodium Biphosphate/Sodium Phosphate 133 ml 03/20/19 12:38 03/22/19 15:43 Fleet Enema [place] 133 ml DAILY PRN Administration Constipation Sodium Chloride 10 ml 03/27/19 21:00 04/03/19 09:08 Flush - Normal Saline IVF 10 ml Q12HR MAX Administration Tamsulosin HCl 0.4 mg 04/03/19 09:00 04/03/19 09:07 Flomax PO 0.4 mg DAILY AMX Administration - Exam General Appearance: NAD, awake alert Eye: PERRL, anicteric sclera ENT: normocephalic atraumatic, no oropharyngeal lesions, moist mucosa Neck: supple, symmetric, no JVD, no thyromegaly Heart: RRR, no murmur, no gallops, no rubs Respiratory: CTAB, no wheezes, no rales, no ronchi Respiratory - other findings: ocasional rales. Gastrointestinal: soft, non-tender, non-distended, normal bowel sounds Extremities: no cyanosis, no clubbing, no edema Skin: normal turgor, no lesions Neurological: cranial nerve grossly intact, no focal deficits Musculoskeletal: normal tone, normal strength, no muscle wasting, generalized weakness Psychiatric: normal affect, normal behavior, A&O x 3 Hosp A/P (1) Urine retention Code(s): R33.9 - RETENTION OF URINE, UNSPECIFIED Status: Acute Plan: Pt still has occasional urine retention. Bladder scan shows volume in the low 200s. Will cont Flomax and bladder scans. Encourage pt to sit more instead of lay in bed often. - Plan (1) Afib Code(s): I48.91 - UNSPECIFIED ATRIAL FIBRILLATION Status: Acute Qualifiers: Atrial fibrillation type: paroxysmal Qualified Code(s): I48.0 - Paroxysmal atrial fibrillation Plan: Rate controlled. Cardizem is off. Cont current mgt. (2) CKD (chronic kidney disease) stage 3, GFR 30-59 ml/min Code(s): N18.3 - CHRONIC KIDNEY DISEASE, STAGE 3 (MODERATE) Status: Chronic Plan: Stable, monitor Cr. (3) S/P cardiac pacemaker procedure Status: Acute (4) Tachy-nir syndrome Code(s): I49.5 - SICK SINUS SYNDROME Status: Acute Plan: Stable. S/p PM. Monitor on telemetry. (5) Acute exacerbation of CHF (congestive heart failure) Code(s): I50.9 - HEART FAILURE, UNSPECIFIED Status: Suspected Qualifiers: Heart failure type: diastolic Qualified Code(s): I50.33 - Acute on chronic diastolic (congestive) heart failure Plan: Pt appears slightly wet tical. have d/c IVF. Will give one dose of Lasix. Monitor for symp improvement. If still wet, will repeat lasix or get CXR. Cont med mgt. (6) S/P laminectomy Code(s): Z98.890 - OTHER SPECIFIED POSTPROCEDURAL STATES Status: Acute Plan: Cont PT/OT. D/c to Rehab. (7) HTN (hypertension) Code(s): I10 - ESSENTIAL (PRIMARY) HYPERTENSION Status: Chronic Qualifiers: Plan: Still uncontrolled. Cont 12.5 mg PO BID, increase Amlodipine to 10 mg. Monitor BP and adjust meds as needed. (8) COPD (chronic obstructive pulmonary disease) Status: Chronic Qualifiers: COPD type: chronic bronchitis Plan: Cont O2 support as needed. PPx: SCDs. CODE: FULL. Dispo: Cont current mgt. D/c to Rehab when accepted.
[2019-04-03] MEDS ORDERED: Diabetic Tussin 200 MG/10 ML UDCUP PO PRN (18:19)
--- NOTE | 2019-04-03 18:38 | EKG ---
Test Reason : POST PACEMAKER Blood Pressure : / mmHG Vent. Rate : 096 BPM Atrial Rate : 096 BPM P-R Int : 236 ms QRS Dur : 084 ms QT Int : 338 ms P-R-T Axes : 043 -13 105 degrees QTc Int : 427 ms Sinus rhythm with 1st degree A-V block Nonspecific T wave abnormality Abnormal ECG When compared with ECG of 26-MAR-2019 09:23, Sinus rhythm has replaced Atrial fibrillation Confirmed by MARY MEYER, SAbrahan ([id number]) on 04/03/2019 6:37:28 PM Referred By: ANDREZ Confirmed By:DR. Rowena HERNANDEZ MD
[2019-04-03] MEDS: Ezetimibe 10 MG TAB PO SCH (20:42)
[2019-04-03] MEDS: Atorvastatin Calcium 40 MG TAB PO SCH (20:42)
[2019-04-03] MEDS: Fenofibrate Nanocrystallized 145 MG TAB PO SCH (20:43)
[2019-04-04] MEDS: Mometasone/Formoterol 120 PUFF INHALER INH SCH (06:49)
[2019-04-04] MEDS: Famotidine 20 MG TAB PO SCH (08:57)
[2019-04-04] MEDS: Tamsulosin HCl 0.4 MG CAP PO SCH (08:57)
[2019-04-04] MEDS: Ipratropium Bromide 0.03% Nasal Inhaler 30 ml Bottle EA NARE SCH (08:57)
[2019-04-04] MEDS: Calcium Carbonate 600 MG TAB PO SCH (08:57)
[2019-04-04] MEDS: Docusate 100 MG CAP PO SCH (08:57)
[2019-04-04] MEDS: Multivit, Therapeutic 1 TAB PO SCH (08:57)
[2019-04-04] MEDS: Magnesium Oxide 250 MG TAB PO SCH (08:57)
[2019-04-04] MEDS ORDERED: Amlodipine 10 MG TAB PO SCH (09:00)
[2019-04-04] MEDS: Nystatin Powder 15 GM BOT TOP SCH (09:05)
[2019-04-04] MEDS: Carvedilol 6.25 MG TAB PO SCH (09:21)
[2019-04-04 11:15] VITALS: BP 127/61; TEMP 97.7
--- NOTE | 2019-04-04 11:49 | PDOC.HOSPP ---
- Subjective Encounter Date: 04/04/19 Encounter Time: 11:40 Subjective: f/u for urinary retention voiding into adult diaper. - Objective Vital Signs & Weight: Vital Signs (12 hours) Temp Pulse Resp BP BP BP Pulse Ox 04/04/19 11:10 97.7 F 79 16 127/61 96 04/04/19 09:21 111/57 L 04/04/19 07:36 97.8 F 76 18 138/65 95 04/04/19 06:51 60 14 04/04/19 03:41 98.2 F 67 23 H 139/65 92 L 04/04/19 00:00 75 20 Weight Admit Weight 180 lb 4.8 oz Weight 176 lb 9.6 oz Most Recent Monitor Data Heart Rate from ECG 88 NIBP 145/68 NIBP BP-Mean 93 Respiration from ECG 20 SpO2 88 I&O: 04/03/19 04/04/19 04/05/19 06:59 06:59 06:59 Intake Total 680 300 Output Total 1450 Balance -770 300 Result Diagrams: 04/03/19 04:03 04/03/19 04:03 EKG Reviewed by me: Yes (Tele - SR) Hospitalist ROS - Medication Medications: Active Medications Generic Name Dose Route Start Last Admin Trade Name Freq PRN Reason Stop Dose Admin Acetaminophen 650 mg 03/17/19 18:41 03/30/19 11:22 Tylenol PO 650 mg Q4H PRN Administration Headache/Fever/Mild Pain (1-3) Albuterol/Ipratropium 3 ml 03/21/19 18:30 04/04/19 06:51 Duoneb NEB 3 ml BID-RT MAX Administration Amlodipine Besylate 10 mg 04/04/19 09:00 04/04/19 09:21 Norvasc PO Not Given DAILY MAX Atorvastatin Calcium 80 mg 03/17/19 21:00 04/03/19 20:42 Lipitor PO 80 mg HS MAX Administration Calcium Carbonate 600 mg 03/18/19 09:00 04/04/19 08:57 Caltrate PO 600 mg QAM MAX Administration Carvedilol 12.5 mg 04/02/19 09:00 04/04/19 09:21 Coreg PO 12.5 mg BID MAX Administration Docusate Sodium 100 mg 03/20/19 21:00 04/04/19 08:57 Colace PO 100 mg BID MAX Administration Ezetimibe 10 mg 03/17/19 21:00 04/03/19 20:42 Zetia PO 10 mg HS MAX Administration Famotidine 20 mg 03/18/19 09:00 04/04/19 08:57 Pepcid PO 20 mg QAM MAX Administration Fenofibrate 145 mg 03/17/19 21:00 04/03/19 20:43 Tricor PO 145 mg HS MAX Administration Hydralazine HCl 10 mg 03/18/19 04:29 04/02/19 08:02 Apresoline SLOW IVP 10 mg Q4H PRN Administration Hypertension Ipratropium [place] 0 ml 03/20/19 21:00 04/04/19 08:57 Atrovent 0.03% EA NARE 1 spr TID MAX Administration Magnesium Oxide 250 mg 03/22/19 09:00 04/04/19 08:57 Magnesium Oxide PO 250 mg QAM MAX Administration Mometasone Furoate/Formoterol Fumar 2 puff 03/21/19 18:30 04/04/19 06:49 Dulera 100 Mcg/5 Mcg Inhaler INH 2 puff BID-RT MAX Administration Multivitamins 1 tab 03/18/19 09:00 04/04/19 08:57 Theragran PO 1 tab QAM MAX Administration Nystatin 0 gm 03/30/19 09:00 04/04/19 09:05 Mycostatin Powder TOP 1 applic DAILY MAX Administration Polyethylene Glycol 17 gm 03/19/19 14:04 03/21/19 07:54 Miralax PO 17 gm DAILYPRN PRN Administration Constipation Senna 2 tab 03/20/19 12:38 03/22/19 12:48 Senokot PO 2 tab HSPRN PRN Administration Constipation Sodium Biphosphate/Sodium Phosphate 133 ml 03/20/19 12:38 03/22/19 15:43 Fleet Enema [place] 133 ml DAILY PRN Administration Constipation Sodium Chloride 10 ml 03/27/19 21:00 04/04/19 08:57 Flush - Normal Saline IVF 10 ml Q12HR MAX Administration Tamsulosin HCl 0.4 mg 04/03/19 09:00 04/04/19 08:57 Flomax PO 0.4 mg DAILY MAX Administration - Exam General Appearance: NAD, awake alert Eye: PERRL, anicteric sclera ENT: normocephalic atraumatic, no oropharyngeal lesions Neck: supple, symmetric, no JVD, no thyromegaly Heart: RRR, no murmur, no gallops, no rubs, normal peripheral pulses Respiratory - other findings: diminished in bases Gastrointestinal: soft, non-tender, non-distended, normal bowel sounds, no palpable masses Extremities: no cyanosis, no clubbing, no edema Skin: normal turgor, no lesions Neurological: cranial nerve grossly intact, no new deficit Musculoskeletal: generalized weakness Psychiatric: oriented to person, oriented to place Hosp A/P (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 - SICK SINUS SYNDROME Status: Acute Plan: s/p PM placement with current SR, continue Coreg/Amlodipine (2) Lumbar radiculopathy Code(s): M54.16 - RADICULOPATHY, LUMBAR REGION Status: Chronic Plan: s/p thoracic/lumbar laminectomies, PT/OT for mobilization, inpt rehab once approved (3) Urine retention Code(s): R33.9 - RETENTION OF URINE, UNSPECIFIED Status: Acute Plan: Continue Flomax, OOB (4) COPD (chronic obstructive pulmonary disease) Status: Chronic Qualifiers: COPD type: chronic bronchitis Plan: Continue Dulera/Duonebs/O2 supplementation (5) HTN (hypertension) Code(s): I10 - ESSENTIAL (PRIMARY) HYPERTENSION Status: Chronic Qualifiers: Hypertension type: essential hypertension Plan: Continue current BP regimen, stable
--- NOTE | 2019-04-04 17:20 | PRG ---
DATE OF SERVICE: 04/04/2019 Mr. Paez is 11 days postop having undergone multilevel thoracic and lumbar laminectomies. The patient is continuing to improve. He states he was able to walk with therapies yesterday. He has some continued give-way weakness in the left lower extremity, but feels as though it is improving. I should note that he has resolution of his left leg pain and even back pain. He has no headache. He is stable for discharge to inpatient rehab when arrangements have been made and we will follow up with the patient on an outpatient basis in the next 3 to 4 weeks, which we will arrange. Job ID: [id number]
--- NOTE | 2019-04-05 03:21 | DIS ---
DATE OF ADMISSION: 03/22/2019 DATE OF DISCHARGE: 04/04/2019 DISCHARGE DIAGNOSES: 1. Tachy-nir syndrome status post pacemaker placement. 2. Thoracic and lumbar radiculopathy status post thoracic laminectomy and lumbar hemilaminotomies, 03/23/2019. 3. Left lower extremity monoplegia. 4. Urinary retention, improved. 5. Chronic obstructive pulmonary disease, on oxygen supplementation at 2 L/minute by nasal cannula. 6. Hypertension, stable. 7. Severe deconditioning. 8. Paralyzed hemidiaphragm, chronic. 9. Atrial fibrillation with current sinus mechanism, status post pacemaker placement. CONSULTATIONS: 1. Dr. Mills with Electrophysiology Service. 2. Dr. Ramos with Pulmonology Service. 3. Dr. Keenan with Neurosurgical Service. 4. Dr. Leong with Orthopedic Surgery Service. 5. Dr. Holm with Cardiology Service. PERTINENT LABORATORY AND X-RAY FINDINGS: Creatinine ranging between 0.79 to 1.74. CBC showed a white blood cell count ranging between 7.5 to 14.6, hemoglobin ranging between 12.[address] of the brain without contrast dated 03/17/2019 showed chronic changes without acute process. 2. Two views of the left hip dated 03/17/2019, showed no acute process. 3. Four views of the left knee dated 03/17/2019 showed no acute process. 4. Amhjmhtb-bi-emylag left knee osteoarthrosis. Lumbar spine MRI dated 03/19/2019, showed extensive changes of the lumbar spine with multilevel degenerative changes. 5. Thoracic spine MRI dated 03/19/2019, showed multilevel degenerative changes with smlcphis-xl-psobwg central canal stenosis at T6 on T7 and T9 on T12. Please see dictated report for full details. 6. Cervical spine MRI dated 03/19/2019 showed degenerative changes of the cervical spine. Limited exam due to motion artifact. 7. 2D transthoracic echocardiogram dated 03/22/2019 showed ejection fraction 55% to 60%. Diastolic dysfunction noted. Mild-to- moderate aortic and tricuspid valve regurgitation. 8. Cardiac catheterization lab report showed sick sinus syndrome with greater than 4.5 second pause, status post pacemaker placement. 9. Bilateral lower extremity venous Doppler study dated 03/29/2019 showed no evidence for DVT. HOSPITAL COURSE: The patient was admitted after initially presenting status post fall with generalized weakness of the left knee. The patient underwent extensive evaluation with multiple imaging modalities including plain radiographs as well as MRI imaging of the entire spine. The patient was noted with central canal stenosis of the thoracic spine as well as multilevel degenerative changes. The patient was evaluated by Orthopedic Surgery and Neurosurgical Service due to the central canal stenosis with associated radiculopathy. The patient eventually was evaluated and underwent decompression and laminectomy at multiple levels on 03/23/2019 after undergoing a cardiac evaluation including pacemaker insertion due to tachy-nir syndrome and atrial fibrillation. The patient was evaluated and noted with a preserved ejection fraction of 55% to 60% stabilizing with pacemaker placement. The patient also underwent treatment for hypertensive urgency and poorly controlled hypertension, stabilizing with medical management. Due to the patient's overall deconditioned status and complicated hospital course, the patient was deemed appropriate candidate for ongoing inpatient rehabilitation. Delay in receiving approval for inpatient rehab prolonged the hospital course, however, the patient has been approved to transition to [facility]. HOSPITAL COURSE: The patient's hospital course was also prolonged after cardiac complications including return of atrial fibrillation with rapid ventricular response. Medical management continued with adjustment to his regimen including the pacemaker insertion with overall stabilization of cardiac status. I have examined the patient at the time of discharge and discussed followup instructions. The patient overall clinically stable and ready for discharge to inpatient Rehabilitation on 04/04/2019. DISCHARGE MEDICATIONS: 1. Enteric-coated aspirin 81 mg p.o. at bedtime. 2. Lipitor 80 mg p.o. at bedtime. 3. Calcium carbonate 600 mg p.o. q.a.m. 4. Zetia 10 mg p.o. at bedtime. 5. Fenofibrate 145 mg p.o. at bedtime. 6. Breo Ellipta 2 puffs inhaled b.i.d. 7. DuoNeb 3 mL nebulized b.i.d. 8. Magnesium 250 mg p.o. q.a.m. 9. Multivitamin 1 capsule p.o. daily. 10. Ranitidine 150 mg p.o. q.a.m. 11. Norvasc 10 mg p.o. daily. 12. Coreg 12.5 mg p.o. b.i.d. 13. [place] 5/325 mg one tablet p.o. q.6 hours p.r.n. pain. 14. Flomax 0.4 mg p.o. daily. FOLLOWUP: 1. The patient followup with Dr. Mills. 2. After discharge,the low up with Dr. Mkie Espinosa. 3. The patient may follow up with his primary care provider, Carmita Haynes Do after discharge from inpatient rehabilitation. CONDITION ON DISCHARGE: Fair. ACTIVITY: Rolling walker with standby/contact guard assistance with high fall risk precautions. DIET: Heart healthy. CODE STATUS: Full. DISPOSITION: Transfer to [place], [place] 04/04/2019. TIME SPENT: Total time preparing and coordinating discharge, 37 minutes. Job ID: [id number]
== END 2019-04-04 15:31 | DRG 518 ==
LOC: ERS 12:51 → 2NO 17:08 → INTOOBSV 17:08 → OBSVTOIN 03-22 13:54 → CCU 03-23 13:33 → 2NO 03-28 20:59
PROVIDERS: ADMIT Family Medicine; ATTEND Internal Medicine
PROC: 0SB20ZZ Excision of Lumbar Vertebral Disc, Open Approach (ICD-10-PCS; principal; 2019-03-23)
PROC: 01NB0ZZ Release Lumbar Nerve, Open Approach (ICD-10-PCS; 2019-03-23)
PROC: 01N80ZZ Release Thoracic Nerve, Open Approach (ICD-10-PCS; 2019-03-23)
PROC: 5A1945Z Respiratory Ventilation, 24-96 Consecutive Hours (ICD-10-PCS; 2019-03-23)
PROC: 0JH606Z Insertion of Pacemaker, Dual Chamber into Chest Subcutaneous Tissue and Fascia, Open Approach (ICD-10-PCS; 2019-03-27)
PROC: 02H63JZ Insertion of Pacemaker Lead into Right Atrium, Percutaneous Approach (ICD-10-PCS; 2019-03-27)
PROC: 02HK3JZ Insertion of Pacemaker Lead into Right Ventricle, Percutaneous Approach (ICD-10-PCS; 2019-03-27)
DX: M48.061 Spinal stenosis, lumbar region without neurogenic claudication (principal); J96.01 Acute respiratory failure with hypoxia; I50.33 Acute on chronic diastolic (congestive) heart failure; I13.0 Hypertensive heart and chronic kidney disease with heart failure and stage 1 through stage 4 chronic kidney disease, or unspecified chronic kidney disease; G97.82 Other postprocedural complications and disorders of nervous system; G96.0 Cerebrospinal fluid leak; F05 Delirium due to known physiological condition; I48.92 Unspecified atrial flutter; G93.49 Other encephalopathy; M51.04 Intervertebral disc disorders with myelopathy, thoracic region; M17.12 Unilateral primary osteoarthritis, left knee; I16.0 Hypertensive urgency; J44.9 Chronic obstructive pulmonary disease, unspecified; E78.5 Hyperlipidemia, unspecified; G89.29 Other chronic pain; N18.3 Chronic kidney disease, stage 3 (moderate); I12.9 Hypertensive chronic kidney disease with stage 1 through stage 4 chronic kidney disease, or unspecified chronic kidney disease; J98.6 Disorders of diaphragm; I48.0 Paroxysmal atrial fibrillation; I25.10 Atherosclerotic heart disease of native coronary artery without angina pectoris; M48.04 Spinal stenosis, thoracic region; M54.16 Radiculopathy, lumbar region; M54.14 Radiculopathy, thoracic region; Y83.8 Other surgical procedures as the cause of abnormal reaction of the patient, or of later complication, without mention of misadventure at the time of the procedure; E78.00 Pure hypercholesterolemia, unspecified; I49.5 Sick sinus syndrome; R33.9 Retention of urine, unspecified; Z90.49 Acquired absence of other specified parts of digestive tract; Z79.899 Other long term (current) drug therapy; Z79.82 Long term (current) use of aspirin; Z79.51 Long term (current) use of inhaled steroids
CPT/HCPCS: 33208; 36415; 70450; 71045; 72141; 72146; 72148; 72170; 72195; 76000; 80048; 80053; 81003; 81015; 82553; 82805; 84484; 85025; 85610; 85730; 86850; 86900; 86901; 93005; 93010; 93306; 93970; 94002; 94003; 94640; 96374; 96375; C1785; C1898; J0360; J0690; J1100; J1160; J1580; J1630; J1940; J2001; J2060; J2270; J2405; J2704; J3010; J3370; J3490; J7050; J7620

== ENCOUNTER 2019-04-04 22:30 | Inpatient (IN) | payer MEDICARE ==
[~2019-04-04 22:30] MED LIST: Iopamidol-370 76% 500 ML 1 ML ONE
[2019-04-04 23:23] LABS: #Basophils 0.1 thou/uL (0.0-0.2); #Eosinphils 0.3 thou/uL (0.0-0.7); #Lymphocytes 1.6 thou/uL (1.20-3.40); #Monocytes 1.1 thou/uL (0.11-0.59); #Neutrophils 11.5 thou/uL (1.40-6.50); %Basophils 0.4 % (0.0-1.0); %Eosinophils 1.8 % (0.0-10.0); %Lymphocytes 10.8 % (21.0-51.0); %Monocytes 7.3 % (0.0-10.0); %Neutrophils 79.7 % (42.0-75.0); Hemoglobin 13.5 g/dL (14.0-18.0); Mean Corpuscular HGB CONC 31.8 g/dL (32.0-36.0); Mean Corpuscular Hemoglobin 30.7 pg (27.0-31.0); Mean Corpuscular Volume 96.6 fL (78.0-98.0); Mean Platelet Volume 7.5 fL (7.4-10.4); Platelet Count 491 thou/uL (130-400); RBC Distribution Width 15.4 % (11.5-14.5); White Blood Cell (WBC) Count 14.4 thou/uL (4.8-10.8)
--- NOTE | 2019-04-04 23:24 | RAD ---
XR Chest 1 View Portable HISTORY: Postop pacemaker placement. Concern for respiratory status. COMPARISON: 03/30/2019 exam. FINDINGS: Heart size is enlarged. A pacemaker is present. There is elevation the right hemidiaphragm. No infiltrative process is seen. Atelectatic changes in the right base are probably chronic related to the elevation to the hemidiaphragm. IMPRESSION: Stable exam.
[2019-04-04 23:42] LABS: ALT (SGPT) 55 U/L (8-55); AST (SGOT) 75 U/L (5-34); Alkaline Phosphatase 66 U/L (40-110); Anion Gap 10 mmol/L (10-20); BUN (Urea Nitrogen) 25 mg/dL (8.4-25.7); Bilirubin, Total 0.7 mg/dL (0.2-1.2); Calc. Creatinine Clearance 0 mL/min (70-130); Calcium 9.5 mg/dL (7.8-10.44); Carbon Dioxide 31 mmol/L (23-31); Chloride 102 mmol/L (98-107); Estimated GFR-MDRD 70; Globulin 2.8 g/dL (2.4-3.5); Glucose 101 mg/dL (83-110); Magnesium 1.8 mg/dL (1.6-2.6); Potassium 3.5 mmol/L (3.5-5.1); Protein, Total 5.8 g/dL (5.8-8.1); Sodium 139 mmol/L (136-145)
[2019-04-05 00:04] LABS: CKMB 3.3 ng/mL (0-6.6)
--- NOTE | 2019-04-05 01:27 | PDOC.HHP ---
Hospitalist HPI - History of Present Illness Shortness of breath, hypoxia History of Present Illness: Patient is an 84 year old male with PMH tachy nir syndrome, pacemaker placement, LLE monoplegia, urinary retention, COPD, chronic hypoxic respiratory failure on 2L at home, HTN, debility, paralyzed hemidiaphragm, atrial fibrillation who presented to ED from rehab facility [facility] by EMS for SOB , L arm swelling, patient was just discharged from this facility on 04/04 after 2 week stay, PPM and thoracic/lumbar laminectomies were performed during that admission. Patient was at rehab and desaturated to 70s, on 2L o2 normally was brought to ED where he required NRB and improved with treatment in ED back to [place] at 4L. CTA performed with no PE but with atalectasis and pneumonia. given abx in ED. admitted to [facility] for management. he requests to consult w kulwinder richardson and abdifatah whom he likes a lot. LLE swollen, no erythema or edema Hospitalist ROS - Review of Systems Constitutional: denies: fever, chills, sweats, weakness, malaise, other Eyes: denies: pain, vision change, conjunctivae inflammation, eyelid inflammation, redness, other ENT: denies: ear pain, ear discharge, nose pain, nose discharge, nose congestion , mouth pain, mouth swelling, throat pain, throat swelling, other Respiratory: reports: shortness of breath Cardiovascular: denies: chest pain, palpitations, orthopnea, paroxysmal noc. dyspnea, edema, light headedness, other Gastrointestinal: denies: nausea, vomiting, abdominal pain, diarrhea, constipation, melena, hematochezia, other Genitourinary: denies: dysuria, frequency, incontinence, hematuria, retention, other Musculoskeletal: denies: neck pain, shoulder pain, arm pain, back pain, hand pain, leg pain, foot pain, other Skin: denies: rash, lesions, princess, bruising, other Neurological: denies: weakness, numbness, incoordination, change in speech, confusion, seizures, other All other systems reviewed; all pertinent +/- noted in HPI/Subj Hospitalist History - Past Medical History Other Medical History: tachy nir syndrome, pacemaker placement, LLE monoplegia, urinary retention, COPD, chronic hypoxic respiratory failure on 2L at home, HTN, debility, paralyzed hemidiaphragm, atrial fibrillation - Past Surgical History Other Surgical History: pacemaker laminectomy - Family History Family History: reports: no pertinent history - Social History Smoking Status: Never smoker Alcohol: reports: None Drugs: reports: none - Exam General Appearance: NAD, awake alert Eye: PERRL, anicteric sclera ENT: normocephalic atraumatic, no oropharyngeal lesions, moist mucosa Neck: supple, symmetric, no JVD, no thyromegaly, no lymphadenopathy, no carotid bruit Heart: RRR, no murmur, no gallops, no rubs, normal peripheral pulses Respiratory: CTAB, no wheezes, no rales, no ronchi, normal chest expansion, no tachypnea, normal percussion Gastrointestinal: soft, non-tender, non-distended, normal bowel sounds, no palpable masses, no hepatomegaly, no splenomegaly, no bruit Extremities: no cyanosis, no clubbing, no edema Skin: normal turgor, no lesions, no rashes Neurological: cranial nerve grossly intact, normal sensation to touch, no weakness, no focal deficits, no new deficit Musculoskeletal: normal tone, normal strength, no muscle wasting Psychiatric: normal affect, normal behavior, A&O x 3 Hospitalist Results - Labs Result Diagrams: 04/04/19 23:13 04/04/19 23:13 Lab results: WBC 14.4 thou/uL (4.8-10.8) H 04/04/19 23:13 Hgb 13.5 g/dL (14.0-18.0) L 04/04/19 23:13 Hct 42.5 % (42.0-52.0) 04/04/19 23:13 MCV 96.6 fL (78.0-98.0) 04/04/19 23:13 Plt Count 491 thou/uL (130-400) H 04/04/19 23:13 Neutrophils % 79.7 % (42.0-75.0) H 04/04/19 23:13 Sodium 139 mmol/L (136-145) 04/04/19 23:13 Potassium 3.5 mmol/L (3.5-5.1) 04/04/19 23:13 Chloride 102 mmol/L (98-107) 04/04/19 23:13 Carbon Dioxide 31 mmol/L (23-31) 04/04/19 23:13 BUN 25 mg/dL (8.4-25.7) 04/04/19 23:13 Creatinine 1.01 mg/dL (0.7-1.3) 04/04/19 23:13 Glucose 101 mg/dL (83-110) 04/04/19 23:13 Calcium 9.5 mg/dL (7.8-10.44) 04/04/19 23:13 Total Bilirubin 0.7 mg/dL (0.2-1.2) 04/04/19 23:13 AST 75 U/L (5-34) H 04/04/19 23:13 ALT 55 U/L (8-55) 04/04/19 23:13 Alkaline Phosphatase 66 U/L (40-110) 04/04/19 23:13 CK-MB (CK-2) 3.3 ng/mL (0-6.6) 04/04/19 23:13 Troponin I 0.062 ng/mL (< 0.028) H 04/04/19 23:13 B-Natriuretic Peptide 204.4 pg/mL (0-100) H 04/04/19 23:13 Serum Total Protein 5.8 g/dL (5.8-8.1) 04/04/19 23:13 Albumin 3.0 g/dL (3.4-4.8) L 04/04/19 23:13 Hospitalist H&P A/P - Plan Plan: Patient is an 84 year old male with PMH tachy nir syndrome, pacemaker placement, LLE monoplegia, urinary retention, COPD, chronic hypoxic respiratory failure on 2L at home, HTN, debility, paralyzed hemidiaphragm, atrial fibrillation who presented to ED from rehab facility [facility] by EMS for SOB. # healthcare associated pneumonia - azithromycin, ceftriaxone, consult pulmonary Dr Richardson # COPD - no wheezing, scheduled nebs, hold steroids due to recent wound needing to heal # acute and chronic hypoxic respiratory failure - on 2L at home by [place] was on NRB here now weaned to 4L, resume home meds and treat pneumonia as above # tachy nir syndrome, pacemaker placement, atrial fibrillation - consult cardiology Dr Fuentes and resume home meds - hold pradaxa given recent surgery, can discuss with surgery team in AM if ok to resume, SCDs ordered # elevated troponin - trend and consult cardiology, recent echo preserved EF and some valve disease and diastolic dysfunction # LLE swelling - order DVT duplex # LLE monoplegia - PT/OT # urinary retention - bladder scan q6h x 24 hrs and notify sound physician if over 300cc post void residual, continue flomax # HTN - resume home meds, PRNs in chart # debility - PT/OT - needs to see dr castañeda of EP, dr lee of NSG, dr tapia of ortho after d/c # paralyzed hemidiaphragm - noted # GI ppx - continue H2RA # DVT ppx - would like to resume pradaxa if ok with surgery, SCD for now Disposition - consult PT OT and business center manager, likely back to rehab once stable
[2019-04-05] MEDS ORDERED: cefTRIAXone\\ROCEPHIN 1 GM VIAL ONE (01:40)
[2019-04-05 02:43] LABS: Troponin I 0.064 ng/mL (< 0.028)
[2019-04-05] MEDS ORDERED: Sodium Chloride 0.9% 1,000 ML IV SCH (03:05)
[2019-04-05] MEDS ORDERED: Ondansetron PF 4 MG/2 ML Vial IVP PRN ×2 (03:05→04:04)
[2019-04-05] MEDS ORDERED: Ondansetron ODT 4 MG TAB SL PRN (03:05)
[2019-04-05] MEDS ORDERED: Acetaminophen 325 MG TAB PO PRN (03:05)
[2019-04-05 03:21] VITALS: BMI 29.3
[2019-04-05] MEDS ORDERED: hydrALAZINE 20 MG/ML VIAL SLOW IVP PRN (04:04)
[2019-04-05] MEDS ORDERED: cloNIDine 0.1 MG TAB PO PRN (04:04)
[2019-04-05] MEDS ORDERED: Promethazine HCl 12.5 MG in Sodium Chloride 0.9% 50 ML IVPB PRN (04:04)
[2019-04-05] MEDS ORDERED: Senokot S 8.6-50 MG TAB PO PRN (04:05)
[2019-04-05] MEDS ORDERED: Bisacodyl 5 MG TAB PO PRN (04:05)
[2019-04-05] MEDS ORDERED: HYDROcodone/Acetaminophen 5/325 mg Tablet PO PRN ×2 (04:05)
[2019-04-05] MEDS ORDERED: Azithromycin 500 MG in Sodium Chloride 0.9% 250 ML 250 ML IVPB SCH (06:00)
[2019-04-05 06:10] LABS: Troponin I 0.063 ng/mL (< 0.028)
[2019-04-05] MEDS: Mometasone/Formoterol 120 PUFF INHALER INH SCH ×2 (07:34→19:33)
--- NOTE | 2019-04-05 08:53 | CT ---
PRELIMINARY REPORT/[facility]/EMERGENCY AFTER HOURS PROCEDURE: EXAM: CTA Chest with Intravenous Contrast CLINICAL HISTORY: 83 yo M discharged from the hospital today s/p pacemaker and laminectomy returned after nursing becam e concerned about respiratory status. Pt denies SOB or chest pain. Requiring 3L NC to maintain spO2 TECHNIQUE: Axial CTA images of the chest with intravenous contrast. MIP reconstructed images were created and re viewed. CONTRAST: With; ISOVUE 370, 65ml COMPARISON: None provided. FINDINGS: PULMONARY ARTERIES There is no intraluminal filling defect suspicious for PE. AORTA No thoracic aortic aneurysm or dissection. Atherosclerotic calcification. LUNGS Right basilar airspace consolidation. Calcified granuloma at the right lung base. Mild centrilobular emphysematous changes. PLEURAL SPACES No pleural effusion. No pneumothorax. HEART AND MEDIASTINUM Left chest dual-lead pacemaker. The heart is normal size. Atherosclerotic coronary calcifications. Aortic valvular calcification. LYMPH NODES Prominent mediastinal and hilar lymph nodes. BONES Multilevel degenerative changes of the spine and shoulders. No acute fractures or worrisome osseous l esions. T12 laminectomy partially imaged. CHEST WALL AND UPPER ABDOMEN Images through the upper abdomen are unremarkable. The chest wall is unremarkable. IMPRESSION: 1. No evidence of pulmonary embolism. 2. Right basilar consolidative opacity. This could represent an early pneumonia versus atelectasis or other inflammatory process. 3. Emphysematous changes. 4. Coronary artery disease and cardiac pacemaker. ELECTRONICALLY SIGNED BY: Nirav Francisco M.D. Apr 05, 2019 12:46:13 AM GASTROENTEROLOGIST This report is intended for review by the ordering physician only, in accordance of law. If you recei ve this report in error, please call [facility] at [phone]. FINAL REPORT EMERGENCY AFTER HOURS CTA CHEST WITH CONTRAST: FINDINGS/IMPRESSION: I agree with the findings and impression given in the preliminary report per [facility] physici an. 1. No evidence of pulmonary thromboembolism. 2. Right basilar atelectasis.
[2019-04-05] MEDS: Polyethylene Glycol 3350 17 GM Packet PO SCH (08:58)
[2019-04-05] MEDS: Magnesium Oxide 250 MG TAB PO SCH (08:58)
[2019-04-05] MEDS: Tamsulosin HCl 0.4 MG CAP PO SCH (08:58)
[2019-04-05] MEDS: Multivit, Therapeutic 1 TAB PO SCH ×2 (08:59→09:14)
[2019-04-05] MEDS: Calcium Carbonate 600 MG TAB PO SCH ×2 (08:59→09:14)
[2019-04-05] MEDS: Famotidine 20 MG TAB PO SCH (08:59)
[2019-04-05] MEDS: Carvedilol 6.25 MG TAB PO SCH ×2 (08:59→20:19)
[2019-04-05] MEDS: Amlodipine 10 MG TAB PO SCH (08:59)
[2019-04-05] MEDS ORDERED: FLUTICASONE INH SCH (09:00)
[2019-04-05] MEDS ORDERED: RANITIDINE HCL 150 MG PO SCH (09:00)
[2019-04-05] MEDS ORDERED: VILANTEROL INH SCH (09:00)
--- NOTE | 2019-04-05 09:22 | ULT ---
EXAM: Left upper extremity venous ultrasound HISTORY: Left upper extremity pain and edema COMPARISON: None TECHNIQUE: Multiplanar grayscale and color Doppler images were obtained in a left upper extremity felipe ous ultrasound. Spectral analysis of the Doppler waveforms were performed. FINDINGS: The internal jugular vein demonstrates normal compression and flow without evidence of thrombus. The subclavian vein demonstrates normal flow and augmentation without evidence of thrombus. The axillary and brachial veins demonstrate normal compression, flow, and augmentation without eviden ce of thrombus. The venous structures distal to the elbow are patent without thrombus. The cephalic and basilic veins are patent. IMPRESSION: No evidence of DVT.
--- NOTE | 2019-04-05 16:10 | PRG ---
DATE OF SERVICE: 04/05/2019 SUBJECTIVE: The patient is seen and examined at the bedside. He does not have much complaints to offer. He is not sure why he was sent out to the emergency room from the rehab, where he was staying. He denies to me any shortness of breath. OBJECTIVE: VITAL SIGNS: Blood pressure is 148/69, pulse is 71, respirations 20, and temperature is 98.0. He is on 3 L by nasal cannula. His pulse oximetry is 100%. HEENT: His head is atraumatic and normocephalic. Eyes are PERRLA. Sclerae are nonicteric. Oral mucosa is moist. NECK: Supple. LUNGS: Breath sounds diminished at both bases with few crackles at the right base. HEART: S1 and S2 normal. No S3. No S4. ABDOMEN: Soft, nontender, nondistended. EXTREMITIES: No clubbing, cyanosis, or edema. NEUROLOGICAL: He is alert and oriented x3. There are no any motor or sensory deficits. LABORATORY DATA: Troponin is 0.062, 0.064, and 0.063. Vascular ultrasound, no evidence of DVT in the left upper extremity. IMPRESSION: 1. Shortness of breath. It is unclear whether there is some additional infectious component in his lungs. He has chronic hypoxic respiratory failure, and he is on continuous O2. Surveillance System Monitor is consulted. The patient is on Rocephin and azithromycin at this point. His BNP is slightly elevated, which tells me that probably there is some congestive heart failure component in this shortness of breath he is presenting with. 2. Chronic obstructive pulmonary disease. 3. Tachy-nir syndrome and atrial fibrillation. Cardiology is consulted. I will start his Pradaxa and elevated troponins at the level, which is indeterminate. 4. Hypertension. 5. Left upper extremity swelling with negative Doppler for deep vein thrombosis. 6. Urinary retention, on Flomax. We will continue his current regimen with scheduled and p.r.n. Veronika with two antibiotics, and we will wait until mash processing operator gives us his recommendation about further treatment. Job ID: [id number]
[2019-04-05 19:07] LABS: Troponin I 0.051 ng/mL (< 0.028)
--- NOTE | 2019-04-05 19:24 | PRG ---
DATE OF SERVICE: 04/05/2019 SUBJECTIVE: Mr. Paez bounced back last night from the rehab. Apparently, his saturation was 70%. It is reported by him and family that he did not feel any different. He received high-flow O2 in the emergency room, and then following that, he was rapidly decreased to nasal cannula oxygen. He was admitted with a diagnosis of pneumonia. I have reviewed his chest x-ray, which is unchanged. His chest CT in my opinion just shows atelectatic changes mostly at his right base. He says he feels fine now. OBJECTIVE: VITAL SIGNS: He is afebrile. Heart rate 69, respiratory rate is 14, oximetry is 94% on 3 L, blood pressure 132/69. LUNGS: Clear. HEART: Regular rhythm. ABDOMEN: Soft. EXTREMITIES: Without asymmetry. LABORATORY DATA: White count 14.4, hemoglobin 13.5, platelets are 491,000. Electrolytes are normal. IMPRESSION AND PLAN: 1. Atelectasis. 2. Hypoxemia secondary to mucus plugging. I would rapidly de-escalate his antibiotics and get him back to rehab. There is a note that he has chronic obstructive pulmonary disease, but he really just has asthma with an elevated right hemidiaphragm. He has had a pacemaker placed for his bradycardia. He has atrial fibrillation. He was anticoagulated coming into the hospital, so there is really no reason for CT angiogram. He does need routine nebulizer treatments just for the atelectasis, but other than that, we will not make any medication changes. We would discontinue his azithromycin. It is unlikely he has an atypical organism, and I do not see anything on his radiograph that makes me think that he has pneumonia. I do believe he is having trouble swallowing, but I would not recommend a PEG or an extensive swallowing evaluation at this time. Job ID: [id number]
[2019-04-05] MEDS ORDERED: Atorvastatin Calcium 40 MG TAB PO SCH (21:00)
[2019-04-05] MEDS ORDERED: Aspirin Chewable 81 MG TAB PO SCH (21:00)
[2019-04-05] MEDS ORDERED: Ezetimibe 10 MG TAB PO SCH (21:00)
[2019-04-05] MEDS ORDERED: Fenofibrate Nanocrystallized 145 MG TAB PO SCH (21:00)
[2019-04-05] MEDS ORDERED: Haloperidol 1 MG TAB PO SCH (23:30)
[2019-04-05] MEDS ORDERED: Haloperidol Lactate 5 MG/ML VIAL SLOW IVP SCH (23:45)
[2019-04-06] MEDS ORDERED: cefTRIAXone\\ROCEPHIN 1 GM in Sodium Chloride 0.9% 100 ML IVPB SCH (04:30)
[2019-04-06 04:50] LABS: #Basophils 0.1 thou/uL (0.0-0.2); #Eosinphils 0.4 thou/uL (0.0-0.7); #Lymphocytes 1.7 thou/uL (1.20-3.40); #Monocytes 0.9 thou/uL (0.11-0.59); #Neutrophils 7.9 thou/uL (1.40-6.50); %Basophils 0.5 % (0.0-1.0); %Eosinophils 3.6 % (0.0-10.0); %Lymphocytes 15.3 % (21.0-51.0); %Monocytes 8.3 % (0.0-10.0); %Neutrophils 72.4 % (42.0-75.0); Hemoglobin 13.1 g/dL (14.0-18.0); Mean Corpuscular HGB CONC 31.9 g/dL (32.0-36.0); Mean Corpuscular Hemoglobin 30.8 pg (27.0-31.0); Mean Corpuscular Volume 96.3 fL (78.0-98.0); Mean Platelet Volume 7.9 fL (7.4-10.4); Platelet Count 504 thou/uL (130-400); RBC Distribution Width 15.3 % (11.5-14.5); Red Blood Cell (RBC) Count 4.27 mill/uL (4.70-6.10)
[2019-04-06 04:57] LABS: Platelet Count 504 thou/uL (130-400)
[2019-04-06 05:23] LABS: Anion Gap 11 mmol/L (10-20); BUN (Urea Nitrogen) 18 mg/dL (8.4-25.7); Calc. Creatinine Clearance 78 mL/min (70-130); Calcium 8.8 mg/dL (7.8-10.44); Carbon Dioxide 28 mmol/L (23-31); Chloride 106 mmol/L (98-107); Estimated GFR-MDRD Greater than 90; Glucose 85 mg/dL (83-110); Potassium 4.1 mmol/L (3.5-5.1); Sodium 141 mmol/L (136-145)
[2019-04-06] MEDS: Mometasone/Formoterol 120 PUFF INHALER INH SCH (07:03)
[2019-04-06] MEDS ORDERED: Azithromycin 250 MG TAB PO SCH (09:00)
[2019-04-06] MEDS: Tamsulosin HCl 0.4 MG CAP PO SCH (09:16)
[2019-04-06] MEDS: Calcium Carbonate 600 MG TAB PO SCH (09:16)
[2019-04-06] MEDS: Magnesium Oxide 250 MG TAB PO SCH (09:16)
[2019-04-06] MEDS: Amlodipine 10 MG TAB PO SCH (09:16)
[2019-04-06] MEDS: Carvedilol 6.25 MG TAB PO SCH (09:16)
[2019-04-06] MEDS: Multivit, Therapeutic 1 TAB PO SCH (09:16)
[2019-04-06] MEDS: Polyethylene Glycol 3350 17 GM Packet PO SCH (09:17)
[2019-04-06] MEDS: Famotidine 20 MG TAB PO SCH (09:17)
[2019-04-06 11:44] VITALS: TEMP 97.5
--- NOTE | 2019-04-06 11:51 | PRG ---
DATE OF SERVICE: 04/06/2019 SUBJECTIVE: The patient is seen and examined at bedside. He feels significantly better. His shortness of breath improved. OBJECTIVE: VITAL SIGNS: Blood pressure is 167/77, pulse is 67, temperature 97.7, respirations 20, and O2 saturation is 94% on room air. HEENT: His head is atraumatic and normocephalic. Eyes are PERRLA. Sclerae are nonicteric. Oral mucosa is moist. NECK: Supple. LUNGS: Breath sounds diminished at both bases with few crackles at the right base. HEART: S1, S2 normal. No S3. No S4. ABDOMEN: Soft, nontender, nondistended. EXTREMITIES: No clubbing, cyanosis, or edema. NEUROLOGIC: He is alert and oriented x3. There is no any motor or sensory deficits. His left forearm is still quite swollen, 2 to 3+ edema, but no pain. LABORATORY DATA: Labs showed hemoglobin of 13.0, hematocrit 40.0. Normal chemistry. IMPRESSION: 1. Shortness of breath improved, now off oxygen. The patient was seen by Dr. Ramos for pulmonary evaluation. He thinks this was made any mucus plug related shortness of breath. We will get incentive spirometry and to be used 10 times every hour. Apparently, he does not have chronic obstructive pulmonary disease, but asthma in his past medical history. 2. Tachy-nir syndrome and atrial fibrillation. Cardiology is consulted. We are awaiting for the final report. Troponins were indeterminate. 3. Hypertension. 4. Left upper extremity swelling with negative Doppler. For deep vein thrombosis, we will use ice pack twice a day in this area to help the swelling. 5. Urinary retention on Flomax. PLAN: Azithromycin was stopped by Dr. Ramos yesterday. We are going to switch him to oral Omnicef today from IV Rocephin. We will check with soil technician what he recommends. We will do incentive spirometry every hour and ice pack for the left forearm. He should be able to go back to rehab tomorrow unless there is different recommendation from Dr. Holm. Job ID: [id number]
[2019-04-06 16:09] VITALS: BP 136/72
--- NOTE | 2019-04-06 16:18 | PRG ---
DATE OF SERVICE: 04/06/2019 SUBJECTIVE: Jun Paez sundowned while at bed last night. According to nursing staff, he is better right now. OBJECTIVE: VITAL SIGNS: He is afebrile. Heart rate in the 60s, respiratory rate is 18, oximetry is 92% to 95% on room air, and blood pressure 135/73. LUNGS: Unchanged. HEART: Unchanged. ABDOMEN: Unchanged. IMPRESSION: Atelectasis, mucus plugging, leading to readmission. He may do better with 50 mg of Seroquel at bedtime. I feel his antibiotics can be discontinued completely. He is tentatively scheduled to go to the rehab again tonight. He is going to have to be pushed to exercise because he tends to want to stay in bed all day. He has several weeks into this hospitalization and has a limited ability to ambulate. I am not convinced he is going to recover from this. Job ID: [id number]
[2019-04-06] MEDS ORDERED: Cefdinir 300 MG CAP PO SCH (21:00)
--- NOTE | 2019-04-07 02:26 | PQF ---
JIA GILBERT III, ZBIGNIEW A MD [id number] [address] [place] [address] [id number] CLINICAL DOCUMENTATION CLARIFICATION FORM: POST DISCHARGE Addendum to original discharge summary date: ____ Late entry note date: __ DATE: ATTN: Noel Brunson Please exercise your independent, professional judgment in responding to the clarification form. Clinical indicators are provided on the bottom of this form for your review Please check appropriate box(es): [ ] Sepsis due to: (Pna, UTI, gangrenous gall bladder, etc.) [ ] Severe sepsis with acute organ dysfunction of: (Examples: respiratory failure, encephalopathy, acute kidney failure, other) [ ] Localized infection without sepsis [ x ] Other diagnosis ____mucus plugging [ ] Unable to determine In addition, please specify: Present on Admission (POA): [ x] Yes [ ] No [ ] Unable to determine For continuity of documentation, please document condition throughout progress notes and discharge summary. Thank You. CLINICAL INDICATORS - SIGNS / SYMPTOMS / LABS H and P pg.1- SOB,hypoxia H and P pg.1- CTA performed with no PE but with atelectasis and pneumonia PN 04/05 pg.1- SOB, it is unclear whether there is some additional infection component in this lungs H and P pg.1- chronic hypoxic respiratory failure om 2L at home Laboratory: WBC 14.4, 11.0H RISK FACTORS Health care Pneumonia- H and P pg.4 COPD- H and P pg.4 acute on chronic hypoxic respiratory failure- H and P pg.4 84 years old- H and P pg.1 Paralyzed hemidiaphragm- H and P pg.1 TREATMENTS: Chest X ray 04/04 Chest/thorax CTA 04/04 IV fluids- MAY IV antibiotics- MAY Oxygen supplementation- PN pg.1 Pulmonary Consult- Dr. Ramos (This form is maintained as a part of the permanent medical record) 2014 [employer]. All Rights Reserved [email or web address]
--- NOTE | 2019-04-07 02:29 | PQF ---
[employer] Commercial Credit Head Crystal Reports Winform Viewer GIBLERT ZORAJIA NOEL YEAGER MD [id number] [facility]257 [id number] CLINICAL DOCUMENTATION CLARIFICATION FORM: POST DISCHARGE Addendum to original discharge summary date: ____ Late entry note date: __ DATE: 04/07/19 ATTN: Noel Brunson Please exercise your independent, professional judgment in responding to the clarification form. Clinical indicators are provided on the bottom of this form for your review Can you please further clarify if acute on chronic hypoxic respiratory failure is ruled in or ruled out? Acute on chronic hypoxic respiratory failure [ x] Ruled in diagnosis [ ] Continue to treat [ x ] Resolved [ ] Ruled out diagnosis [ ] Cannot rule out diagnosis [ ] Other diagnosis [ ] Unable to determine In addition, please specify: Present on Admission (POA): [ ] Yes [ ] No [ ] Unable to determine For continuity of documentation, please document condition throughout progress notes and discharge summary. Thank You. CLINICAL INDICATORS - SIGNS / SYMPTOMS / LABS H and P pg.1- SOB,hypoxia H and P pg.1- CTA performed with no PE but with atelectasis and pneumonia PN 04/05 pg.1- SOB, it is unclear whether there is some additional infections component in this lungs H and P pg.1- chronic hypoxic respiratory failure on 2L at home Laboratory: WBC 14.4, 11.0H RISK FACTORS Health care pneumonia- H and P pg.4 COPD- H and P pg.4 Atelectasis- H and P pg.1 84 years old- H and P pg.1 Paralyzed hemidiaphragm- H and P pg.1 TREATMENTS Chest X ray 04/04 Chest/thorax CTA 04/04 IV fluifd- MAY IV antibiotics- MAR Oxygen supplementation- PN pg.1 Pulmonary Consult- Dr. Ramos (This form is maintained as a part of the permanent medical record) 2014 [employer] All Rights Reserved [email or web address]
--- NOTE | 2019-04-07 04:06 | PQF ---
[employer] Electrical Maintenance Mechanic Crystal Reports Winform Viewer VLADIMIR BLAKELY,JIA NOEL YEAGER MD [id number] [facility]257 [id number] CLINICAL DOCUMENTATION CLARIFICATION FORM: POST DISCHARGE Addendum to original discharge summary date: ____ Late entry note date: __ DATE: 04/07/19 ATTN: Noel Brunson Please exercise your independent, professional judgment in responding to the clarification form. Clinical indicators are provided on the bottom of this form for your review Can you please further clarify if Pneumonia is ruled in or ruled out? Pneumonia [ ] Ruled in diagnosis [ ] Continue to treat [ ] Resolved [ x] Ruled out diagnosis [ ] Cannot rule out diagnosis [ ] Other diagnosis [ ] Unable to determine In addition, please specify: Present on Admission (POA): [x ] Yes [ ] No [ ] Unable to determine For continuity of documentation, please document condition throughout progress notes and discharge summary. Thank You. CLINICAL INDICATORS - SIGNS / SYMPTOMS / LABS H and P pg.1- SOB,hypoxia H and P pg.1- CTA performed with no PE but with atelectasis and pneumonia PN 04/05 pg.1- SOB, it is unclear whether there is some additional infectios component in this lungs PN 04/[address] Ramos- "I do not see anything on his radiograph that makes me think that he has pneumonia" PN 04/[address] Ramos- "His chest CT in my opinion just shows atelectatic changes mostly at his right base." PN 04/[address] Ramos- "Atelectasis" 04/[address] Ramos- "Hypoxemia sec to mucus plugging" 04/[address] Ramos- "I would rapidly de-escalate his antibiotics" 04/[address] Ramos-"I feel his antibiotics can be discontinued completely" PN 04/[address] Ramos- "He does need routine nebulizer treatments just for the atelectasis" RISK FACTORS COPD exacerbation- H and P pg.4 Active Smoker- H and P pg.1 Acute Hypoxic respiratory failure- DS pg.1 TREATMENTS Chest X ray 04/04 Pulmonary Consult- Dr. Ramos Oxygen, steroids, bronchodilators- DS pg.1 Antibiotics- MAR IV fluids- MAR (This form is maintained as a part of the permanent medical record) 2014 [employer]. All Rights Reserved [email or web address]
--- NOTE | 2019-04-07 09:24 | DIS ---
DATE OF ADMISSION: 04/05/2019 DATE OF DISCHARGE: 04/06/2019 IMPRESSION AT THE TIME OF DISCHARGE: 1. Atelectasis. 2. Hypoxemia secondary to mucus plugging. 3. Left arm swelling, deep venous thrombosis was ruled out with Doppler. 4. Tachy-nir syndrome and atrial fibrillation, seen by Cardiology. 5. Hypertension. 6. Urinary retention, on Flomax. CONSULTANTS: 1. Dr. Holm, Cardiology Service. 2. Dr. Ramos, Pulmonary Service. HOSPITAL COURSE: The patient is an 84-year-old male, who was transferred from rehabilitation secondary to respiratory distress he developed while being there. Apparently, he desaturated to 70s on 2L. He was brought to the emergency department where he was placed on non-rebreather and transitioned to nasal cannula at 4L. A CT angiogram was performed with negative results for PE but atelectasis versus pneumonia diagnosis was introduced and he was started on antibiotics in the ED and admitted to the hospital. He had left upper extremities swelling and he underwent a Doppler study which did not show any acute thrombotic events. There was no clot in the venous system. The patient was seen by hospice coordinator, who recommended to taper his antibiotic quickly and get him back to the rehab. Also, he was seen by pad assembler Dr. Holm and he recommended to continue his Pradaxa. He did well, although during this hospitalization, he had an episode of choking and he required additional swallow testing based on which modification to his diet was applied. He is doing well. His blood pressure is 135/73, pulse is 66, temperature is 97.5, respiratory rate is 18, O2 saturation is 92%. He is transferred back to the rehab. MEDICATIONS: At the time of discharge: 1. Omnicef 300 mg twice a day for the next three days. 2. Amlodipine 10 mg once a day. 3. Aspirin 81 mg once a day. 4. Atorvastatin 80 mg once a day. 5. Calcium carbonate 600 mg daily. 6. Carvedilol 6.25 mg tablets 12.5 twice a day. 7. Pradaxa 75 mg twice a day. 8. Zetia 10 mg at bedtime. 9. Fenofibrate 145 mg at bedtime. 10. Fluticasone/vilanterol two puffs inhalations twice a day. 11. Magnesium 250 mg every morning. 12. Multivitamin one a day. 13. Ranitidine 150 mg once a day. 14. Flomax 0.4 mg daily. 15. Bisacodyl p.r.n. as needed. 16. Clonidine 0.1 mg twice a day as needed for hypertension. 17. Hydrocodone bitartrate/APAP 5/325, 1 tablet q.4 hours p.r.n. as needed. 18. DuoNeb q.4 hours p.r.n. as needed. 19. Polyethylene glycol 17 g daily. 20. Sennoside/docusate two tablets twice a day p.r.n. as needed. The patient is going to continue his PT and OT. His diet was modified and we are going to send information with the discharge package regarding his current recommendation for the diet. Job ID: [id number]
== END 2019-04-06 17:05 | DRG 205 ==
LOC: ERS 22:30 → 2NO 04-05 02:53
PROVIDERS: ADMIT Internal Medicine; ATTEND Internal Medicine
DX: J98.11 Atelectasis (principal); J96.21 Acute and chronic respiratory failure with hypoxia; I49.5 Sick sinus syndrome; G83.14 Monoplegia of lower limb affecting left nondominant side; J98.6 Disorders of diaphragm; I48.91 Unspecified atrial fibrillation; J44.9 Chronic obstructive pulmonary disease, unspecified; T17.990A Other foreign object in respiratory tract, part unspecified in causing asphyxiation, initial encounter; R33.9 Retention of urine, unspecified; Y95 Nosocomial condition; I10 Essential (primary) hypertension; E78.00 Pure hypercholesterolemia, unspecified; Z99.81 Dependence on supplemental oxygen; Z95.0 Presence of cardiac pacemaker; Z79.899 Other long term (current) drug therapy; Z87.891 Personal history of nicotine dependence
CPT/HCPCS: 36415; 71045; 71275; 80048; 80053; 82553; 83735; 83880; 84443; 84484; 85025; 93005; 94640; 96365; 96375; J0456; J0696; J1630; J3370; J3490; J7050; J7620; Q9967

== ENCOUNTER 2020-04-18 13:36 | Outpatient (CLI) | payer MEDICARE | END 2020-04-18 13:37 | disposition home or self-care (01) | LOC: RAD-FRANK 13:36 | PROVIDERS: ATTEND Nurse Practitioner Family | DX: R06.02 Shortness of breath (principal); J98.11 Atelectasis; Z95.0 Presence of cardiac pacemaker | CPT/HCPCS: 71045 ==

== ENCOUNTER 2020-09-10 10:12 | Outpatient (CLI) | payer MEDICARE | END 2020-09-10 10:13 | disposition home or self-care (01) | LOC: BICRAD 10:12 | PROVIDERS: ATTEND Internal Medicine Critical Care Medicine | DX: R06.00 Dyspnea, unspecified (principal) | CPT/HCPCS: 71046 ==

== ENCOUNTER 2020-10-29 09:50 | Outpatient (CLI) | payer MEDICARE | END 2020-10-29 09:51 | disposition home or self-care (01) | LOC: BICRAD 09:50 | PROVIDERS: ATTEND Internal Medicine Critical Care Medicine | DX: R06.00 Dyspnea, unspecified (principal) | CPT/HCPCS: 71046 ==